=== PATIENT | female | born 1935 | race Caucasian/White ===

== ENCOUNTER → 2016-11-17 05:28 | Emergency (ER) | payer MEDICARE ==
[~2016-11-17 05:28] MED LIST: Aspirin Low Dose CHEW TAB* 81 MG PO ONE; Ketorolac INJ* 30 MG/ML 1 ML VIAL IV PUSH ONE
[2016-11-17 06:13] LABS: Hematocrit 34 % (35-47); Mean Corpuscular HGB Conc 32 g/dl (31-36); Mean Corpuscular Hemoglobin 30 pg (27-31); Mean Corpuscular Volume 95 fL (80-97); Mean Platelet Volume 9 um3 (7.4-10.4); Red Blood Count 3.64 10^6/ul (4.0-5.4); Red Cell Distribution Width 15 % (10.5-15); White Blood Count 5.1 10^3/ul (3.5-10.8)
[2016-11-17 06:26] LABS: Troponin I 0.02 ng/mL (<0.04)
--- NOTE | 2016-11-17 06:36 | ED ---
I, Henrry,Lcuia, scribed for Russ Rivero MD on 11/17/16 at 0619 . HPI Chest Pain - HPI Summary HPI Summary: This 81 y/o female presents to ED for left anterior CP since 0100 AM this morning. CP is described as sharp. Pt states that this episode of chest pain was different from CP last year. Deep breath makes the pain worse. Positive dyspnea. PMHx includes COPD, CHF, afib s/p pacer placement, HTN, and HLD. Primary care involves Dr. Benson. - History of Current Complaint Chief Complaint: EDChestPainROMI Time Seen by Provider: 11/17/16 05:54 Hx Obtained From: Patient, Medical Records Onset/Duration: Atraumatic Timing: Constant Pain Intensity: 5 Pain Scale Used: 0-10 Numeric Chest Pain Location: Diffuse Chest Pain Radiates: No Character: Sharp/Stabbing Aggravating Factor(s): Deep Breaths Alleviating Factor(s): Nothing Associated Signs and Symptoms: Positive: Chest Pain, Shortness of Breath. Negative: Fever - Additional Pertinent History Primary Care Physician: STEPHEN - Allergy/Home Medications Allergies/Adverse Reactions: Allergies Allergy/AdvReac Type Severity Reaction Status Date / Time Latex Allergy Severe Hives Verified 11/17/16 06:14 Penicillins [PCN] Allergy Intermediate Hives Verified 11/17/16 06:14 Prochlorperazine Allergy Intermediate Hives Verified 11/17/16 06:14 [From Compazine] Sulfa Antibiotics Allergy Intermediate Hives Verified 11/17/16 06:14 Aspirin Allergy Mild Hives Verified 11/17/16 06:14 Risperidone [From Risperdal] Allergy Unknown Unknown Verified 11/17/16 06:14 Reaction Details Oxycodone Allergy Hives Verified 11/17/16 06:14 Atorvastatin [From Lipitor] AdvReac Intermediate Muscle Ache Verified 11/17/16 06:14 JOSE Inhibitors AdvReac Mild Coughing Verified 11/17/16 06:14 Bupropion [From Wellbutrin] AdvReac Mild Dizziness Verified 11/17/16 06:14 Iodinated Contrast Media AdvReac Vomiting Verified 11/17/16 06:14 [CONTRAST DYE] BEE STINGS Allergy Severe Hives/Diff. Uncoded 11/17/16 06:14 Breathing/I tching PMH/Surg Hx/FS Hx/Imm Hx Endocrine/Hematology History: Reports: Hx Anticoagulant Therapy, Hx Blood Transfusions, Hx Anemia, Hx Unexplained Bleeding Denies: Hx Diabetes Cardiovascular History: Reports: Hx Angina, Hx 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 chest wall, Hx Hypercholesterolemia, Hx Hypertension, Hx Pacemaker/ICD - 2006, Hx Syncope, Hx Valvular Heart Disease, Other Cardiovascular Problems/Disorders - CAD, VALVULAR HEART DISEASE Denies: Hx Aneurysm, Hx Myocardial Infarction, Hx Rheumatic Fever Comment Only: Hx Coronary Artery Disease - pt states has blockage Respiratory History: Reports: Hx Asthma, Hx Chronic Bronchitis, Hx Chronic Obstructive Pulmonary Disease (COPD), Hx Pneumonia, Hx Pulmonary Embolism - 2002 , Hx Seasonal Allergies, Hx Sleep Apnea GI History: Reports: Hx Diverticulosis, Hx Gastroesophageal Reflux Disease, Hx Ulcer Comment Only: Other GI Disorders - DYSPHAGIA History: Reports: Hx Kidney Infection, Other Problems/Disorders - " bladder disease" Musculoskeletal History: Reports: Hx Arthritis, Hx Back Problems, Hx Bursitis, Hx Gout - great toe on right foot, Hx Osteoporosis Denies: Hx Scoliosis, Hx Tendonitis Sensory History: Reports: Hx Cataracts, Hx Contacts or Glasses - surgery in both eyes Denies: Hx Hearing Aid, Hx Hearing Problem Opthamlomology History: Reports: Hx Cataracts, Hx Contacts or Glasses - surgery in both eyes Neurological History: Reports: Hx Headaches, Hx Transient Ischemic Attacks (TIA ) - x2, Other Neuro Impairments/Disorders - CVA x 4 Psychiatric History: Reports: Hx Anxiety, Hx Eating Disorder, Hx Depression, Hx Community Mental Health Tx - since 1986, Hx Bipolar Disorder - Surgical History Surgery Procedure, Year, and Place: tonsilectomy, tubaligation 1971, cataract surgery Lt 2007, cataract surgery Rt 2008, hysterectomy 1982, pacer 2005, pacer #2 2012, skin graft for villagomez on buttocks Hx Anesthesia Reactions: No Infectious Disease History: No Infectious Disease History: Denies: Traveled Outside the [place] in Last 30 Days - Family History Known Family History: Positive: Cardiac Disease - Social History Alcohol Use: Occasionally Hx Substance Use: No Substance Use Type: Reports: None Hx Tobacco Use: No Smoking Status (MU): Never Smoked Tobacco Review of Systems Negative: Fever Positive: Chest Pain Positive: Shortness Of Breath All Other Systems Reviewed And Are Negative: Yes Physical Exam Triage Information Reviewed: Yes Vital Signs On Initial Exam: Initial Vitals Temp Pulse Resp BP Pulse Ox 97.5 F 85 20 140/96 93 11/17/16 05:29 11/17/16 05:29 11/17/16 05:29 11/17/16 05:29 11/17/16 05:29 Vital Signs Reviewed: Yes Appearance: Positive: Well-Appearing, No Pain Distress Skin: Positive: Warm Eyes: Positive: JENNI ENT: Positive: Hearing grossly normal Neck: Positive: Supple Cardiovascular: Positive: RRR Abdomen Description: Positive: Nontender, Soft Bowel Sounds: Positive: Present Musculoskeletal: Positive: Strength/ROM Intact Neurological: Positive: Alert, Oriented to Person Place, Time Psychiatric: Positive: Affect/Mood Appropriate - [place] Coma Scale Coma Scale Total: 15 Diagnostics - Vital Signs Vital Signs Temp Pulse Resp BP Pulse Ox 11/17/16 05:29 97.5 F 85 20 140/96 93 - Laboratory Result Diagrams: 11/17/16 05:40 11/17/16 05:40 Lab Statement: Any lab studies that have been ordered have been reviewed, and results considered in the medical decision making process. - Radiology CXR Xray Interpretation: Positive (See Comments) - Cardiomegaly otherwise normal Radiology Interpretation Completed By: ED Physician - EKG 0540 EKG Rhythm: Atrial Fibrillation EKG Interpretation: Paced rhythm with intermittent ventricular rhythem EKG Comparison: No Significant Change - 02/25/2016. Chest Pain Course/Dx - Diagnoses Provider Diagnoses: Chest pain Discharge - Discharge Plan Condition: Stable Disposition: OTHER Discharge Disposition Comment: Signed out at shift change. Pending repeat trop and eval Patient Education Materials: Chest Pain (ED) Referrals: Opal Benson MD [Primary Care Provider] - 3 Days The documentation as recorded by the Henrry sotelo Soohyun accurately reflects the service I personally performed and the decisions made by me, Russ Rivero MD.
[2016-11-17 06:40] LABS: Albumin 3.8 g/dL (3.2-5.2); Calcium 8.9 mg/dL (8.6-10.3); EGFR African American 64.7 (>60); EGFR Non-African American 50.3 (>60); Globulin 3.2 g/dL (2-4); Total Bilirubin 0.4 mg/dL (0.2-1.0)
[2016-11-17 06:58] LABS: Urine Bacteria Absent (Absent); Urine Bilirubin Negative (Negative); Urine Glucose Negative (Negative); Urine Nitrite Negative (Negative)
[2016-11-17 09:12] LABS: Magnesium 1.9 mg/dL (1.9-2.7)
[2016-11-17 10:46] VITALS: BP 146/66
--- NOTE | 2016-11-17 10:55 | RAD ---
Indication: Chest pain. 2 views of the chest including dual energy PA views demonstrates cardiomegaly. Pacemaker leads are in place. Hyperinflated lung weinberg are noted. No pleural fluid or pneumonia is identified. IMPRESSION: Cardiomegaly. Hyperinflated lung weinberg are noted.
--- NOTE | 2016-11-17 18:40 | ED ---
Phani Dyer Thomas, scribed for Kirk Holland MD on 11/17/16 at 1025 . Progress - Progress Note Progress Note: The patient is an 81 y/o F who is complaining of chest pain. She is a sign out from Dr. Rivero at 07:00. HE requested to follow up the second troponin and discharge home if the Troponin is negative. The patient is diagnosed with chest pain and is discharged home with follow up from her PCP. I discussed all the findings and test results with the patient. Patient was instructed to return to the emergency room immediately if any of the symptoms return or worsens. Plan of care was discussed with the patient and understands and agrees. All questions were answered at patient satisfaction. There were no further complaints or concerns. Lung exam before discharge: CTA B/L. Good air exchange. No wheezing or crackles heard. CVS: S1 and S2 present. No murmurs appreciated. Patient is alert and oriented x 3. Patient is hemodynamically stable. Patient will be discharged home with follow up PCP in the next 2-3 days Course/Dx - Diagnoses Provider Diagnoses: Chest pain The documentation as recorded by the Phani sotelo Thomas accurately reflects the service I personally performed and the decisions made by me, Kirk Holland MD.
== END ==
LOC: ED 05:28
DX: R07.9 Chest pain, unspecified (principal)
CPT/HCPCS: 36415; 71020; 80053; 81003; 81015; 82550; 83605; 83735; 84484; 85025; 85610; 93005; 99284; J1885

== ENCOUNTER 2017-03-13 11:07 | Emergency (ER) | payer MEDICARE ==
[2017-03-13] MEDS ORDERED: NS 0.9% 1000 ML* 1,000 ML IV ONE (11:22)
[2017-03-13 11:55] LABS: Hematocrit 32 % (35-47); Hemoglobin 10.4 g/dl (12.0-16.0); Mean Corpuscular HGB Conc 33 g/dl (31-36); Mean Corpuscular Hemoglobin 31 pg (27-31); Mean Corpuscular Volume 94 fL (80-97); Mean Platelet Volume 8 um3 (7.4-10.4); Red Cell Distribution Width 14 % (10.5-15)
[2017-03-13 11:59] LABS: Add Diff/Slide Review? Slide Review Added; Comments Flag Yes
[2017-03-13 12:11] LABS: Albumin 3.4 g/dL (3.2-5.2); BUN/Creatinine Ratio 12.7 (8-20); Calcium 8.8 mg/dL (8.6-10.3); EGFR African American 42.9 (>60); EGFR Non-African American 33.3 (>60); Magnesium 1.9 mg/dL (1.9-2.7); Total Bilirubin 0.5 mg/dL (0.2-1.0); Total Protein 6.4 g/dL (6.4-8.9)
[2017-03-13 12:13] LABS: Troponin I 0.01 ng/mL (<0.04)
[2017-03-13 12:55] LABS: TSH (Thyroid Stimulating Horm) 2.05 mcIU/mL (0.34-5.60)
--- NOTE | 2017-03-13 12:58 | RAD ---
INDICATION: Syncope COMPARISON: CT brain April 22, 2014 TECHNIQUE: Noncontrast axial source images were acquired from the skull base to the vertex. FINDINGS: Ventricles/sulci: The ventricles and cisterns are normal in size and configuration for age. Brain parenchyma: There is no focal parenchymal finding, evidence of intracranial mass, or intracranial mass effect. Intracranial hemorrhage:None. Extra-axial spaces: There are no abnormal extra axial fluid collections or evidence of extra-axial mass. Calvarium: There is no calvarial fracture or other calvarial abnormality. Scalp: There is no evidence of scalp or extracalvarial soft tissue abnormality. Paranasal sinuses/mastoid: The paranasal sinuses and mastoid air cells are clear. Other: None. IMPRESSION: NEGATIVE EXAMINATION
[2017-03-13 13:28] LABS: Potassium 4.8 mmol/L (3.5-5.0)
[2017-03-13 13:46] LABS: Benzodiazepine Urine Screen None Detected (None Detect)
[2017-03-13 13:54] LABS: Urine Bacteria Absent (Absent); Urine Bilirubin Negative (Negative); Urine Glucose Negative (Negative); Urine Nitrite Negative (Negative)
[2017-03-13] MEDS ORDERED: Nitrofurantoin Macrocrystals* 100 MG CAP PO ONE (13:58)
[2017-03-13 14:26] VITALS: BP 139/67
--- NOTE | 2017-03-15 09:31 | PN ---
Progress Note - Progress Note Date of Service: 03/13/17 Note: patient diagnosed and treated for UTI. Placed on Macrobid. Preliminary results grew e.coli 50-75,000. will wait for final culture results however should have appropriate coverage. no further changes required at this time.
--- NOTE | 2017-03-15 18:32 | ED ---
Justen Dyer Angela, scribed for Kirk Holland MD on 03/13/17 at 1121 . Syncope/Near Syncope - HPI Summary HPI Summary: This pt is a 81 y/o female presenting to [facility] from [facility] after a syncopal episode during an outpatient CT. Pt reports she was getting a CT and as she sat up to get off the table, pt had a syncopal episode. Pt had LOC for approximately 30 seconds. There was no head strike or trauma. She states Dr. Ramos ordered a CT to locate a clot that was seen in a prior chest XR today. Pt notes feeling better currently. She denies SOB, chest pain, nausea, vomiting , diarrhea, constipation. Pt additionally c/o chronic urinary incontinence and wearing a diaper since 2013. - History Of Current Complaint Chief Complaint: EDSyncope Time Seen by Provider: 03/13/17 11:13 Hx Obtained From: Patient Onset/Duration: Sudden Onset, Resolved Timing: Minutes Context: Witnessed Associated Head Trauma: No Associated Signs And Symptoms: Other - NEG: SOB, chest pain, nausea, vomiting, diarrhea, constipation. POS: chronic urinary incontinence. - Allergies/Home Medications Allergies/Adverse Reactions: Allergies Allergy/AdvReac Type Severity Reaction Status Date / Time Latex Allergy Severe Hives Verified 03/13/17 11:13 Penicillins [PCN] Allergy Intermediate Hives Verified 03/13/17 11:13 Prochlorperazine Allergy Intermediate Hives Verified 03/13/17 11:13 [From Compazine] Sulfa Antibiotics Allergy Intermediate Hives Verified 03/13/17 11:13 Aspirin Allergy Mild Hives Verified 03/13/17 11:13 Risperidone [From Risperdal] Allergy Unknown Unknown Verified 03/13/17 11:13 Reaction Details Oxycodone Allergy Hives Verified 03/13/17 11:13 Procaine [From Novocain] Allergy Dizziness Verified 03/13/17 11:13 Atorvastatin [From Lipitor] AdvReac Intermediate Muscle Ache Verified 03/13/17 11:13 JOSE Inhibitors AdvReac Mild Coughing Verified 03/13/17 11:13 Bupropion [From Wellbutrin] AdvReac Mild Dizziness Verified 03/13/17 11:13 Iodinated Contrast Media AdvReac Vomiting Verified 03/13/17 11:13 [CONTRAST DYE] BEE STINGS Allergy Severe Hives/Diff. Uncoded 03/13/17 11:13 Breathing/I tching Home Medications: Home Medications Warfarin TAB(*) [Coumadin TAB(*)] 2.5 mg PO .Friday03/13/17 [History Confirmed 03/13/17] PMH/Surg Hx/FS Hx/Imm Hx Endocrine/Hematology History: Reports: Hx Anticoagulant Therapy, Hx Blood Transfusions, Hx Anemia, Hx Unexplained Bleeding Denies: Hx Diabetes Cardiovascular History: Reports: Hx Angina, Hx 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 chest wall, Hx Hypercholesterolemia, Hx Hypertension, Hx Pacemaker/ICD, Hx Syncope, Hx Valvular Heart Disease, Other Cardiovascular Problems/Disorders - CAD, VALVULAR HEART DISEASE Denies: Hx Aneurysm, Hx Myocardial Infarction, Hx Rheumatic Fever Comment Only: Hx Coronary Artery Disease - pt states has blockage Respiratory History: Reports: Hx Asthma, Hx Chronic Bronchitis, Hx Chronic Obstructive Pulmonary Disease (COPD), Hx Pneumonia, Hx Pulmonary Embolism - 2002 , Hx Seasonal Allergies, Hx Sleep Apnea GI History: Reports: Hx Diverticulosis, Hx Gastroesophageal Reflux Disease, Hx Ulcer Comment Only: Other GI Disorders - DYSPHAGIA History: Reports: Hx Kidney Infection, Other Problems/Disorders - " bladder disease" Musculoskeletal History: Reports: Hx Arthritis, Hx Back Problems, Hx Bursitis, Hx Gout - great toe on right foot, Hx Osteoporosis Denies: Hx Scoliosis, Hx Tendonitis Sensory History: Reports: Hx Cataracts, Hx Contacts or Glasses - surgery in both eyes Denies: Hx Hearing Aid, Hx Hearing Problem Opthamlomology History: Reports: Hx Cataracts, Hx Contacts or Glasses - surgery in both eyes Neurological History: Reports: Hx Headaches, Hx Transient Ischemic Attacks (TIA ) - x2, Other Neuro Impairments/Disorders - CVA x 4 Psychiatric History: Reports: Hx Anxiety, Hx Eating Disorder, Hx Depression, Hx Community Mental Health Tx - since 1986, Hx Bipolar Disorder - Surgical History Surgery Procedure, Year, and Place: tonsilectomy, tubal igation 1971, cataract surgery Lt 2007, cataract surgery Rt 2008, hysterectomy 1981, pacer 2005, pacer #2 2012, skin graft for villagomez on buttocks Hx Anesthesia Reactions: No Infectious Disease History: No Infectious Disease History: Denies: Traveled Outside the [place] in Last 30 Days - Family History Known Family History: Positive: Cardiac Disease - Social History Alcohol Use: Occasionally Hx Substance Use: No Substance Use Type: Reports: None Hx Tobacco Use: No Smoking Status (MU): Never Smoked Tobacco Review of Systems Negative: Fever, Chills Negative: Chest Pain Negative: Shortness Of Breath Negative: Vomiting, Diarrhea, Nausea, Other - constipation Positive: incontinence - chronic urinary incontinence Musculoskeletal: Negative Skin: Negative Positive: Syncope - and LOC All Other Systems Reviewed And Are Negative: Yes Physical Exam - Summary Physical Exam Summary: VITAL SIGNS: Reviewed. GENERAL: Patient is an elderly female who is lying comfortable in the stretcher. Patient is not in any acute respiratory distress. HEAD AND FACE: No signs of trauma. No ecchymosis, hematomas or skull depressions. No sinus tenderness. EYES: PERRLA, EOMI x 2, No injected conjunctiva, no nystagmus. EARS: Hearing grossly intact. Ear canals and tympanic membranes are within normal limits. MOUTH: Oropharynx within normal limits. Pt has dry nasal and oral mucosa. NECK: Supple, trachea is midline, no adenopathy, no JVD, no carotid bruit, no c- spine tenderness, neck with full ROM. CHEST: Symmetric, no tenderness at palpation LUNGS: Clear to auscultation bilaterally. No wheezing or crackles. CVS: Regular rate and rhythm, S1 and S2 present, no murmurs or gallops appreciated. ABDOMEN: Soft, non-tender. No signs of distention. No rebound no guarding, and no masses palpated. Bowel sounds are normal. EXTREMITIES: FROM in all major joints, no edema, no cyanosis or clubbing. NEURO: Alert and oriented x 3. No acute neurological deficits. Speech is normal and follows commands. SKIN: Dry and warm GCS: 15 Triage Information Reviewed: Yes Vital Signs On Initial Exam: Initial Vitals Temp Pulse Resp BP Pulse Ox 98.5 F 61 17 131/55 100 03/13/17 11:11 03/13/17 11:11 03/13/17 11:11 03/13/17 11:11 03/13/17 11:11 Vital Signs Reviewed: Yes - Jeri Coma Scale Coma Scale Total: 15 Diagnostics - Vital Signs Vital Signs Temp Pulse Resp BP Pulse Ox 03/13/17 11:11 98.5 F 61 22 131/55 100 - Laboratory Result Diagrams: 03/13/17 11:43 03/13/17 11:43 Lab Statement: Any lab studies that have been ordered have been reviewed, and results considered in the medical decision making process. - CT Brain CT CT Interpretation: No Acute Changes - IMPRESSION: Negative examination. ED physician has reviewed this radiology report and agrees. CT Interpretation Completed By: Radiologist - EKG 11:55 Cardiac Rate: NL EKG Rhythm: Atrial Fibrillation - at 60 bpm EKG Interpretation: with alternating paced beats Course/Dx Assessment/Plan: This pt is a 81 y/o female presenting to [facility] from [facility] after a syncopal episode during an outpatient CT. Pt reports she was getting a CT and as she sat up to get off the table, pt had a syncopal episode. Pt had LOC for approximately 30 seconds. There was no head strike or trauma. She states Dr. Ramos ordered a CT to locate a clot that was seen in a prior chest XR today. Pt notes feeling better currently. She denies SOB, chest pain, nausea, vomiting, diarrhea, constipation. Pt additionally c/o chronic urinary incontinence and wearing a diaper since 2013. Test results without any significant abnormalities except for slight anemia and creatinine of 1.50. Urinalysis is positive for a UTI. Therefore, the pt was given IV fluids and Nitrofurantoin for UTI. Brain CT shows a negative examination. Therefore, since the pt is feeling better, the pt will be discharged home with follow up from her PCP. Pt is hemodynamically stable, alert and oriented x3. - Diagnoses Provider Diagnoses: UTI (urinary tract infection), Vasovagal syncope Discharge - Discharge Plan Condition: Stable Disposition: HOME Prescriptions: Nitrofurantoin Macrocrystals* [Macrodantin*] 100 mg PO BID #20 cap Patient Education Materials: Urinary Tract Infection in Women (ED), Syncope (ED ) Referrals: Opal Benson MD [Primary Care Provider] - Additional Instructions: Please follow up with your primary care provider. RETURN TO THE ED FOR ANY WORSENING SYMPTOMS. The documentation as recorded by the Justen sotelo Angela accurately reflects the service I personally performed and the decisions made by , Kirk Holland MD.
--- NOTE | 2017-03-16 15:13 | ED ---
Progress - Progress Note Progress Note: Pt's final sens indicates nitrofurantoin is effective. No change at this time. Course/Dx - Diagnoses Provider Diagnoses: UTI (urinary tract infection), Vasovagal syncope
== END 2017-03-13 14:25 | disposition home or self-care (01) ==
LOC: ED 11:07
DX: N39.0 Urinary tract infection, site not specified (principal); R55 Syncope and collapse; Z88.0 Allergy status to penicillin; Z79.01 Long term (current) use of anticoagulants; B96.20 Unspecified Escherichia coli [E. coli] as the cause of diseases classified elsewhere
CPT/HCPCS: 36415; 70450; 80053; 80307; 81003; 81015; 82550; 83605; 83735; 83880; 84443; 84484; 85025; 85060; 85730; 87077; 87086; 87186; 93005; 96360; 99283; A9270-GY

== ENCOUNTER 2018-01-10 15:33 | Emergency (ER) | payer MEDICARE ==
[2018-01-10] MEDS ORDERED: Acetaminophen TAB* 325 MG PO ONE (16:46)
--- NOTE | 2018-01-10 17:31 | RAD ---
Indication: LEFT forehead hematoma post fall. Anticoagulated. Comparison: March 13, 2017 Technique: Noncontrast CT vertex of skull through foramen magnum. Report: Mild prominence of the cerebral sulci and cerebellar fissures reflecting atrophy. Negative for strauss matter white matter obscuration, intra or extra-axial hemorrhage, or mass effect. Soft tissue swelling superficial to the LEFT eye and extending over the forehead. Negative for post septal LEFT orbital hematoma. The LEFT optic globe is symmetric with the RIGHT. Negative for calvarial or skull base fracture. Clear visualized paranasal sinuses and mastoid air spaces. Large volume of cerumen noted in the external auditory canals. IMPRESSION: #. Soft tissue swelling superficial to the LEFT eye and extending over the forehead. Negative for post septal LEFT orbital hematoma. #. Negative for fracture. #. No CT evidence for traumatic brain injury.
--- NOTE | 2018-01-10 17:33 | ED ---
Head Injury - HPI Summary HPI Summary: Patient is an 82-year-old female presenting from home after mechanical fall, "I tripped over my patient leg" and hitting her head and left side. She denies any pain to the left hip, leg, chest. She endorses pain just superior to the left eye with a large cephalohematoma, bruising and swelling. She denies any LOC. Denies any headache, confusion, memory loss, visual changes. She is also endorsing mild tenderness to the lower quadrant of the abdomen, but states this is very mild and would like Tylenol for this. She has not taken any medication [employer]. Patient endorses blood thinners. She is incontinent at baseline and has a home health aide who was at her side within the fall occurred. She states she 's been feeling otherwise well. - History Of Current Complaint Chief Complaint: EDHeadInjury Stated Complaint: FALL Time Seen by Provider: 01/10/18 15:34 Hx Obtained From: Patient Mechanism Of Injury: Blunt Trauma Onset/Duration: Started Hours Ago Onset of Pain: Hours Severity Currently: Moderate Severity Initially: Mild Pain Intensity: 4 Pain Scale Used: 0-10 Numeric Location of Head Injury: Frontal Character: Dull Alleviating Factor(s): Ice Associated Signs And Symptoms: Negative Anticoagulant Therapy: Blood Thinners - Risk Factors SDH Risk Factor: Elderly - Allergies/Home Medications Allergies/Adverse Reactions: Allergies Allergy/AdvReac Type Severity Reaction Status Date / Time JOSE Inhibitors Allergy Coughing Verified 01/10/18 15:50 aspirin Allergy Hives Verified 01/10/18 15:50 atorvastatin Allergy Muscle Ache Verified 01/10/18 15:50 bee venom protein (honey bee) Allergy Hives/Diff. Verified 01/10/18 15:50 Breathing/I tching bupropion Allergy Dizziness Verified 01/10/18 15:50 Iodinated Contrast- Oral and Allergy Vomiting Verified 01/10/18 15:50 IV Dye latex Allergy Hives Verified 01/10/18 15:50 oxycodone Allergy Hives Verified 01/10/18 15:50 Penicillins Allergy Hives Verified 01/10/18 15:50 procaine Allergy Dizziness Verified 01/10/18 15:50 prochlorperazine Allergy Hives Verified 01/10/18 15:50 risperidone Allergy Unknown Verified 01/10/18 15:50 Reaction Details Sulfa (Sulfonamide Allergy Hives Verified 01/10/18 15:50 Antibiotics) PMH/Surg Hx/FS Hx/Imm Hx Previously Healthy: Yes Endocrine/Hematology History: Reports: Hx Anticoagulant Therapy, Hx Blood Transfusions, Hx Anemia, Hx Unexplained Bleeding Denies: Hx Diabetes Cardiovascular History: Reports: Hx Angina, Hx 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 chest wall, Hx Hypercholesterolemia, Hx Hypertension, Hx Pacemaker/ICD, Hx Syncope, Hx Valvular Heart Disease, Other Cardiovascular Problems/Disorders - CAD, VALVULAR HEART DISEASE Denies: Hx Aneurysm, Hx Myocardial Infarction, Hx Rheumatic Fever Comment Only: Hx Coronary Artery Disease - pt states has blockage Respiratory History: Reports: Hx Asthma, Hx Chronic Bronchitis, Hx Chronic Obstructive Pulmonary Disease (COPD), Hx Pneumonia, Hx Pulmonary Embolism - 2002 , Hx Seasonal Allergies, Hx Sleep Apnea GI History: Reports: Hx Diverticulosis, Hx Gastroesophageal Reflux Disease, Hx Ulcer Comment Only: Other GI Disorders - DYSPHAGIA History: Reports: Hx Kidney Infection, Other Problems/Disorders - " bladder disease" Musculoskeletal History: Reports: Hx Arthritis, Hx Back Problems, Hx Bursitis, Hx Gout - great toe on right foot, Hx Osteoporosis Denies: Hx Scoliosis, Hx Tendonitis Sensory History: Reports: Hx Cataracts, Hx Contacts or Glasses - surgery in both eyes Denies: Hx Hearing Aid, Hx Hearing Problem Opthamlomology History: Reports: Hx Cataracts, Hx Contacts or Glasses - surgery in both eyes Neurological History: Reports: Hx Headaches, Hx Transient Ischemic Attacks (TIA ) - x2, Other Neuro Impairments/Disorders - CVA x 4 Psychiatric History: Reports: Hx Anxiety, Hx Eating Disorder, Hx Depression, Hx Community Mental Health Tx - since 1986, Hx Bipolar Disorder - Surgical History Surgery Procedure, Year, and Place: tonsilectomy, tubal igation 1971, cataract surgery Lt 2007, cataract surgery Rt 2008, hysterectomy 1981, pacer 2005, pacer #2 2012, skin graft for villagomez on buttocks Hx Anesthesia Reactions: No - Immunization History Hx Pertussis Vaccination: No Immunizations Up to Date: Yes Infectious Disease History: No Infectious Disease History: Denies: Traveled Outside the [place] in Last 30 Days - Family History Known Family History: Positive: Cardiac Disease - Social History Occupation: Unemployed, Retired Lives: Alone - with home health aid Alcohol Use: None Hx Substance Use: No Substance Use Type: Reports: None Hx Tobacco Use: No Smoking Status (MU): Never Smoked Tobacco Review of Systems Negative: Fever, Chills, Fatigue, Skin Diaphoresis Negative: Epistaxis, Dental Pain Negative: Palpitations, Chest Pain Genitourinary: Negative Positive: no symptoms reported, see HPI Negative: Arthralgia, Myalgia Positive: Other - cephalohematoma - Left eye Neurological: Negative All Other Systems Reviewed And Are Negative: Yes Physical Exam Triage Information Reviewed: Yes Vital Signs On Initial Exam: Initial Vitals Temp Pulse Resp BP Pulse Ox 97.7 F 72 25 156/67 96 01/10/18 15:34 01/10/18 15:34 01/10/18 15:34 01/10/18 15:34 01/10/18 15:34 Vital Signs Reviewed: Yes Appearance: Positive: Well-Appearing, Well-Nourished Skin: Positive: Skin Color Reflects Adequate Perfusion, Other - cephalohematoma Head/Face: Positive: Cephalohematoma - left eye Neck: Positive: Supple, No Lymphadenopathy Respiratory/Lung Sounds: Positive: Clear to Auscultation, Breath Sounds Present Cardiovascular: Positive: RRR, Pulses are Symmetrical in both Upper and Lower Extremities Musculoskeletal: Positive: Strength/ROM Intact - log rolled patient without pain Neurological: Positive: Speech Normal Psychiatric: Positive: Normal, Affect/Mood Appropriate Diagnostics - Vital Signs Vital Signs Temp Pulse Resp BP Pulse Ox 01/10/18 15:34 97.7 F 72 25 156/67 96 - Laboratory Result Diagrams: 01/10/18 17:58 01/10/18 17:58 Lab Statement: Any lab studies that have been ordered have been reviewed, and results considered in the medical decision making process. Head Injury Course/Dx Course Of Treatment: During the course of treatment, patient is given a Tylenol with good relief. Cephalohematoma noted just superior to the left eye. CT brain obtained which shows no intracranial pathologies, however notes to the cephalohematoma. CT cervical spine obtained which shows no pathologies. There is no ecchymosis or erythema to the abdomen. No other signs of trauma. Log rolled patient with no hip pain. She is signed out to Lai Baker PA-C pending results of CT abd/pelvis and UA. - Diagnoses Differential Diagnosis/HQI/PQRI: Contusion Provider Diagnoses: Traumatic cephalohematoma, Fall Discharge - Sign-Out/Discharge Documenting (check all that apply): Sign-Out Patient Signing out patient TO: Lai Baker - Discharge Plan Condition: Good Disposition: HOME Prescriptions: Cephalexin CAP* [Keflex CAP*] 500 mg PO BID #20 cap Patient Education Materials: Urinary Tract Infection in Women (ED), Fall Prevention for Older Adults (ED), Scalp Contusion in Adults (ED) Referrals: Opal Benson MD [Primary Care Provider] - Additional Instructions: Call your PCP office on Friday for an appointment Take antibiotic as directed Ice face intermittently Can take tylenol for pain as directed Return to ER if symptoms change or worsen - Billing Disposition and Condition Condition: GOOD Disposition: Home
--- NOTE | 2018-01-10 17:38 | RAD ---
INDICATION: Fall with LEFT side forehead hematoma. Anticoagulated. COMPARISON: No relevant prior exams available on the [facility] PACS for comparison. TECHNIQUE: Multidetector CT images foramen magnum to lung apices without contrast. Multiplanar reformation. REPORT: Normal vertebral alignment accounting for exam positioning without spondylolisthesis or subluxation at any level. Negative for cervical vertebral body or posterior element fracture. Negative for paravertebral hematoma. Multilevel degenerative spondylosis and facet joint osteoarthritis. At C4-C5 there is moderately severe disc space narrowing. Mild dorsal disc osteophyte complex results in minimal impression on the anterior margin of the thecal sac. Uncinate process spurring results in moderate LEFT foraminal stenosis. At C5-C6 there is moderate disc space narrowing. Dorsal disc osteophyte complex results in minimal impression on the ventral margin of the thecal sac. Uncinate process spurring and facet joint osteoarthritis results in mild bilateral foraminal stenosis. At C6-C7 there is severe disc space narrowing. Moderate dorsal disc osteophyte complex eccentric to the LEFT results in mild impression on the thecal sac. Uncinate process spurring and facet joint osteoarthritis results in severe LEFT foraminal stenosis. IMPRESSION: #. No CT evidence for traumatic cervical spine injury. #. 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
[2018-01-10 18:10] LABS: ABS Basophils 0 10^3/ul (0-0.2); ABS Eosinophils 0 10^3/ul (0-0.6); ABS Monocytes 0.5 10^3/ul (0-0.8); ABS Neutrophils 3.6 10^3/ul (1.5-7.7); ABS Nucleated RBC 0 10^3/ul; Eosinophil % 0.9 % (0-6); Hematocrit 37 % (35-47); Hemoglobin 12.1 g/dl (12.0-16.0); Lymphocyte % 19.7 % (25-47); Mean Corpuscular HGB Conc 33 g/dl (31-36); Mean Corpuscular Hemoglobin 31 pg (27-31); Mean Corpuscular Volume 95 fL (80-97); Mean Platelet Volume 7.7 um3 (7.4-10.4); Nucleated Red Blood Cells % 0.1; Platelet Count 101 10^3/ul (150-450); Red Blood Count 3.89 10^6/ul (4.00-5.40); Red Cell Distribution Width 14 % (10.5-15); White Blood Count 5.1 10^3/ul (3.5-10.8)
[2018-01-10 18:36] LABS: EGFR Non-African American 46.6 (>60)
--- NOTE | 2018-01-10 19:55 | RAD ---
EXAM: CT Abdomen and Pelvis Without Intravenous Contrast CLINICAL HISTORY: 82 years old, female; Pain and injury or trauma; Fall; Initial encounter; Abrasion; Abdominal pain; Additional info: Fall, pain TECHNIQUE: Axial computed tomography images of the abdomen and pelvis without intravenous contrast. All CT scans at this facility use at least one of these dose optimization techniques: automated exposure control; mA and/or kV adjustment per patient size (includes targeted exams where dose is matched to clinical indication); or iterative reconstruction. Coronal and sagittal reformatted images were created and reviewed. COMPARISON: ABD WO CT ABDOMEN W/O 03/15/2014 3:57 PM FINDINGS: Limitations: Evaluation of parenchymal organs is limited by lack of intravenous contrast. No gross laceration or suspicious mass. Lung bases: See below. ABDOMEN: Liver: Unremarkable. Gallbladder and bile ducts: Unremarkable. No calcified stones. No ductal dilation. Pancreas: Unremarkable. No ductal dilation. Spleen: Mildly enlarged spleen. Unchanged pleural millimeters splenic cyst. Adrenals: Unremarkable. No mass. Kidneys and ureters: Unremarkable. No obstructing stones. No hydronephrosis. Stomach and bowel: Extensive diverticulosis without diverticulitis. No obstruction. PELVIS: Appendix: No findings to suggest acute appendicitis. Bladder: Incomplete distension versus underlying inflammation, or other infiltrative pathology, with possible wall thickening of the urinary bladder. No stones. Reproductive: Unremarkable as visualized. ABDOMEN and PELVIS: Intraperitoneal space: Unremarkable. No free air. No significant fluid collection. Bones/joints: Old left rib fractures. Moderate skeletal degenerative change. No dislocation. Soft tissues: Unremarkable. Vasculature: Moderate atherosclerosis. Lymph nodes: Unremarkable. No enlarged lymph nodes. Other findings: . IMPRESSION: 1. Evaluation of parenchymal organs is limited by lack of intravenous contrast. No gross laceration or suspicious mass. 2. Mildly enlarged spleen. Unchanged pleural 12 mm splenic cyst. 3. Incomplete distension versus underlying inflammation, or other infiltrative pathology, with possible wall thickening of the urinary bladder. To contact [facility] with a general question: [facility] - [phone] For direct physician to physician contact: Physician Hotline - [phone] [facility] ([facility] Facility ID #[id number])
[2018-01-10 20:43] LABS: Urine Appearance Clear; Urine Blood Negative (Negative); Urine Color Straw; Urine Ketones Negative (Negative); Urine Protein Negative (Negative); Urine Red Blood Cell 1+(3-5/hpf) (Absent); Urine Specific Gravity 1.009 (1.010-1.030); Urine Urobilinogen Negative (Negative); Urine White Blood Cell 3+(>20/hpf) (Absent)
[2018-01-10] MEDS ORDERED: Cephalexin SUSP* 250 MG/5 ML ORAL.SUSP 100 ML BTL PO ONE (21:15)
[2018-01-10 22:14] VITALS: BP 183/65
--- NOTE | 2018-01-10 23:29 | PN ---
Progress Note - Progress Note Date of Service: 01/10/18 Note: Pt. received in sign out from LOVE Britton for abd.pelvis ct results. Abd/pelvic CT per virtual radiology: IMPRESSION: 1. Evaluation of parenchymal organs is limited by lack of intravenous contrast. No gross laceration or suspicious mass. 2. Mildly enlarged spleen. Unchanged pleural 12 mm splenic cyst. 3. Incomplete distension versus underlying inflammation, or other infiltrative pathology, with possible wall thickening of the urinary bladder. Pt. was re-examined. She is resting comfortably on bed. CT results were discussed with Dr. Randall. On exam pt. states pain is mostly to her LLQ. She does have some mild LUQ pain but abd. is soft without guarding or rigidity. U/A is contaminated but does show large amount of WBCs and RBCs, will treat for suspected UTI. Will start on keflex based on previous urine cultures. Pt. to call PCP on Friday for close f.u apt. To return to ER if sxs change or worsen. Pt. understands and agrees with plan. Disposition: home Condition: Good Dx: 1. Fall 2. Facial contusion 3. UTI
== END 2018-01-10 21:25 | disposition home or self-care (01) ==
LOC: ED 15:33
DX: S00.83XA Contusion of other part of head, initial encounter (principal); N39.0 Urinary tract infection, site not specified; W18.09XA Striking against other object with subsequent fall, initial encounter; Y92.009 Unspecified place in unspecified non-institutional (private) residence as the place of occurrence of the external cause; R32 Unspecified urinary incontinence; Z86.73 Personal history of transient ischemic attack (TIA), and cerebral infarction without residual deficits
CPT/HCPCS: 36415; 70450; 72125; 74176; 80053; 81003; 81015; 85025; 87086; 99284; A9270-GY

== ENCOUNTER 2018-02-03 11:48 | Inpatient (IN) | payer MEDICARE ==
[2018-02-03] MEDS ORDERED: NS 0.9% 1000 ML* 1,000 ML IV ONE (11:56)
[2018-02-03] MEDS ORDERED: Levofloxacin 750 MG IVPREMIX(* 750 MG/150 ML BAG IVPB ONE (12:10)
--- NOTE | 2018-02-03 12:10 | ED ---
Neurological HPI - HPI Summary HPI Summary: Pt is an 82 y/o female brought in by EMS who presents to the ED c/o neurological deficit. She began to have slurred speech and left-sided weakness at 10:16 today, witnessed by her home nurse. EMS was not called until 11:09. She also c/o fever and dysuria. Pt is on Coumadin and is allergic to contrast. 1 week ago a large chunk of ceiling fell directly on her from a height of 18 feet. Anh Rob called at 11:27, ETA 20 minutes. - History of Current Complaint Stated Complaint: ANH SUBRAMANIAN Hx Obtained From: EMS Onset/Duration: Gradual Onset, Still Present Timing: Constant Neurological Deficit Location: Generalized Character: Weak, Impaired Speech Aggravating: Nothing Alleviating: Nothing TPA Considered: No - on Coumadin - Additional Pertinent History Primary Care Physician: STEPHEN - Allergy/Home Medications Allergies/Adverse Reactions: Allergies Allergy/AdvReac Type Severity Reaction Status Date / Time JOSE Inhibitors Allergy Coughing Verified 01/10/18 15:50 aspirin Allergy Hives Verified 01/10/18 15:50 atorvastatin Allergy Muscle Ache Verified 01/10/18 15:50 bee venom protein (honey bee) Allergy Hives/Diff. Verified 01/10/18 15:50 Breathing/I tching bupropion Allergy Dizziness Verified 01/10/18 15:50 Iodinated Contrast- Oral and Allergy Vomiting Verified 01/10/18 15:50 IV Dye latex Allergy Hives Verified 01/10/18 15:50 oxycodone Allergy Hives Verified 01/10/18 15:50 Penicillins Allergy Hives Verified 01/10/18 15:50 procaine Allergy Dizziness Verified 01/10/18 15:50 prochlorperazine Allergy Hives Verified 01/10/18 15:50 risperidone Allergy Unknown Verified 01/10/18 15:50 Reaction Details Sulfa (Sulfonamide Allergy Hives Verified 01/10/18 15:50 Antibiotics) Home Medications: Home Medications Acetaminophen [Acetaminophen Extra Strength] 1,000 mg PO BEDTIME PRN 02/03/18 [ History Confirmed 02/03/18] Albuterol HFA INHALER* [Ventolin HFA Inhaler*] 2 puff INH Q4H PRN 02/03/18 [ History Confirmed 02/03/18] Digoxin TAB* [Lanoxin TAB*] 0.125 mg PO DAILY 02/03/18 [History Confirmed ] Divalproex ER TAB(*) [Depakote ER TAB(*)] 500 mg PO BID 02/03/18 [History Confirmed 02/03/18] Fluticasone HFA 220 mcg(NF) [Flovent HFA 220 Mcg(NF)] 2 puff INH BID 02/03/18 [ History Confirmed 02/03/18] Meclizine TAB* [Antivert 12.5 TAB*] 12.5 mg PO TID PRN 02/03/18 [History Confirmed 02/03/18] Metoprolol Tartrate TAB* [Lopressor TAB*] 50 mg PO BID 02/03/18 [History Confirmed 02/03/18] Pravastatin (NF) [Pravachol (NF)] 80 mg PO DAILY 02/03/18 [History Confirmed ] Warfarin TAB(*) [Coumadin TAB(*)] 5 mg PO SUMOTUWEFRSA 02/03/18 [History Confirmed 02/03/18] Warfarin TAB(*) [Coumadin TAB(*)] 7.5 mg PO TH 02/03/18 [History Confirmed 02/03] PMH/Surg Hx/FS Hx/Imm Hx Endocrine/Hematology History: Reports: Hx Anticoagulant Therapy, Hx Blood Transfusions, Hx Anemia, Hx Unexplained Bleeding Denies: Hx Diabetes Cardiovascular History: Reports: Hx Angina, Hx 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 chest wall, Hx Hypercholesterolemia, Hx Hypertension, Hx Pacemaker/ICD, Hx Syncope, Hx Valvular Heart Disease, Other Cardiovascular Problems/Disorders - CAD, VALVULAR HEART DISEASE Denies: Hx Aneurysm, Hx Myocardial Infarction, Hx Rheumatic Fever Comment Only: Hx Coronary Artery Disease - pt states has blockage Respiratory History: Reports: Hx Asthma, Hx Chronic Bronchitis, Hx Chronic Obstructive Pulmonary Disease (COPD), Hx Pneumonia, Hx Pulmonary Embolism - 2002 , Hx Seasonal Allergies, Hx Sleep Apnea GI History: Reports: Hx Diverticulosis, Hx Gastroesophageal Reflux Disease, Hx Ulcer Comment Only: Other GI Disorders - DYSPHAGIA History: Reports: Hx Kidney Infection, Other Problems/Disorders - " bladder disease" Musculoskeletal History: Reports: Hx Arthritis, Hx Back Problems, Hx Bursitis, Hx Gout - great toe on right foot, Hx Osteoporosis Denies: Hx Scoliosis, Hx Tendonitis Sensory History: Reports: Hx Cataracts, Hx Contacts or Glasses - surgery in both eyes Denies: Hx Hearing Aid, Hx Hearing Problem Opthamlomology History: Reports: Hx Cataracts, Hx Contacts or Glasses - surgery in both eyes Neurological History: Reports: Hx Headaches, Hx Transient Ischemic Attacks (TIA ) - x2, Other Neuro Impairments/Disorders - CVA x 4 Psychiatric History: Reports: Hx Anxiety, Hx Eating Disorder, Hx Depression, Hx Community Mental [facility] Tx - since 1986, Hx Bipolar Disorder - Surgical History Surgery Procedure, Year, and Place: tonsilectomy, tubal igation 1971, cataract surgery Lt 2007, cataract surgery Rt 2008, hysterectomy 1981, pacer 2005, pacer #2 2012, skin graft for villagomez on buttocks Hx Anesthesia Reactions: No Infectious Disease History: Denies: Traveled Outside the [place] in Last 30 Days - Family History Known Family History: Positive: Cardiac Disease - Social History Alcohol Use: None Hx Substance Use: No Substance Use Type: Reports: None Hx Tobacco Use: No Smoking Status (MU): Never Smoked Tobacco Review of Systems Positive: dysuria Positive: Weakness - Left-sided, Slurred Speech All Other Systems Reviewed And Are Negative: Yes Physical Exam - Summary Physical Exam Summary: Appearance: Well appearing, no pain distress Skin: warm, dry, reflects adequate perfusion, bruise on L maxilla Head/face: normal Eyes: EOMI, JENNI ENT: mucous membranes moist Neck: supple, non-tender Respiratory: CTA, breath sounds present Cardiovascular: heart irregular, pulses symmetrical Abdomen: non-tender, soft Bowel Sounds: present Musculoskeletal: normal, strength/ROM intact Neuro: confusion, symmetric LE weakness, mildly slurred speech, mild aphasia without any definite lateralizing signs GCS: 14 Triage Information Reviewed: Yes Vital Signs Reviewed: Yes Diagnostics - Laboratory Result Diagrams: 02/03/18 12:14 02/03/18 12:14 Lab Statement: Any lab studies that have been ordered have been reviewed, and results considered in the medical decision making process. - Radiology CXR Radiology Interpretation Completed By: Radiologist - Stigmata of obstructive lung disease. Cardiomegaly. No acute cardiopulmonary process evident. ED physician reviewed radiology report. - CT Brain CT CT Interpretation Completed By: Radiologist - No intracranial mass or hemorrhage is noted. Dr. Carney was notified of the results at 12:21 PM. ED physician reviewed radiology report. - EKG 12:12 Cardiac Rate: Other Rate - Rapid AFib 104 bpm EKG Rhythm: Atrial Fibrillation Ectopy: PVCs Summary of EKG Findings: Nl axis, T-wave inversion inferiolaterally NIH Scale - NIH Scale Level of Consciousness: Alert/Keenly Responsive Ask Patient the Month and His/Her Age: [age] Correct/Not Aphasic Ask Pt to Open/Close Eyes and Hot Repairman/Release Non-Paretic Hand: Both Correctly Best Gaze (Only Horizontal Eye Movement): Partial Gaze Palsy Visual Field Testing: No Visual Loss Facial Paresis-Pt to Smile & Close Eyes or Grimace Symmetry: Normal/Symmetrical Motor Function - Right Arm: No Drift-Holds 10 Seconds Motor Function - Left Arm: Drifts LT 10 seconds Motor Function - Right Leg: Drifts LT 10 seconds Motor Function - Left Leg: Drifts LT 10 seconds Limb Ataxia-Must be out of Proportion to Weakness Present: Present in One Limb Sensory (Use Pinprick to Test Arms/Legs/Trunk/Face): Normal Best Language (Describe Picture, Name Items): Some Loss Dysarthria (Read Several Words): Slurs Some Words Extinction and Inattention: No Abnormality Total Score: 8 Course/Dx - Course Course Of Treatment: Patient presented with concern for stroke syndrome however despite an elevated NIH stroke score the patient had nothing focal or lateralizing on exam. The stroke neurologist agreed that the patient was not a candidate for TPA and she proved to not be a candidate for further imaging given that she is allergic to contrast dye and has a pacemaker preventing MRI. She found to have a fever and sepsis syndrome likely as a result of a urinary tract infection. She was hydrated here with improvement. IV Levaquin was started and she was admitted to the hospitalist service. Delirium improved and her speech was clearing throughout her stay. - Differential Dx Differential Diagnoses Neuro: Positive: Other - Stroke syndrome, sepsis, pneumonia, UTI, intracranial hemorrhage related to Coumadin - Diagnoses Provider Diagnoses: UTI (urinary tract infection), Dysarthria, Delirium During the Visit The Following Alert/Code Occurred: Code Rivas - Called at 11:27 - Physician Notifications Discussed Care Of Patient With: Simeon Carney Time Discussed With Above Provider: 12:00 Instructed by Provider To: Other - Pt's symptoms do not represent stroke syndrome. At 13:41, Dr. Adames accepts pt for admission. Discharge - Sign-Out/Discharge Documenting (check all that apply): Patient Departure - Admit - Discharge Plan Condition: Fair Disposition: ADMITTED TO [facility] - Billing Disposition and Condition Condition: FAIR Disposition: Admitted to [facility] - Attestation Statements Document Initiated by Yandy: Yes Documenting Scribe: Lucy Duarte Provider For Whom Yandy is Documenting (Include Credential): Darren Lomeli MD Scribe Attestation: Lucy Dyer, scribed for Darren Lomeli MD on 02/03/18 at 1743. Scribe Documentation Reviewed: Yes Provider Attestation: The documentation as recorded by the Lucy sotelo accurately reflects the service I personally performed and the decisions made by , Darren Lomeli MD
--- NOTE | 2018-02-03 12:27 | RAD ---
Indication: Neurologic changes, coronal strauss. CT of the brain performed without IV contrast. Ventricular structures are midline. No midline shift is noted. The extra-axial spaces are unremarkable. There is no evidence of intracranial mass or hemorrhage. No other high or low density lesions are identified. Mastoid air cells and paranasal sinuses are unremarkable. When compared to previous exam of January 10, 2018 no significant change is noted. IMPRESSION: No intracranial mass or hemorrhage is noted. Dr. Carney was notified of the results at 12:21 PM.
[2018-02-03 12:36] LABS: ABS Basophils 0 10^3/ul (0-0.2); ABS Eosinophils 0 10^3/ul (0-0.6); ABS Lymphocytes 0.7 10^3/ul (1.0-4.8); ABS Neutrophils 4.6 10^3/ul (1.5-7.7); ABS Nucleated RBC 0 10^3/ul; Eosinophil % 0.1 % (0-6); Hematocrit 38 % (35-47); Hemoglobin 12.6 g/dl (12.0-16.0); Lymphocyte % 11.6 % (25-47); Mean Corpuscular HGB Conc 33 g/dl (31-36); Mean Corpuscular Hemoglobin 31 pg (27-31); Mean Corpuscular Volume 95 fL (80-97); Mean Platelet Volume 8.6 um3 (7.4-10.4); Nucleated Red Blood Cells % 0; Platelet Count 103 10^3/ul (150-450); Red Blood Count 4.02 10^6/ul (4.00-5.40); Red Cell Distribution Width 14 % (10.5-15); White Blood Count 6.3 10^3/ul (3.5-10.8)
[2018-02-03 12:51] LABS: INR 3.15 (0.77-1.02)
[2018-02-03 12:56] LABS: EGFR Non-African American 36.6 (>60)
[2018-02-03 13:01] LABS: Urine Appearance Turbid; Urine Blood 2+ (Negative); Urine Color Amber; Urine Ketones Negative (Negative); Urine Protein 2+(100 mg/dL) (Negative); Urine Red Blood Cell 3+(>10/hpf) (Absent); Urine Specific Gravity 1.013 (1.010-1.030); Urine Urobilinogen Negative (Negative); Urine White Blood Cell 3+(>20/hpf) (Absent)
--- NOTE | 2018-02-03 13:34 | RAD ---
Indication: Code strauss. Coronary artery disease. Chronic obstructive pulmonary disease. Comparison: January 10, 2018 CT abdomen. Technique: Upright AP 1305 hours Report: Elevated lung volumes and both diffuse mild prominence of the interstitial markings and patchy rarefaction of the mid to upper lung zone interstitial markings. No focal pulmonary lesion, compelling alveolar consolidation, pleural effusion, pneumothorax. Cardiomegaly. RIGHT atrial and RIGHT ventricular level pacemaker leads. Unremarkable central pulmonary vasculature and mediastinal contours. IMPRESSION: #. Stigmata of obstructive lung disease. #. Cardiomegaly. #. No acute cardiopulmonary process evident.
[2018-02-03] MEDS ORDERED: Ondansetron INJ* 2 MG/ML VIAL IV PRN (14:57)
[2018-02-03] MEDS ORDERED: NS 0.9% 1000 ML* 1,000 ML IV SCH ×2 (15:00→15:54)
[2018-02-03] MEDS ORDERED: Albuterol HFA INHALER* 8 gm MDI INH PRN (15:01)
--- NOTE | 2018-02-03 15:16 | PN ---
Hospitalist Progress Note Date of Service: 02/03/18 HOSPITALIST ADDENDUM Case reviewed and d/w Rose Sanz CERTIFIED MEDICAL CODING SPECIALIST. Mrs Alcala is an 82yo F with PMH of multiple CVAs, Afib, HTN, HLD, COPD, TIN, bipolar disorder who presented to ED with slurred speech and left sided weakness as per neighbor. Her only complaint is dysuria. Labs and CT reviewed. No focal neuro deficits on examination. UA compatible with UTI. Agree with current management.
[2018-02-03] MEDS: cefTRIAXone(*) 1 GM in NS 0.9% 50 ML* 50 ML IVPB SCH (16:56)
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
--- NOTE | 2018-02-03 20:09 | RAD ---
EXAM: US Retroperitoneal Complete. EXAM DATE/TIME: 02/03/2018 7:30 PM CLINICAL HISTORY: 82 years old, female; Signs and symptoms; Other: R/O hydronephrosis TECHNIQUE: Real-time ultrasound of the retroperitoneum with image documentation. Complete exam. COMPARISON: GB US GALL BLADDER 02/25/2016 9:26 AM FINDINGS: Right kidney: The right kidney measures 10.6 x 4.1 x 4.5 cm. No stones, masses or hydronephrosis. Left kidney: The left kidney measures 10.9 x 4.4 a 4.1 cm with a small cyst in the upper pole measuring 1.6 cm. No stones or hydronephrosis. Aorta: Normal. No aneurysm. Common iliac arteries: Normal. Inferior vena cava: Normal. Bladder: The filled bladder has a volume of 60 cc. There is a Estevez catheter in place. IMPRESSION: No hydronephrosis on either side. No stones. Estevez catheter in place. To contact [facility] with a general question: [facility] - [phone] For direct physician to physician contact: Physician Hotline - [phone] [facility] ([facility] Facility ID #[id number])
[2018-02-03] MEDS: Metoprolol Tartrate TAB* 50 mg PO SCH (20:19)
[2018-02-03] MEDS: Divalproex ER TAB(*) 500 MG PO SCH (20:21)
[2018-02-04 06:14] LABS: ABS Basophils 0 10^3/ul (0-0.2); ABS Eosinophils 0 10^3/ul (0-0.6); ABS Lymphocytes 0.6 10^3/ul (1.0-4.8); ABS Monocytes 0.7 10^3/ul (0-0.8); ABS Nucleated RBC 0 10^3/ul; Eosinophil % 0.1 % (0-6); Hematocrit 33 % (35-47); Hemoglobin 10.7 g/dl (12.0-16.0); Mean Corpuscular HGB Conc 33 g/dl (31-36); Mean Corpuscular Hemoglobin 31 pg (27-31); Mean Corpuscular Volume 95 fL (80-97); Mean Platelet Volume 7.4 um3 (7.4-10.4); Nucleated Red Blood Cells % 0.1; Platelet Count 80 10^3/ul (150-450); Red Blood Count 3.45 10^6/ul (4.00-5.40); Red Cell Distribution Width 14 % (10.5-15); White Blood Count 5.3 10^3/ul (3.5-10.8)
[2018-02-04 06:55] LABS: EGFR Non-African American 44.3 (>60)
[2018-02-04] MEDS: CMCS Pravastatin (NF) 20 MG TAB PO SCH (07:42)
[2018-02-04] MEDS: Divalproex ER TAB(*) 500 MG PO SCH ×2 (07:43→21:11)
[2018-02-04] MEDS: Metoprolol Tartrate TAB* 50 mg PO SCH ×2 (07:43→21:11)
[2018-02-04] MEDS: Digoxin TAB* 0.125 MG PO SCH (07:44)
[2018-02-04 09:01] LABS: INR 3.01 (0.77-1.02)
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
--- NOTE | 2018-02-04 12:49 | PN ---
Subjective Date of Service: 02/04/18 Interval History: Pt lethargic in chair. Denies chest pain, shortness of breath, palpitations, dizziness, headache, N/V, abdominal pain, numbness or tingling in lower extremities, focal weakness. Objective Active Medications: Acetaminophen (Tylenol Tab*) 650 mg PO Q4H PRN PRN Reason: FEVER/PAIN Albuterol (Ventolin Hfa Inhaler*) 2 puff INH Q4H PRN PRN Reason: SHORTNESS OF BREATH Digoxin (Lanoxin Tab*) 0.125 mg PO DAILY [facility] Last Admin: 02/04/18 07:44 Dose: 0.125 mg Divalproex Sodium (Depakote Er Tab(*)) 500 mg PO BID [facility] Last Admin: 02/04/18 07:43 Dose: 500 mg Ceftriaxone Sodium 1 gm/ (Sodium Chloride) 50 mls @ 200 mls/hr IVPB Q24H [facility] Last Admin: 02/03/18 16:56 Dose: 200 mls/hr Metoprolol Tartrate (Lopressor Tab*) 50 mg PO BID [facility] Last Admin: 02/04/18 07:43 Dose: 50 mg Ondansetron HCl (Zofran Inj*) 4 mg IV Q4H PRN PRN Reason: NAUSEA/VOMITING Pravastatin Sodium (Pravachol (Nf)) 80 mg PO DAILY [facility]; Protocol Last Admin: 02/04/18 07:42 Dose: 80 mg Warfarin Sodium (Coumadin Tab(*)) 5 mg PO DAILY@1700 [facility]; Protocol Vital Signs - 8 hr 02/04/18 02/04/18 02/04/18 05:01 07:44 07:48 Temperature 99.8 F Pulse Rate 97 78 109 Respiratory 24 22 Rate Blood Pressure 143/89 (mmHg) O2 Sat by Pulse 100 Oximetry 02/04/18 10:57 Temperature 99.3 F Pulse Rate 106 Respiratory 24 Rate Blood Pressure 108/45 (mmHg) O2 Sat by Pulse 97 Oximetry Oxygen Devices in Use Now: Nasal Cannula - on 3L NC Eyes: No Scleral Icterus, PERRLA Ears/Nose/Mouth/Throat: NL Teeth, Lips, Gums, Mucous Membranes Moist Neck: NL Appearance and Movements; NL JVP Respiratory: Symmetrical Chest Expansion and Respiratory Effort - Diminshed breath sounds bilaterally Cardiovascular: NL Sounds; No Murmurs; No JVD, No Edema, - - Irregular rate/ rhythm Abdominal: NL Sounds; No Tenderness; No Distention Extremities: No Edema, No Clubbing, Cyanosis Skin: No Rash or Ulcers, No Nodules or Sclerosis Neurological: NL Muscle Strength and Tone, - - Alert and oriented, however quite lethargic. Able to follow commands. No facial droop or focal motor deficits noted. 5/5 strength demonstrated in all 4 extremeties. No pronator drift. Pt does have resting tremor. Result Diagrams: 02/04/18 05:58 02/04/18 05:58 Microbiology and Other Data: Microbiology 02/03/18 12:14 Aerobic Blood Culture - Preliminary Blood Venous Escherichia Coli Anaerobic Blood Culture - Preliminary No Growth Day 1 02/03/18 12:30 Urine Culture - Preliminary Urine Escherichia Coli 02/03/18 12:21 Aerobic Blood Culture - Preliminary Blood Venous Escherichia Coli Anaerobic Blood Culture - Preliminary Escherichia Coli Assess/Plan/Problems-Billing Assessment: - Patient Problems (1) Encephalopathy Current Visit: Yes Status: Acute Code(s): G93.40 - ENCEPHALOPATHY, UNSPECIFIED SNOMED Code(s): 92035360 Comment: - Pt initially evaluated by neurology as code lantigua, however it is felt that her symptoms likely due to recrudecense of her previous CVA deficits in the setting of infection - Pt lethargic on exam today but without focal findings - Received 1L NS bolus in ED followed by 100mL/hr. - Pt lethargic on exam today, so ammonia, lactic acid and BMP ordered (2) Pyelonephritis due to Escherichia coli Current Visit: Yes Status: Acute Code(s): N12 - TUBULO-INTERSTITIAL NEPHRITIS, NOT SPCF ACUTE OR CHRONIC; B96.20 - UNSP ESCHERICHIA COLI THE CAUSE OF DISEASES CLASSD [facility] SNOMED Code(s): 40422611 Comment: - Presented with dysuria. UA positive for nitrates, WBC, leuk esterase. Urine culture positive for E. coli. Sentitivites pending. Afebrile without leukocytosis. - Ultrasound of bladder without stones or hydronephrosis - Continue ceftriaxone - ID following. Appreciate reqs. (3) Bacteremia due to Escherichia coli Current Visit: Yes Status: Acute Code(s): R78.81 - BACTEREMIA SNOMED Code( s): 882650900245 Comment: - Secondary to E.coli pyelonephritis. Afebrile today without leukocytosis. - Blood cultures from 02/03 positive for E.coli. Repeat cultures sent today. - Continue ceftriaxone - Echo pending. Per ID, if blood cultures clear, unlikely to need WILTON. (4) HLD (hyperlipidemia) Current Visit: No Status: Chronic Priority: Low Code(s): E78.5 - HYPERLIPIDEMIA, UNSPECIFIED SNOMED Code(s): 04712376 Comment: - Continue pravastatin (5) Atrial fibrillation Current Visit: No Status: Chronic Priority: Medium Code(s): I48.91 - UNSPECIFIED ATRIAL FIBRILLATION SNOMED Code(s): 66541468 Comment: - Irregular rate with pacemaker - Anticoagulation: Coumadin held yesterday in the setting of INR 3.01 yesterday. Will restart at 5mg daily today. INR today 3.01 - Rate controlled with metoprolol 50mg BID and digoxin 0.125mg daily (6) Bipolar depression Current Visit: No Status: Chronic Priority: Medium Code(s): F31.30 - BIPOLAR DISORD, CRNT EPSD DEPRESS, MILD OR MOD SEVERT, UNSP SNOMED Code(s): 27747958 Comment: - Continue depakote (7) History of CVA (cerebrovascular accident) Current Visit: No Status: Chronic Priority: Medium Code(s): Z86.73 - PRSNL HX OF TIA (TIA), AND CEREB INFRC W/O RESID DEFICITS SNOMED Code(s): 827714158 Comment: - Evaluated by neurology and felt symptoms unlikely to be stroke. Not tpa candidate due to low NIH and anticoagulation. - Head CT yesterday with no evidence of acute intracranial abnormality. Pt's pacemaker is incompatable with MRI. Echo pending. - Continue anticoagulation and statin (8) Thrombocytopenia Current Visit: Yes Status: Acute Code(s): D69.6 - THROMBOCYTOPENIA, UNSPECIFIED SNOMED Code(s): 588067467 Comment: - Plt 80 today from 103 yesterday. Dilutional in the setting of fluid administration. Could also be secondary to sepsis (9) COPD (chronic obstructive pulmonary disease) Current Visit: No Status: Chronic Priority: Medium Code(s): J44.9 - CHRONIC OBSTRUCTIVE PULMONARY DISEASE, UNSPECIFIED SNOMED Code(s): 67872693 Comment: - No wheezing or evidence of acute exacerbation. Continue supplimental O2 as needed as well as PRN albuterol (10) DVT prophylaxis Current Visit: No Status: Acute Code(s): LDF4257 - SNOMED Code(s): 587196319 Comment: - Warfarin, INR 3.01 Status and Disposition: Inpatient. Per PT, pt will likely need additional services upon discharge
[2018-02-04] MEDS ORDERED: NS 0.9% 1000 ML* 1,000 ML IV ONE (12:52)
--- NOTE | 2018-02-04 13:34 | PN ---
Hospitalist Progress Note Date of Service: 02/04/18 HOSPITALIST ADDENDUM Called by TRAINING CONSULTANT because patient appeared to be more lethargic. Seen and evaluated at bedside. She's now AAOx3, with non focal deficits. I talked to her RN at bedside and the impression is patient was very tired earlier due to multiple tests, PT/OT and now feels better after taking a nap. Will continue to monitor.
[2018-02-04 15:20] LABS: EGFR Non-African American 40.7 (>60)
[2018-02-04] MEDS: cefTRIAXone(*) 1 GM in NS 0.9% 50 ML* 50 ML IVPB SCH (15:47)
[2018-02-04] MEDS: Warfarin TAB(*) 5 MG PO SCH (17:01)
[2018-02-04] MEDS: Acetaminophen TAB* 325 MG PO PRN (17:02)
--- NOTE | 2018-02-04 17:42 | ECHO ---
Patient: JOVANY STONE [facility] Rec#: [id number] : 1935 Date: 02/04/2018 Age: 82y Weight: kg / NaN lbs Sex: F Room#: 404 Admit Date#: 02/03/2018 Type: Inpatient Referring: RICKI DANIELS Reading: Erich Olmos MD Maintenance Of Way Supervisor: Brittney Calvin RN RDCS CC: Opal Benson MD Transthoracic Echocardiogram Indication: Bacteremia BP: 143/89 HR: 65 Rhythm: A-Fib Findings History: A. fib, pacemaker, HTN, HLD, CVAs, COPD. Technical Comments: The study is technically limited due to patient body habitus. The study is technically limited due to the patient's history of COPD. Left Ventricle: The left ventricular chamber size is normal. Mild concentric left ventricular hypertrophy is observed. Global left ventricular wall motion and contractility are within normal limits. There is normal left ventricular systolic function. The estimated ejection fraction is 55-60%. The assessment of diastolic function is non-diagnostic. Left Atrium: The left atrium is moderate to severely dilated. Right Ventricle: The right ventricular cavity size is normal. The right ventricular global systolic function is normal. A pacemaker wire is visualized in the right ventricle. Right Atrium: The right atrium is mildly dilated. A pacemaker wire is visualized in the right atrium. Aortic Valve: The aortic valve is trileaflet. The aortic valve leaflets are mildly thickened. There is aortic annular calcification. There is no evidence of aortic regurgitation. There is mild to moderate aortic stenosis. The mean gradient of the aortic valve is 6 mmHg. The peak instantaneous gradient of the aortic valve is 12 mmHg. The aortic valve area, by peak velocities, is calculated at 1.5 cm2. The aortic valve area, by VTI's, is calculated at 1.5 cm2. There is no aortic vegetation present. Mitral Valve: There is mitral annular calcification. The mitral valve leaflets are mildly thickened. There is mild to moderate mitral regurgitation. There is no evidence of mitral stenosis. No vegetation is observed on the mitral valve. Tricuspid Valve: The tricuspid valve leaflets are normal. There is mild tricuspid regurgitation. There is evidence of mild pulmonary hypertension. There is no tricuspid stenosis. No vegetation is observed on the tricuspid valve. Pulmonic Valve: The pulmonic valve structure is not well visualized. There is a trace pulmonic regurgitation. There is no pulmonic stenosis. Pericardium: There is no significant pericardial effusion. A pericardial fat pad is visualized. Aorta: The ascending aorta is not well visualized. There is no dilatation of the aortic arch. There is no dilation of the aortic root. Pulmonary Artery: The main pulmonary artery is not well visualized. Venous: The inferior vena cava appears normal in size. There is a greater than 50% respiratory change in the inferior vena cava dimension. Summary: There are changes noted when compared to the previous study done on WILTON done 01/03/2017, ASD is not seen now. PHTN is mild instead of severe then. No comment on then. Conclusions The study is technically limited due to patient body habitus. The study is technically limited due to the patient's history of COPD. The left ventricular chamber size is normal. Mild concentric left ventricular hypertrophy is observed. There is normal left ventricular systolic function. The estimated ejection fraction is 55-60%. The assessment of diastolic function is non-diagnostic. The left atrium is moderate to severely dilated. The right atrium is mildly dilated. There is mild to moderate aortic stenosis. The aortic valve area, by peak velocities, is calculated at 1.5 cm2. There is mild to moderate mitral regurgitation. There is mild tricuspid regurgitation. There is a trace pulmonic regurgitation. Measurements Name Value Normal Range RVIDd (AP) 2D 2.7 cm (0.9 - 2.6) RVDdMajor (2D) 3.7 cm (2.2 - 4.4) RAd ISD 4CH 5.4 cm (3.4 - 4.9) RA (A4C)W 4.1 cm (2.9 - 4.6) IVSd (2D) 1.1 cm (0.6 - 1) LVPWd (2D) 1.1 cm (0.6 - 1) LVIDd (2D) 4.9 cm (3.6 - 5.4) LVIDs (2D) 3.3 cm - LV FS (2D) 33 % (25 - 45) Aortic Annulus 2 cm (1.4 - 2.6) Ao root diameter (2D) 2.8 cm (2.1 - 3.5) Aortic arch 2.3 cm (1.8 - 3.4) LA dimension (AP) 2D 3.9 cm (2.3 - 3.8) LAd ISD 4CH 6.2 cm (2.9 - 5.3) LA ISD 4CH W 4.6 cm (2.5 - 4.5) Name Value Normal Range MV E-wave Vmax 1 m/sec - MV deceleration time 214 msec - LV septal e' Vmax 0.13 m/sec - LV lateral e' Vmax 0.11 m/sec - LV E:e' septal ratio 7.7 ratio - LV E:e' lateral ratio 9.1 ratio - Name Value Normal Range AV Vmax 1.8 m/sec - AV VTI 30.3 cm - AV peak gradient 12 mmHg - AV mean gradient 6 mmHg - LVOT diameter 2 cm - LVOT Vmax 0.87 m/sec - LVOT VTI 14.5 cm - LVOT peak gradient 3 mmHg - LVOT mean gradient 2 mmHg - DOI (VTI) 0.48 ratio - DOI (Vmax) 0.48 ratio - IVETH (continuity Vmax) 1.5 cm2 - IVETH (continuity VTI) 1.5 cm2 - DARRICK Vmax 0.67 m/sec - Name Value Normal Range TR Vmax 2.9 m/sec - TR peak gradient 34 mmHg - RAP 3 mmHg - RVSP 37 mmHg - IVC diameter 2 cm - Name Value Normal Range PV Vmax 1.1 m/sec -
--- NOTE | 2018-02-05 06:12 | PN ---
NEUROLOGY PROGRESS NOTE: DATE OF SERVICE: 02/04/18 Neurology is following for the evaluation of slurred speech. CHIEF COMPLAINT: "My speech is much better." SUBJECTIVE: The patient is resting comfortably, in no acute distress. She stated that her speech was better last night. She denied any focal weakness or paresthesias. She denied any headache or visual disturbance. She was evaluated by Dr. Shields. MEDICATIONS: 1. Acetaminophen 650 mg p.o. every 4 hours. 2. Albuterol 2 puffs inhaled every 4 hours as needed. 3. Rocephin 50 mL every 24 hours. 4. Digoxin 0.125 mg p.o. daily. 5. Depakote 500 mg p.o. b.i.d. 6. Metoprolol 50 mg p.o. b.i.d. 7. Zofran 4 mg IV every 4 hours. 8. Pravachol 80 mg p.o. daily. 9. Warfarin 5 mg p.o. daily. REVIEW OF SYSTEMS: The patient complains of a tremor in the right upper extremity that is chronic. She has chronic left hemiparesis. PHYSICAL EXAMINATION: Vitals: Temperature 99.3, heart rate of 61, respiratory rate of 21, oxygen saturation 95 on 2 L, blood pressure of 126/34. General: Ill- appearing, obese female, in no acute distress. Head is atraumatic, normocephalic. Corneas/conjunctivae are clear. Neck is supple and symmetrical, no carotid bruits. Cardiovascular: Irregular rhythm with normal rate. Extremities: Normal range of motion with no cyanosis. Psych: Affect is broad and normal mood. Neurological Examination: She is awake, alert, and oriented to person, place, time, and general circumstance. Speech and language appears normal with no evidence of asphasia or dysarthria. Cranial Nerves: Normal confrontation is seen bilaterally. Pupils are midrange and reactive. Sensation is intact in forehead, cheeks, and jaw region bilaterally. There is no facial asymmetry. Tongue is symmetrical and midline. Motor Examination: Increasing resting tremors in the right upper extremity. She has no weakness on the right upper or lower extremity with a long-tract pyramidal weakness on the left upper and lower extremities with increasing spasticity. Reflex is 1+ throughout with trace at the patella and ankles bilaterally. Sensation is intact to light touch throughout. Gait was not assessed. LABORATORY/IMAGING/OTHER DIAGNOSTIC TESTING: WBC 5.3, hemoglobin 10.7, hematocrit of 33, platelet count of 80. INR is 3.01. Sodium 139, chloride of 108, carbon dioxide of 26, creatinine is 1.17, glucose 106, calcium 7.6. Urine culture is positive for E. coli. ASSESSMENT AND RECOMMENDATION: Mrs. Elysia Gonzalez is an 82-year-old female who presented with worsening dysarthria and left hemiparesis. This seems to have resolved now. It was found that she presented with sepsis with a urinary tract infection. Urine cultures are positive for Escherichia coli. She has been treated with Rocephin. I suspect the patient has had recrudescence of her previous focal neurological deficits in the setting of an infection. She does not have a new stroke. I will defer further management to the primary team. The patient also told me today that she has a diagnosis of Parkinson's disease that is treated conservatively without any dopaminergic medications. I encouraged her to follow up. I will have her follow up with us as an outpatient. Currently, the tremors are stable and she is functional without any disabling symptoms other than the left hemiparesis from her previous lacunar infarction. 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 I encouraged PT/OT evaluation and treatment. She will likely require a short- term rehabilitation. I will sign off, but I am available for any questions or concerns. [id number]/[facility] #: [id number] TINA
[2018-02-05 07:50] LABS: ABS Basophils 0 10^3/ul (0-0.2); ABS Eosinophils 0 10^3/ul (0-0.6); ABS Lymphocytes 0.8 10^3/ul (1.0-4.8); ABS Monocytes 0.6 10^3/ul (0-0.8); ABS Nucleated RBC 0 10^3/ul; Eosinophil % 0.7 % (0-6); Hematocrit 31 % (35-47); Hemoglobin 10.3 g/dl (12.0-16.0); Lymphocyte % 23.4 % (25-47); Mean Corpuscular HGB Conc 33 g/dl (31-36); Mean Corpuscular Hemoglobin 31 pg (27-31); Mean Corpuscular Volume 94 fL (80-97); Mean Platelet Volume 8.1 um3 (7.4-10.4); Nucleated Red Blood Cells % 0.1; Platelet Count 78 10^3/ul (150-450); Red Blood Count 3.27 10^6/ul (4.00-5.40); Red Cell Distribution Width 14 % (10.5-15); White Blood Count 3.4 10^3/ul (3.5-10.8)
[2018-02-05] MEDS: Divalproex ER TAB(*) 500 MG PO SCH ×2 (07:58→20:13)
[2018-02-05] MEDS: Metoprolol Tartrate TAB* 50 mg PO SCH ×2 (07:59→20:14)
[2018-02-05] MEDS: Digoxin TAB* 0.125 MG PO SCH (07:59)
[2018-02-05 08:00] LABS: INR 2.34 (0.77-1.02)
[2018-02-05] MEDS: CMCS Pravastatin (NF) 20 MG TAB PO SCH (08:02)
[2018-02-05 08:06] LABS: EGFR Non-African American 40.7 (>60)
[2018-02-05] MEDS ORDERED: NS 0.9% 1000 ML* 1,000 ML IV SCH (08:45)
--- NOTE | 2018-02-05 08:46 | PN ---
Progress Note - Progress Note Date of Service: 02/05/18 SOAP: Subjective: CC: bacteremia HPI: 82 year old woman admitted with sepsis and encephalopathy. Much improved. Eating breakfast, no pain. No fever, rash, or diarrhea. Objective: Vital Signs Temp 36.8 C 02/05/18 07:27 Pulse 69 02/05/18 07:59 Resp 17 02/05/18 07:27 BP 141/44 02/05/18 07:27 Pulse Ox 93 02/05/18 07:27 Intake & Output 02/04/18 02/05/18 02/05/18 18:59 06:59 18:59 Intake Total 1070 20 Output Total 425 Balance 645 20 Intake: Oral 1070 20 Output: Estevez 425 Other: Estimated Void Large # Bowel Movements 0 # Voids 1 Gen:awake, no distress HEENT: no thrush Heart:RRR , 2/6 systolic murmur, left chest pacer site no erythema Lungs:CTA BL Abd:+BS NTND soft Skin: no rash Laboratory Results - last 24 hr 02/04/18 02/04/18 02/04/18 08:39 14:44 14:48 WBC RBC Hgb Hct MCV MCH MCHC RDW Plt Count MPV Neut % (Auto) Lymph % (Auto) Appling % (Auto) Eos % (Auto) Baso % (Auto) Absolute Neuts (auto) Absolute Lymphs (auto) Absolute Monos (auto) Absolute Eos (auto) Absolute Basos (auto) Absolute Nucleated RBC Nucleated RBC % INR (Anticoag Therapy) 3.01 H Sodium 136 Potassium 4.5 Chloride 106 Carbon Dioxide 25 Anion Gap 5 BUN 24 Creatinine 1.26 H Est GFR ( Amer) 49.2 Est GFR (Non-Af Amer) 40.7 BUN/Creatinine Ratio 19.0 Glucose 99 Lactic Acid 0.6 Calcium 7.6 L Total Bilirubin AST ALT Alkaline Phosphatase Ammonia Total Protein Albumin Globulin Albumin/Globulin Ratio 02/04/18 02/05/18 02/05/18 14:48 07:23 07:23 WBC 3.4 L RBC 3.27 L Hgb 10.3 L Hct 31 L MCV 94 MCH 31 MCHC 33 RDW 14 Plt Count 78 L MPV 8.1 Neut % (Auto) 58.3 Lymph % (Auto) 23.4 L Appling % (Auto) 17.1 H Eos % (Auto) 0.7 Baso % (Auto) 0.5 Absolute Neuts (auto) 2.0 Absolute Lymphs (auto) 0.8 L Absolute Monos (auto) 0.6 Absolute Eos (auto) 0 Absolute Basos (auto) 0 Absolute Nucleated RBC 0 Nucleated RBC % 0.1 INR (Anticoag Therapy) Sodium 136 Potassium 4.8 Chloride 105 Carbon Dioxide 26 Anion Gap 5 BUN 24 Creatinine 1.26 H Est GFR ( Amer) 49.2 Est GFR (Non-Af Amer) 40.7 BUN/Creatinine Ratio 19.0 Glucose 98 Lactic Acid Calcium 7.9 L Total Bilirubin 0.30 AST 12 L ALT 7 Alkaline Phosphatase 28 L Ammonia 63 H Total Protein 6.2 L Albumin 3.0 L Globulin 3.2 Albumin/Globulin Ratio 0.9 L 02/05/18 07:23 WBC RBC Hgb Hct MCV MCH MCHC RDW Plt Count MPV Neut % (Auto) Lymph % (Auto) Appling % (Auto) Eos % (Auto) Baso % (Auto) Absolute Neuts (auto) Absolute Lymphs (auto) Absolute Monos (auto) Absolute Eos (auto) Absolute Basos (auto) Absolute Nucleated RBC Nucleated RBC % INR (Anticoag Therapy) 2.34 H Sodium Potassium Chloride Carbon Dioxide Anion Gap BUN Creatinine Est GFR ( Amer) Est GFR (Non-Af Amer) BUN/Creatinine Ratio Glucose Lactic Acid Calcium Total Bilirubin AST ALT Alkaline Phosphatase Ammonia Total Protein Albumin Globulin Albumin/Globulin Ratio Microbiology 02/03/18 12:14 Aerobic Blood Culture - Final Blood Venous Escherichia Coli Anaerobic Blood Culture - Final Escherichia Coli 02/03/18 12:21 Aerobic Blood Culture - Final Blood Venous Escherichia Coli Anaerobic Blood Culture - Final Escherichia Coli 02/03/18 12:30 Urine Culture - Preliminary Urine Escherichia Coli Assessment: 1. sepsis and encephalopathy, present on admission, resolved 2. E.coli bacteremia due to E.coli pylenophritis 3. Obesity 4. presence of pacemaker Plan: 1. will change ceftriaxone to amoxicillin 500 mg po tid if fu BC are negative to complete 10 days total of antibiotics. Check PVR. 25 minutes floor time >50% face to face discussing prognosis and coordinating care with RN
--- NOTE | 2018-02-05 09:47 | PN ---
Subjective Date of Service: 02/05/18 Interval History: Pt resting comfortably in bed. Lethargic, as reports she has not been sleeping well. Denies dizziness, headache, chest pain, shortness of breath, abdominal pain, N/V, dysuria. Objective Active Medications: Acetaminophen (Tylenol Tab*) 650 mg PO Q4H PRN PRN Reason: FEVER/PAIN Last Admin: 02/04/18 17:02 Dose: 650 mg Albuterol (Ventolin Hfa Inhaler*) 2 puff INH Q4H PRN PRN Reason: SHORTNESS OF BREATH Digoxin (Lanoxin Tab*) 0.125 mg PO DAILY [facility] Last Admin: 02/05/18 07:59 Dose: 0.125 mg Divalproex Sodium (Depakote Er Tab(*)) 500 mg PO BID [facility] Last Admin: 02/05/18 07:58 Dose: 500 mg Ceftriaxone Sodium 1 gm/ (Sodium Chloride) 50 mls @ 200 mls/hr IVPB Q24H [facility] Last Admin: 02/04/18 15:47 Dose: 200 mls/hr Sodium Chloride (Ns 0.9% 1000 Ml*) 1,000 mls @ 75 mls/hr IV PER RATE [facility] Metoprolol Tartrate (Lopressor Tab*) 50 mg PO BID [facility] Last Admin: 02/05/18 07:59 Dose: 50 mg Ondansetron HCl (Zofran Inj*) 4 mg IV Q4H PRN PRN Reason: NAUSEA/VOMITING Pravastatin Sodium (Pravachol (Nf)) 80 mg PO DAILY [facility]; Protocol Last Admin: 02/05/18 08:02 Dose: 80 mg Warfarin Sodium (Coumadin Tab(*)) 5 mg PO DAILY@1700 [facility]; Protocol Last Admin: 02/04/18 17:01 Dose: 5 mg Vital Signs - 8 hr 02/05/18 02/05/18 02/05/18 03:06 07:27 07:57 Temperature 100.0 F 98.3 F Pulse Rate 95 111 69 Respiratory 22 17 Rate Blood Pressure 112/41 141/44 (mmHg) O2 Sat by Pulse 99 93 Oximetry 02/05/18 07:59 Temperature Pulse Rate 69 Respiratory Rate Blood Pressure (mmHg) O2 Sat by Pulse Oximetry Oxygen Devices in Use Now: Nasal Cannula Eyes: No Scleral Icterus, PERRLA Ears/Nose/Mouth/Throat: NL Teeth, Lips, Gums, Mucous Membranes Moist Neck: NL Appearance and Movements; NL JVP Respiratory: Symmetrical Chest Expansion and Respiratory Effort, Clear to Auscultation - Lung sounds diminished Cardiovascular: - - Irregular HR. S1 S2 No murmurs appreciated. No edema Abdominal: NL Sounds; No Tenderness; No Distention Extremities: No Edema, No Clubbing, Cyanosis Skin: No Rash or Ulcers, No Nodules or Sclerosis Neurological: - - 4/5 strength bilaterally. Lethargic, but answers questions approptiately. No facial droop. No focal deficits appreciated. Does have resting tremor Nutrition: Taking PO's Result Diagrams: 02/06/18 04:45 02/06/18 04:45 Microbiology and Other Data: Microbiology 02/03/18 12:14 Aerobic Blood Culture - Preliminary Blood Venous Escherichia Coli Anaerobic Blood Culture - Preliminary No Growth Day 1 02/03/18 12:30 Urine Culture - Preliminary Urine Escherichia Coli 02/03/18 12:21 Aerobic Blood Culture - Preliminary Blood Venous Escherichia Coli Anaerobic Blood Culture - Preliminary Escherichia Coli Assess/Plan/Problems-Billing Assessment: 82 year old female with PMH afib, CVA x4, HTN, HLD, COPD presented to ED with AMS and dysuria. Found to have ecoli uti + bacteremia. Started on ceftriaxone. - Patient Problems (1) Encephalopathy Current Visit: Yes Status: Acute Code(s): G93.40 - ENCEPHALOPATHY, UNSPECIFIED SNOMED Code(s): 66224667 Comment: - Secondary to infection. Improved. - Pt lethargic on exam today but without focal findings. Able to answer questions appropriately. (2) Pyelonephritis due to Escherichia coli Current Visit: Yes Status: Acute Code(s): N12 - TUBULO-INTERSTITIAL NEPHRITIS, NOT SPCF ACUTE OR CHRONIC; B96.20 - UNSP ESCHERICHIA COLI THE CAUSE OF DISEASES CLASSD [facility] SNOMED Code(s): 01609463 Comment: - Septic on admission with fever, tachypnea, UTI, but sepsis has resolved. Afebrile without leukocytosis. - Ultrasound of bladder without stones or hydronephrosis - Pansensitive E. coli on culture - ID following. Appreciate reqs: Continue ceftriaxone for now and if BC clear can start amoxicillin 500mg PO TID - Post void residual today 480mL. Straight cathed. Will recheck tomorrow and consider urology consult if still elevated. (3) Bacteremia due to Escherichia coli Current Visit: Yes Status: Acute Code(s): R78.81 - BACTEREMIA SNOMED Code( s): 738692691505 Comment: - Secondary to E.coli pyelonephritis. Afebrile today without leukocytosis. - Blood cultures from 02/03 positive for E.coli. Repeat cultures pending - TTE with no vegetation visualized - Per ID, if blood cultures clear, unlikely to need WILTON. Abx plan as above (4) HLD (hyperlipidemia) Current Visit: No Status: Chronic Priority: Low Code(s): E78.5 - HYPERLIPIDEMIA, UNSPECIFIED SNOMED Code(s): 15444201 Comment: - Continue pravastatin (5) Atrial fibrillation Current Visit: No Status: Chronic Priority: Medium Code(s): I48.91 - UNSPECIFIED ATRIAL FIBRILLATION SNOMED Code(s): 43552112 Comment: - Irregular rate with pacemaker - Anticoagulation: On coumadin - Rate controlled with metoprolol 50mg BID and digoxin 0.125mg daily (6) Urinary retention with incomplete bladder emptying Current Visit: Yes Status: Acute Code(s): R33.9 - RETENTION OF URINE, UNSPECIFIED SNOMED Code(s): 659109028 Comment: - With associated overflow incontinence - Post void residual 480mL. Have placed watkins, which has drained 500mL+ so far. Will leave in place and attempt voiding trial in 72 hrs (7) Bipolar depression Current Visit: No Status: Chronic Priority: Medium Code(s): F31.30 - BIPOLAR DISORD, CRNT EPSD DEPRESS, MILD OR MOD SEVERT, UNSP SNOMED Code(s): 67918414 Comment: - Continue depakote (8) History of CVA (cerebrovascular accident) Current Visit: No Status: Chronic Priority: Medium Code(s): Z86.73 - PRSNL HX OF TIA (TIA), AND CEREB INFRC W/O RESID DEFICITS SNOMED Code(s): 443108753 Comment: - Evaluated by neurology and felt encephalopathy unlikely to be stroke. Head CT yesterday with no evidence of acute intracranial abnormality. Pt's pacemaker is incompatable with MRI. - Continue anticoagulation and statin (9) Thrombocytopenia Current Visit: Yes Status: Acute Code(s): D69.6 - THROMBOCYTOPENIA, UNSPECIFIED SNOMED Code(s): 202854411 Comment: - 103--> 80-->78 Plt. In the setting of sepsis (10) COPD (chronic obstructive pulmonary disease) Current Visit: No Status: Chronic Priority: Medium Code(s): J44.9 - CHRONIC OBSTRUCTIVE PULMONARY DISEASE, UNSPECIFIED SNOMED Code(s): 75653343 Comment: - No wheezing or evidence of acute exacerbation. Continue supplimental O2 as needed as well as PRN albuterol (11) Parkinson disease Current Visit: Yes Status: Acute Code(s): G20 - PARKINSON'S DISEASE SNOMED Code(s): 80304027 Comment: - Pt does report hx parkinson's disease, however not on any medications - Dr. Carney feels likely vascular in origin and recommends outpatient follow up (12) DVT prophylaxis Current Visit: No Status: Acute Code(s): MTD1758 - SNOMED Code(s): 931821134 Comment: - Warfarin. Therapeutic INR (13) DNR (do not resuscitate) Current Visit: Yes Status: Acute Status and Disposition: Inpatient. Per PT, will likely need SCOTT upon discharge
[2018-02-05] MEDS: Warfarin TAB(*) 5 MG PO SCH (18:23)
[2018-02-05] MEDS: cefTRIAXone(*) 1 GM in NS 0.9% 50 ML* 50 ML IVPB SCH (18:23)
[2018-02-05] MEDS: Acetaminophen TAB* 325 MG PO PRN (20:13)
[2018-02-06 05:04] LABS: ABS Basophils 0 10^3/ul (0-0.2); ABS Eosinophils 0.1 10^3/ul (0-0.6); ABS Lymphocytes 0.8 10^3/ul (1.0-4.8); ABS Monocytes 0.7 10^3/ul (0-0.8); ABS Neutrophils 2.3 10^3/ul (1.5-7.7); ABS Nucleated RBC 0 10^3/ul; Eosinophil % 1.6 % (0-6); Hematocrit 30 % (35-47); Lymphocyte % 20.2 % (25-47); Mean Corpuscular HGB Conc 33 g/dl (31-36); Mean Corpuscular Hemoglobin 31 pg (27-31); Mean Corpuscular Volume 94 fL (80-97); Mean Platelet Volume 7.6 um3 (7.4-10.4); Nucleated Red Blood Cells % 0.1; Platelet Count 83 10^3/ul (150-450); Red Blood Count 3.21 10^6/ul (4.00-5.40); Red Cell Distribution Width 14 % (10.5-15); White Blood Count 3.8 10^3/ul (3.5-10.8)
[2018-02-06] MEDS: CMCS Pravastatin (NF) 20 MG TAB PO SCH (09:09)
[2018-02-06] MEDS: Digoxin TAB* 0.125 MG PO SCH (09:09)
[2018-02-06] MEDS: Metoprolol Tartrate TAB* 50 mg PO SCH ×2 (09:11→21:39)
[2018-02-06] MEDS: Divalproex ER TAB(*) 500 MG PO SCH ×2 (09:11→21:39)
[2018-02-06] MEDS: Acetaminophen TAB* 325 MG PO PRN ×2 (09:19→16:38)
--- NOTE | 2018-02-06 09:42 | PN ---
Subjective Date of Service: 02/06/18 Interval History: Pt resting comfortably in bed. Endorses sharp left lower extremity pain from just above ankle to foot. Denies numbness or tingling in lower extremities. No calf pain. No erythema or edema noted. Given tylenol. Denies shortness of breath , chest pain, dizziness or headache, N/V/ abdominal pain Objective Active Medications: Acetaminophen (Tylenol Tab*) 650 mg PO Q4H PRN PRN Reason: FEVER/PAIN Last Admin: 02/06/18 09:19 Dose: 650 mg Albuterol (Ventolin Hfa Inhaler*) 2 puff INH Q4H PRN PRN Reason: SHORTNESS OF BREATH Digoxin (Lanoxin Tab*) 0.125 mg PO DAILY [facility] Last Admin: 02/06/18 09:09 Dose: 0.125 mg Divalproex Sodium (Depakote Er Tab(*)) 500 mg PO BID [facility] Last Admin: 02/06/18 09:11 Dose: 500 mg Ceftriaxone Sodium 1 gm/ (Sodium Chloride) 50 mls @ 200 mls/hr IVPB Q24H [facility] Last Admin: 02/05/18 18:23 Dose: 200 mls/hr Metoprolol Tartrate (Lopressor Tab*) 50 mg PO BID [facility] Last Admin: 02/06/18 09:11 Dose: 50 mg Ondansetron HCl (Zofran Inj*) 4 mg IV Q4H PRN PRN Reason: NAUSEA/VOMITING Pravastatin Sodium (Pravachol (Nf)) 80 mg PO DAILY [facility]; Protocol Last Admin: 02/06/18 09:09 Dose: 80 mg Warfarin Sodium (Coumadin Tab(*)) 5 mg PO DAILY@1700 [facility]; Protocol Last Admin: 02/05/18 18:23 Dose: 5 mg Vital Signs - 8 hr 02/06/18 02/06/18 02/06/18 03:06 07:15 07:16 Temperature 97.7 F Pulse Rate 60 Respiratory 17 20 Rate Blood Pressure 122/55 (mmHg) O2 Sat by Pulse 100 95 Oximetry 02/06/18 02/06/18 07:46 09:09 Temperature 98.5 F Pulse Rate 88 88 Respiratory 16 Rate Blood Pressure 128/91 (mmHg) O2 Sat by Pulse 98 Oximetry Oxygen Devices in Use Now: Nasal Cannula Eyes: No Scleral Icterus, PERRLA Ears/Nose/Mouth/Throat: NL Teeth, Lips, Gums, Mucous Membranes Moist Neck: NL Appearance and Movements; NL JVP Respiratory: Symmetrical Chest Expansion and Respiratory Effort, Clear to Auscultation - Diminished Cardiovascular: NL Sounds; No Murmurs; No JVD, No Edema, - - Irregular rate and rhythm Abdominal: NL Sounds; No Tenderness; No Distention Extremities: No Edema, No Clubbing, Cyanosis, - - No erythema or edema on LLE Skin: No Rash or Ulcers, No Nodules or Sclerosis Neurological: Alert and Oriented x 3, NL Sensation, NL Muscle Strength and Tone , - - Pt has resting tremor Lines/Tubes/Other Access: Clean, Dry and Intact Peripheral IV Nutrition: Taking PO's Result Diagrams: 02/06/18 04:45 02/06/18 04:45 Microbiology and Other Data: Microbiology 02/03/18 12:14 Aerobic Blood Culture - Preliminary Blood Venous Escherichia Coli Anaerobic Blood Culture - Preliminary No Growth Day 1 02/03/18 12:30 Urine Culture - Preliminary Urine Escherichia Coli 02/03/18 12:21 Aerobic Blood Culture - Preliminary Blood Venous Escherichia Coli Anaerobic Blood Culture - Preliminary Escherichia Coli Assess/Plan/Problems-Billing Assessment: 82 year old female with PMH afib, CVA x4, HTN, HLD, COPD presented to ED with AMS and dysuria. Found to have ecoli uti + bacteremia. Started on ceftriaxone. - Patient Problems (1) Septic encephalopathy Current Visit: Yes Status: Acute Code(s): G93.41 - METABOLIC ENCEPHALOPATHY SNOMED Code(s): 257080686 Comment: - Secondary to E. coli UTI and bacteremia as below. Resolved with IVF and antibiotics. (2) Pyelonephritis due to Escherichia coli Current Visit: Yes Status: Acute Code(s): N12 - TUBULO-INTERSTITIAL NEPHRITIS, NOT SPCF ACUTE OR CHRONIC; B96.20 - UNSP ESCHERICHIA COLI THE CAUSE OF DISEASES CLASSD [facility] SNOMED Code(s): 30422734 Comment: - Septic on admission with fever, tachypnea, UTI, but sepsis has resolved. Afebrile without leukocytosis. - Ultrasound of bladder without stones or hydronephrosis - Pansensitive E. coli on culture - ID following. Appreciate reqs: Continue ceftriaxone for now and if BC clear can start amoxicillin 500mg PO TID (3) Bacteremia due to Escherichia coli Current Visit: Yes Status: Acute Code(s): R78.81 - BACTEREMIA SNOMED Code( s): 533851708288 Comment: - Secondary to E.coli pyelonephritis. Afebrile today without leukocytosis. - Blood cultures from 02/03 positive for E.coli. Repeat cultures pending, negative to date - TTE with no vegetation visualized - Per ID, if blood cultures clear, unlikely to need WILTON. Abx plan as above (4) HLD (hyperlipidemia) Current Visit: No Status: Chronic Priority: Low Code(s): E78.5 - HYPERLIPIDEMIA, UNSPECIFIED SNOMED Code(s): 06472188 Comment: - Continue pravastatin (5) Atrial fibrillation Current Visit: No Status: Chronic Priority: Medium Code(s): I48.91 - UNSPECIFIED ATRIAL FIBRILLATION SNOMED Code(s): 61442273 Comment: - Irregular rate with pacemaker - Anticoagulation: On coumadin 5mg daily. Dose held on day of admission due to supratherapeutic INR. At home takes 7.5mg on , but 5mg the rest of the days of the week - Rate controlled with metoprolol 50mg BID and digoxin 0.125mg daily (6) Urinary retention with incomplete bladder emptying Current Visit: Yes Status: Acute Code(s): R33.9 - RETENTION OF URINE, UNSPECIFIED SNOMED Code(s): 942019821 Comment: - With associated overflow incontinence - Post void residual 480mL. Have placed watkins, which has drained 500mL+ so far. Will leave in place and attempt voiding trial in 72 hrs (7) Bipolar depression Current Visit: No Status: Chronic Priority: Medium Code(s): F31.30 - BIPOLAR DISORD, CRNT EPSD DEPRESS, MILD OR MOD SEVERT, UNSP SNOMED Code(s): 61382071 Comment: - Continue depakote (8) History of CVA (cerebrovascular accident) Current Visit: No Status: Chronic Priority: Medium Code(s): Z86.73 - PRSNL HX OF TIA (TIA), AND CEREB INFRC W/O RESID DEFICITS SNOMED Code(s): 330475815 Comment: - Evaluated by neurology and felt encephalopathy unlikely to be stroke. - Head CT with no evidence of acute intracranial abnormality - Continue anticoagulation and statin (9) Thrombocytopenia Current Visit: Yes Status: Acute Code(s): D69.6 - THROMBOCYTOPENIA, UNSPECIFIED SNOMED Code(s): 475210687 Comment: - Trending back up today. In the setting of sepsis/ volume administration (10) COPD (chronic obstructive pulmonary disease) Current Visit: No Status: Chronic Priority: Medium Code(s): J44.9 - CHRONIC OBSTRUCTIVE PULMONARY DISEASE, UNSPECIFIED SNOMED Code(s): 08567100 Comment: - No wheezing or evidence of acute exacerbation. Continue supplimental O2 as needed as well as PRN albuterol. Pt does normally sleep with 3L supplimental O2 at night. Can titrate off during the day. (11) Parkinson disease Current Visit: Yes Status: Acute Code(s): G20 - PARKINSON'S DISEASE SNOMED Code(s): 98699559 Comment: - Pt does report hx parkinson's disease, however not on any medications - Dr. Carney feels likely vascular in origin and recommends outpatient follow up (12) DVT prophylaxis Current Visit: No Status: Acute Code(s): HBT2579 - SNOMED Code(s): 835789543 Comment: - Warfarin. Therapeutic INR (13) DNR (do not resuscitate) Current Visit: Yes Status: Acute Status and Disposition: Inpatient. Per PT, will likely need SCOTT upon discharge
[2018-02-06 10:59] LABS: INR 1.67 (0.77-1.02)
[2018-02-06] MEDS: Amoxicillin PO (*) 500 MG CAP PO SCH ×2 (15:25→21:39)
[2018-02-06] MEDS: Warfarin TAB(*) 5 MG PO SCH (17:42)
[2018-02-06] MEDS ORDERED: Senna TAB PO PRN (23:55)
[2018-02-07] MEDS: Docusate CAP* 100 MG PO SCH ×3 (00:29→20:10)
--- NOTE | 2018-02-07 08:51 | PN ---
Subjective Date of Service: 02/07/18 Interval History: Ms. Alcala feels well this morning. Her only complaint is that her buttocks is sore from laying in bed, though this is better when she is sitting and not laying down. She was incontinent of stool this morning in bed. She does feel weaker than normal and believes that SCOTT would be a good option for her. She would ideally like to go to [facility] as she lives quite close to there. She denies CP, SOB, N/V/D, dizziness. Family History: Unchanged from Admission Social History: Unchanged from Admission Past Medical History: Unchanged from Admission Objective Active Medications: Acetaminophen (Tylenol Tab*) 650 mg PO Q4H PRN Albuterol (Ventolin Hfa Inhaler*) 2 puff INH Q4H PRN Amoxicillin (Amoxicillin Po (*)) 500 mg PO TID [facility] Digoxin (Lanoxin Tab*) 0.125 mg PO DAILY [facility] Divalproex Sodium (Depakote Er Tab(*)) 500 mg PO BID [facility] Docusate Sodium (Colace Cap*) 100 mg PO BID [facility] Heparin Sodium (Porcine) (Heparin Flush Picc/Ml/Cvc(*)) 1 ml FLUSH 0600,1800 [facility]; Protocol Metoprolol Tartrate (Lopressor Tab*) 50 mg PO BID [facility] Ondansetron HCl (Zofran Inj*) 4 mg IV Q4H PRN Pravastatin Sodium (Pravachol (Nf)) 80 mg PO DAILY [facility]; Protocol Senna (Senokot Tab*) 2 tab PO BEDTIME PRN Warfarin Sodium (Coumadin Tab(*)) 5 mg PO DAILY@1700 [facility]; Protocol Vital Signs - 8 hr 02/07/18 02/07/18 03:16 03:28 Temperature 98.4 F Pulse Rate 42 78 Respiratory 17 Rate Blood Pressure 125/47 (mmHg) O2 Sat by Pulse 100 Oximetry Oxygen Devices in Use Now: Nasal Cannula Appearance: Pleasant elderly woman laying in bed in NAD Eyes: No Scleral Icterus Ears/Nose/Mouth/Throat: Mucous Membranes Moist Neck: NL Appearance and Movements; NL JVP Respiratory: Symmetrical Chest Expansion and Respiratory Effort, Clear to Auscultation Cardiovascular: NL Sounds; No Murmurs; No JVD, - - Irregular rhythm Abdominal: NL Sounds; No Tenderness; No Distention Extremities: No Edema, No Clubbing, Cyanosis Skin: No Rash or Ulcers Neurological: Alert and Oriented x 3 Lines/Tubes/Other Access: Clean, Dry and Intact Estevez, Clean, Dry and Intact Peripheral IV Nutrition: Taking PO's Result Diagrams: 02/07/18 08:54 02/07/18 08:54 Assess/Plan/Problems-Billing Assessment: Ms. Alcala is an 82 year old female with PMH of afib, CVA x4, HTN, HLD, COPD presented to ED with AMS and dysuria. Found to have ecoli uti + bacteremia. Started on ceftriaxone. - Patient Problems (1) Pyelonephritis due to Escherichia coli Current Visit: Yes Status: Acute Priority: High Code(s): N12 - TUBULO- INTERSTITIAL NEPHRITIS, NOT SPCF ACUTE OR CHRONIC; B96.20 - UNSP ESCHERICHIA COLI THE CAUSE OF DISEASES CLASSD [facility] SNOMED Code(s): 48309857 Comment: - Septic on admission with fever, tachypnea, UTI, but sepsis has resolved - Ultrasound of bladder without stones or hydronephrosis - Pansensitive E. coli on culture - ID following; per recs, continue amoxicillin 500mg PO TID as repeat BC are negative (2) Septic encephalopathy Current Visit: Yes Status: Acute Priority: High Code(s): G93.41 - METABOLIC ENCEPHALOPATHY SNOMED Code(s): 331321428 Comment: - Secondary to E. coli UTI and bacteremia as below - Resolved with IVF and antibiotics (3) Bacteremia due to Escherichia coli Current Visit: Yes Status: Acute Priority: High Code(s): R78.81 - BACTEREMIA SNOMED Code(s): 282920714717 Comment: - Secondary to E.coli pyelonephritis - Blood cultures from 02/03 positive for E.coli; repeat cultures negative to date - TTE with no vegetation visualized - Per ID, if blood cultures clear, unlikely to need WILTON; abx plan as above (4) Urinary retention with incomplete bladder emptying Current Visit: Yes Status: Acute Priority: High Code(s): R33.9 - RETENTION OF URINE, UNSPECIFIED SNOMED Code(s): 121418272 Comment: - With associated overflow incontinence - Post void residual 480mL - Estevez in place; attempt voiding trial in 48 hrs (5) Thrombocytopenia Current Visit: Yes Status: Acute Code(s): D69.6 - THROMBOCYTOPENIA, UNSPECIFIED SNOMED Code(s): 381313478 Comment: - In the setting of sepsis/volume administration - Stable, continue to trend (6) Atrial fibrillation Current Visit: Yes Status: Chronic Priority: Medium Code(s): I48.91 - UNSPECIFIED ATRIAL FIBRILLATION SNOMED Code(s): 56784083 Comment: - Irregular rate with pacemaker - Anticoagulation at home takes 7.5mg on , 5mg the rest of the days of the week - Rate controlled with metoprolol 50mg BID and digoxin 0.125mg daily (7) History of CVA (cerebrovascular accident) Current Visit: Yes Status: Chronic Priority: Medium Code(s): Z86.73 - PRSNL HX OF TIA (TIA), AND CEREB INFRC W/O RESID DEFICITS SNOMED Code(s): 443456092 Comment: - Evaluated by neurology and felt encephalopathy unlikely to be stroke - Head CT with no evidence of acute intracranial abnormality - Continue anticoagulation and statin (8) Bipolar depression Current Visit: Yes Status: Chronic Priority: Medium Code(s): F31.30 - BIPOLAR DISORD, CRNT EPSD DEPRESS, MILD OR MOD SEVERT, UNSP SNOMED Code(s): 88440163 Comment: - Continue depakote (9) COPD (chronic obstructive pulmonary disease) Current Visit: Yes Status: Chronic Priority: Medium Code(s): J44.9 - CHRONIC OBSTRUCTIVE PULMONARY DISEASE, UNSPECIFIED SNOMED Code(s): 69711308 Comment: - No wheezing or evidence of acute exacerbation - Continue supplimental O2 as needed as well as PRN albuterol - Pt does normally sleep with 3L supplimental O2 at night; titrate off during the day (10) Parkinson disease Current Visit: Yes Status: Chronic Priority: Low Code(s): G20 - PARKINSON' S DISEASE SNOMED Code(s): 43237045 Comment: - Pt does report hx parkinson's disease, however not on any medications - Dr. Carney feels likely vascular in origin and recommends outpatient follow up (11) HLD (hyperlipidemia) Current Visit: Yes Status: Chronic Priority: Low Code(s): E78.5 - HYPERLIPIDEMIA, UNSPECIFIED SNOMED Code(s): 73790232 Comment: - Continue pravastatin (12) DNR (do not resuscitate) Current Visit: Yes Status: Acute Priority: High (13) DVT prophylaxis Current Visit: Yes Status: Acute Priority: High Code(s): XHO6218 - SNOMED Code(s): 334864602 Comment: - Warfarin; subtherapeutic today, will give 7.5mg today as she missed her usual dose Status and Disposition: Inpatient. Per PT, will likely need SCOTT upon discharge and patient is agreeable to this.
[2018-02-07 09:28] LABS: EGFR Non-African American 60.7 (>60)
[2018-02-07] MEDS: Divalproex ER TAB(*) 500 MG PO SCH ×2 (09:29→20:10)
[2018-02-07] MEDS: Amoxicillin PO (*) 500 MG CAP PO SCH ×3 (09:29→20:10)
[2018-02-07] MEDS: Metoprolol Tartrate TAB* 50 mg PO SCH ×2 (09:29→20:09)
[2018-02-07] MEDS: CMCS Pravastatin (NF) 20 MG TAB PO SCH (09:29)
[2018-02-07] MEDS: Digoxin TAB* 0.125 MG PO SCH (09:30)
[2018-02-07 09:40] LABS: Hematocrit 32 % (35-47); Hemoglobin 10.6 g/dl (12.0-16.0); Mean Corpuscular HGB Conc 33 g/dl (31-36); Mean Corpuscular Hemoglobin 31 pg (27-31); Mean Corpuscular Volume 93 fL (80-97); Platelet Count 99 10^3/ul (150-450); Red Blood Count 3.45 10^6/ul (4.00-5.40); Red Cell Distribution Width 14 % (10.5-15); White Blood Count 4.3 10^3/ul (3.5-10.8)
[2018-02-07 09:44] LABS: INR 2.04 (0.77-1.02)
[2018-02-07] MEDS ORDERED: Magnesium Hydroxide LIQ* 30 ML UDC PO PRN (11:58)
[2018-02-07] MEDS ORDERED: Warfarin TAB(*) 7.5 MG PO ONE (17:00)
[2018-02-07] MEDS: Senna TAB PO SCH (20:10)
[2018-02-08] MEDS: Acetaminophen TAB* 325 MG PO PRN ×2 (00:29→19:54)
[2018-02-08 07:44] LABS: ABS Basophils 0 10^3/ul (0-0.2); ABS Eosinophils 0.1 10^3/ul (0-0.6); ABS Lymphocytes 0.9 10^3/ul (1.0-4.8); ABS Monocytes 0.6 10^3/ul (0-0.8); ABS Neutrophils 3.3 10^3/ul (1.5-7.7); ABS Nucleated RBC 0 10^3/ul; Eosinophil % 1.7 % (0-6); Hematocrit 31 % (35-47); Hemoglobin 10.3 g/dl (12.0-16.0); Lymphocyte % 17.9 % (25-47); Mean Corpuscular HGB Conc 34 g/dl (31-36); Mean Corpuscular Hemoglobin 31 pg (27-31); Mean Corpuscular Volume 93 fL (80-97); Mean Platelet Volume 8.1 fL (7.4-10.4); Nucleated Red Blood Cells % 0; Platelet Count 95 10^3/ul (150-450); Red Blood Count 3.29 10^6/ul (4.00-5.40); Red Cell Distribution Width 14 % (10.5-15); White Blood Count 4.9 10^3/ul (3.5-10.8)
[2018-02-08 07:50] LABS: INR 2.01 (0.77-1.02)
--- NOTE | 2018-02-08 08:42 | PN ---
Subjective Date of Service: 02/08/18 Interval History: Ms. Alcala feels well this morning. Her only complaint is that she is having recurring headaches since the incident at her apartment when a piece of the ceiling fell on her head. She has been taking tylenol with little effect. She otherwise feels well and is in good spirits. She did have a BM overnight. She is still looking forward to going to rehab. She denied CP, SOB, N/V/D, dizziness. Family History: Unchanged from Admission Social History: Unchanged from Admission Past Medical History: Unchanged from Admission Objective Active Medications: Acetaminophen (Tylenol Tab*) 650 mg PO Q4H PRN Albuterol (Ventolin Hfa Inhaler*) 2 puff INH Q4H PRN Amoxicillin (Amoxicillin Po (*)) 500 mg PO TID SHAHRZAD Digoxin (Lanoxin Tab*) 0.125 mg PO DAILY [facility] Divalproex Sodium (Depakote Er Tab(*)) 500 mg PO BID [facility] Docusate Sodium (Colace Cap*) 100 mg PO BID [facility] Heparin Sodium (Porcine) (Heparin Flush Picc/Ml/Cvc(*)) 1 ml FLUSH 0600,1800 [facility]; Protocol Magnesium Hydroxide (Milk Of Magnesia Liq*) 30 ml PO Q6H PRN Metoprolol Tartrate (Lopressor Tab*) 50 mg PO BID [facility] Ondansetron HCl (Zofran Inj*) 4 mg IV Q4H PRN Pravastatin Sodium (Pravachol (Nf)) 80 mg PO DAILY [facility]; Protocol Senna (Senokot Tab*) 2 tab PO BEDTIME [facility] Warfarin Sodium (Coumadin Tab(*)) 5 mg PO DAILY@1700 [facility]; Protocol Vital Signs - 8 hr 02/08/18 02/08/18 02/08/18 03:11 03:27 07:21 Temperature 97.6 F 97.2 F Pulse Rate 37 65 Respiratory 18 20 Rate Blood Pressure 108/68 95/38 119/51 (mmHg) O2 Sat by Pulse 99 100 Oximetry Oxygen Devices in Use Now: Nasal Cannula - 3L Appearance: Elderly woman laying in bed in NAD Eyes: No Scleral Icterus Ears/Nose/Mouth/Throat: Mucous Membranes Moist Neck: NL Appearance and Movements; NL JVP Respiratory: Symmetrical Chest Expansion and Respiratory Effort, Clear to Auscultation Cardiovascular: NL Sounds; No Murmurs; No JVD, - - Irregular rhythm Abdominal: NL Sounds; No Tenderness; No Distention Extremities: No Edema, No Clubbing, Cyanosis Skin: No Rash or Ulcers Neurological: Alert and Oriented x 3 Lines/Tubes/Other Access: Clean, Dry and Intact Peripheral IV Nutrition: Taking PO's Result Diagrams: 02/08/18 07:04 02/07/18 08:54 Assess/Plan/Problems-Billing Assessment: Ms. Alcala is an 82 year old female with PMH of afib, CVA x4, HTN, HLD, COPD presented to ED with AMS and dysuria. Found to have ecoli uti + bacteremia. - Patient Problems (1) Pyelonephritis due to Escherichia coli Current Visit: Yes Status: Acute Priority: High Code(s): N12 - TUBULO- INTERSTITIAL NEPHRITIS, NOT SPCF ACUTE OR CHRONIC; B96.20 - UNSP ESCHERICHIA COLI THE CAUSE OF DISEASES CLASSD [facility] SNOMED Code(s): 25581512 Comment: - Septic on admission with fever, tachypnea, UTI; sepsis has resolved - Ultrasound of bladder without stones or hydronephrosis - Pansensitive E. coli on culture - ID following; per recs, continue amoxicillin 500mg PO TID as repeat BC are negative; day 09/14 abx therapy (2) Bacteremia due to Escherichia coli Current Visit: Yes Status: Acute Priority: High Code(s): R78.81 - BACTEREMIA SNOMED Code(s): 971158429149 Comment: - Secondary to E.coli pyelonephritis - Blood cultures from 02/03 positive for E.coli; repeat cultures negative to date - TTE with no vegetation visualized - Per ID, if blood cultures clear, unlikely to need WILTON; abx plan as above (3) Septic encephalopathy Current Visit: Yes Status: Acute Priority: High Code(s): G93.41 - METABOLIC ENCEPHALOPATHY SNOMED Code(s): 845176433 Comment: - Secondary to E. coli UTI and bacteremia as below - Resolved with IVF and antibiotics (4) Urinary retention with incomplete bladder emptying Current Visit: Yes Status: Acute Priority: High Code(s): R33.9 - RETENTION OF URINE, UNSPECIFIED SNOMED Code(s): 112704072 Comment: - With associated overflow incontinence - Post void residual 480mL - Estevez in place; attempt voiding trial tomorrow (5) Thrombocytopenia Current Visit: Yes Status: Acute Code(s): D69.6 - THROMBOCYTOPENIA, UNSPECIFIED SNOMED Code(s): 515859022 Comment: - In the setting of sepsis/volume administration - Stable, continue to trend (6) Atrial fibrillation Current Visit: Yes Status: Chronic Priority: Medium Code(s): I48.91 - UNSPECIFIED ATRIAL FIBRILLATION SNOMED Code(s): 93582163 Comment: - Irregular rate with pacemaker - Coumadin at home: 7.5mg on , 5mg the rest of the week - Rate controlled with metoprolol 50mg BID and digoxin 0.125mg daily (7) History of CVA (cerebrovascular accident) Current Visit: Yes Status: Chronic Priority: Medium Code(s): Z86.73 - PRSNL HX OF TIA (TIA), AND CEREB INFRC W/O RESID DEFICITS SNOMED Code(s): 161200080 Comment: - Evaluated by neurology and felt encephalopathy unlikely to be stroke - Head CT with no evidence of acute intracranial abnormality - Continue anticoagulation and statin (8) Bipolar depression Current Visit: Yes Status: Chronic Priority: Medium Code(s): F31.30 - BIPOLAR DISORD, CRNT EPSD DEPRESS, MILD OR MOD SEVERT, UNSP SNOMED Code(s): 86631947 Comment: - Continue depakote (9) COPD (chronic obstructive pulmonary disease) Current Visit: Yes Status: Chronic Priority: Medium Code(s): J44.9 - CHRONIC OBSTRUCTIVE PULMONARY DISEASE, UNSPECIFIED SNOMED Code(s): 01427979 Comment: - No wheezing or evidence of acute exacerbation - Continue supplimental O2 as needed as well as PRN albuterol - Pt does normally sleep with 3L supplimental O2 at night; titrate off during the day (10) Parkinson disease Current Visit: Yes Status: Chronic Priority: Low Code(s): G20 - PARKINSON' S DISEASE SNOMED Code(s): 08031100 Comment: - Pt does report hx Parkinson's disease, however not on any medications - Dr. Carney feels likely vascular in origin and recommends outpatient follow up (11) HLD (hyperlipidemia) Current Visit: Yes Status: Chronic Priority: Low Code(s): E78.5 - HYPERLIPIDEMIA, UNSPECIFIED SNOMED Code(s): 20569877 Comment: - Continue pravastatin (12) DNR (do not resuscitate) Current Visit: Yes Status: Acute Priority: High (13) DVT prophylaxis Current Visit: Yes Status: Acute Priority: High Code(s): YNV3499 - SNOMED Code(s): 323225253 Comment: - Warfarin per home dosing schedule Status and Disposition: Inpatient. Per PT, will likely need SCOTT upon discharge and patient is agreeable to this.
[2018-02-08] MEDS: Docusate CAP* 100 MG PO SCH ×2 (09:40→19:54)
[2018-02-08] MEDS: Amoxicillin PO (*) 500 MG CAP PO SCH ×3 (09:40→19:53)
[2018-02-08] MEDS: Digoxin TAB* 0.125 MG PO SCH (09:40)
[2018-02-08] MEDS: Divalproex ER TAB(*) 500 MG PO SCH ×2 (09:41→19:53)
[2018-02-08] MEDS: Metoprolol Tartrate TAB* 50 mg PO SCH ×2 (09:41→19:55)
[2018-02-08] MEDS: CMCS Pravastatin (NF) 20 MG TAB PO SCH (09:41)
[2018-02-08] MEDS ORDERED: Warfarin TAB(*) 5 MG PO SCH (17:00)
[2018-02-08] MEDS: Senna TAB PO SCH (19:53)
[2018-02-08] MEDS ORDERED: Melatonin 3 MG TAB PO PRN (23:30)
[2018-02-09] MEDS ORDERED: Melatonin 3 MG TAB PO ONE (00:10)
[2018-02-09] MEDS: Acetaminophen TAB* 325 MG PO PRN (00:29)
[2018-02-09 06:32] LABS: INR 2.37 (0.77-1.02)
[2018-02-09 06:34] LABS: Hematocrit 27 % (35-47); Hemoglobin 9.1 g/dl (12.0-16.0); Mean Corpuscular HGB Conc 34 g/dl (31-36); Mean Corpuscular Hemoglobin 31 pg (27-31); Mean Corpuscular Volume 92 fL (80-97); Red Blood Count 2.91 10^6/ul (4.00-5.40); Red Cell Distribution Width 14 % (10.5-15); White Blood Count 5.3 10^3/ul (3.5-10.8)
[2018-02-09 06:42] LABS: EGFR Non-African American 64.9 (>60)
[2018-02-09 06:53] LABS: ABS Basophils 0 10^3/ul (0-0.2); ABS Eosinophils 0.1 10^3/ul (0-0.6); ABS Lymphocytes 1.2 10^3/ul (1.0-4.8); ABS Monocytes 0.6 10^3/ul (0-0.8); ABS Neutrophils 3.3 10^3/ul (1.5-7.7); ABS Nucleated RBC 0 10^3/ul; Eosinophil % 2.6 % (0-6); Lymphocyte % 22.4 % (25-47); Mean Platelet Volume 8.5 fL (7.4-10.4); Nucleated Red Blood Cells % 0.1; Platelet Count 96 10^3/ul (150-450)
[2018-02-09] MEDS: Amoxicillin PO (*) 500 MG CAP PO SCH (09:23)
[2018-02-09] MEDS: Metoprolol Tartrate TAB* 50 mg PO SCH (09:24)
[2018-02-09] MEDS: Docusate CAP* 100 MG PO SCH (09:24)
[2018-02-09] MEDS: Divalproex ER TAB(*) 500 MG PO SCH (09:24)
[2018-02-09] MEDS: Digoxin TAB* 0.125 MG PO SCH (09:24)
[2018-02-09] MEDS: CMCS Pravastatin (NF) 20 MG TAB PO SCH (09:24)
[2018-02-09 10:32] VITALS: BP 116/58
--- NOTE | 2018-02-09 11:53 | DS ---
CC: Dr. Benson; Dr. Garrett Shields * DATE OF ADMISSION: 02/03/2018. DATE OF DISCHARGE: 02/09/2018. PRIMARY CARE PHYSICIAN: Dr. Benson. ATTENDING PHYSICIAN: Dr. Maxx Willams * (dictated by Rose Sanz NP). PRIMARY DIAGNOSES: 1. Pyelonephritis due to E. coli. 2. Bacteremia due to E. coli. 3. Septic encephalopathy. 4. Acute urinary retention. 5. Thrombocytopenia. SECONDARY DIAGNOSES: 1. Atrial fibrillation. 2. History of CVA. 3. Bipolar depression. 4. Chronic obstructive pulmonary disease. 5. Parkinson's disease. 6. Hyperlipidemia. STUDIES WHILE IN THE HOSPITAL: 1. Brain CT on 02/03/2018, reads as no intracranial mass or hemorrhage. 2. Chest x-ray on 02/03/2018, reads as stigmata of obstructive lung disease, cardiomegaly, no acute cardiopulmonary process. 3. Abdomen/bladder ultrasound on 02/03/2018, reads as no hydronephrosis on either side, no stones, Estevez catheter in place. 4. Transthoracic echocardiogram on 02/04/2018, reads as the study is technically limited due to patient body habitus and history of COPD; left ventricular chamber size is normal; mild concentric left ventricular hypertrophy ; normal left ventricular systolic function; estimated ejection fraction is 55 to 60 percent; assessment of diastolic function is non-diagnostic; left atrium is moderate to severely dilated; right atrium is mildly dilated; mild to moderate aortic stenosis; mild to moderate mitral regurgitation; mild tricuspid regurgitation; trace pulmonic regurgitation. There are changes noted when compared to the previous study done on 01/03/2017. ASD is not seen now; pulmonary hypertension is mild instead of severe; no comment on aortic stenosis on previous study. CONSULTATIONS WHILE IN THE HOSPITAL: 1. Dr. Carney from Neurology saw the patient on 02/03/2018 because of concern of stroke-like symptoms. He had low concern for CVA or TIA at that time and suspected recrudescence of previous focal neurological deficits in the setting of an infection. 2. Dr. Shields from Infectious Disease saw the patient on 02/04/2018 for bacteremia. He recommended continuing current antibiotics at that point, obtaining a transthoracic echocardiogram to rule out endocarditis, and follow- up blood cultures. He saw the patient again on 02/05/2018 at which time he recommended switching to Amoxicillin p.o. if blood cultures are negative to complete a ten day course of antibiotics. HISTORY OF PRESENT ILLNESS AND HOSPITAL COURSE: Ms. Gonzalez is an 82-year-old female with a past medical history of A-fib, CVA times four, hypertension, hyperlipidemia, COPD, and bipolar depression who presented to the emergency room on 02/03/2018 after EMS was called by her neighbor. Please see my history and physical for a complete summary of the events leading up to this hospitalization. In short, her neighbor felt as though she had slurred speech and left-sided weakness. The patient denied these symptoms. Once arriving in the emergency room, there was concern for a CVA due to her reported symptoms, though that was ruled out. The patient did note recent dysuria and did have a urinalysis indicative of a urinary tract infection. She was admitted by the Hospitalist Service. As noted above, there was no note of hydronephrosis. She did have a Estevez catheter placed in the emergency room. She additionally had an acute kidney injury with a creatinine of 1.38 on admission. She was rehydrated with IV fluids. As of the day of discharge, her creatinine is down to 0.84. She had no focal neural deficits and was kept on her usual medications for her atrial fibrillation, including Coumadin. She has had a therapeutic INR for most of this hospitalization, once mildly subtherapeutic and on admission mildly supratherapeutic. It was determined that the slurred speech and weakness witnessed by her neighbor was likely recrudescence of her previous CVA deficits and no other further work-up was done as the patient is appropriately anticoagulated. She was ultimately diagnosed with pyelonephritis and had a urine culture which grew pansensitive E. coli. She additionally was noted to have E. coli in four out of four blood culture bottles which was also pansensitive. She was on Ceftriaxone for three days at which point she had repeat blood cultures which were negative and she was transitioned over to Amoxicillin per Infectious Disease recommendation. Her Estevez was removed early in her admission, though needed to be replaced due to acute urinary retention. Her Estevez was removed the morning of discharge and she had urinated since that time without evidence for further retention. Her septic encephalopathy has resolved and she appears to be at her baseline mentation. She was noted to have thrombocytopenia throughout her stay with a platelet count as low as 78. This was determined to be present in the setting of sepsis and fluid volume administration. As of the day of discharge, her platelet count is up to 96 and she has no signs of bleeding. She has remained in chronic A-fib throughout this hospitalization. She is noted to be paced on EKG. We have kept her on her usual medications and as of the day of discharge, her INR is 2.37. Her other chronic medical problems have been stable. On the morning of 02/08/2018, the patient had an approximately five minute period of chest pain at rest. At that point, she had an EKG which showed no ischemic changes and a troponin of 0.01. Additionally, the pain was reproducible on exam and no further work-up was required. Ms. Gonzalez is stable for discharge today. Vital signs are as follows: Temperature 98.0, heart rate 70, respiratory rate 18, oxygen saturation 99 percent on one liter nasal cannula, blood pressure 137/41. DISCHARGE MEDICATIONS: New home medications: 1. Amoxicillin 500 mg p.o. t.i.d. times 4 days. 2. Docusate 100 mg p.o. b.i.d. 3. Milk of Magnesia 30 ml p.o. q.6 hours prn constipation. Continued home medications: 1. Albuterol MDI two puffs q.4 hours prn shortness of breath. 2. Digoxin 0.125 mg p.o. daily. 3. Depakote 500 mg p.o. b.i.d. 4. Metoprolol Tartrate 50 mg p.o. b.i.d. 5. Pravastatin 80 mg p.o. daily. 6. Acetaminophen 1,000 mg p.o. at bedtime prn pain. 7. Flovent MDI two puffs b.i.d. 8. Meclizine 12.5 mg p.o. t.i.d. prn dizziness. There are no changed home medications or discontinued home medications. DISCHARGE PLAN: Ms. Gonzalez will be discharged to [facility] for subacute rehab. Medications are noted above. The patient has been prescribed a four day course of Amoxicillin to complete a total course of ten days of antibiotic therapy. ACTIVITY: Will be as tolerated. DIET: Heart healthy. FOLLOW-UP: She should follow-up with a provider at [facility] and may follow-up with Dr. Benson, her PCP, after discharge from rehab. The patient should return to the emergency room or nearest hospital for any worsening of symptoms, shortness of breath, lightheadedness, dizziness, chest discomfort, high fevers, chills, night sweats, loss of consciousness, or any other worsening signs or symptoms. This is a summarized report of a complex medical history and hospital stay. For further details, please see the entire medical record. TIME SPENT: Approximately 45 minutes were spent on this discharge, greater than half of that time was spent [id number] with the patient discussing discharge plans and instructions. ROSE SANZ NP [id number]/[facility] #: [id number] TINA
[2018-02-09] MEDS ORDERED: Sodium Polystyrene ORAL.SOL* 15 GM/60 ML BTL PO ONE (13:00)
== END 2018-02-09 13:10 | DRG 871 ==
LOC: ED 11:48 → MED 14:04 → OBSVTOIN 14:04 → INTOOBSV 14:04 → OBSVTOIN 02-04 11:06
PROVIDERS: ADMIT Internal Medicine; ATTEND Student in an Organized Health Care Education/Training Program
DX: A41.51 Sepsis due to Escherichia coli [E. coli] (principal); G93.41 Metabolic encephalopathy; N17.9 Acute kidney failure, unspecified; I69.354 Hemiplegia and hemiparesis following cerebral infarction affecting left non-dominant side; N12 Tubulo-interstitial nephritis, not specified as acute or chronic; D69.6 Thrombocytopenia, unspecified; J44.9 Chronic obstructive pulmonary disease, unspecified; G20 Parkinson's disease; I48.2 Chronic atrial fibrillation; F31.9 Bipolar disorder, unspecified; Z66 Do not resuscitate; G47.33 Obstructive sleep apnea (adult) (pediatric); B96.20 Unspecified Escherichia coli [E. coli] as the cause of diseases classified elsewhere; R33.9 Retention of urine, unspecified; E78.5 Hyperlipidemia, unspecified; R32 Unspecified urinary incontinence; E66.3 Overweight; Z68.29 Body mass index [BMI] 29.0-29.9, adult; Z95.0 Presence of cardiac pacemaker; Z79.01 Long term (current) use of anticoagulants; Z79.1 Long term (current) use of non-steroidal anti-inflammatories (NSAID); Z79.899 Other long term (current) drug therapy; Z88.5 Allergy status to narcotic agent; Z88.0 Allergy status to penicillin; Z88.2 Allergy status to sulfonamides; Z88.8 Allergy status to other drugs, medicaments and biological substances; Z88.6 Allergy status to analgesic agent; Z91.041 Radiographic dye allergy status; Z91.040 Latex allergy status; Z83.3 Family history of diabetes mellitus; Z84.1 Family history of disorders of kidney and ureter; Z80.6 Family history of leukemia
CPT/HCPCS: 36415; 70450; 71045; 76770; 80048; 80053; 80061; 81003; 81015; 82140; 83605; 84484; 85025; 85027; 85610; 85730; 86850; 86900; 86901; 87040; 87077; 87086; 87186; 87205; 93005; 93306; 94660; 99285; A9270-GY; G0378; G8978-GP-CM; G8979-GP-CK; G8987-GO-CL; G8988-GO-CJ; J0696

== ENCOUNTER 2018-07-22 16:32 | Emergency (ER) | payer MEDICARE ==
--- OUTSIDE RECORDS SUMMARY | 2018-07-22 17:06 | XMS REPORT | Continuity of Care Document ---
:1935 External Reference #:[id number] Author Name Marielena Dalton Care Team Providers Name Role Phone Keo Benson MD Primary Care Physician Unavailable Payers Date Identification Numbers Payment Provider Subscriber Effective: 2012 Policy Number: [id number] Medicare Blue Ppo Elysia Alcala Group Number: [id number] [address] PayID: [id number] [place] [address] Expires: 2012 Policy Number: [id number] Medicare Blue Ppo Elysia Alcala PayID: [id number] [address] [place] [address] Advance Directives Description No Information Available Problems Date Description Provider Status Onset: 03/20/2011 Atrial fibrillation Hemant Ramos M.D. Active Onset: 01/20/2012 Mitral valve disorder Hemant Ramos M.D. Active Onset: 01/20/2012 Sinus node dysfunction Hemant Ramos M.D. Active Onset: 01/20/2012 Cardiac pacemaker in situ Hemant Ramos M.D. Active Onset: 08/13/2012 Benign essential hypertension Hemant Ramos M.D. Active Onset: 08/13/2012 Chest pain Hemant Ramos M.D. Active Onset: 03/15/2015 Chronic atrial fibrillation Hemant Ramos M.D. Active Onset: 01/03/2016 Disturbance in sleep behavior Lisa Mejia MD Active Onset: 01/03/2016 Hypoxemia Lisa Mejia MD Active Onset: 01/03/2016 Obesity Lisa Mejia MD Active Onset: 02/01/2016 Obstructive sleep apnea syndrome Lisa Mejia MD Active Family History Date Family Member(s) Observation Comments General non contributory Father Leukemia at age 92 Mother Kidney issues at age 83 Siblings 5 Brother w/heart attack Sister thyroid issues Sister ?anemia Sister emphysema/COPD Sister cancer,cervical Social History Type Date Description Comments Sex Unknown Marital Status Lives With Alone Occupation Retired Tobacco Use Start: Unknown Never Smoked Cigarettes Smoking Status Reviewed: 07/08/18 Never Smoked Cigarettes ETOH Use Denies alcohol use Tobacco Use Start: Unknown Patient has never smoked Recreational Drug Use Denies Drug Use Exercise Type/Frequency Exercises rarely Allergies, Adverse Reactions, Alerts Date Description Reaction Status Severity Comments 05/15/2004 Bee Stings Active 05/15/2004 Aspirin Active 05/15/2004 Armond Inhibitor Active 05/15/2004 PCN Active 05/15/2004 Sulfa Active 05/15/2004 IVP Contrast Active 05/15/2004 risperdal Active 01/06/2007 Lipitor Active myalgias. 08/13/2012 Pravachol leg cramps. Active 11/27/2016 Novocaine Active 07/08/2018 Wellbutrin Active hives Medications Medication Date Status Form Strength Qnty SIG Indications Ordering Provider Tylenol 8 11/27/ Active Tablets ER 650mg one every Svetlana S. Hour 2017 6 hours as Foster, Arthritis needed for N.P. Pain pains Oxygen 12/02/ Active Misc 1units 2 l nc prn Hemant 2015 and at F. bedtime [facility] Ramos Digoxin 03/22/ Active Tablets 125mcg 90tabs 1 by mouth Hemant 2013 every day Georgette Ramos M.D. Metoprolol 09/14/ Active Tablets 50mg 180tab 1 tab by I10 Hemant Tartrate 2013 s mouth F. twice a laurie Ramos M.D. Coumadin 05/15/ Active Tablets 5mg 120tab one tab Hemant 2004 s daily and F. as escobar Ramos M.D. Depakote / Active Tablets DR 500mg 1 po bid Unknown 0000 Ventolin HFA / Active Aerosol 108(90Base 2 puffs by Unknown 0000 ) mcg/Act mouth four times a day as needed Prednisone 12/04/ Hx Tablets 50mg 3tabs 1 by mouth Ramesh Seals 2017 - 13 hours Davis, 07/27/ prior to DO FAC 2018 procedure/ 1 by mouth 7 hours prior to procedure/ 1 by mouth 1 hour prior to procedure Benadryl 12/04/ Hx Capsules 25mg 2caps 2 caps 1 Ramesh Seals Allergy 2017 - hour prior Davis, 01/08/ to DO [facility] 2017 procedure Lasix 11/27/ Hx Tablets 20mg 30tabs 1/2 by Hemant 2017 - mouth F. 07/27/ every even Rachel, 2017 day M.D. Lasix 01/01/ Hx Tablets 20mg 1/2 tablet Unknown 2015 - by mouth 11/27/ every day 2017 Oxygen 11/30/ Hx Misc 1units please use Hemant 2015 - o2 at F. 11/26/ 2l/min Rachel 2016 (hs) M.D. Magnesium 07/25/ Hx Tablets 250mg 100tab 1 by mouth Zoilamilton Hu 2015 - s every day Rishi 09/30/ M.D. 2017 Lasix 06/13/ Hx Tablets 20mg 90tabs 1 po qod Hemant 2015 - (does not . 01/01/ take) Rachel 2015 M.D. Protonix 06/13/ Hx Tablets DR 40mg 30tabs 1 by mouth R07.89 Hemant 2015 - every day F. 12/11/ Rachel 2015 M.D. Carafate 06/07/ Hx Suspension 1GM/10ML Take 10 ML Praksah 2016 - by mouth Navjot 01/01/ every 6 2016 hours Pravastatin 10/31/ Hx Tablets 10mg 90tabs Alternate Hemant Sodium 2014 - 1 tab and F. 01/01/ 2 tablets Rachel 2015 every M.D. other day at bedtime Metoprolol 06/14/ Hx Tablets 25mg 120tab 2 po bid Hemant Tartrate 2013 - s F. 09/14/ Rachel 2013 M.D. Metoprolol 02/17/ Hx Tablets 25mg 360tab 3 tablets Hemant Tartrate 2012 - s po every F. 06/14/ morning, 2 Rachel 2013 tablets po M.D. every evening Tramadol HCL 09/22/ Hx Tablets 50mg 100tab qid prn Other 2012 - s Ordering 01/01/ Provider 2016 Pravastatin 06/17/ Hx Tablets 40mg 90tabs 1 tablet Other Sodium 2013 - daily at Ordering 06/17/ bedtime Provider 2013 Pravastatin 06/17/ Hx Tablets 40mg 1 po qd Hemant Sodium 2013 - hold as of F. .13.13 Rachel, 2012 M.D. Depakote 11/29/ Hx Tablets DR 500mg 2 po q Am Hemant 2009 - and 2 po q F. 06/06/ PM Rachel, 2010 M.D. Digoxin 10/24/ Hx Tablets 0.125mg 90tabs 1 po qd Hemant 2009 - F. 03/22/ Rachel, 2013 M.D. Metoprolol 10/17/ Hx Tablets 25mg 1 po bid Hemant Tartrate 2009 - . Rachle, 2009 M.D. Digoxin 01/19/ Hx Tablets 0.125mg 30tabs 1 po qd Hemant 2008 - F. Rachel, 2009 M.D. Digoxin 11/11/ Hx Tablets 0.125mg 90tabs 1 po qd Hemant 2008 - F. 01/19/ Rachel, 2008 M.D. please deliver to pt Digoxin 09/15/ Hx Tablets 0.125mg 180tab 2 po qd Hemant 2008 - s . 10/03/ Rachel, 2008 M.D. Metoprolol 09/15/ Hx Tablets 25mgM 360tab 2 po qam Hemant Tartrate 2008 - s and 2 qpm F. 02/17/ Rachel, 2012 M.D. Digoxin 07/19/ Hx Tablets 0.125mg 90tabs 1 po qd Hemant 2008 - F. Rachel, 2008 M.D. Potassium 02/11/ Hx Tablets ER 20Meq 1 PO qd Hemant Chloride CR 2006 - F. 03/11/ aRchel, 2006 M.D. Flovent 02/11/ Hx Aerosol 110mcg/Act 1units 2 PO puff Hemant 2006 - bid F. 11/26/ Rachel, 2017 M.D. Robitussin 02/11/ Hx Capsules 2 tsp prn Hemant 2006 - F. 09/09/ Rachel, 2007 M.D. Lopressor 02/11/ Hx Tablets 25mgM 180tab 1 po bid Hemant 2006 - s . 09/15/ Cydneyuser, 2008 M.D. Digitek 01/06/ Hx Tablets 0.125mg 180tab 1 po qd Hemant 2006 - s . 07/19/ Rachel, 2008 M.D. Zetia 01/06/ Hx Tablets 10mg 30tabs 1 PO QHS Hemant 2006 - . 09/09/ usearjun, 2007 M.D. Potassium 01/06/ Hx Tablets PT Unsure qd- Hemant 2006 - . 02/11/ óscar, 2006 M.D. Vitamin B12 01/06/ Hx Capsules qd Hemant 2006 - 09/09/ Rachel, 2007 M.Aan. Depakote ER 02/13/ Hx Tablets 500mg 1 tablet Hemant 2005 - in am and F. in pm Rachel, 2009 M.D. Furosemide 02/13/ Hx Tablets 20mg 30tabs 1 PO qd Hemant 2005 - . Rachel, 2006 M.Tamir Arthritis 02/13/ Hx pt will Hemant Pill 2005 - call with F. name Rachel, 2006 M.D. Lipitor 02/13/ Hx Tablets 10mg 30tabs 1 po qd Hemant 2005 - Rachel, 2006 Bud.Ana. Depakote 12/11/ Hx Tablets 250mg 2 po qd Hemant 2005 - . Mausearjun, 2005 M.D. Betapace 05/15/ Hx Tablets 80mg 1 po bid Hemant 2005 - . 05/15/ Rachel, 2005 M.D. Tylenol 05/15/ Hx Tablets 500mg 2 PO prn Hemant 2005 - Rachel, 2017 M.D. Betapace AF 05/15/ Hx Tablets 80mg 200tab 1 po bid Hemant 2005 - s . Rachel, 2007 M.D. Betapace 04/16/ Hx Tablets 80mg 60tabs 1/2 po bid Hemant 2005 - . 05/15/ Mauser, 2005 [place] Lipitor 04/04/ Hx Tablets 10mg 30tabs 1 po qd Qutaybeh 2004 - . 12/11/ Magjigneshydah 2005 , [facility] Nexium 04/04/ Hx Capsules 30caps 1 po qd Qutaybeh 2004 - . 12/11/ Maghaydah 2005 , [facility] KCL 04/02/ Hx Tablets 10Meq 30tabs 1 po qd Hemant 2004 - . user, 2005 [place] Betapace 02/20/ Hx Tablets 80mg 60tabs 1/2 po qd Hemant 2004 - . user, 2005 [place] Betapace 10/22/ Hx Tablets 20mg 60tabs 1 po bid Hemant 2004 - . user, 2004 [place] Betapace 08/15/ Hx Tablets 40mg 1 po bid Hemant 2004 - . user, 2004 [place] Depakote 06/13/ Hx Tablets 500mg 2 po bid Hemant 2004 - . user, 2004 [place] Depakote 06/13/ Hx Tablets 500mg 1 po bid Hemant 2004 - . user, 2005 [place] KCL 06/13/ Hx Capsules one qd Hemant 2004 - user, 2004 [facility] KCL 06/13/ Hx Tablets dose 1 po qd Hemant 2004 - unknown user, 2004 [place] Betapace 06/08/ Hx Tablets 80mg 60tabs 1 po bid Hemant 2004 - . user, 2004 [place] Cozaar 05/15/ Hx Tablets 50mg 30tabs 1 po qd Hemant 2004 - . user, 2004 [place] Propranolol 05/15/ Hx Tablets 20mg 100tab 1 po qid Hemant 2004 - s . user, 2004 [place] Calcium 05/15/ Hx Tablets 600mg 1 po qd Hemant 2004 - F. user, 2016 [facility] Vitamins 02/08/ Hx Caplets 30caps 1 po qd Hemant Multiple 2004 - F. 02/20/ Mauser, 2004 [place] Zyprexa 05/15/ Hx Tablets 5mg 2 po qhs Hemant 2004 - F. 05/15/ Mauser, 2004 [place] Depakote ER 05/15/ Hx Tablets 500mg qd Hemant 2004 - F. 06/14/ Mauser, 2004 [place] Plavix 05/15/ Hx Tablets 75mg 30tabs 1 po qd Hemant 2004 - . 05/15/ Mauser, 2004 Bud.Tamir Coumadin 05/15/ Hx Tablets 2mg 100tab use as Hemant 2004 - s directed . user, 2004 [place] Prevacid 05/15/ Hx Capsules 30mg 60caps one qd-bid Hemant 2004 - prn F. 08/15/ ulcer/GERD Mauser, 2004 [place] Excedrin 05/15/ Hx 500/65 1 qd prn Hemant Tension H/A 2004 - Caffeine F. 06/14/ Mauser, 2004 M.D. Trazodone 05/15/ Hx Tablets 50mg 1 po qhs Hemant 2004 - prn F. 06/08/ Mauser, 2004 M.Ana. Oxycodone 05/15/ Hx Capsules 5mg 45caps one every Hemant 2004 - 8hrs prn F. 05/15/ Mauser, 2005 M.D. Tramadol 05/15/ Hx Tablets 50mg 120tab q 6 hrs Hemant 2004 - s prn pain F. 06/14/ Mauser, 2004 M.D. Lopressor 05/15/ Hx Tablets 25mg 60tabs 1/2 po bid Hemant 2004 - . 05/15/ Mauser, 2004 Bud.Ana. Lopressor 08/ Hx Tablets 25mg 60tabs 1 po bid Hemant 2004 - . 06/14/ Mauser, 2004 M.D. Fish Oil / Hx Capsules 500mg 2 capsules Unknown Concentrate 0000 - q d 2015 Pravastatin / Hx Tablets 40mg 90tabs 1 tablet Hemant Sodium 0000 - daily at F. 10/31/ bedtime Rachel 2014 hold as of [facility] 7.8.15 Omeprazole / Hx Capsules DR 20mg 1 po qd Unknown 0000 - 2015 Lasix / Hx Tablets 20mg 1 by mouth Unknown 0000 - every day 2015 Klor-Con M10 / Hx Tablets ER 10Meq 30tabs 1 by mouth Hemant 0000 - every day F. 11/26/ Rachel 2016 [facility] Latuda / Hx Tablets 40mg 1 by mouth Unknown 0000 - every day 2016 Influenza,Uns / Active Injection Unknown pecified 0000 Immunizations Description No Information Available Vital Signs Date Vital Result Comment 07/08/2018 11:08am Height 64 inches 5'4" Weight 181.12 lb with shoes Heart Rate 76 /min BP Systolic Sitting 132 mmHg left arm BP Diastolic Sitting 80 mmHg left arm BP Systolic Standing 118 mmHg left arm BP Diastolic Standing 80 mmHg left arm BMI (Body Mass Index) 31.1 kg/m2 Ejection Fraction 55-60% 02/04/2018 Echocardiogram 03/26/2018 2:55pm Height 64 inches 5'4" Weight 184.00 lb with shoes Heart Rate 74 /min BP Systolic Sitting 118 mmHg lue large cuff BP Diastolic Sitting 70 mmHg lue large cuff BMI (Body Mass Index) 31.6 kg/m2 Ejection Fraction 55-60% echo. 02/04/18 11/27/2017 10:51am Height 64 inches 5'4" Weight 128.00 lb Heart Rate 78 /min BP Systolic Sitting 148 mmHg BP Diastolic Sitting 88 mmHg Respiratory Rate 20 /min BMI (Body Mass Index) 22.0 kg/m2 Ejection Fraction 60-65% 11/06/2017 echo 07/28/2017 11:16am Height 64 inches 5'4" Weight 176.00 lb with shoes Heart Rate 74 /min BP Systolic Sitting 100 mmHg Rue lg cuff BP Diastolic Sitting 80 mmHg Rue lg cuff BP Systolic Standing 110 mmHg Rue lg cuff BP Diastolic Standing 70 mmHg Rue lg cuff Respiratory Rate 16 /min BMI (Body Mass Index) 30.2 kg/m2 Ejection Fraction 55-60% date 12/13/16 ECHO 01/16/2017 10:29am Height 64 inches 5'4" Weight 192.75 lb with shoes Heart Rate 78 /min BP Systolic Sitting 140 mmHg Ra lrg cuff BP Diastolic Sitting 72 mmHg Ra lrg cuff BP Systolic Standing 128 mmHg la repeat large cuff. BP Diastolic Standing 61 mmHg la repeat large cuff. BMI (Body Mass Index) 33.1 kg/m2 Ejection Fraction 60%-65% Iftikhar 01/03/17 01/09/2017 10:56am Weight 198.00 lb Respiratory Rate 14 /min 11/27/2016 10:00am Height 64 inches 5'4" Weight 189.75 lb with shoes Heart Rate 84 /min BP Systolic Sitting 102 mmHg right lower arm, regular cuff BP Diastolic Sitting 60 mmHg right lower arm, regular cuff BMI (Body Mass Index) 32.6 kg/m2 Ejection Fraction 50% - 55% echo 02/25/16 10/01/2016 9:23am Height 64 inches 5'4" Weight 198.50 lb Heart Rate 78 /min BP Systolic Sitting 132 mmHg Left lower arm reg cuff BP Diastolic Sitting 78 mmHg Left lower arm reg cuff BMI (Body Mass Index) 34.1 kg/m2 Ejection Fraction 50% - 55% echo 02/25/16 02/01/2016 11:33am Height 64 inches 5'4" Weight 199.00 lb Heart Rate 91 /min BP Systolic Sitting 134 mmHg BP Diastolic Sitting 76 mmHg Respiratory Rate 20 /min O2 % BldC Oximetry 97 % BMI (Body Mass Index) 34.2 kg/m2 01/03/2016 10:56am Height 64 inches 5'4" Weight 199.00 lb Heart Rate 85 /min BP Systolic Sitting 120 mmHg BP Diastolic Sitting 62 mmHg Respiratory Rate 20 /min O2 % BldC Oximetry 97 % BMI (Body Mass Index) 34.2 kg/m2 Neck Circumference in inches 14 12/13/2015 10:50am Height 64 inches 5'4" Weight 199.00 lb w/shoes Heart Rate 74 /min BP Systolic Sitting 142 mmHg LA thigh cuff BP Diastolic Sitting 82 mmHg LA thigh cuff BMI (Body Mass Index) 34.2 kg/m2 Ejection Fraction 60-65% Echo 03/28/15 09/21/2015 1:53pm Height 64 inches 5'4" Weight 196.75 lb with shoes Heart Rate 83 /min BP Systolic 122 mmHg LA lrg cuff BP Diastolic 76 mmHg LA lrg cuff BMI (Body Mass Index) 33.8 kg/m2 Ejection Fraction 71% NLM 71% 07/26/2015 11:22am Height 64 inches 5'4" Weight 196.75 lb with shoes Heart Rate 76 /min BP Systolic 136 mmHg LA thigh cuff BP Diastolic 78 mmHg LA thigh cuff BMI (Body Mass Index) 33.8 kg/m2 Ejection Fraction 60%-65% 03/28/15 echo 06/14/2015 12:39pm Height 64 inches 5'4" Weight 197.75 lb with shoes Heart Rate 80 /min BP Systolic Sitting 100 mmHg LA lg cuff BP Diastolic Sitting 80 mmHg LA lg cuff Respiratory Rate 17 /min O2 % BldC Oximetry 96 % at room air BMI (Body Mass Index) 33.9 kg/m2 Ejection Fraction 60-65% date 60-65% 04/18/2015 10:18am Height 64 inches 5'4" Weight 198.00 lb w/ shoes Heart Rate 70 /min rereg BP Systolic Sitting 112 mmHg Lue, lg cuff BP Diastolic Sitting 70 mmHg Lue, lg cuff BP Systolic Standing 114 mmHg Lue BP Diastolic Standing 70 mmHg Lue Respiratory Rate 18 /min O2 % BldC Oximetry 95 % on Ra BMI (Body Mass Index) 34.0 kg/m2 Ejection Fraction 60-65% as of 03/28/15 03/15/2015 12:14pm Height 64 inches 5'4" Weight 198.50 lb w/shoes Heart Rate 64 /min BP Systolic Sitting 144 mmHg LA reg cuff ulnar BP Diastolic Sitting 70 mmHg LA reg cuff ulnar BMI (Body Mass Index) 34.1 kg/m2 Ejection Fraction 60-65 echo 09/16/14 01/03/2015 10:00am Height 64 inches 5'4" Weight 194.00 lb w/ shoes Heart Rate 70 /min BP Systolic Sitting 156 mmHg LA, lg cuff BP Diastolic Sitting 88 mmHg LA, lg cuff BMI (Body Mass Index) 33.3 kg/m2 Ejection Fraction 60-65% 09/16/14 ECHO 10/12/2014 1:47pm Height 64 inches 5'4" Weight 197.00 lb Heart Rate 76 /min BP Systolic Sitting 108 mmHg Ra large cuff BP Diastolic Sitting 72 mmHg Ra large cuff Respiratory Rate 18 /min BMI (Body Mass Index) 33.8 kg/m2 Ejection Fraction 60-65% 09/16/14 08/30/2014 2:02pm Height 64 inches 5'4" Weight 199.00 lb Heart Rate 70 /min BP Systolic 128 mmHg BP Diastolic 80 mmHg O2 % BldC Oximetry 95 % BMI (Body Mass Index) 34.2 kg/m2 Ejection Fraction 55-60% 06/30/13 ECHO 09/14/2013 1:20pm Height 64 inches 5'4" Weight 191.25 lb Heart Rate 76 /min BP Systolic Sitting 138 mmHg left, large BP Diastolic Sitting 86 mmHg left, large BMI (Body Mass Index) 32.8 kg/m2 06/14/2013 2:02pm Height 64 inches 5'4" Weight 188.00 lb Heart Rate 76 /min BP Systolic Sitting 128 mmHg BP Diastolic Sitting 80 mmHg BMI (Body Mass Index) 32.3 kg/m2 08/13/2012 3:23pm Height 64 inches 5'4" Weight 186.00 lb Heart Rate 76 /min BP Systolic 126 mmHg BP Diastolic 70 mmHg BMI (Body Mass Index) 31.9 kg/m2 06/17/2012 8:43am Height 64 inches 5'4" Weight 189.00 lb Heart Rate 66 /min BP Systolic 130 mmHg BP Diastolic 70 mmHg Respiratory Rate 20 /min O2 % BldC Oximetry 94 % BMI (Body Mass Index) 32.4 kg/m2 01/20/2012 3:39pm Height 64 inches 5'4" Weight 195.00 lb BP Systolic 122 mmHg BP Diastolic 82 mmHg Respiratory Rate 16 /min BMI (Body Mass Index) 33.5 kg/m2 01/31/2011 11:12am Height 64 inches 5'4" Weight 194.00 lb Heart Rate 81 /min BP Systolic 130 mmHg BP Diastolic 70 mmHg Respiratory Rate 16 /min BMI (Body Mass Index) 33.3 kg/m2 06/06/2010 10:47am Height 64 inches 5'4" Weight 202.00 lb Heart Rate 70 /min BP Systolic Sitting 136 mmHg BP Diastolic Sitting 90 mmHg BMI (Body Mass Index) 34.7 kg/m2 11/29/2009 9:51am Height 64 inches 5'4" Weight 202.00 lb Heart Rate 67 /min BP Systolic Sitting 150 mmHg L BP Diastolic Sitting 88 mmHg L BMI (Body Mass Index) 34.7 kg/m2 06/01/2009 10:32am Height 64 inches 5'4" Weight 198.00 lb Heart Rate 68 /min BP Systolic Sitting 110 mmHg L BP Diastolic Sitting 70 mmHg L BMI (Body Mass Index) 34.0 kg/m2 01/19/2009 10:35am Height 64 inches 5'4" Weight 199.00 lb Heart Rate 63 /min BP Systolic Sitting 130 mmHg L BP Diastolic Sitting 84 mmHg L BMI (Body Mass Index) 34.2 kg/m2 10/14/2008 10:26am Height 64 inches 5'4" Weight 198.00 lb Heart Rate 74 /min BP Systolic Sitting 126 mmHg BP Diastolic Sitting 86 mmHg BMI (Body Mass Index) 34.0 kg/m2 09/15/2008 1:12pm Height 64 inches 5'4" Weight 201.00 lb Heart Rate 75 /min BP Systolic Sitting 140 mmHg BP Diastolic Sitting 84 mmHg BMI (Body Mass Index) 34.5 kg/m2 09/10/2007 1:39pm Height 64 inches 5'4" Weight 201.00 lb Heart Rate 76 /min BP Systolic Sitting 110 mmHg BP Diastolic Sitting 80 mmHg Respiratory Rate 16 /min BMI (Body Mass Index) 34.5 kg/m2 03/11/2007 10:19am Height 64 inches 5'4" Weight 211.00 lb Heart Rate 76 /min BP Systolic Sitting 124 mmHg BP Diastolic Sitting 80 mmHg BMI (Body Mass Index) 36.2 kg/m2 02/11/2007 11:20am Height 64 inches 5'4" Weight 209.00 lb Heart Rate 69 /min BP Systolic Sitting 122 mmHg BP Diastolic Sitting 86 mmHg BP Systolic Standing 110 mmHg BP Diastolic Standing 90 mmHg BMI (Body Mass Index) 35.9 kg/m2 01/06/2007 9:50am Height 64 inches 5'4" Weight 212.50 lb Heart Rate 82 /min BP Systolic Sitting 124 mmHg BP Diastolic Sitting 90 mmHg BMI (Body Mass Index) 36.5 kg/m2 04/17/2006 9:49am Height 64 inches 5'4" Weight 218.00 lb Heart Rate 64 /min regular BP Systolic Sitting 148 mmHg R BP Diastolic Sitting 90 mmHg R BMI (Body Mass Index) 37.4 kg/m2 02/13/2006 1:47pm Height 64 inches 5'4" Weight 216.00 lb Heart Rate 76 /min BP Systolic Sitting 132 mmHg BP Diastolic Sitting 86 mmHg BMI (Body Mass Index) 37.1 kg/m2 12/11/2005 3:27pm Height 64 inches 5'4" Weight 213.00 lb Heart Rate 70 /min BP Systolic Sitting 140 mmHg BP Diastolic Sitting 80 mmHg BP Systolic Standing 134 mmHg BP Diastolic Standing 84 mmHg BMI (Body Mass Index) 36.6 kg/m2 05/15/2005 10:54am Height 64 inches 5'4" Weight 202.00 lb Heart Rate 74 /min BP Systolic Sitting 118 mmHg BP Diastolic Sitting 84 mmHg BMI (Body Mass Index) 34.7 kg/m2 04/04/2005 1:17pm Height 64 inches 5'4" Weight 201.00 lb Heart Rate 74 /min regular BP Systolic Sitting 120 mmHg BP Diastolic Sitting 88 mmHg BMI (Body Mass Index) 34.5 kg/m2 02/20/2005 9:07am Height 64 inches 5'4" Weight 200.00 lb Heart Rate 55 /min BP Systolic Sitting 112 mmHg R BP Diastolic Sitting 70 mmHg R BP Systolic Standing 120 mmHg L BP Diastolic Standing 80 mmHg L O2 % BldC Oximetry 94 % BMI (Body Mass Index) 34.3 kg/m2 08/15/2004 10:15am Height 64 inches 5'4" Weight 203.00 lb Heart Rate 63 /min BP Systolic Sitting 110 mmHg BP Diastolic Sitting 70 mmHg BP Systolic Standing 98 mmHg BP Diastolic Standing 68 mmHg BMI (Body Mass Index) 34.8 kg/m2 06/14/2004 10:33am Height 64 inches 5'4" Weight 197.00 lb Heart Rate 57 /min BP Systolic Sitting 110 mmHg R BP Diastolic Sitting 70 mmHg R BP Systolic Standing 120 mmHg R BP Diastolic Standing 68 mmHg R O2 % BldC Oximetry 94 % BMI (Body Mass Index) 33.8 kg/m2 Results Test Date Facility Test Result H/L Range Note CBC Auto Diff 11/06/2017 [facility] White Blood 4.8 10^3/uL N 3.5-10.[address] [place] [address] [phone] Red Blood Count 3.76 10^6/uL Low 4.00-5.40 Hemoglobin 11.7 g/dL Low 12.0-16.0 Hematocrit 35 % N 35-47 Mean Corpuscular Volume 93 fL N 80-97 Mean Corpuscular Hemoglobin 31 pg N 27-31 Mean Corpuscular HGB Conc 34 g/dL N 31-36 Red Cell Distribution Width 15 % N 10.5-15 Platelet Count 106 10^3/uL Low 150-450 Mean Platelet Volume 8.4 um3 N 7.4-10.4 Abs Neutrophils 2.9 10^3/uL N 1.5-7.7 Abs Lymphocytes 1.4 10^3/uL N 1.0-4.8 Abs Monocytes 0.5 10^3/uL N 0-0.8 Abs Eosinophils 0.1 10^3/uL N 0-0.6 Abs Basophils 0 10^3/uL N 0-0.2 Abs Nucleated RBC 0 10^3/uL Granulocyte % 59.8 % N 38-83 Lymphocyte % 28.3 % N 25-47 Monocyte % 9.8 % High 0-7 Eosinophil % 1.3 % N 0-6 Basophil % 0.8 % N 0-2 Nucleated Red Blood Cells % 0.2 Comp Metabolic Panel 11/06/2017 [facility] Sodium 138 mmol/L N 135-[address] [place] [address] [phone] Chloride 105 mmol/L N 101-111 Co2 Carbon Dioxide 25 mmol/L N 22-32 Glucose 97 mg/dL N 70-100 Blood Urea Nitrogen 23 mg/dL N 6-24 Creatinine 1.19 mg/dL High 0.51-0.95 BUN/Creatinine Ratio 19.3 N 8-20 Calcium 8.8 mg/dL N 8.6-10.3 Total Protein 6.6 g/dL N 6.4-8.9 Albumin 3.9 g/dL N 3.2-5.2 Globulin 2.7 g/dL N 2-4 Albumin/Globulin Ratio 1.4 N 1-3 Total Bilirubin 0.40 mg/dL N 0.2-1.0 Alkaline Phosphatase 35 U/L N 34-104 Alt 5 U/L Low 7-52 Ast 11 U/L Low 13-39 Egfr Non- 43.4 >60 Egfr 52.5 >60 1 Potassium 5.5 mmol/L High 3.5-5.0 Anion Gap 8 mmol/L N 2-11 Laboratory test 11/06/2017 [facility] Digoxin 1.4 ng/ml N 0.8- 2.0 [address] [place] [address] [phone] Laboratory test 03/13/2017 [facility] Point of Care 98 mg/dL N 70-100 [address] [place] [address] [phone] Laboratory test 01/03/2017 [facility] Point of Care 93 mg/dL N 70-[address] [place] [address] [phone] Inr/Protime 12/06/2016 [facility] Inr 1.15 High 0.89-1.[address] [place] [address] [phone] Laboratory test 12/06/2016 [facility] B-Type 126 pg/mL High [address] [place] [address] Peptide BNP [phone] C Reactive Protein < 1.00 mg/L N < 5.00 6 Erythrocyte Sed Rate 21 mm/Hr N 0-40 Digoxin 1.7 ng/ml N 0.8-2.0 Magnesium 2.0 mg/dL N 1.9-2.7 Comp Metabolic Panel 12/06/2016 [facility] Sodium 140 mmol/L N 133-[address] [place] [address] [phone] Potassium 5.4 mmol/L High 3.5-5.0 Chloride 109 mmol/L N 101-111 Co2 Carbon Dioxide 28 mmol/L N 22-32 Anion Gap 3 mmol/L N 2-11 Glucose 95 mg/dL N 70-100 Blood Urea Nitrogen 16 mg/dL N 6-24 Creatinine 1.05 mg/dL High 0.51-0.95 BUN/Creatinine Ratio 15.2 N 8-20 Calcium 8.8 mg/dL N 8.6-10.3 Total Protein 6.8 g/dL N 6.4-8.9 Albumin 3.8 g/dL N 3.2-5.2 Globulin 3.0 g/dL N 2-4 Albumin/Globulin Ratio 1.3 N 1-3 Total Bilirubin 0.40 mg/dL N 0.2-1.0 Alkaline Phosphatase 35 U/L N 34-104 Alt 5 U/L Low 7-52 Ast 10 U/L Low 13-39 Egfr Non- 50.3 N >60 Egfr 64.7 N >60 7 CBC Auto Diff 12/06/2016 [facility] White Blood 3.5 10^3/uL N 3.5-10.[address] [place] [address] [phone] Red Blood Count 3.66 10^6/uL Low 4.0-5.4 Hemoglobin 11.4 g/dL Low 12.0-16.0 Hematocrit 35 % N 35-47 Mean Corpuscular Volume 95 fL N 80-97 Mean Corpuscular Hemoglobin 31 pg N 27-31 Mean Corpuscular HGB Conc 33 g/dL N 31-36 Red Cell Distribution Width 15 % N 10.5-15 Platelet Count 95 10^3/uL Low 150-450 8 Mean Platelet Volume 9 um3 N 7.4-10.4 Abs Neutrophils 2.0 10^3/uL N 1.5-7.7 Abs Lymphocytes 1.0 10^3/uL N 1.0-4.8 Abs Monocytes 0.4 10^3/uL N 0-0.8 Abs Eosinophils 0.1 10^3/uL N 0-0.6 Abs Basophils 0 10^3/uL N 0-0.2 Abs Nucleated RBC 0 10^3/uL N Granulocyte % 58.0 % N 38-83 Lymphocyte % 28.7 % N 25-47 Monocyte % 10.4 % High 1-9 Eosinophil % 2.4 % N 0-6 Basophil % 0.5 % N 0-2 Nucleated Red Blood Cells % 0.1 N Urinalysis Profile 11/17/2016 [facility] Urine Color Yellow [address] [place] [address] [phone] Urine Appearance Clear N Urine Specific [place] 1.011 N 1.010-1.030 Urine pH 7.0 N 5-9 Urine Urobilinogen Negative N Negative Urine Ketones Negative N Negative Urine Protein 1+(30 mg/dL) Abnormal Negative Urine Leukocytes Negative N Negative Urine Blood Negative N Negative Urine Nitrite Negative N Negative Urine Bilirubin Negative N Negative Urine Glucose Negative N Negative Urine White Blood Cell Trace(0-5/hpf) N Absent Urine Red Blood Cell Trace(0-2/hpf) N Absent Urine Bacteria Absent N Absent Urine Squamous Epithelial Cell Present Abnormal Absent Laboratory test 11/17/2016 [facility] Troponin-I (TnI) 0.01 ng/ mL N <0.04 finding [address] [place] [address] [phone] Laboratory test 07/26/2015 [facility] B-Type 65 pg/mL N [address] [place] [address] Peptide BNP [phone] Basic Metabolic 07/26/2015 [facility] Sodium 137 mmol/L N 133- 145 Panel [address] [place] [address] [phone] Potassium 4.5 mmol/L N 3.5-5.0 Chloride 102 mmol/L N 101-111 Co2 Carbon Dioxide 26 mmol/L N 22-32 Anion Gap 9 mmol/L N 2-11 Glucose 96 mg/dL N 70-100 Blood Urea Nitrogen 26 mg/dL High 6-24 Creatinine 1.24 mg/dL High 0.51-0.95 BUN/Creatinine Ratio 21.0 High 8-20 Calcium 8.9 mg/dL N 8.6-10.3 Egfr Non- 41.6 N >60 Egfr 53.5 N >60 10 Laboratory test 07/26/2015 [facility] Magnesium 1.8 mg/dL Low 1.9-2.7 finding [address] [place] [address] [phone] Digoxin 1.6 ng/ml N 0.8-2.0 Lipid Panel - [facility] 04/06/2014 Creatine Kinase 62 U/L N 10-223 Laboratory test finding 04/06/2014 Digoxin 0.8 ng/ml N 0.8-2.0 CBC Auto Diff 04/06/2014 White Blood Count 4.1 10^3/uL Low 4.8-10.8 Red Blood Count 3.94 10^6/uL Low 4.0-5.4 Hemoglobin 12.5 g/dL N 12.0-16.0 Hematocrit 38 % N 35-47 Mean Corpuscular Volume 96 fL N 80-97 Mean Corpuscular Hemoglobin 32 pg High 27-31 Mean Corpuscular HGB Conc 33 g/dL N 31-36 Red Cell Distribution Width 14 % N 10.5-15 Platelet Count 109 10^3/uL Low 150-450 Mean Platelet Volume 9 um3 N 7.4-10.4 Abs Neutrophils 2.3 10^3/uL N 1.5-7.7 Abs Lymphocytes 1.0 10^3/uL N 1.0-4.8 Abs Monocytes 0.6 10^3/uL N 0-0.8 Abs Eosinophils 0.1 10^3/uL N 0-0.6 Abs Basophils 0 10^3/uL N 0-0.2 Abs Nucleated RBC 0 10^3/uL N Granulocyte % 57.3 % N 38-83 Lymphocyte % 24.8 % Low 25-47 Monocyte % 15.1 % High 1-9 Eosinophil % 2.2 % N 0-6 Basophil % 0.6 % N 0-2 Nucleated Red Blood Cells % 0 N Lipid Profile (Trig/Chol/HDL) 04/06/2014 Triglycerides 172 mg/dL N 11 Cholesterol 155 mg/dL N 12 HDL Cholesterol 40.7 mg/dL N 13 LDL Cholesterol 80 mg/dL N 14 Comp Metabolic Panel 04/06/2014 Sodium 135 mmol/L N 133-145 Potassium 4.8 mmol/L N 3.5-5.0 Chloride 102 mmol/L N 101-111 Co2 Carbon Dioxide 27 mmol/L N 22-32 Anion Gap 6 mmol/L N 2-11 Glucose 95 mg/dL N 70-100 Blood Urea Nitrogen 21 mg/dL N 6-24 Creatinine 1.11 mg/dL High 0.51-0.95 BUN/Creatinine Ratio 18.9 N 8-20 Calcium 9.2 mg/dL N 8.6-10.3 Total Protein 6.9 g/dL N 6.4-8.9 Albumin 3.9 g/dL N 3.2-5.2 Globulin 3.0 g/dL N 2-4 Albumin/Globulin Ratio 1.3 N 1-3 Total Bilirubin 0.50 mg/dL N 0.2-1.0 Alkaline Phosphatase 35 U/L N 34-104 Alt 9 U/L N 7-52 Ast 13 U/L N 13-39 Egfr Non- 47.5 N >60 Egfr 61.1 N >60 15 Laboratory test 05/24/2013 [facility] B-Type <pending> finding [address] [place] [address] Peptide BNP [phone] Laboratory test 05/24/2013 [facility] Digoxin <pending> finding [address] [place] [address] [phone] Laboratory test 06/26/2012 [facility] B Type 88.0 pg/mL 0- [address] [place] [address] Peptide [phone] Basic Metabolic 06/26/2012 [facility] Sodium 141 mmol/L 133- [address] [place] [address] [phone] Potassium 4.8 mmol/L 3.5-5.0 Chloride 104 mmol/L 101-111 Co2 Carbon Dioxide 30.0 mmol/L 22-32 Anion Gap 7.0 mmol/L 2-11 Glucose 88 mg/dL 70-100 Blood Urea Nitrogen 11 mg/dL 6-24 Creatinine 0.80 mg/dL 0.50-1.40 BUN/Creatinine Ratio 13.8 8-20 Calcium 9.3 mg/dL 8.1-9.9 Egfr Non- 69.7 >60 Egfr 89.7 >60 16 Laboratory test 06/18/2012 [facility] Erythrocyte Sed 13 mm/Hr 0-40 [address] [place] [address] [phone] Laboratory test 06/18/2012 [facility] B Type 78.0 pg/mL 0- 100 [address] [place] [address] Peptide [phone] Laboratory test 06/18/2012 [facility] Erythrocyte Sed 13 mm/Hr 0-40 [address] [place] [address] [phone] Basic Metabolic 11/13/2009 [facility] Sodium 138 mmol/L 135- [address] [place] [address] [phone] Potassium 4.9 mmol/L 3.5-5.0 Chloride 103 mmol/L 101-111 Co2 (Carbon Dioxide) 29.0 mmol/L 22-32 Anion Gap 6.0 mmol/L 2-11 20 Glucose 104 mg/dL High 70-100 21 BUN 13 mg/dL 6-24 Creatinine 0.90 mg/dL 0.50-1.40 One Over Creatinine 1.10 BUN/Creatinine Ratio 14.4 8-20 Calcium 9.2 mg/dL 8.1-9.9 22 eGFR Non- 65.1 > 60 eGFR 78.7 > 60 23 Laboratory 11/13/2009 [facility] Digoxin 1.9 NG/ML High 0.5- 1.5 24 test finding [address] [place] [address] [phone] Laboratory 08/24/2008 [facility] Throat NF 25, test finding [address] Culture 26 [place] [address] Full [phone] Rapid Strep A 08/24/2008 [facility] Rapid The [address] [place] [address] <SEE NOTE> [phone] Laboratory 07/05/2008 [facility] Troponin-I 0.04 NG/ML 0- 0.06 28 test finding [address] (TnI) [place], [place] [id number] [phone] Protime 07/04/2008 [facility] Protime 24.9 High 10.9-13.3 29, [address] [place] [address] [phone] Inr 4.27 31 Laboratory test 07/04/2008 [facility] PTT (Aptt) 37.6 High 20.1-28.2 [address] [place] [address] [phone] P33S 07/04/2008 [facility] Sodium 139 135-[address] mmol/[place] [address] [phone] Potassium 3.9 mmol/L 3.5-5.0 Chloride 102 mmol/L 101-111 Co2 (Carbon Dioxide) 23.0 mmol/L 22-32 Anion Gap 14.0 mmol/L High 2-11 33 Glucose 84 mg/dL 70-100 34 BUN 26 mg/dL High 6-24 Creatinine 1.10 mg/dL 0.50-1.40 One Over Creatinine 0.90 BUN/Creatinine Ratio 23.6 High 8-20 Calcium 8.2 mg/dL 8.1-9.9 35 Total Protein 7.1 GM/DL 6.2-8.1 Albumin 3.7 GM/DL 3.2-5.2 Globulin 3.4 GM/DL 2-4 Albumin/Globulin Ratio 1.1 1-3 Bilirubin Total 0.5 mg/dL 0.4-1.5 Alkaline Phosphatase 40 U/L 30-110 Alt (SGPT) 17 U/L 14-54 Ast (Sgot) 24 U/L 12-42 Laboratory test 07/04/2008 [facility] Troponin-I 0.03 NG/ML 0 -0.06 [address] (TnI) [place] [address] [phone] Laboratory test 07/04/2008 [facility] Digoxin 0.5 NG/ML 0.5- 1.5 [address] [place] [address] [phone] Valproic Acid (Depakene) 71.9 g/mL 50-100 38 CBC With 07/04/2008 [facility] White Blood 6.2 CUMM 4.8-10.8 Electronic Diff [address] [place] [address] [phone] Red Cell Count 4.69 CUMM 4.2-5.4 Hemoglobin 14.5 g/dL 12.0-16.0 Hematocrit 42 % 35-47 Mean Corpuscular Volume 89 um3 79-97 Mean Corpuscular Hemoglob 31 pg 27-31 Mean Corpuscular HGB Cone 35 g/dL 32-36 Redcell Distribution WDTH 14 % 10.5-15 Platelet Count 132 CUMM Low 150-450 Mean Platelet Volume 7.8 um3 7.4-10.4 Gran % 72.3 % 38-83 Lymph % 15.5 % Low 25-47 Mononuclear % 11.9 % High 1-9 Eosinophil % 0.2 % 0-6 Basophil % 0.1 % 0-2 Abs Lymphs 1.0 1.0-4.8 Abs Mononuclear 0.7 0-0.8 Absolute Neutrophil Count 4.5 1.5-7.7 Abs Eosinophils 0 0-0.6 Abs Basophils 0 0-0.2 39 1 Because ethnic data is not always readily available, this report includes an eGFR for both -Americans and non- Americans. The National Kidney Disease Education Program (NKDEP) does not endorse the use of the MDRD equation for patients that are not between the ages of 18 and 70, are , have extremes of body size, muscle mass, or nutritional status, or are non- or non-. According to the National Kidney Foundation, irrespective of diagnosis, the stage of the disease is based on the level of kidney function: Stage Description GFR(mL/min/1.73 m(2)) 1 Kidney damage with normal or decreased GFR 90 2 Kidney damage with mild decrease in GFR 60-89 3 Moderate decrease in GFR 30-59 4 Severe decrease in GFR 15-29 5 Kidney failure <15 (or dialysis) 2 with next labs within 3 m Copy Result to: KEO BENSON ([id number]) 3 Electrolytic Etcher: [id number] 4 Electrolytic Etcher: [id number] 5 >100 to <200 pg/mL: likely compensated congestive heart failure (CHF) 200 to 400 pg/mL: likely moderate CHF >400 pg/mL: likely moderate to severe CHF 6 Acute inflammation: >10.00 7 Because ethnic data is not always readily available, this report includes an eGFR for both -Americans and non- Americans. The National Kidney Disease Education Program (NKDEP) does not endorse the use of the MDRD equation for patients that are not between the ages of 18 and 70, are , have extremes of body size, muscle mass, or nutritional status, or are non- or non-. According to the National Kidney Foundation, irrespective of diagnosis, the stage of the disease is based on the level of kidney function: Stage Description GFR(mL/min/1.73 m(2)) 1 Kidney damage with normal or decreased GFR 90 2 Kidney damage with mild decrease in GFR 60-89 3 Moderate decrease in GFR 30-59 4 Severe decrease in GFR 15-29 5 Kidney failure <15 (or dialysis) 8 Consistent with previous results on 11/17/16. 9 >100 to <200 pg/mL: likely compensated congestive heart failure (CHF) 200 to 400 pg/mL: likely moderate CHF >400 pg/mL: likely moderate to severe CHF 10 Because ethnic data is not always readily available, this report includes an eGFR for both -Americans and non- Americans. The National Kidney Disease Education Program (NKDEP) does not endorse the use of the MDRD equation for patients that are not between the ages of 18 and 70, are , have extremes of body size, muscle mass, or nutritional status, or are non- or non-. According to the National Kidney Foundation, irrespective of diagnosis, the stage of the disease is based on the level of kidney function: Stage Description GFR(mL/min/1.73 m(2)) 1 Kidney damage with normal or decreased GFR 90 2 Kidney damage with mild decrease in GFR 60-89 3 Moderate decrease in GFR 30-59 4 Severe decrease in GFR 15-29 5 Kidney failure <15 (or dialysis) 11 Desirable <150 Borderline high 150-199 High 200-499 Very High >500 12 Desirable <200 Borderline high 200-239 High >239 13 Low <40 Desirable: 40-60 High: >60 14 Desirable <100 Near Optimal 100-129 Borderline high 130-159 High 160-189 Very High >189 15 Because ethnic data is not always readily available, this report includes an eGFR for both -Americans and non- Americans. The National Kidney Disease Education Program (NKDEP) does not endorse the use of the MDRD equation for patients that are not between the ages of 18 and 70, are , have extremes of body size, muscle mass, or nutritional status, or are non- or non-. According to the National Kidney Foundation, irrespective of diagnosis, the stage of the disease is based on the level of kidney function: Stage Description GFR(mL/min/1.73 m(2)) 1 Kidney damage with normal or decreased GFR 90 2 Kidney damage with mild decrease in GFR 60-89 3 Moderate decrease in GFR 30-59 4 Severe decrease in GFR 15-29 5 Kidney failure <15 (or dialysis) 16 Because ethnic data is not always readily available, this report includes an eGFR for both -Americans and non- Americans. The National Kidney Disease Education Program (NKDEP) does not endorse the use of the MDRD equation for patients that are not between the ages of 18 and 70, are , have extremes of body size, muscle mass, or nutritional status, or are non- or non-. According to the National Kidney Foundation, irrespective of diagnosis, the stage of the disease is based on the level of kidney function: Stage Description GFR(mL/min/1.73 m(2)) 1 Kidney damage with normal or decreased GFR 90 2 Kidney damage with mild decrease in GFR 60-89 3 Moderate decrease in GFR 30-59 4 Severe decrease in GFR 15-29 5 Kidney failure <15 (or dialysis) 17 CC: Dr. Benson 18 CC: Dr. Benson 19 CC: Dr. Benson 20 Anion gap measurement may be of limited value in the presence of any alkalosis, especially in a combined acid base disorder. . 21 Note change in reference range as of 11/26/07. The change was based on recommendations from the [place] [employer]. 22 Please note change in reference range effective 07 . 23 Because ethnic data is not always readily available, this report includes an eGFR for both -Americans and non- Americans. The National Kidney Disease Education Program (NKDEP) does not endorse the use of the MDRD equation for patients that are not between the ages of 18 and 70, are , have extremes of body size, muscle mass, or nutritional status, or are non- or non-. According to the National Kidney Foundation, irrespective of diagnosis, the stage of the disease is based on the level of kidney function: Stage Description GFR(mL/min/1.73 m(2)) 1 Kidney damage with normal or decreased GFR 90 2 Kidney damage with mild decrease in GFR 60-89 3 Moderate decrease in GFR 30-59 4 Severe decrease in GFR 15-29 5 Kidney failure <15 (or dialysis) 24 *LEVELS AT THE LOWER END OF THE RANGE MAY BE NEEDED FOR SYMPTOMATIC HEART FAILURE AND LEVELS AT THE HIGHER END OF THE RANGE FOR RATE CONTROL.* 25 VERBAL TO [facility] BY LRU at 1321 on 08/24/08. Results read back accurately. 26 NORMAL THROAT ANIVAL 27 The case investigator and regulatory agencies both recommend that a throat culture for beta strep be performed if a Rapid Group A Strep assay yields a negative result. Therefore a culture will be automatically performed on all negative samples. N^NEGATIVE FOR GROUP A STREP BY ENZYME IMMUNOASSAY^STREPA 28 New Reference Range and Interpretation effective 01/08/02 TnI (ng/ml) INTERPRETATION <0.06 ng/ml NOT SUPPORTIVE OF DIAGNOSIS OF [place] 0.06 - 0.50 ng/ml INDETERMINATE: SUGGEST SERIAL STUDIES IF CLINICALLY INDICATED. > 0.5 ng/ml CONSISTENT WITH DIAGNOSIS OF [place] . 29 INTERPRET WITH CAUTION. SPECIMEN IS HEMOLYZED WHICH MAY AFFECT ACCURACY OF TEST RESULTS BY FALSELY DECREASING CLOTTING TIMES. 30 INTERPRET WITH CAUTION. SPECIMEN IS HEMOLYZED WHICH MAY AFFECT ACCURACY OF TEST RESULTS BY FALSELY DECREASING CLOTTING TIMES. 31 YANI VALUE=2.01 ( OF 03/13/07 Recommended INR for Patients on Oral Anticoagulants Prophylaxis 2.0 - 3.0 Treatment of thrombosis 2.0 - 3.0 Prevention of embolism 2.0 - 3.0 Prevention of embolism from prosthetic heart valves 2.5 - 3.5 32 INTERPRET WITH CAUTION. SPECIMEN IS HEMOLYZED WHICH MAY AFFECT ACCURACY OF TEST RESULTS BY FALSELY DECREASING CLOTTING TIMES. PLEASE NOTE NEW REFERENCE RANGE EFFECTIVE 07. 33 Anion gap measurement may be of limited value in the presence of any alkalosis, especially in a combined acid base disorder. . 34 Note change in reference range as of 11/26/07. The change was based on recommendations from the [place] [employer]. 35 Please note change in reference range effective 07 . 36 New Reference Range and Interpretation effective 01/08/02 TnI (ng/ml) INTERPRETATION <0.06 ng/ml NOT SUPPORTIVE OF DIAGNOSIS OF [place] 0.06 - 0.50 ng/ml INDETERMINATE: SUGGEST SERIAL STUDIES IF CLINICALLY INDICATED. > 0.5 ng/ml CONSISTENT WITH DIAGNOSIS OF [place] . 37 *LEVELS AT THE LOWER END OF THE RANGE MAY BE NEEDED FOR SYMPTOMATIC HEART FAILURE AND LEVELS AT THE HIGHER END OF THE RANGE FOR RATE CONTROL.* 38 The detection limit for VALPROIC ACID is 10.0 mcg/ml . Values less than 10.0 mcg/ml cannot be accurately measured. . 39 Lymphopenia % Procedures Date Code Description Status 07/08/2018 70789 EKG Tracing & Interpretation Completed 05/21/2018 87017 Pace Maker Eval W/Iterative Adjustment Single Lead Completed 05/21/2018 57408 Pace Maker Eval W/Iterative Adjustment Single Lead Completed 03/26/2018 24605 EKG Tracing & Interpretation Completed 02/08/2018 57068 EKG, Interpretation Only Completed 02/04/2018 20739 ECHO Transthorasic Realtime 2D W Doppler & Color Flow Hosp Completed 11/06/2017 34519 ECHO Transthoracic, Real-Time 2D With Doppler And Color Completed Flow 11/06/2017 43588 ECHO Transthoracic, Real-Time 2D With Doppler And Color Completed Flow 11/03/2017 80584 Pace Maker Eval W/Iterative Adjustment Single Lead Completed 11/03/2017 58097 Pace Maker Eval W/Iterative Adjustment Single Lead Completed 07/28/2017 35706 EKG Tracing & Interpretation Completed 04/23/2017 81671 Pace Maker Eval W/Iterative Adjustment Single Lead Completed 04/23/2017 88836 Pace Maker Eval W/Iterative Adjustment Single Lead Completed 01/16/2017 56118 EKG Tracing & Interpretation Completed 01/03/2017 02715 Moderate Sedation Services; Same Phys Intl 15 Mins; PT >=5 Completed Years 01/03/2017 79305 Color Flow Doppler/Interp & Reprt Completed 01/03/2017 69072 Pulse Wave/Continuous-Interp.RPT Completed 01/03/2017 51401 Echocardiography, Transesophageal, Real Time W/Image 2D Completed W/W/O M-M 12/18/2016 26978 Echocardiography, Transesophageal, Real Time W/Image 2D Completed W/W/O M-M 12/13/2016 86615 ECHO Transthoracic, Real-Time 2D With Doppler And Color Completed Flow 11/27/2016 91454 EKG Tracing & Interpretation Completed 10/01/2016 31313 EKG Tracing & Interpretation Completed 09/23/2016 08624 Pace Maker Eval W/Iterative Adjustment Single Lead Completed 03/26/2016 54195 Pace Maker Eval W/Iterative Adjustment Single Lead Completed 02/25/2016 81327 ECHO Transthorasic Realtime 2D W Doppler & Color Flow Hosp Completed 02/25/2016 97900 EKG, Interpretation Only Completed 01/17/2016 53383 Polysomnography Sleep Staging 4+ Parameters Completed 09/21/2015 59275 EKG Tracing & Interpretation Completed 09/19/2015 24501 Pace Maker Eval W/Iterative Adjustment Single Lead Completed 08/11/2015 19708 Treadmill Interp/Report Only Completed 08/11/2015 64065 Stress Test Supervsn W/Out I/R Completed 06/14/2015 39058 EKG Tracing & Interpretation Completed 04/18/2015 63815 EKG Tracing & Interpretation Completed 03/28/2015 99316 ECHO Transthoracic, Real-Time 2D With Doppler And Color Completed Flow 03/27/2015 64935 Interrogation Device Eval In Person W/DR Completed Analysis,Single,Dual,Mul 03/15/2015 31398 EKG Tracing & Interpretation Completed 10/12/2014 60376 EKG Tracing & Interpretation Completed 09/28/2014 61200 Interrogation Device Eval In Person W/DR Completed Analysis,Single,Dual,Mul 09/16/2014 57072 ECHO Transthoracic, Real-Time 2D With Doppler And Color Completed Flow 09/02/2014 27359 Treadmill Interp/Report Only Completed 09/02/2014 10240 Stress Test Supervsn W/Out I/R Completed 08/30/2014 79009 EKG Tracing & Interpretation Completed 03/14/2014 41508 Interrogation Device Eval In Person W/DR Completed Analysis,Single,Dual,Mul 09/17/2013 31007 Interrogation Device Eval In Person W/DR Completed Analysis,Single,Dual,Mul 07/02/2013 37701 ECHO Transthoracic, Real-Time 2D With Doppler And Color Completed Flow 06/30/2013 35656 ECHO Transthoracic, Real-Time 2D With Doppler And Color Completed Flow 06/24/2013 98068 Interrogation Device Eval In Person W/DR Completed Analysis,Single,Dual,Mul 06/14/2013 71839 EKG Tracing & Interpretation Completed 03/24/2013 59758 Interrogation Device Eval In Person W/DR Completed Analysis,Single,Dual,Mul 12/24/2012 18766 Icd Eval With Inerative Adjustmt Dual Lead System Completed 09/22/2012 42535 Interrogation Device Eval In Person W/DR Completed Analysis,Single,Dual,Mul 08/13/2012 47891 EKG Tracing & Interpretation Completed 07/18/2012 88320 Treadmill Interp/Report Only Completed 07/18/2012 51374 Stress Test Supervsn W/Out I/R Completed 07/18/2012 23051 EKG, Interpretation Only Completed 06/22/2012 72108 Interrogation Device Eval In Person W/DR Completed Analysis,Single,Dual,Mul 06/18/2012 63228 ECHO Transthorasic Realtime 2D W Doppler & Color Flow Hosp Completed 06/18/2012 05475 Pulse Wave/Continuous-Interp.RPT Completed 06/18/2012 48702 Color Flow Doppler/Interp & Reprt Completed 06/17/2012 73540 EKG Tracing & Interpretation Completed 05/25/2012 10108 Removal Pacemaker W/Replacement Of Pacemaker Pulse Completed Generator 05/25/2012 92712 Repair Pacemaker,Electrodes Only Completed 05/08/2012 21571 EKG Tracing & Interpretation Completed 04/27/2012 21876 Interrogation Device Eval In Person W/DR Completed Analysis,Single,Dual,Mul 04/27/2012 06243 Interrogation Device Eval In Person W/DR Completed Analysis,Single,Dual,Mul 02/18/2012 91705 Stress Test Supervsn W/Out I/R Completed 02/18/2012 30357 Treadmill Interp/Report Only Completed 02/18/2012 68873 Stress ECHO Interpretation/Report Hospital Completed 02/14/2012 95530 Interrogation Device Eval In Person W/DR Completed Analysis,Single,Dual,Mul 02/14/2012 21203 Interrogation Device Eval In Person W/DR Completed Analysis,Single,Dual,Mul 01/31/2012 89615 ECHO Transthoracic, Real-Time 2D With Doppler And Color Completed Flow 01/23/2012 63352 Interrogation Device Eval In Person W/DR Completed Analysis,Single,Dual,Mul 01/20/2012 23813 EKG Tracing & Interpretation Completed 11/21/2011 26395 Interrogation Device Eval In Person W/DR Completed Analysis,Single,Dual,Mul 09/19/2011 87871 Interrogation Device Eval In Person W/DR Completed Analysis,Single,Dual,Mul 08/22/2011 33619 Interrogation Device Eval In Person W/DR Completed Analysis,Single,Dual,Mul 06/20/2011 14664 Interrogation Device Eval In Person W/DR Completed Analysis,Single,Dual,Mul 04/25/2011 35517 Interrogation Device Eval In Person W/DR Completed Analysis,Single,Dual,Mul 02/15/2011 51425 Interrogation Device Eval In Person W/DR Completed Analysis,Single,Dual,Mul 01/31/2011 89154 EKG Tracing & Interpretation Completed 07/25/2010 75519 Interrogation Device Eval In Person W/DR Completed Analysis,Single,Dual,Mul 06/06/2010 58735 EKG Tracing & Interpretation Completed 01/25/2010 27757 Interrogation Device Eval In Person W/DR Completed Analysis,Single,Dual,Mul 11/30/2009 21880 Stress Test Supervsn W/Out I/R Completed 11/30/2009 59837 Treadmill Interp/Report Only Completed 11/29/2009 11974 EKG Tracing & Interpretation Completed 10/17/2009 01686 Interrogation Device Eval In Person W/DR Completed Analysis,Single,Dual,Mul 10/17/2009 11395 EKG Tracing & Interpretation Completed 10/17/2009 74291 EKG Tracing & Interpretation Completed 06/01/2009 06453 EKG Tracing & Interpretation Completed 04/27/2009 23053 Interrogation Device Eval In Person W/DR Completed Analysis,Single,Dual,Mul 03/16/2009 14870 Interrogation Device Eval In Person W/DR Completed Analysis,Single,Dual,Mul 01/19/2009 48664 Pace Maker Eval W/Iterative Adjment Dual Lead Completed 01/19/2009 73323 EKG Tracing & Interpretation Completed 10/20/2008 85857 Interrogation Device Eval In Person W/DR Completed Analysis,Single,Dual,Mul 09/15/2008 90585 EKG Tracing & Interpretation Completed 08/26/2008 02646 Holter Monitor Interpretation Completed 08/24/2008 40337 ECHO Transthorasic Realtime 2D W Doppler & Color Flow Hosp Completed 06/23/2008 66765 Pace Maker Eval W/Iterative Adjment Dual Lead Completed 11/26/2007 79831 Analysis Aicd DC W/Out Reprogramg Completed 11/26/2007 07203 Analysis Aicd DC W/Out Reprogramg Completed 09/10/2007 22409 EKG Tracing & Interpretation Completed 09/10/2007 53136 EKG Tracing & Interpretation Completed 05/28/2007 65408 Pacemaker Check/Dual [place]/Office Completed 05/28/2007 92800 Pacemaker Check/Dual [place]/Office Completed 05/28/2007 68474 Pacemaker Check/Dual [place]/Office Completed 03/11/2007 35049 EKG Tracing & Interpretation Completed 02/11/2007 88152 EKG Tracing & Interpretation Completed 01/06/2007 10857 EKG Tracing & Interpretation Completed 11/27/2006 05388 Reprogram Pacemaker (Dual) Completed 11/27/2006 50148 Reprogram Pacemaker (Dual) Completed 09/15/2006 45288 EKG, Interpretation Only Completed 09/14/2006 03384 Echocardiogram Completed 09/14/2006 86941 Pulse Wave/Continuous-Interp.RPT Completed 09/14/2006 67938 Pulse Wave/Continuous-Interp.RPT Completed 09/14/2006 80639 Color Flow Doppler/Interp & Reprt Completed 09/12/2006 82572 Color Flow Doppler/Interp & Reprt Completed 09/12/2006 80574 Pulse Wave/Continuous-Interp.RPT Completed 09/12/2006 20593 Pulse Wave/Continuous-Interp.RPT Completed 09/12/2006 42568 Echocardiogram Completed 08/21/2006 30958 Pacemaker Check/Dual [place]/Office Completed 08/21/2006 13527 Pacemaker Check/Dual [place]/Office Completed 04/23/2006 33127 Holter Monitor Completed 04/17/2006 99104 EKG Tracing & Interpretation Completed 04/17/2006 04014 EKG Tracing & Interpretation Completed 02/13/2006 87794 EKG Tracing & Interpretation Completed 12/11/2005 91362 EKG Tracing & Interpretation Completed 05/15/2005 14553 EKG Tracing & Interpretation Completed 03/29/2005 27559 EKG, Interpretation Only Completed 03/29/2005 10095 Left Heart Catheterization Completed 03/29/2005 96862 Inj Proc LFT Vent/LFT Atrl Angio Completed 03/29/2005 27555 Coronary Angiography Completed 03/29/2005 22146 S/I/R Inj Proc Vent &/Or Atrial Completed 03/29/2005 68855 Selective Coronary Angiography Completed 03/19/2005 58930 Treadmill Interp/Report Only Completed 03/19/2005 56242 Stress Test Supervsn W/Out I/R Completed 02/27/2005 84875 Color Doppler Completed 02/27/2005 45584 Pulse Doppler & Continuous Wave Completed 02/27/2005 55203 Echocardiogram Completed 02/20/2005 68047 EKG Tracing & Interpretation Completed 08/15/2004 37156 EKG Tracing & Interpretation Completed 07/03/2004 55744 Holter Monitor Completed 06/14/2004 13949 EKG Tracing & Interpretation Completed 06/06/2004 53421 Color Doppler Completed 06/06/2004 91271 Pulse Doppler & Continuous Wave Completed 06/06/2004 91700 Echocardiogram Completed 06/06/2004 78790 Holter Monitor Completed 05/22/2004 62097 ECHO/Stress Completed 05/22/2004 08597 Treadmill Interp/Report Only Completed 05/22/2004 05763 Stress Test Supervsn W/Out I/R Completed 05/15/2004 59663 EKG Tracing & Interpretation Completed Encounters Type Date Location Provider Dx Diagnosis Office Visit 03/26/2018 [facility] Lacy Crenshaw, D69.6 Thrombocytopenia, 3:00p Of [employer] ENDOSCOPY TECHNICIAN unspecified I48.91 Unspecified atrial fibrillation I27.20 Pulmonary hypertension, unspecified I34.0 Nonrheumatic mitral (valve) insufficiency Office Visit 02/09/2018 8:43a [facility] U[facility], N10 Acute pyelonephritis Assoc,pc ENDOSCOPY TECHNICIAN Hospitalists B96.20 Unsp Escherichia coli as the cause of diseases classd elsr R78.81 Bacteremia G93.41 Metabolic encephalopathy R33.8 Other retention of urine D69.6 Thrombocytopenia, unspecified Office Visit 02/08/2018 [facility] N12 Tubulo-interstitial 8:43a Assoc,pc [place], ENDOSCOPY TECHNICIAN nephritis, not spcf as Hospitalists acute or chronic R78.81 Bacteremia G93.41 Metabolic encephalopathy R33.9 Retention of urine, unspecified D69.6 Thrombocytopenia, unspecified I48.91 Unspecified atrial fibrillation Z86.73 Prsnl hx of TIA (TIA), and cereb infrc w/o resid deficits F31.30 Bipolar disord, crnt epsd depress, mild or mod severt, unsp J44.9 Chronic obstructive pulmonary disease, unspecified Office Visit 02/07/2018 [facility] N12 Tubulo-interstitial 8:43a Assoc,pc [place], ENDOSCOPY TECHNICIAN nephritis, not spcf as Hospitalists acute or chronic G93.41 Metabolic encephalopathy R78.81 Bacteremia R33.9 Retention of urine, unspecified D69.6 Thrombocytopenia, unspecified I48.91 Unspecified atrial fibrillation Z86.73 Prsnl hx of TIA (TIA), and cereb infrc w/o resid deficits F31.9 Bipolar disorder, unspecified Office Visit 02/06/2018 [facility] Akila G93.41 Metabolic 2:42p Assoc,pc Regan, ENDOSCOPY TECHNICIAN encephalopathy Hospitalists N12 Tubulo-interstitial nephritis, 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 nephritis, not spcf as Diseases acute or chronic R78.81 Bacteremia B96.20 Unsp Escherichia coli as the cause of diseases classd elswhr Office Visit 02/05/2018 [place] [id number] Encephalopathy, 8:42a Assoc,alan Spears, ENDOSCOPY TECHNICIAN unspecified Hospitalists N12 Tubulo-interstitial nephritis, not spcf as acute or chronic R78.81 Bacteremia E78.5 Hyperlipidemia, unspecified I48.91 Unspecified atrial fibrillation R33.9 Retention of urine, unspecified F31.30 Bipolar disord, crnt epsd depress, mild or mod severt, unsp Z86.73 Prsnl hx of TIA (TIA), and cereb infrc w/o resid deficits D69.6 Thrombocytopenia, unspecified Office Visit 02/04/2018 [facility] Simeon Carney, I69.322 Dysarthria 7:00a 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81 Bacteremia E78.5 Hyperlipidemia, unspecified I48.91 Unspecified atrial fibrillation F31.30 Bipolar disord, crnt epsd depress, mild or mod severt, unsp Z86.73 Prsnl hx of TIA (TIA), and cereb infrc w/o resid deficits D69.6 Thrombocytopenia, unspecified J44.9 Chronic obstructive pulmonary disease, unspecified Office Visit 02/03/2018 [facility] Simeon Carney, I69.322 Dysarthria 7:00a 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 I10 Essential (primary) hypertension N39.0 Urinary tract infection, site not specified I48.91 Unspecified atrial fibrillation Z79.01 terminal clerk (current) use of anticoagulants Office Visit 02/03/2018 8:41a [facility] Rose [place], N39.0 Urinary tract Assoc,pc ENDOSCOPY TECHNICIAN infection, site Hospitalists not specified N17.9 Acute kidney failure, unspecified Z86.73 Prsnl hx of TIA (TIA), and cereb infrc w/o resid deficits I10 Essential (primary) hypertension E78.5 Hyperlipidemia, unspecified J44.9 Chronic obstructive pulmonary disease, unspecified G47.33 Obstructive sleep apnea (adult) (pediatric) F31.9 Bipolar disorder, unspecified Office 11/27/2017 [facility] Svetlana Seals E78.00 Pure Visit 11:00a [facility] Of [facility] [place] hypercholesterolemia, [employer] Operator unspecified I42.9 Cardiomyopathy, unspecified 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 syndrome I48.2 Chronic atrial fibrillation I27.29 Other secondary pulmonary hypertension Q21.1 Atrial septal defect Office Visit 01/16/2017 11:00a [facility] Hemant Palomino R06.02 Tariqness of Sheridan Ramos breath I27.29 Other secondary pulmonary hypertension G47.33 Obstructive sleep apnea (adult) (pediatric) E66.09 Other obesity due to excess calories I48.2 Chronic atrial fibrillation Q21.1 Atrial septal defect Office Visit 01/09/2017 10:15a Pulmonology And Lisa R06.02 Shortness of Sleep Services Of MD Roberto breath [employer] Operator I27.29 Other secondary pulmonary hypertension G47.33 Obstructive sleep apnea (adult) (pediatric) E66.09 Other obesity due to excess calories Office Visit 11/27/2016 10:00a [facility] Hemant Palomino I48.2 Chronic atrial Sheridan Ramos fibrillation I10 Essential (primary) hypertension E78.00 Pure hypercholesterolemia, unspecified I42.9 Cardiomyopathy, unspecified Z95.0 Presence of cardiac pacemaker R07.9 Chest pain, unspecified Office Visit 10/01/2016 9:40a [facility] Hemant Palomino I48.2 Chronic atrial Sheridan Ramos fibrillation I10 Essential (primary) hypertension E78.00 Pure hypercholesterolemia, unspecified I42.9 Cardiomyopathy, unspecified Office Visit 02/25/2016 [facility] Victorino Mayo R07.2 Precordial pain 11:04a alan García II, M.D. Hospitalists I48.2 Chronic atrial fibrillation I10 Essential (primary) hypertension E78.00 Pure hypercholesterolemia, unspecified Office Visit 02/25/2016 12:42p [facility] Qumary carmen Seals R07.9 Chest pain, Cardiology Sheridan Olmos unspecified I48.2 Chronic atrial fibrillation I10 Essential (primary) hypertension Office Visit 02/01/2016 11:45a [facility] And Lisa G47.33 Obstructive sleep Sleep Services Of MD Roberto apnea (adult) [employer] Operator (pediatric) E66.09 Other obesity due to excess calories Office Visit 01/03/2016 11:00a Pulmon[facility] And Lisa G47.9 Sleep disorder, Sleep Services Of MD Roberto unspecified M[employer] Operator R09.02 Hypoxemia E66.09 Other obesity due to excess calories Office Visit 12/13/2015 11:00a [facility] Sonia Lockett I48.2 Chronic atrial PA fibrillation I10 Essential (primary) hypertension R09.02 Hypoxemia Z95.0 Presence of cardiac pacemaker Office Visit 09/21/2015 2:00p [facility] Hemant Palomino I48.2 Chronic atrial Sheridan Ramos fibrillation I10 Essential (primary) hypertension I34.0 Nonrheumatic mitral (valve) insufficiency R53.83 Other fatigue G47.9 Sleep disorder, unspecified Office Visit 07/26/2015 10:30a [facility] Sonia Lockett I10 Essential (primary) PA hypertension I48.2 Chronic atrial fibrillation I34.0 Nonrheumatic mitral (valve) insufficiency R60.9 Edema, unspecified M79.605 Pain in left leg R06.02 Shortness of breath I50.21 Acute systolic (congestive) heart failure Office Visit 06/14/2015 1:20p [facility] Hemant Palomino I10 Essential (primary) Sheridan Ramos hypertension I48.2 Chronic atrial fibrillation R07.89 Other chest pain I34.0 Nonrheumatic mitral (valve) insufficiency Office Visit 04/18/2015 11:00a [facility] Sonia Lockett, I10 Essential (primary) Of [facility] [place] hypertension Z95.0 Presence of cardiac pacemaker I48.2 Chronic atrial fibrillation R07.89 Other chest pain I50.21 Acute systolic (congestive) heart failure Office Visit 01/03/2015 10:30a [facility] Sonia Lockett, I48.0 Paroxysmal atrial PA fibrillation Z95.0 Presence of cardiac pacemaker I10 Essential (primary) hypertension E78.5 Hyperlipidemia, unspecified Office Visit 10/12/2014 2:00p [facility] Hemant Palomino 786.59 Pain Chest Of Garry Ramos M.D. Other 440.21 Atherosclerosis Arteries Extrem W/ Interm Claudication 786.05 Shortness Of Breath 427.81 Sinoatrial Node Dysfunction 427.31 Atrial Fibrillation Office Visit 09/02/2014 12:40p [facility] Hemant Palomino 786.59 Pain Chest Sheridan Ramos Other 786.09 Dyspnea & Respiratory Abnormalities Other 427.31 Atrial Fibrillation 401.9 Hypertension Unspec 786.50 Pain Chest Unspec 789.06 Pain Abdominal Epigastric Office Visit 09/02/2014 10:29a [facility] Marco Lora 786.50 Pain Chest Assoc,alan Swartz Unspec Hospitalists 427.31 Atrial Fibrillation 401.9 Hypertension Unspec 272.4 Hyperlipidemia Other Unspec Office Visit 09/01/2014 10:28a [facility] Victorino Mayo 786.50 Pain Chest Assoc,alan GUERRERO, MLeonardo Unspec Hospitalists 401.9 Hypertension Unspec 272.4 Hyperlipidemia Other Unspec 427.31 Atrial Fibrillation Office Visit 08/30/2014 2:00p [facility] Sonia Lockett, 427.31 Atrial PA Fibrillation 427.81 Sinoatrial Node Dysfunction V45.01 Cardiac Pacemaker In Situ Postsurgical 424.0 Mitral Valve Disorder 786.50 Pain Chest Unspec 786.05 Shortness Of Breath Office Visit 09/14/2013 1:30p [facility] Sonia Lockett, 427.31 Atrial PA Fibrillation 424.0 Mitral Valve Disorder V45.01 Cardiac Pacemaker In Situ Postsurgical 401.1 Hypertension Benign Office Visit 06/14/2013 2:00p [facility] Hemant Palomino 427.31 Atrial Cardiology Sheridan Ramos Fibrillation V45.01 Cardiac Pacemaker In Situ Postsurgical 401.1 Hypertension Benign 786.50 Pain Chest Unspec Office Visit 08/13/2012 3:40p [facility] Hemant Palomino 401.1 Hypertension Sheridan Ramos Benign 786.50 Pain Chest Unspec 427.81 Sinoatrial Node Dysfunction 427.31 Atrial Fibrillation Office Visit 07/18/2012 2:15p [facility] Tamiko Tong 786.51 Pain Precordial Assoc,pc N.PRita Hospitalists 427.81 Sinoatrial Node Dysfunction V45.01 Cardiac Pacemaker In Situ Postsurgical Office Visit 07/18/2012 9:29a [facility] Hemant Palomino 786.50 Pain Chest Sheridan Ramos Unspec 401.1 Hypertension Benign 427.31 Atrial Fibrillation Office Visit 2012 [facility] [place] 786.51 Pain Precordial 2:14p Assoc,pc Sheridan Coy Hospitalists 427.81 Sinoatrial Node Dysfunction V45.01 Cardiac Pacemaker In Situ Postsurgical Office Visit 06/17/2012 8:40a [facility] [place] 427.31 Atrial Cardiology Sheridan Ramos Fibrillation 424.0 Mitral Valve Disorder 786.51 Pain Precordial 786.09 Dyspnea & Respiratory Abnormalities Other Office Visit 05/08/2012 2:45p John Garnett 427.Fred Atrial Cardiology Fortino Dawkins M.D. Fibrillation Moto Mix Operator Office Visit 02/07/2012 10:30a Hang Palomino 424.0 Mitral Valve Cardiology Sheridan Ramos Disorder 427.31 Atrial Fibrillation 786.51 Pain Precordial Office Visit 01/20/2012 3:40p Hang Palomino 427.Fred Atrial Cardiology Sheridan Ramos Fibrillation 424.0 Mitral Valve Disorder 427.81 Sinoatrial Node Dysfunction V45.01 Cardiac Pacemaker In Situ Postsurgical Office Visit 01/31/2011 11:20a Hang [place].Fred Atrial Cardiology Sheridan Ramos Fibrillation V45.01 Cardiac Pacemaker In Situ Postsurgical 424.0 Mitral Valve Disorder Office Visit 06/06/2010 10:40a Hang [place].Fred Atrial Cardiology Sheridan Ramos Fibrillation 278.00 Obesity Unspec 424.0 Mitral Valve Disorder Office Visit 11/29/2009 10:00a Hang Palomino V45.01 Cardiac Pacemaker Cardiology Sheridan Ramos In Situ Postsurgical 427.31 Atrial Fibrillation 424.0 Mitral Valve Disorder 401.1 Hypertension Benign Office Visit 06/01/2009 10:20a Hang Palomino V45.01 Cardiac Pacemaker Cardiology Sheridan Ramos In Situ Postsurgical 427.31 Atrial Fibrillation 424.0 Mitral Valve Disorder Office Visit 01/19/2009 10:40a Hang Palomino 427.Fred Atrial Cardiology Sheridan Ramos Fibrillation V45.01 Cardiac Pacemaker In Situ Postsurgical 401.1 Hypertension Benign 424.0 Mitral Valve Disorder Office Visit 10/14/2008 11:00a Hang Palomino 427.31 Atrial Cardiology Sheridan Ramos Fibrillation 401.1 Hypertension Benign Office Visit 09/15/2008 1:20p Hang Palomino 427.31 Atrial Cardiology Sheridan Ramos Fibrillation 424.0 Mitral Valve Disorder V45.01 Cardiac Pacemaker In Situ Postsurgical 401.1 Hypertension Benign Office Visit 09/10/2007 1:40p Hang Palomino 427.Fred Atrial Cardiology Sheridan Ramos Fibrillation 401.1 Hypertension Benign 424.0 Mitral Valve Disorder Office Visit 03/11/2007 10:20a Hang Palomino 427.Fred Atrial Cardiology Sheridan Ramos Fibrillation 401.1 Hypertension Benign 424.0 Mitral Valve Disorder Office Visit 02/11/2007 11:20a Hang Palomino 427.Fred Atrial Cardiology Sheridan Ramos Fibrillation 401.1 Hypertension Benign 424.0 Mitral Valve Disorder Office Visit 01/06/2007 10:00a [facility] Hemant Palomino [id number] Sinoatrial Node Sheridan Ramos Dysfunction 427.31 Atrial Fibrillation 401.1 Hypertension Benign 435.8 Ischemia Cerebral Transient Other Spec Office Visit 04/17/2006 10:20a Hang Palomino 427.31 Atrial Cardiology Sheridan Ramos Fibrillation Office Visit 02/13/2006 2:20p Hang Palomino 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 427.31 Atrial Fibrillation 424.0 Mitral Valve Disorder 782.3 Edema Office Visit 12/11/2005 3:20p Hang Palomino 427.31 Atrial Cardiology Sheridan Ramos Fibrillation Office Visit 05/15/2005 11:00a Hang Palomino 427.81 Sinoatrial Node Cardiology Sheridan Ramos Dysfunction 272.0 Hypercholesterolemia Pure Office Visit 04/04/2005 Hang Seals 414.01 Coronary 1:40p Cardiology Sheridan Olmos Atherosclerosis [place] Office Visit 03/19/2005 Hang Palomino 786.50 Pain Chest Unspec 10:00a Cardiology Sheridan Ramos 427.31 Atrial Fibrillation 427.81 Sinoatrial Node Dysfunction 401.1 Hypertension Benign Office Visit 02/20/2005 Hang Palomino 794.31 Electrocardiogram 9:20a Kaci Ramos M.D. (ECG) (EKG) Abnormal 427.31 Atrial Fibrillation 427.32 Atrial Flutter 786.09 Dyspnea & Respiratory Abnormalities Other Office Visit 08/15/2004 10:20a Hang Palomino 427.31 Atrial Cardiology Sheridan Ramos Fibrillation 424.0 Mitral Valve Disorder Office Visit 06/14/2004 10:20a Hang Palomino 427.31 Atrial Cardiology Sheridan Ramos Fibrillation 424.0 Mitral Valve Disorder Office Visit 05/15/2004 2:00p Hang Palomino 427.31 Atrial Cardiology Sheridan Ramos Fibrillation 401.1 Hypertension Benign Plan of Treatment No Information Available
[2018-07-22 17:21] LABS: ABS Basophils 0 10^3/ul (0-0.2); ABS Eosinophils 0.1 10^3/ul (0-0.6); ABS Lymphocytes 1.2 10^3/ul (1.0-4.8); ABS Monocytes 0.5 10^3/ul (0-0.8); ABS Neutrophils 3.4 10^3/ul (1.5-7.7); ABS Nucleated RBC 0 10^3/ul; Hematocrit 35 % (33-41); Hemoglobin 11.4 g/dL (12.0-16.0); Lymphocyte % 22.5 %; Mean Corpuscular HGB Conc 32 g/dL (31-36); Mean Corpuscular Hemoglobin 30 pg (27-31); Mean Corpuscular Volume 92 fL (80-97); Mean Platelet Volume 8.2 fL (7.4-10.4); Nucleated Red Blood Cells % 0.1; Platelet Count 104 10^3/uL (150-450); Red Blood Count 3.81 10^6 /uL (3.70-4.87); Red Cell Distribution Width 15 % (10.5-15); White Blood Count 5.2 10^3/uL (3.5-10.8)
[2018-07-22 17:41] LABS: Albumin 3.5 g/dL (3.2-5.2); Albumin/Globulin Ratio 1.1 (1-3); BUN/Creatinine Ratio 16.7 (8-20); Calcium 8.7 mg/dL (8.6-10.3); EGFR African American 49.1 (>60); EGFR Non-African American 40.6 (>60); Globulin 3.2 g/dL (2-4); Potassium 4.5 mmol/L (3.5-5.0); Total Bilirubin 0.5 mg/dL (0.2-1.0); Total Protein 6.7 g/dL (6.4-8.9)
[2018-07-22 17:42] LABS: Troponin I 0.01 ng/mL (<0.04)
[2018-07-22] MEDS ORDERED: NS 0.9% 1000 ML** 1,000 ML IV ONE (17:58)
--- NOTE | 2018-07-22 18:15 | ED ---
Abdominal Pain/Female - HPI Summary HPI Summary: Patient is an 83-year-old female who presents emergency department for lower abdominal pain 4 days. Patient describes pain as a cramping sensation to her lower abdomen that is worse he lies down. Patient also notes mild dysuria and right flank pain. She denies fever, chills, nausea, vomiting, diarrhea, constipation, chest pain or shortness of breath. Patient lives at home in an apartment by herself. Patient states she's been under a lot of stress recently as she needs to clean up her apartment for an upcoming inspection. Patient's notes she has a "stress headache." Symptoms are moderate in severity. No current modifying factors. - History of Current Complaint Chief Complaint: EDAbdPain Stated Complaint: ABD PAIN PER EMS Time Seen by Provider: 07/22/18 16:59 Hx Obtained From: Patient Pain Intensity: 9 Allergies/Adverse Reactions: Allergies Allergy/AdvReac Type Severity Reaction Status Date / Time JOSE Inhibitors Allergy Coughing Verified 01/10/18 15:50 aspirin Allergy Hives Verified 01/10/18 15:50 atorvastatin Allergy Muscle Ache Verified 01/10/18 15:50 bee venom protein (honey bee) Allergy Hives/Diff. Verified 01/10/18 15:50 Breathing/I tching bupropion Allergy Dizziness Verified 01/10/18 15:50 Iodinated Contrast- Oral and Allergy Vomiting Verified 01/10/18 15:50 IV Dye latex Allergy Hives Verified 01/10/18 15:50 oxycodone Allergy Hives Verified 01/10/18 15:50 Penicillins Allergy Hives Verified 01/10/18 15:50 procaine Allergy Dizziness Verified 01/10/18 15:50 prochlorperazine Allergy Hives Verified 01/10/18 15:50 risperidone Allergy Unknown Verified 01/10/18 15:50 Reaction Details Sulfa (Sulfonamide Allergy Hives Verified 01/10/18 15:50 Antibiotics) PMH/Surg Hx/FS Hx/Imm Hx Previously Healthy: Yes Endocrine/Hematology History: Reports: Hx Anticoagulant Therapy, Hx Blood Transfusions, Hx Anemia, Hx Unexplained Bleeding Denies: Hx Diabetes Cardiovascular History: Reports: Hx Angina, Hx 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 chest wall, Hx Hypercholesterolemia, Hx Hypertension, Hx Pacemaker/ICD, Hx Syncope, Hx Valvular Heart Disease, Other Cardiovascular Problems/Disorders - CAD, VALVULAR HEART DISEASE Denies: Hx Aneurysm, Hx Myocardial Infarction, Hx Rheumatic Fever Comment Only: Hx Coronary Artery Disease - pt states has blockage Respiratory History: Reports: Hx Asthma, Hx Chronic Bronchitis, Hx Chronic Obstructive Pulmonary Disease (COPD), Hx Pneumonia, Hx Pulmonary Embolism - 2002 , Hx Seasonal Allergies, Hx Sleep Apnea GI History: Reports: Hx Diverticulosis, Hx Gastroesophageal Reflux Disease, Hx Ulcer Comment Only: Other GI Disorders - DYSPHAGIA History: Reports: Hx Kidney Infection, Other Problems/Disorders - " bladder disease" Musculoskeletal History: Reports: Hx Arthritis, Hx Back Problems, Hx Bursitis, Hx Gout - great toe on right foot, Hx Osteoporosis Denies: Hx Scoliosis, Hx Tendonitis Sensory History: Reports: Hx Cataracts, Hx Contacts or Glasses - surgery in both eyes Denies: Hx Hearing Aid, Hx Hearing Problem Opthamlomology History: Reports: Hx Cataracts, Hx Contacts or Glasses - surgery in both eyes Neurological History: Reports: Hx Headaches, Hx Transient Ischemic Attacks (TIA ) - x2, Other Neuro Impairments/Disorders - CVA x 4 Psychiatric History: Reports: Hx Anxiety, Hx Eating Disorder, Hx Depression, Hx Community Mental Health Tx - since 1986, Hx Bipolar Disorder - Surgical History Surgery Procedure, Year, and Place: tonsilectomy, tubal igation 1971, cataract surgery Lt 2007, cataract surgery Rt 2008, hysterectomy 1982, pacer 2006, pacer #2 2012, skin graft for villagomez on buttocks Hx Anesthesia Reactions: No Infectious Disease History: No Infectious Disease History: Denies: Traveled Outside the [place] in Last 30 Days - Family History Known Family History: Positive: Cardiac Disease - Social History Occupation: Retired Lives: Alone Alcohol Use: None Hx Substance Use: No Substance Use Type: Reports: None Hx Tobacco Use: No Smoking Status (MU): Never Smoked Tobacco Review of Systems Constitutional: Negative Negative: Fever, Chills Cardiovascular: Negative Negative: Chest Pain Respiratory: Negative Negative: Shortness Of Breath Positive: Abdominal Pain. Negative: Vomiting, Diarrhea, Nausea Positive: dysuria, flank pain Musculoskeletal: Negative Skin: Negative Positive: Headache All Other Systems Reviewed And Are Negative: Yes Physical Exam Triage Information Reviewed: Yes Vital Signs On Initial Exam: Initial Vitals Temp Pulse Resp BP Pulse Ox 97.9 F 83 16 158/66 94 07/22/18 16:34 07/22/18 16:34 07/22/18 16:34 07/22/18 16:34 07/22/18 16:34 Vital Signs Reviewed: Yes Appearance: Positive: Well-Appearing - Pt. sitting up in bed in NAD. Pleasant and answers questions appropriately. Skin: Positive: Warm, Dry Head/Face: Positive: Normal Head/Face Inspection Eyes: Positive: Normal, EOMI, JENNI Neck: Positive: Supple Respiratory/Lung Sounds: Positive: Clear to Auscultation, Breath Sounds Present Cardiovascular: Positive: Normal, RRR Abdomen Description: Positive: Other: - Abd. is soft with diffuse tenderness on palpation with mild guarding. No rigidity. Mild right CVA tenderness. Musculoskeletal: Positive: Normal, Strength/ROM Intact Neurological: Positive: Normal, Alert, Oriented to Person Place, Time, CN Intact II-III Psychiatric: Positive: Affect/Mood Appropriate Diagnostics - Vital Signs Vital Signs Temp Pulse Resp BP Pulse Ox 07/22/18 16:34 97.9 F 83 16 158/66 94 - Laboratory Lab Results: Lab Results 07/22/18 07/22/18 Range/Units 17:13 17:13 WBC 5.2 (3.5-10.8) 10^3/uL RBC 3.81 (3.70-4.87) 10^6 /uL Hgb 11.4 L (12.0-16.0) g/dL Hct 35 (33-41) % MCV 92 (80-97) fL MCH 30 (27-31) pg MCHC 32 (31-36) g/dL RDW 15 (10.5-15) % Plt Count 104 L (150-450) 10^3/uL MPV 8.2 (7.4-10.4) fL Neut % (Auto) 65.8 % Lymph % (Auto) 22.5 % [place] % (Auto) 9.8 % Eos % (Auto) 1.0 % Baso % (Auto) 0.9 % Absolute Neuts (auto) 3.4 (1.5-7.7) 10^3/ul Absolute Lymphs (auto) 1.2 (1.0-4.8) 10^3/ul Absolute Monos (auto) 0.5 (0-0.8) 10^3/ul Absolute Eos (auto) 0.1 (0-0.6) 10^3/ul Absolute Basos (auto) 0 (0-0.2) 10^3/ul Absolute Nucleated RBC 0 10^3/ul Nucleated RBC % 0.1 Sodium 140 (135-145) mmol/L Potassium 4.5 (3.5-5.0) mmol/L Chloride 105 (101-111) mmol/L Carbon Dioxide 29 (22-32) mmol/L Anion Gap 6 (2-11) mmol/L BUN 21 (6-24) mg/dL Creatinine 1.26 H (0.51-0.95) mg/dL Est GFR ( Amer) 49.1 (>60) Est GFR (Non-Af Amer) 40.6 (>60) BUN/Creatinine Ratio 16.7 (8-20) Glucose 116 H (70-100) mg/dL Calcium 8.7 (8.6-10.3) mg/dL Magnesium 2.0 (1.9-2.7) mg/dL Total Bilirubin 0.50 (0.2-1.0) mg/dL AST 8 L (13-39) U/L ALT 5 L (7-52) U/L Alkaline Phosphatase 33 L (34-104) U/L Total Creatine Kinase 19 (10-223) U/L Troponin I 0.01 (<0.04) ng/mL Total Protein 6.7 (6.4-8.9) g/dL Albumin 3.5 (3.2-5.2) g/dL Globulin 3.2 (2-4) g/dL Albumin/Globulin Ratio 1.1 (1-3) Result Diagrams: 07/22/18 17:13 07/22/18 17:13 Lab Statement: Any lab studies that have been ordered have been reviewed, and results considered in the medical decision making process. Abdominal Pain Fem Course/Dx - Course Course Of Treatment: Pt. presenting for lower abd. pain and dyuria. She has mild left flank. Afebrile and well appearing. On exam she has diffuse tenderness. Labs are at baseline. Given pain on exam CT ordered for further eval. Dye allergy so will scan without. Labs unremarkable. UA shows small WBC. CT per radiology: IMPRESSION: Focal diverticulitis involving proximal descending colon. No perforation or. abscess. Results discussed with pt. Will start on cipro and flagyl (PNC allergy.) Advised clear liquid diet x 3 days. Close f.u with PCP. Will need coumadin levels monitored. To return to ER for increased pain, fever, vomiting, or if concerned. Pt. understands and agrees with plan. - Diagnoses Differential Diagnosis: Positive: Bowel Obstruction, Constipation, Renal Colic, Urinary Tract Infection Provider Diagnoses: Diverticulitis Discharge - Sign-Out/Discharge Documenting (check all that apply): Patient Departure Patient Received Moderate/Deep Sedation with Procedure: No - Discharge Plan Condition: Good Disposition: HOME Prescriptions: Ciprofloxacin TAB* [Cipro 500 MG TAB*] 500 mg PO BID #20 tab metroNIDAZOLE [Flagyl 500 MG TAB] 500 mg PO TID 10 Days #30 tab Patient Education Materials: Diverticulitis (ED) Referrals: Opal Benson MD [Primary Care Provider] - Additional Instructions: Call your PCP tomorrow for a close follow up appointment Will need coumadin levels monitored closely due to antibiotics Clear liquid diet x 3 days Increase fluids Return to ER for increased pain, fever, vomiting or if concerned - Billing Disposition and Condition Condition: GOOD Disposition: Home - Attestation Statements Provider Attestation: I was available for consult. This patient was seen by the NATALIA. The patient was not presented to, seen by, or examined by me. -[place]
[2018-07-22 19:01] LABS: Urine Appearance Cloudy; Urine Bacteria Absent (Absent); Urine Bilirubin Negative (Negative); Urine Blood Negative (Negative); Urine Color Yellow; Urine Glucose Negative (Negative); Urine Ketones Negative (Negative); Urine Nitrite Negative (Negative); Urine Protein Negative (Negative); Urine Red Blood Cell Trace(0-2/hpf) (Absent); Urine Specific Gravity 1.013 (1.010-1.030); Urine Squamous Epithelial Cell Present (Absent); Urine Urobilinogen Negative (Negative); Urine White Blood Cell 3+(>20/hpf) (Absent)
[2018-07-22] MEDS ORDERED: Ciprofloxacin TAB* 500 MG PO ONE (19:29)
[2018-07-22] MEDS ORDERED: metroNIDAZOLE TAB* 250 MG PO ONE (19:29)
[2018-07-22 20:04] VITALS: BP 146/75
== END 2018-07-22 20:09 | disposition home or self-care (01) ==
LOC: ED 16:32
DX: K57.92 Diverticulitis of intestine, part unspecified, without perforation or abscess without bleeding (principal); I10 Essential (primary) hypertension; I25.10 Atherosclerotic heart disease of native coronary artery without angina pectoris; E78.00 Pure hypercholesterolemia, unspecified; J44.9 Chronic obstructive pulmonary disease, unspecified; M10.9 Gout, unspecified; M81.0 Age-related osteoporosis without current pathological fracture; F41.9 Anxiety disorder, unspecified; F31.9 Bipolar disorder, unspecified; Z88.6 Allergy status to analgesic agent; Z88.8 Allergy status to other drugs, medicaments and biological substances; Z88.0 Allergy status to penicillin; Z88.4 Allergy status to anesthetic agent; Z91.041 Radiographic dye allergy status; Z91.040 Latex allergy status; Z88.2 Allergy status to sulfonamides; Z79.01 Long term (current) use of anticoagulants; Z95.810 Presence of automatic (implantable) cardiac defibrillator; Z86.73 Personal history of transient ischemic attack (TIA), and cerebral infarction without residual deficits
CPT/HCPCS: 36415; 74176; 80053; 81003; 81015; 82550; 83735; 84484; 85025; 87086; 96360; 96361; 99283; A9270-GY

== ENCOUNTER 2019-06-30 12:15 | Emergency (ER) | payer MEDICARE ==
[2019-06-30] MEDS ORDERED: Acetaminophen TAB* 325 MG PO ONE (13:22)
[2019-06-30 13:25] LABS: Hematocrit 36 % (35-47); Mean Corpuscular HGB Conc 33 g/dL (31-36); Mean Corpuscular Hemoglobin 31 pg (27-31); Mean Corpuscular Volume 94 fL (80-97); Red Blood Count 3.84 10^6 /uL (3.70-4.87); Red Cell Distribution Width 14 % (10-15); White Blood Count 5.2 10^3/uL (3.5-10.8)
[2019-06-30 13:44] LABS: ABS Monocytes 0.6 10^3/ul (0-0.8); ABS Neutrophils 3.6 10^3/ul (1.5-7.7); Eosinophil % 0.5 %; Mean Platelet Volume 8.5 fL (7.4-10.4); Platelet Count 84 10^3/uL (150-450)
[2019-06-30 13:48] LABS: Albumin 3.4 g/dL (3.2-5.2); Albumin/Globulin Ratio 1.2 (1-3); BUN/Creatinine Ratio 21.1 (8-20); Calcium 8.3 mg/dL (8.6-10.3); EGFR African American 55.1 (>60); EGFR Non-African American 45.5 (>60); Globulin 2.8 g/dL (2-4); Potassium 4.3 mmol/L (3.5-5.0); Total Bilirubin 0.3 mg/dL (0.2-1.0); Total Protein 6.2 g/dL (6.4-8.9)
--- NOTE | 2019-06-30 14:26 | ED ---
Back Pain - HPI Summary HPI Summary: Patient is a 83-year-old female presenting to the ED after a fall which occurred last evening. Patient states she was getting into her bed around 9 PM when her legs gave out from under her. She states for the past 12 hours she has laid half on top of the bed and half on the floor and was unable to get herself up. She tends to ambulate with a walker and a cane. She did not use her walker last evening right before she came to bed, sit did not have the walker nearby when she fell. She is only endorsing pain to the neck into the lower back, without pain to the mid back. Denies any pain to the hips, upper or lower extremities. Denies hitting her head. No confusion, memory loss, neuro symptoms, visual changes. Denies any recent illness, cough or congestion. Patient has no other complaints. No evidence of trauma. - History of Current Complaint Chief Complaint: EDFall Stated Complaint: FALLS Time Seen by Provider: 06/30/19 12:20 Hx Obtained From: Patient Onset/Duration: Sudden Onset Onset/Duration: Started Hours Ago Timing: Constant Back Pain Location: Is Discrete @ - mid back Severity Initially: Moderate Severity Currently: Moderate Pain Intensity: 8 Pain Scale Used: 0-10 Numeric Character: Aching Alleviating Symptom(s): Rest Associated Signs And Symptoms: Negative: Swelling, Redness, Weakness, Abdominal Pain, Flank Pain, Bowel Incontinence - Risk Factors AAA Risk Factors: Negative TAD Risk Factors: Negative Cauda Equina Risk Factors: Negative Epidural Abscess Risk Factors: Negative - Allergies/Home Medications Allergies/Adverse Reactions: Allergies Allergy/AdvReac Type Severity Reaction Status Date / Time JOSE Inhibitors Allergy Coughing Verified 01/10/18 15:50 aspirin Allergy Hives Verified 01/10/18 15:50 atorvastatin Allergy Muscle Ache Verified 01/10/18 15:50 bee venom protein (honey bee) Allergy Hives/Diff. Verified 01/10/18 15:50 Breathing/I tching bupropion Allergy Dizziness Verified 01/10/18 15:50 Iodinated Contrast Media Allergy Vomiting Verified 01/10/18 15:50 [Iodinated Contrast- Oral and IV Dye] latex Allergy Hives Verified 01/10/18 15:50 oxycodone Allergy Hives Verified 01/10/18 15:50 Penicillins Allergy Hives Verified 01/10/18 15:50 procaine Allergy Dizziness Verified 01/10/18 15:50 prochlorperazine Allergy Hives Verified 01/10/18 15:50 risperidone Allergy Unknown Verified 01/10/18 15:50 Reaction Details Sulfa (Sulfonamide Allergy Hives Verified 01/10/18 15:50 Antibiotics) Home Medications: Home Medications Acetaminophen [Acetaminophen Extra Strength] 1,000 mg PO BEDTIME PRN 02/03/18 [ History Confirmed 06/30/19] Albuterol HFA INHALER* [Ventolin HFA Inhaler*] 2 puff INH Q4H PRN 02/03/18 [ History Confirmed 06/30/19] Digoxin TAB* [Lanoxin TAB*] 0.125 mg PO DAILY 02/03/18 [History Confirmed ] Divalproex ER TAB(*) [Depakote ER TAB(*)] 500 mg PO BID 02/03/18 [History Confirmed 06/30/19] Fluticasone HFA 220 mcg(NF) [Flovent Hfa 220 Mcg(NF)] 2 puff INH BID 02/03/18 [ History Confirmed 06/30/19] Meclizine TAB* [Antivert 12.5 TAB*] 12.5 mg PO TID PRN 02/03/18 [History Confirmed 06/30/19] Metoprolol Tartrate TAB* [Lopressor TAB*] 50 mg PO BID 02/03/18 [History Confirmed 06/30/19] Warfarin TAB(*) [Coumadin TAB(*)] 5 mg PO DAILY 02/03/18 [History Confirmed ] Gabapentin CAP(*) [Neurontin 100 mg CAP(*)] 200 mg PO BEDTIME 06/30/19 [History Confirmed 06/30/19] LoraTADine TAB(NF) [Claritin 10 MG TAB(NF)] 10 mg PO DAILY 06/30/19 [History Confirmed 06/30/19] Pramoxine HCl [Vagisil] 1 each TOPICAL . 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, Hx Hypercholesterolemia, Hx Hypertension, Hx Pacemaker/ICD, Hx Syncope, Hx Valvular Heart Disease, Other Cardiovascular Problems/Disorders - CAD, VALVULAR HEART DISEASE Denies: Hx Aneurysm, Hx Myocardial Infarction, Hx Rheumatic Fever Comment Only: Hx Coronary Artery Disease - pt states has blockage Respiratory History: Reports: Hx Asthma, Hx Chronic Bronchitis, Hx Chronic Obstructive Pulmonary Disease (COPD), Hx Pneumonia, Hx Pulmonary Embolism - 2002 , Hx Seasonal Allergies, Hx Sleep Apnea GI History: Reports: Hx Diverticulosis, Hx Gastroesophageal Reflux Disease, Hx Ulcer Comment Only: Other GI Disorders - DYSPHAGIA History: Reports: Hx Kidney Infection, Other Problems/Disorders - " bladder disease" Musculoskeletal History: Reports: Hx Arthritis, Hx Back Problems, Hx Bursitis, Hx Gout - great toe on right foot, Hx Osteoporosis Denies: Hx Scoliosis, Hx Tendonitis Sensory History: Reports: Hx Cataracts, Hx Contacts or Glasses - surgery in both eyes Denies: Hx Hearing Aid, Hx Hearing Problem Opthamlomology History: Reports: Hx Cataracts, Hx Contacts or Glasses - surgery in both eyes Neurological History: Reports: Hx Headaches, Hx Transient Ischemic Attacks (TIA ) - x2, Other Neuro Impairments/Disorders - CVA x 4 Psychiatric History: Reports: Hx Anxiety, Hx Eating Disorder, Hx Depression, Hx Community Mental Health Tx - since 1986, Hx Bipolar Disorder - Surgical History Surgery Procedure, Year, and Place: tonsilectomy, tubal igation 1971, cataract surgery Lt 2007, cataract surgery Rt 2008, hysterectomy 1981, pacer 2005, pacer #2 2012, skin graft for villagomez on buttocks Hx Anesthesia Reactions: No - Immunization History Hx Pertussis Vaccination: No Immunizations Up to Date: Yes Infectious Disease History: No Infectious Disease History: Denies: Traveled Outside the [place] in Last 30 Days - Family History Known Family History: Positive: Cardiac Disease - Social History Occupation: Unemployed Lives: Alone Alcohol Use: None Hx Substance Use: No Substance Use Type: Reports: None Hx Tobacco Use: No Smoking Status (MU): Never Smoked Tobacco Review of Systems Negative: Fever, Chills, Fatigue, Skin Diaphoresis Negative: Palpitations, Chest Pain Negative: Shortness Of Breath, Cough Genitourinary: Negative Positive: no symptoms reported, see HPI Positive: Arthralgia - mid back pain. Negative: Myalgia Negative: Rash, Bruising Neurological/Mental Status: Negative All Other Systems Reviewed And Are Negative: Yes Physical Exam Triage Information Reviewed: Yes Vital Signs On Initial Exam: Initial Vitals Temp Pulse Resp BP Pulse Ox 98.0 F 68 24 121/71 100 06/30/19 12:18 06/30/19 12:18 06/30/19 12:18 06/30/19 12:18 06/30/19 12:18 Vital Signs Reviewed: Yes Appearance: Positive: Well-Appearing, No Pain Distress, Well-Nourished Skin: Positive: Warm, Skin Color Reflects Adequate Perfusion Head/Face: Positive: Normal Head/Face Inspection Eyes: Positive: EOMI, JENNI, Conjunctiva Clear Neck: Positive: Supple, No Lymphadenopathy Respiratory/Lung Sounds: Positive: Clear to Auscultation, Breath Sounds Present Cardiovascular: Positive: RRR, Pulses are Symmetrical in both Upper and Lower Extremities Musculoskeletal: Positive: Normal, Strength/ROM Intact - no pain on palpation throughout the spine Neurological: Positive: Speech Normal Psychiatric: Positive: Normal AVPU Assessment: Alert Procedures - Sedation Patient Received Moderate/Deep Sedation with Procedure: No Diagnostics - Vital Signs Vital Signs Temp Pulse Resp BP Pulse Ox 06/30/19 14:00 66 98 06/30/19 13:00 66 98 06/30/19 12:33 65 95 06/30/19 12:18 98.0 F 68 24 121/71 100 - Laboratory Lab Results: Lab Results 06/30/19 06/30/19 Range/Units 12:57 12:57 WBC 5.2 (3.5-10.8) 10^3/uL RBC 3.84 (3.70-4.87) 10^6 /uL Hgb 12.0 (12.0-16.0) g/dL Hct 36 (35-47) % MCV 94 (80-97) fL MCH 31 (27-31) pg MCHC 33 (31-36) g/dL RDW 14 (10-15) % Plt Count 84 L (150-450) 10^3/uL MPV 8.5 (7.4-10.4) fL Neut % (Auto) 68.6 % Lymph % (Auto) 19.0 % [place] % (Auto) 11.7 % Eos % (Auto) 0.5 % Baso % (Auto) 0.2 % Absolute Neuts (auto) 3.6 (1.5-7.7) 10^3/ul Absolute Lymphs (auto) 1.0 (1.0-4.8) 10^3/ul Absolute Monos (auto) 0.6 (0-0.8) 10^3/ul Absolute Eos (auto) 0.0 (0-0.6) 10^3/ul Absolute Basos (auto) 0.0 (0-0.2) 10^3/ul Absolute Nucleated RBC 0.0 10^3/ul Nucleated RBC % 0.0 Sodium 139 (135-145) mmol/L Potassium 4.3 (3.5-5.0) mmol/L Chloride 108 (101-111) mmol/L Carbon Dioxide 25 (22-32) mmol/L Anion Gap 6 (2-11) mmol/L BUN 24 (6-24) mg/dL Creatinine 1.14 H (0.51-0.95) mg/dL Est GFR ( Amer) 55.1 (>60) Est GFR (Non-Af Amer) 45.5 (>60) BUN/Creatinine Ratio 21.1 H (8-20) Glucose 92 (70-100) mg/dL Calcium 8.3 L (8.6-10.3) mg/dL Total Bilirubin 0.30 (0.2-1.0) mg/dL AST 9 L (13-39) U/L ALT 5 L (7-52) U/L Alkaline Phosphatase 31 L (34-104) U/L Total Creatine Kinase 28 (10-223) U/L Total Protein 6.2 L (6.4-8.9) g/dL Albumin 3.4 (3.2-5.2) g/dL Globulin 2.8 (2-4) g/dL Albumin/Globulin Ratio 1.2 (1-3) Result Diagrams: 06/30/19 12:57 06/30/19 12:57 Lab Statement: Any lab studies that have been ordered have been reviewed, and results considered in the medical decision making process. Back Pain Course/Dx - Course Course Of Treatment: During this was treatment, the patient's evaluated for fall with injuries to the neck into the low back. She denies hitting her head. She states she did not lose consciousness, denies any neuro symptoms including feeling loss, confusion, visual changes. Patient is alert and oriented 3. No pain on palpation to the chest or abdomen. No pain on palpation to the upper or lower extremities. No signs of trauma throughout. No cephalohematoma. Patient arrives in a c-collar. No tenderness throughout the back on palpation. No step-off noted. No signs of ecchymosis. CT brain, cervical, thoracic and lumbar spine obtained. Mild compression deformity of the T2 vertebral body without osseous retropulsion. Discussed this with Dr. Kmep. He states this may be able to heal spontaneously. I have encouraged patient to follow up with her PCP or return to the ED if she develops worsening symptoms. She is given tramadol here in the ED without reaction. She is given a prescription for tramadol 50 mg up to 3 times daily 4 days. - Diagnoses Differential Diagnosis/HQI/PQRI: Positive: Strain, Sprain Provider Diagnoses: Compression fracture of body of thoracic vertebra Discharge ED - Sign-Out/Discharge Documenting (check all that apply): Patient Departure - Discharge Plan Condition: Stable Disposition: HOME Prescriptions: traMADol TAB* [Ultram*] 50 mg PO Q8H PRN #12 tab MDD 3 PRN Reason: Pain Patient Education Materials: Vertebral Compression Fracture (ED) Referrals: Opal Benson MD [Primary Care Provider] - Additional Instructions: Tramadol as needed for pain - for pain not well controlled with tylenol Tylenol four times daily as needed for pain - Billing Disposition and Condition Condition: STABLE Disposition: Home
[2019-06-30] MEDS ORDERED: traMADol TAB* 50 MG PO ONE (14:41)
[2019-06-30 15:07] VITALS: BP 120/61
== END 2019-06-30 15:06 | disposition home or self-care (01) ==
LOC: ED 12:15
DX: S22.029A Unspecified fracture of second thoracic vertebra, initial encounter for closed fracture (principal); W19.XXXA Unspecified fall, initial encounter; Y92.9 Unspecified place or not applicable; E78.00 Pure hypercholesterolemia, unspecified; R55 Syncope and collapse; M54.9 Dorsalgia, unspecified; F31.9 Bipolar disorder, unspecified; Z79.899 Other long term (current) drug therapy; Z79.01 Long term (current) use of anticoagulants; Z88.0 Allergy status to penicillin; Z88.2 Allergy status to sulfonamides; Z88.6 Allergy status to analgesic agent; Z95.810 Presence of automatic (implantable) cardiac defibrillator; Z86.73 Personal history of transient ischemic attack (TIA), and cerebral infarction without residual deficits
CPT/HCPCS: 36415; 70450; 72125; 72128; 72131; 80053; 82550; 85025; 99283; A9270-GY

== ENCOUNTER 2019-07-08 16:18 | Inpatient (IN) | payer MEDICARE, OTHER ==
[2019-07-08 17:19] LABS: Hematocrit 32 % (35-47); Hemoglobin 10.9 g/dL (12.0-16.0); Mean Corpuscular HGB Conc 35 g/dL (31-36); Mean Corpuscular Hemoglobin 32 pg (27-31); Mean Corpuscular Volume 93 fL (80-97); Mean Platelet Volume 8.7 fL (7.4-10.4); Platelet Count 109 10^3/uL (150-450); Red Cell Distribution Width 14 % (10-15); White Blood Count 3.5 10^3/uL (3.5-10.8)
[2019-07-08 17:39] LABS: Activated Partial Thrombo Time 94.8 seconds (26.0-38.0)
[2019-07-08 17:40] LABS: ALT 6 U/L (7-52); Albumin 3.2 g/dL (3.2-5.2); Alkaline Phosphatase 26 U/L (34-104); BUN/Creatinine Ratio 18.8 (8-20); Blood Urea Nitrogen 29 mg/dL (6-24); CO2 Carbon Dioxide 28 mmol/L (22-32); Calcium 8.1 mg/dL (8.6-10.3); Chloride 103 mmol/L (101-111); EGFR African American 38.9 (>60); EGFR Non-African American 32.2 (>60); Globulin 3.3 g/dL (2-4); Glucose 94 mg/dL (70-100); Sodium 136 mmol/L (135-145); Total Protein 6.5 g/dL (6.4-8.9)
[2019-07-08 17:42] LABS: Troponin I 0.01 ng/mL (<0.03)
[2019-07-08 17:57] LABS: INR >10.00 (0.82-1.09)
[2019-07-08 18:19] LABS: Anion Gap 5 mmol/L (2-11)
[2019-07-08] MEDS ORDERED: Phytonadione Oral Solution* 5 MG/25 ML UDC PO ONE (18:40)
[2019-07-08] MEDS ORDERED: NS 0.9% 500 ML* 500 ML IV ONE (18:40)
--- NOTE | 2019-07-08 18:41 | ED ---
Complex/Multi-Sys Presentation - HPI Summary HPI Summary: Patient is an 83 y/o F presenting to [facility] for evaluation of INR >10. It is reported that the patient has been experiencing bloody stools, dizziness, weakness and fatigue for the past week. She was evaluated by her PCP, bloodwork was done and elevated INR was noted. Patient subsequently sent to ED for evaluation. Patient claims that she has been experiencing fevers but has not been able to measure her temperature due to lack of home thermometer. The patient had also stated to the nurse that she had been experiencing SOB and cough. Chest pain is denied. Patient does not report any chills, erythema of eyes, sore throat, abdominal pain, nausea/vomiting, dysuria, hematuria, myalgia , edema, rash. On vinyl flooring installer, nothing is noted to aggravate/alleviate Sx. Home medications and allergies are reviewed. - History Of Current Complaint Chief Complaint: EDGeneral Time Seen by Provider: 07/08/19 16:32 Hx Obtained From: Patient Onset/Duration: Lasting Weeks Timing: Weeks Aggravating Factor(s): nothing Alleviating Factor(s): nothing Associated Signs And Symptoms: Positive: Dizziness, Weakness - fatigue, SOB, Cough, Melena, Fever - reported, Other - does not report any chills, erythema of eyes, sore throat, abdominal pain, nausea/vomiting, dysuria, hematuria, myalgia, edema, rash. Negative: Chest Pain, Edema, Nausea, Vomiting, Abdominal Pain, Dysuria - Allergies/Home Medications Allergies/Adverse Reactions: Allergies Allergy/AdvReac Type Severity Reaction Status Date / Time JOSE Inhibitors Allergy Coughing Verified 07/08/19 16:40 aspirin Allergy Hives Verified 07/08/19 16:40 atorvastatin Allergy Muscle Ache Verified 07/08/19 16:40 bee venom protein (honey bee) Allergy Hives/Diff. Verified 07/08/19 16:40 Breathing/I tching bupropion Allergy Dizziness Verified 07/08/19 16:40 Iodinated Contrast Media Allergy Vomiting Verified 07/08/19 16:40 [Iodinated Contrast- Oral and IV Dye] latex Allergy Hives Verified 07/08/19 16:40 oxycodone Allergy Hives Verified 07/08/19 16:40 Penicillins Allergy Hives Verified 07/08/19 16:40 procaine Allergy Dizziness Verified 07/08/19 16:40 prochlorperazine Allergy Hives Verified 07/08/19 16:40 risperidone Allergy Unknown Verified 07/08/19 16:40 Reaction Details Sulfa (Sulfonamide Allergy Hives Verified 07/08/19 16:40 Antibiotics) Home Medications: Home Medications Acetaminophen [Acetaminophen Extra Strength] 1,000 mg PO BEDTIME PRN 02/03/18 [ History Confirmed 07/08/19] Albuterol HFA INHALER* [Ventolin HFA Inhaler*] 2 puff INH Q4H PRN 02/03/18 [ History Confirmed 07/08/19] Digoxin TAB* [Lanoxin TAB*] 0.125 mg PO DAILY 02/03/18 [History Confirmed ] Divalproex ER TAB(*) [Depakote ER TAB(*)] 500 mg PO BID 02/03/18 [History Confirmed 07/08/19] Fluticasone HFA 220 mcg(NF) [Flovent Hfa 220 Mcg(NF)] 2 puff INH BID 02/03/18 [ History Confirmed 07/08/19] Meclizine TAB* [Antivert 12.5 TAB*] 12.5 mg PO TID PRN 02/03/18 [History Confirmed 07/08/19] Metoprolol Tartrate TAB* [Lopressor TAB*] 50 mg PO BID 02/03/18 [History Confirmed 07/08/19] Gabapentin CAP(*) [Neurontin 100 mg CAP(*)] 200 mg PO BEDTIME 06/30/19 [History Confirmed 07/08/19] LoraTADine TAB(NF) [Claritin 10 MG TAB(NF)] 10 mg PO DAILY 06/30/19 [History Confirmed 07/08/19] Pramoxine HCl [Vagisil] 1 each TOPICAL . 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, Hx Hypercholesterolemia, Hx Hypertension, Hx Pacemaker/ICD, Hx Syncope, Hx Valvular Heart Disease, Other Cardiovascular Problems/Disorders - CAD, VALVULAR HEART DISEASE Denies: Hx Aneurysm, Hx Myocardial Infarction, Hx Rheumatic Fever Comment Only: Hx Coronary Artery Disease - pt states has blockage Respiratory History: Reports: Hx Asthma, Hx Chronic Bronchitis, Hx Chronic Obstructive Pulmonary Disease (COPD), Hx Pneumonia, Hx Pulmonary Embolism - 2002 , Hx Seasonal Allergies, Hx Sleep Apnea GI History: Reports: Hx Diverticulosis, Hx Gastroesophageal Reflux Disease, Hx Ulcer Comment Only: Other GI Disorders - DYSPHAGIA History: Reports: Hx Kidney Infection, Other Problems/Disorders - " bladder disease" Musculoskeletal History: Reports: Hx Arthritis, Hx Back Problems, Hx Bursitis, Hx Gout - great toe on right foot, Hx Osteoporosis Denies: Hx Scoliosis, Hx Tendonitis Sensory History: Reports: Hx Cataracts, Hx Contacts or Glasses - surgery in both eyes Denies: Hx Hearing Aid, Hx Hearing Problem Opthamlomology History: Reports: Hx Cataracts, Hx Contacts or Glasses - surgery in both eyes Neurological History: Reports: Hx Headaches, Hx Transient Ischemic Attacks (TIA ) - x2, Other Neuro Impairments/Disorders - CVA x 4 Psychiatric History: Reports: Hx Anxiety, Hx Eating Disorder, Hx Depression, Hx Community Mental Health Tx - since 1986, Hx Bipolar Disorder - Surgical History Surgery Procedure, Year, and Place: tonsilectomy, tubal igation 1971, cataract surgery Lt 2007, cataract surgery Rt 2008, hysterectomy 1982, pacer 2005, pacer #2 2012, skin graft for villagomez on buttocks Hx Anesthesia Reactions: No Infectious Disease History: No Infectious Disease History: Denies: Traveled Outside the [place] in Last 30 Days - Family History Known Family History: Positive: Cardiac Disease - Social History Alcohol Use: None Hx Substance Use: No Substance Use Type: Reports: None Hx Tobacco Use: No Smoking Status (MU): Never Smoked Tobacco Review of Systems Positive: Fever - reported , Fatigue - weakness . Negative: Chills Negative: Erythema Negative: Sore Throat Negative: Chest Pain Positive: Shortness Of Breath, Cough Positive: Other - Bloody Stools . Negative: Abdominal Pain, Vomiting, Nausea Negative: dysuria, hematuria Negative: Myalgia, Edema Negative: Rash Neurological/Mental Status: Other - positive - dizziness All Other Systems Reviewed And Are Negative: Yes Physical Exam - Summary Physical Exam Summary: Constitutional: Well-developed, Well-nourished, Alert. (-) Distressed Skin: Warm, Dry, Pallor HENT: Normocephalic; Atraumatic Eyes: Conjunctiva normal Neck: Musculoskeletal ROM normal neck. (-) JVD, (-) Stridor, (-) Tracheal deviation Cardio: Rhythm regular, rate normal, Heart sounds normal; Intact distal pulses; The pedal pulses are 2+ and symmetric. Radial pulses are 2+ and symmetric. (-) Murmur Pulmonary/Chest wall: Effort normal. (-) Respiratory distress, (-) Wheezes, (-) Rales Abd: Soft, (-) tenderness, (-) Distension, (-) Guarding, (-) Rebound Musculoskeletal: (-) Edema Lymph: (-) Cervical adenopathy Neuro: Alert, Oriented x3 Psych: Mood and affect Normal Triage Information Reviewed: Yes Vital Signs On Initial Exam: Initial Vitals Pulse Resp Pulse Ox 72 24 94 07/08/19 16:36 07/08/19 16:36 07/08/19 16:36 Vital Signs Reviewed: Yes Procedures - Sedation Patient Received Moderate/Deep Sedation with Procedure: No Diagnostics - Vital Signs Vital Signs Temp Pulse Resp BP Pulse Ox 07/08/19 17:00 21 07/08/19 16:37 97.5 F 68 18 121/57 94 07/08/19 16:36 72 24 94 - Laboratory Lab Results: Lab Results 07/08/19 07/08/19 07/08/19 Range/Units 17:00 17:00 17:00 WBC 3.5 (3.5-10.8) 10^3/uL RBC 3.40 L (3.70-4.87) 10^6 /uL Hgb 10.9 L (12.0-16.0) g/dL Hct 32 L (35-47) % MCV 93 (80-97) fL MCH 32 H (27-31) pg MCHC 35 (31-36) g/dL RDW 14 (10-15) % Plt Count 109 L (150-450) 10^3/uL MPV 8.7 (7.4-10.4) fL INR (Anticoag Therapy) >10.00 H* (0.82-1.09) APTT 94.8 H (26.0-38.0) seconds Sodium 136 (135-145) mmol/L Potassium TNP Chloride 103 (101-111) mmol/L Carbon Dioxide 28 (22-32) mmol/L Anion Gap 5 (2-11) mmol/L BUN 29 H (6-24) mg/dL Creatinine 1.54 H (0.51-0.95) mg/dL Est GFR ( Amer) 38.9 (>60) Est GFR (Non-Af Amer) 32.2 (>60) BUN/Creatinine Ratio 18.8 (8-20) Glucose 94 (70-100) mg/dL Calcium 8.1 L (8.6-10.3) mg/dL Total Bilirubin 0.40 (0.2-1.0) mg/dL AST TNP ALT 6 L (7-52) U/L Alkaline Phosphatase 26 L (34-104) U/L Troponin I 0.01 (<0.03) ng/mL Total Protein 6.5 (6.4-8.9) g/dL Albumin 3.2 (3.2-5.2) g/dL Globulin 3.3 (2-4) g/dL Albumin/Globulin Ratio 1.0 (1-3) Blood Type Antibody Screen 07/08/19 Range/Units 17:00 WBC (3.5-10.8) 10^3/uL RBC (3.70-4.87) 10^6 /uL Hgb (12.0-16.0) g/dL Hct (35-47) % MCV (80-97) fL MCH (27-31) pg MCHC (31-36) g/dL RDW (10-15) % Plt Count (150-450) 10^3/uL MPV (7.4-10.4) fL INR (Anticoag Therapy) (0.82-1.09) APTT (26.0-38.0) seconds Sodium (135-145) mmol/L Potassium Chloride (101-111) mmol/L Carbon Dioxide (22-32) mmol/L Anion Gap (2-11) mmol/L BUN (6-24) mg/dL Creatinine (0.51-0.95) mg/dL Est GFR ( Amer) (>60) Est GFR (Non-Af Amer) (>60) BUN/Creatinine Ratio (8-20) Glucose (70-100) mg/dL Calcium (8.6-10.3) mg/dL Total Bilirubin (0.2-1.0) mg/dL AST ALT (7-52) U/L Alkaline Phosphatase (34-104) U/L Troponin I (<0.03) ng/mL Total Protein (6.4-8.9) g/dL Albumin (3.2-5.2) g/dL Globulin (2-4) g/dL Albumin/Globulin Ratio (1-3) Blood Type O Positive Antibody Screen Negative Result Diagrams: 07/08/19 17:00 07/08/19 17:00 Lab Statement: Any lab studies that have been ordered have been reviewed, and results considered in the medical decision making process. - Radiology CXR Radiology Interpretation Completed By: ED Physician Summary of Radiographic Findings: Blunting of the left costophrenic angle, cannot rule out LLL PNA. Pending official report. Complex Multi-Symp Course/Dx Course Of Treatment: Patient is an 83 y/o F presenting to [facility] for evaluation of INR >10. It is reported that the patient has been experiencing bloody stools , dizziness, weakness and fatigue for the past week. She was evaluated by her PCP, bloodwork was done and elevated INR was noted. Patient subsequently sent to ED for evaluation. Patient claims that she has been experiencing fevers but has not been able to measure her temperature due to lack of home thermometer. The patient had also stated to the nurse that she had been experiencing SOB and cough. Chest pain is denied. Pallor of skin is noted on physical exam. CXR showed blunting of the left costophrenic angle, cannot rule out LLL PNA. Bloodwork was obtained. INR was >10. Other abnormal values include RBC 3.4, Hgb 10.9, Hct 32, MCH 32, plt count 109, APTT 94.8, BUN 29, creatinine 1.54, calcium 8.1, ALT 6, Alk Phos 26. During ED course, patient received fluids. Digital rectal exam is contra-indicated due to elevated INR, will collect stool sample when patient has spontaneous bowel movement. Patient does not have hemodynamic compromise. Hemoglobin has dropped 1 point since last bloodwork. Oral vitamin K to be administered. Coumadin will be withheld. Patient's case was discussed with Dr. Lloyd, Dr. Lloyd accepts for admission. - Diagnoses Provider Diagnoses: Melena, Supratherapeutic international normalized ratio (INR), Suspected COVID- 19 virus infection, Renal insufficiency - Physician Notifications Discussed Care Of Patient With: Taya Lloyd Time Discussed With Above Provider: 18:43 Instructed by Provider To: Other - Patient's case was discussed with Dr. Lloyd, Dr. Lloyd accepts for admission. - Critical Care Time Critical Care Time: 30-74 min - 45 minutes CCT Discharge ED - Sign-Out/Discharge Documenting (check all that apply): Patient Departure - admit - Discharge Plan Condition: Fair Disposition: ADMITTED TO [facility] Referrals: Opal Benson MD [Primary Care Provider] - - Attestation Statements Document Initiated by Scribe: Yes Documenting Scribe: DARON COOPER Provider For Whom Shashiibe is Documenting (Include Credential): PATRICIA LEWIS MD Scribe Attestation: IDARON, scribed for PATRICIA LEWIS MD on 07/08/19 at 1850. Status of Scribe Document: Ready
[2019-07-08] MEDS ORDERED: cefTRIAXone(*) 1 GM in NS 0.9% 50 ML* 50 ML IVPB ONE (18:47)
[2019-07-08] MEDS ORDERED: Phytonadione IV (Adult)* 10 MG/ML 1 ML AMP IV ONE ×2 (18:56→19:05)
[2019-07-08] MEDS ORDERED: Al Hydrox/Mg Hydrox/Simet LIQ* 30 ML UDC PO PRN (19:28)
[2019-07-08] MEDS ORDERED: Senna TAB 8.6 mg* TAB PO PRN (19:28)
[2019-07-08] MEDS ORDERED: Albuterol HFA INHALER* 8 gm MDI INH PRN (19:32)
[2019-07-08] MEDS ORDERED: Meclizine TAB* 12.5 MG PO PRN (19:32)
[2019-07-08] MEDS ORDERED: Polyethylene Glycol 3350* 17 GM PACKET PO ONE (19:33)
[2019-07-08] MEDS ORDERED: Phytonadione 10 mg in 50 mL NS over 30 min IV ONE (20:00)
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
[2019-07-08] MEDS: Divalproex ER TAB(*) 500 MG PO SCH (23:08)
[2019-07-08] MEDS: Acetaminophen TAB* 325 MG PO PRN (23:09)
[2019-07-08] MEDS: Tobramycin 0.3% OPHTH.SOL* 5 ML BOT (regular eye drops) RIGHT EYE SCH (23:09)
[2019-07-08] MEDS: Gabapentin CAP(*) 100 MG PO SCH (23:09)
[2019-07-08] MEDS: Metoprolol Tartrate TAB* 50 mg PO SCH (23:10)
[2019-07-08] MEDS: Mometasone 220 MCG MDI INH SCH (23:37)
[2019-07-09] MEDS: NS 0.9% 1000 ML** 1,000 ML IV SCH ×3 (00:05→19:28)
[2019-07-09 01:11] LABS: Hematocrit 32 % (35-47); Hemoglobin 10.8 g/dL (12.0-16.0)
[2019-07-09 01:16] LABS: INR 2.4 (0.82-1.09)
[2019-07-09 01:27] LABS: Potassium Redraw 4.4 mmol/L (3.5-5.0)
[2019-07-09 07:15] LABS: ABS Lymphocytes 0.8 10^3/ul (1.0-4.8); ABS Monocytes 0.5 10^3/ul (0-0.8); ABS Neutrophils 1.6 10^3/ul (1.5-7.7); Eosinophil % 1.6 %; Hematocrit 32 % (35-47); Hemoglobin 10.6 g/dL (12.0-16.0); Mean Corpuscular HGB Conc 33 g/dL (31-36); Mean Corpuscular Hemoglobin 31 pg (27-31); Mean Corpuscular Volume 93 fL (80-97); Mean Platelet Volume 7.6 fL (7.4-10.4); Nucleated Red Blood Cells % 0.1; Platelet Count 95 10^3/uL (150-450); Red Blood Count 3.42 10^6 /uL (3.70-4.87); Red Cell Distribution Width 14 % (10-15)
[2019-07-09 07:24] LABS: BUN/Creatinine Ratio 19.4 (8-20); Calcium 7.8 mg/dL (8.6-10.3); EGFR African American 45.7 (>60); EGFR Non-African American 37.8 (>60); Potassium 4.2 mmol/L (3.5-5.0)
[2019-07-09 07:29] LABS: INR 1.55 (0.82-1.09)
[2019-07-09] MEDS: Divalproex ER TAB(*) 500 MG PO SCH ×2 (08:23→22:03)
[2019-07-09] MEDS: Metoprolol Tartrate TAB* 50 mg PO SCH ×2 (08:24→22:04)
[2019-07-09] MEDS: Digoxin TAB* 0.125 MG PO SCH (08:24)
[2019-07-09] MEDS: Cetirizine* 10 MG TAB PO SCH (08:25)
[2019-07-09] MEDS: Tobramycin 0.3% OPHTH.SOL* 5 ML BOT (regular eye drops) RIGHT EYE SCH ×3 (08:30→22:07)
[2019-07-09] MEDS: Mometasone 220 MCG MDI INH SCH ×2 (11:45→21:07)
[2019-07-09 11:48] LABS: Folate 7.43 ng/mL (>3.99)
[2019-07-09] MEDS: Acetaminophen TAB* 325 MG PO PRN ×2 (12:33→17:57)
[2019-07-09] MEDS: traMADol TAB* 50 MG PO PRN (12:33)
[2019-07-09] MEDS: Apixaban* 5 MG TAB PO SCH (22:03)
[2019-07-09] MEDS: Gabapentin CAP(*) 100 MG PO SCH (22:03)
[2019-07-10] MEDS: traMADol TAB* 50 MG PO PRN (00:37)
[2019-07-10] MEDS: Acetaminophen TAB* 325 MG PO PRN (01:39)
[2019-07-10] MEDS: NS 0.9% 1000 ML** 1,000 ML IV SCH (06:03)
[2019-07-10 06:21] LABS: BUN/Creatinine Ratio 20.7 (8-20); Calcium 7.8 mg/dL (8.6-10.3); EGFR African American 51.4 (>60); EGFR Non-African American 42.5 (>60)
[2019-07-10 06:22] LABS: Potassium 5.4 mmol/L (3.5-5.0)
[2019-07-10] MEDS: Metoprolol Tartrate TAB* 50 mg PO SCH ×2 (08:32→21:17)
[2019-07-10] MEDS: Cetirizine* 10 MG TAB PO SCH (08:33)
[2019-07-10] MEDS: Digoxin TAB* 0.125 MG PO SCH (08:33)
[2019-07-10] MEDS: Apixaban* 5 MG TAB PO SCH ×2 (08:34→21:17)
[2019-07-10] MEDS: Divalproex ER TAB(*) 500 MG PO SCH (08:35)
[2019-07-10] MEDS: Mometasone 220 MCG MDI INH SCH ×2 (08:35→20:51)
[2019-07-10] MEDS: Tobramycin 0.3% OPHTH.SOL* 5 ML BOT (regular eye drops) RIGHT EYE SCH ×3 (08:36→21:17)
[2019-07-10] MEDS ORDERED: Sodium Polystyrene ORAL.SUSP* 15 GM/60 ML BTL PO ONE (09:02)
[2019-07-10 13:19] LABS: ABS Lymphocytes 1.1 10^3/ul (1.0-4.8); ABS Monocytes 0.8 10^3/ul (0-0.8); ABS Neutrophils 2.8 10^3/ul (1.5-7.7); Eosinophil % 0.7 %; Hematocrit 37 % (35-47); Hemoglobin 11.4 g/dL (12.0-16.0); Lymphocyte % 22.2 %; Mean Corpuscular HGB Conc 31 g/dL (31-36); Mean Corpuscular Hemoglobin 31 pg (27-31); Mean Corpuscular Volume 101 fL (80-97); Mean Platelet Volume 7.9 fL (7.4-10.4); Nucleated Red Blood Cells % 0.2; Platelet Count 89 10^3/uL (150-450); Red Blood Count 3.65 10^6 /uL (3.70-4.87); Red Cell Distribution Width 15 % (10-15); White Blood Count 4.8 10^3/uL (3.5-10.8)
[2019-07-10] MEDS ORDERED: LEVOCARNITINE IV ONE (16:30)
[2019-07-10] MEDS ORDERED: NS 0.9% IV ONE (16:30)
[2019-07-10] MEDS ORDERED: levOCARNitine* 6 GM in NS 0.9% 1000 ML** 1,000 ML IV ONE (17:07)
--- NOTE | 2019-07-10 18:18 | PN ---
Subjective Date of Service: 07/09/19 Interval History: Patient stated that she was feeling well, looking forwards to going home. Reports no bleeding in her urine, gum, stool. Discussed isolating herself at home as COVID results are still pending. She stated she has her medications and food delivered to her, so quarantining would not be difficult. Denied dizziness , lightheadedness, chest pain, palpitations, abdominal pain, nausea, vomiting, issues moving bowel or bladder. Family History: Unchanged from Admission Social History: Unchanged from Admission Past Medical History: Unchanged from Admission Objective Active Medications: Acetaminophen (Tylenol Tab*) 650 mg PO Q4H PRN PRN Reason: MILD PAIN or TEMP > 100.4 Last Admin: 07/10/19 01:39 Dose: 650 mg Al Hydrox/Mg Hydrox/Simethicone (Maalox Plus*) 30 ml PO Q6H PRN PRN Reason: INDIGESTION Albuterol (Ventolin Hfa Inhaler*) 2 puff INH Q4H PRN PRN Reason: WHEEZING Apixaban (Eliquis*) 5 mg PO BID [facility] Last Admin: 07/10/19 08:34 Dose: 5 mg Cetirizine HCl (Zyrtec*) 10 mg PO DAILY [facility] Last Admin: 07/10/19 08:33 Dose: 10 mg Digoxin (Lanoxin Tab*) 0.125 mg PO DAILY [facility] Last Admin: 07/10/19 08:33 Dose: 0.125 mg Gabapentin (Neurontin Cap(*)) 200 mg PO BEDTIME [facility] Last Admin: 07/09/19 22:03 Dose: 200 mg Levocarnitine 1 gm/ Sodium (Chloride) 505 mls @ 1,000 mls/hr IV Q4H [facility] Stop: 07/11/19 21:29 Lactulose (Lactulose*) 30 ml PO TID [facility] Meclizine HCl (Antivert Tab*) 12.5 mg PO TID PRN PRN Reason: DIZZINESS Metoprolol Tartrate (Lopressor Tab*) 50 mg PO BID [facility] Last Admin: 07/10/19 08:32 Dose: 50 mg Mometasone Furoate (Asmanex 220 Mcg Mdi *) 2 puff INH BID [facility] Last Admin: 07/10/19 08:35 Dose: 220 mcg Senna (Senokot 8.6 Mg Tab*) 1 tab PO BID PRN PRN Reason: CONSTIPATION Tobramycin Sulfate (Tobramycin 0.3% Ophth.Juana*) 2 drop RIGHT EYE TID [facility] Last Admin: 07/10/19 12:29 Dose: 2 drop Tramadol HCl (Ultram*) 50 mg PO Q8H PRN PRN Reason: PAIN - MODERATE Last Admin: 07/10/19 00:37 Dose: 50 mg Vital Signs - 8 hr 07/10/19 07/10/19 11:15 16:03 Temperature 98.4 F 97 F Pulse Rate 66 71 Respiratory 16 20 Rate Blood Pressure 131/56 138/61 (mmHg) O2 Sat by Pulse 97 99 Oximetry Oxygen Devices in Use Now: Nasal Cannula Appearance: This is a well developed older woman seen resting in bed, no acute distress. Eyes: No Scleral Icterus, PERRLA Ears/Nose/Mouth/Throat: NL Teeth, Lips, Gums, Clear Oropharnyx, Mucous Membranes Moist Neck: NL Appearance and Movements; NL JVP, Trachea Midline Respiratory: Symmetrical Chest Expansion and Respiratory Effort, Clear to Auscultation Cardiovascular: NL Sounds; No Murmurs; No JVD, No Edema, - - Heart rate irregular. Abdominal: NL Sounds; No Tenderness; No Distention Lymphatic: No Cervical Adenopathy Extremities: No Edema, No Clubbing, Cyanosis Skin: No Rash or Ulcers, No Nodules or Sclerosis Neurological: Alert and Oriented x 3 Lines/Tubes/Other Access: Clean, Dry and Intact Peripheral IV Result Diagrams: 07/10/19 13:03 07/10/19 05:53 Additional Lab and Data: Lab Results 07/08/19 07/08/19 07/08/19 Range/Units 17:00 17:00 17:00 WBC 3.5 (3.5-10.8) 10^3/uL RBC 3.40 L (3.70-4.87) 10^6 /uL Hgb 10.9 L (12.0-16.0) g/dL Hct 32 L (35-47) % MCV 93 (80-97) fL MCH 32 H (27-31) pg MCHC 35 (31-36) g/dL RDW 14 (10-15) % Plt Count 109 L (150-450) 10^3/uL MPV 8.7 (7.4-10.4) fL INR (Anticoag Therapy) >10.00 H* (0.82-1.09) APTT 94.8 H (26.0-38.0) seconds Sodium 136 (135-145) mmol/L Potassium TNP Chloride 103 (101-111) mmol/L Carbon Dioxide 28 (22-32) mmol/L Anion Gap 5 (2-11) mmol/L BUN 29 H (6-24) mg/dL Creatinine 1.54 H (0.51-0.95) mg/dL Est GFR ( Amer) 38.9 (>60) Est GFR (Non-Af Amer) 32.2 (>60) BUN/Creatinine Ratio 18.8 (8-20) Glucose 94 (70-100) mg/dL Calcium 8.1 L (8.6-10.3) mg/dL Total Bilirubin 0.40 (0.2-1.0) mg/dL AST TNP ALT 6 L (7-52) U/L Alkaline Phosphatase 26 L (34-104) U/L Troponin I 0.01 (<0.03) ng/mL Total Protein 6.5 (6.4-8.9) g/dL Albumin 3.2 (3.2-5.2) g/dL Globulin 3.3 (2-4) g/dL Albumin/Globulin Ratio 1.0 (1-3) Blood Type Antibody Screen 07/08/19 Range/Units 17:00 WBC (3.5-10.8) 10^3/uL RBC (3.70-4.87) 10^6 /uL Hgb (12.0-16.0) g/dL Hct (35-47) % MCV (80-97) fL MCH (27-31) pg MCHC (31-36) g/dL RDW (10-15) % Plt Count (150-450) 10^3/uL MPV (7.4-10.4) fL INR (Anticoag Therapy) (0.82-1.09) APTT (26.0-38.0) seconds Sodium (135-145) mmol/L Potassium Chloride (101-111) mmol/L Carbon Dioxide (22-32) mmol/L Anion Gap (2-11) mmol/L BUN (6-24) mg/dL Creatinine (0.51-0.95) mg/dL Est GFR ( Amer) (>60) Est GFR (Non-Af Amer) (>60) BUN/Creatinine Ratio (8-20) Glucose (70-100) mg/dL Calcium (8.6-10.3) mg/dL Total Bilirubin (0.2-1.0) mg/dL AST ALT (7-52) U/L Alkaline Phosphatase (34-104) U/L Troponin I (<0.03) ng/mL Total Protein (6.4-8.9) g/dL Albumin (3.2-5.2) g/dL Globulin (2-4) g/dL Albumin/Globulin Ratio (1-3) Blood Type O Positive Antibody Screen Negative Assess/Plan/Problems-Billing Assessment: This is an 83 year old female with a past medical history of afib, cvax4 and htn who was admitted on 07/08/19 for supratherapeutic INR and BRBPR. - Patient Problems (1) Suspected COVID-19 virus infection Current Visit: Yes Status: Acute Code(s): R68.89 - OTHER GENERAL SYMPTOMS AND SIGNS SNOMED Code(s): 932258787 Comment: - Came to the ED with SOB, could be attributed to COPD, however has been tested, awaiting results. (2) PETRA (acute kidney injury) Current Visit: Yes Status: Acute Code(s): N17.9 - ACUTE KIDNEY FAILURE, UNSPECIFIED SNOMED Code(s): 78926175 Comment: - Likely prerenal, secondary to GI bleed. Improved with IV fluids. (3) Pancytopenia Current Visit: Yes Status: Acute Code(s): D61.818 - OTHER PANCYTOPENIA SNOMED Code(s): 827633729 Comment: - Appears to be more chronic in nature, though could be exacerbated by PETRA. Recommend that she follow up with hematology/oncology as an outpatient. (4) Bipolar 1 disorder Current Visit: Yes Status: Acute Code(s): F31.9 - BIPOLAR DISORDER, UNSPECIFIED SNOMED Code(s): 742994548 Comment: - Continue depakote. (5) TIN (obstructive sleep apnea) Current Visit: Yes Status: Acute Code(s): G47.33 - OBSTRUCTIVE SLEEP APNEA ( ADULT) (PEDIATRIC) SNOMED Code(s): 91342709 Comment: - Is to wear CPAP with 3L oxygen via nasal cannula, though is non- compliant, stating that the mask causes facial pain. (6) Supratherapeutic INR Current Visit: Yes Status: Acute Code(s): R79.1 - ABNORMAL COAGULATION PROFILE SNOMED Code(s): 076342666 Comment: - Initially, INR was over 10 without a clear cause. There was a concern that perhaps patient had accidentally taken too much coumadin. Was initially reversed with vitamin K. - INR has now dropped below 2, patient agreed to start on apixaban as it will likely be safer for her. (7) COPD (chronic obstructive pulmonary disease) Current Visit: No Status: Chronic Priority: Medium Code(s): J44.9 - CHRONIC OBSTRUCTIVE PULMONARY DISEASE, UNSPECIFIED SNOMED Code(s): 80353880 Comment: - Wears 3L oxygen as needed at home, has been continuous since admission. (8) HLD (hyperlipidemia) Current Visit: No Status: Chronic Priority: Low Code(s): E78.5 - HYPERLIPIDEMIA, UNSPECIFIED SNOMED Code(s): 38612699 Comment: - Not currently being treated. (9) HTN (hypertension) Current Visit: No Status: Chronic Priority: Medium Code(s): I10 - ESSENTIAL (PRIMARY) HYPERTENSION SNOMED Code(s): 60967639 Comment: - BP typically in the 130's. Continue metoprolol. (10) History of CVA (cerebrovascular accident) Current Visit: No Status: Chronic Priority: Medium Code(s): Z86.73 - PRSNL HX OF TIA (TIA), AND CEREB INFRC W/O RESID DEFICITS SNOMED Code(s): 999788572 Comment: - Does not appear to be on plavix, statin or ASA at home. Is on apixaban typically, though is on hold. (11) DVT prophylaxis Current Visit: No Status: Acute Priority: High Code(s): EVS8829 - SNOMED Code(s): 481598939 Comment: -Continue apixaban. (12) Full code status Current Visit: No Status: Acute Code(s): Z78.9 - OTHER SPECIFIED HEALTH STATUS SNOMED Code(s): 692282090
--- NOTE | 2019-07-10 18:37 | PN ---
Subjective Date of Service: 07/10/19 Interval History: Patient had a decreased level of consciousness, is more confused today. Understands who she is, but to where or why she is here. Easily arousable to touch though quickly falls back asleep. Family History: Unchanged from Admission Social History: Unchanged from Admission Past Medical History: Unchanged from Admission Objective Active Medications: Acetaminophen (Tylenol Tab*) 650 mg PO Q4H PRN PRN Reason: MILD PAIN or TEMP > 100.4 Last Admin: 07/10/19 01:39 Dose: 650 mg Al Hydrox/Mg Hydrox/Simethicone (Maalox Plus*) 30 ml PO Q6H PRN PRN Reason: INDIGESTION Albuterol (Ventolin Hfa Inhaler*) 2 puff INH Q4H PRN PRN Reason: WHEEZING Apixaban (Eliquis*) 5 mg PO BID [facility] Last Admin: 07/10/19 08:34 Dose: 5 mg Cetirizine HCl (Zyrtec*) 10 mg PO DAILY [facility] Last Admin: 07/10/19 08:33 Dose: 10 mg Digoxin (Lanoxin Tab*) 0.125 mg PO DAILY [facility] Last Admin: 07/10/19 08:33 Dose: 0.125 mg Gabapentin (Neurontin Cap(*)) 200 mg PO BEDTIME [facility] Last Admin: 07/09/19 22:03 Dose: 200 mg Levocarnitine 1 gm/ Sodium (Chloride) 505 mls @ 1,000 mls/hr IV Q4H [facility] Stop: 07/11/19 21:29 Lactulose (Lactulose*) 30 ml PO TID [facility] Meclizine HCl (Antivert Tab*) 12.5 mg PO TID PRN PRN Reason: DIZZINESS Metoprolol Tartrate (Lopressor Tab*) 50 mg PO BID [facility] Last Admin: 07/10/19 08:32 Dose: 50 mg Mometasone Furoate (Asmanex 220 Mcg Mdi *) 2 puff INH BID [facility] Last Admin: 07/10/19 08:35 Dose: 220 mcg Senna (Senokot 8.6 Mg Tab*) 1 tab PO BID PRN PRN Reason: CONSTIPATION Tobramycin Sulfate (Tobramycin 0.3% Ophth.Juana*) 2 drop RIGHT EYE TID [facility] Last Admin: 04/04/20 12:29 Dose: 2 drop Tramadol HCl (Ultram*) 50 mg PO Q8H PRN PRN Reason: PAIN - MODERATE Last Admin: 07/10/19 00:37 Dose: 50 mg Vital Signs - 8 hr 07/10/19 07/10/19 11:15 16:03 Temperature 98.4 F 97 F Pulse Rate 66 71 Respiratory 16 20 Rate Blood Pressure 131/56 138/61 (mmHg) O2 Sat by Pulse 97 99 Oximetry Oxygen Devices in Use Now: Nasal Cannula Appearance: This is a well developed older woman who appears lethargic, though easily arousable to voice. Eyes: No Scleral Icterus, PERRLA Ears/Nose/Mouth/Throat: NL Teeth, Lips, Gums, Clear Oropharnyx, Mucous Membranes Moist Neck: NL Appearance and Movements; NL JVP, Trachea Midline Respiratory: Symmetrical Chest Expansion and Respiratory Effort, Clear to Auscultation, - - Diminished throughout Cardiovascular: NL Sounds; No Murmurs; No JVD, No Edema, - - Heart rate irregular. Abdominal: NL Sounds; No Tenderness; No Distention Lymphatic: No Cervical Adenopathy Extremities: No Edema, No Clubbing, Cyanosis Skin: No Rash or Ulcers, No Nodules or Sclerosis Neurological: - - Delirious, alert and oriented to self. Lines/Tubes/Other Access: Clean, Dry and Intact Peripheral IV Result Diagrams: 07/10/19 13:03 07/10/19 05:53 Additional Lab and Data: Lab Results 07/08/19 07/08/19 07/08/19 Range/Units 17:00 17:00 17:00 WBC 3.5 (3.5-10.8) 10^3/uL RBC 3.40 L (3.70-4.87) 10^6 /uL Hgb 10.9 L (12.0-16.0) g/dL Hct 32 L (35-47) % MCV 93 (80-97) fL MCH 32 H (27-31) pg MCHC 35 (31-36) g/dL RDW 14 (10-15) % Plt Count 109 L (150-450) 10^3/uL MPV 8.7 (7.4-10.4) fL INR (Anticoag Therapy) >10.00 H* (0.82-1.09) APTT 94.8 H (26.0-38.0) seconds Sodium 136 (135-145) mmol/L Potassium TNP Chloride 103 (101-111) mmol/L Carbon Dioxide 28 (22-32) mmol/L Anion Gap 5 (2-11) mmol/L BUN 29 H (6-24) mg/dL Creatinine 1.54 H (0.51-0.95) mg/dL Est GFR ( Amer) 38.9 (>60) Est GFR (Non-Af Amer) 32.2 (>60) BUN/Creatinine Ratio 18.8 (8-20) Glucose 94 (70-100) mg/dL Calcium 8.1 L (8.6-10.3) mg/dL Total Bilirubin 0.40 (0.2-1.0) mg/dL AST TNP ALT 6 L (7-52) U/L Alkaline Phosphatase 26 L (34-104) U/L Troponin I 0.01 (<0.03) ng/mL Total Protein 6.5 (6.4-8.9) g/dL Albumin 3.2 (3.2-5.2) g/dL Globulin 3.3 (2-4) g/dL Albumin/Globulin Ratio 1.0 (1-3) Blood Type Antibody Screen 07/08/19 Range/Units 17:00 WBC (3.5-10.8) 10^3/uL RBC (3.70-4.87) 10^6 /uL Hgb (12.0-16.0) g/dL Hct (35-47) % MCV (80-97) fL MCH (27-31) pg MCHC (31-36) g/dL RDW (10-15) % Plt Count (150-450) 10^3/uL MPV (7.4-10.4) fL INR (Anticoag Therapy) (0.82-1.09) APTT (26.0-38.0) seconds Sodium (135-145) mmol/L Potassium Chloride (101-111) mmol/L Carbon Dioxide (22-32) mmol/L Anion Gap (2-11) mmol/L BUN (6-24) mg/dL Creatinine (0.51-0.95) mg/dL Est GFR ( Amer) (>60) Est GFR (Non-Af Amer) (>60) BUN/Creatinine Ratio (8-20) Glucose (70-100) mg/dL Calcium (8.6-10.3) mg/dL Total Bilirubin (0.2-1.0) mg/dL AST ALT (7-52) U/L Alkaline Phosphatase (34-104) U/L Troponin I (<0.03) ng/mL Total Protein (6.4-8.9) g/dL Albumin (3.2-5.2) g/dL Globulin (2-4) g/dL Albumin/Globulin Ratio (1-3) Blood Type O Positive Antibody Screen Negative Assess/Plan/Problems-Billing Assessment: This is an 83 year old female with a past medical history of afib, cvax4 and htn who was admitted on 07/08/19 for supratherapeutic INR and BRBPR. - Patient Problems (1) Hyperkalemia Current Visit: Yes Status: Acute Code(s): E87.5 - HYPERKALEMIA SNOMED Code (s): 29983230 Comment: - Given one dose of kayexalate. Digoxin level was checked, is normal. Unsure of cause as patient has not had any GI losses or likely cell lysis. (2) Hyperammonemia Current Visit: Yes Status: Acute Code(s): E72.20 - DISORDER OF UREA CYCLE METABOLISM, UNSPECIFIED SNOMED Code(s): 1837066 Comment: - Ammonia level 107, symptomatic. Likely due to depakote. D/Lopez per suggestion of Dr. Sabillon. Initiated lactulose TID and carnitine IV infusion x 24 hours. Will recheck ammonia level in AM. (3) Suspected COVID-19 virus infection Current Visit: Yes Status: Acute Code(s): R68.89 - OTHER GENERAL SYMPTOMS AND SIGNS SNOMED Code(s): 643607787 Comment: - Came to the ED with SOB, could be attributed to COPD, however has been tested, awaiting results. (4) PETRA (acute kidney injury) Current Visit: Yes Status: Acute Code(s): N17.9 - ACUTE KIDNEY FAILURE, UNSPECIFIED SNOMED Code(s): 60552978 Comment: - Resolved, is at baseline. (5) Pancytopenia Current Visit: Yes Status: Acute Code(s): D61.818 - OTHER PANCYTOPENIA SNOMED Code(s): 833567763 Comment: - Appears to be more chronic in nature, though could be exacerbated by PETRA. Recommend that she follow up with hematology/oncology as an outpatient. (6) Bipolar 1 disorder Current Visit: Yes Status: Acute Code(s): F31.9 - BIPOLAR DISORDER, UNSPECIFIED SNOMED Code(s): 281749807 Comment: - D/Lopez due to hyperammonemia after speaking with Dr. Sabillon. (7) TIN (obstructive sleep apnea) Current Visit: Yes Status: Acute Code(s): G47.33 - OBSTRUCTIVE SLEEP APNEA ( ADULT) (PEDIATRIC) SNOMED Code(s): 78792440 Comment: - Is to wear CPAP with 3L oxygen via nasal cannula, though is non- compliant, stating that the mask causes facial pain. (8) Supratherapeutic INR Current Visit: Yes Status: Acute Code(s): R79.1 - ABNORMAL COAGULATION PROFILE SNOMED Code(s): 366034147 Comment: - Initially, INR was over 10 without a clear cause. There was a concern that perhaps patient had accidentally taken too much coumadin. Was initially reversed with vitamin K. - INR has now dropped below 2, patient agreed to start on apixaban as it will likely be safer for her. (9) COPD (chronic obstructive pulmonary disease) Current Visit: No Status: Chronic Priority: Medium Code(s): J44.9 - CHRONIC OBSTRUCTIVE PULMONARY DISEASE, UNSPECIFIED SNOMED Code(s): 35634439 Comment: - Wears 3L oxygen as needed at home, has been continuous since admission. (10) HLD (hyperlipidemia) Current Visit: No Status: Chronic Priority: Low Code(s): E78.5 - HYPERLIPIDEMIA, UNSPECIFIED SNOMED Code(s): 12742230 Comment: - Not currently being treated. (11) HTN (hypertension) Current Visit: No Status: Chronic Priority: Medium Code(s): I10 - ESSENTIAL (PRIMARY) HYPERTENSION SNOMED Code(s): 52131927 Comment: - BP typically in the 130's. Continue metoprolol. (12) History of CVA (cerebrovascular accident) Current Visit: No Status: Chronic Priority: Medium Code(s): Z86.73 - PRSNL HX OF TIA (TIA), AND CEREB INFRC W/O RESID DEFICITS SNOMED Code(s): 713071613 Comment: - Does not appear to be on plavix, statin or ASA at home. Is on apixaban typically, though is on hold. (13) DVT prophylaxis Current Visit: No Status: Acute Priority: High Code(s): QGA0556 - SNOMED Code(s): 639190244 Comment: -Continue apixaban. (14) Full code status Current Visit: No Status: Acute Code(s): Z78.9 - OTHER SPECIFIED HEALTH STATUS SNOMED Code(s): 445794839 Status and Disposition: Disposition: Admit inpatient to [facility] Condition: Guarded. Attending: Taya Lloyd
[2019-07-10] MEDS: Gabapentin CAP(*) 100 MG PO SCH (21:18)
[2019-07-10] MEDS: LEVOCARNITINE IV SCH (21:30)
[2019-07-10] MEDS: NS 0.9% IV SCH (21:30)
[2019-07-11] MEDS: LEVOCARNITINE IV SCH ×5 (01:40→18:06)
[2019-07-11] MEDS: NS 0.9% IV SCH ×5 (01:40→18:06)
[2019-07-11 07:22] LABS: Calcium 7.6 mg/dL (8.6-10.3); Potassium 4.2 mmol/L (3.5-5.0)
[2019-07-11 07:28] LABS: BUN/Creatinine Ratio 17.7 (8-20); EGFR African American 67.2 (>60); EGFR Non-African American 55.5 (>60)
[2019-07-11] MEDS: Digoxin TAB* 0.125 MG PO SCH (08:51)
[2019-07-11] MEDS: Apixaban* 5 MG TAB PO SCH (08:51)
[2019-07-11] MEDS: Metoprolol Tartrate TAB* 50 mg PO SCH ×2 (08:51→21:10)
[2019-07-11] MEDS: Cetirizine* 10 MG TAB PO SCH (08:51)
[2019-07-11] MEDS: Mometasone 220 MCG MDI INH SCH (08:53)
[2019-07-11] MEDS: Tobramycin 0.3% OPHTH.SOL* 5 ML BOT (regular eye drops) RIGHT EYE SCH ×3 (08:54→21:17)
--- NOTE | 2019-07-11 19:56 | PN ---
Subjective Date of Service: 07/11/19 Interval History: Patient was still somewhat lethargic, though much improved from yesterday. Incontinent of loose stools. Spoke with patient about concerns for deconditioning, was agreeable to [facility]. She feels mildly SOB, denies lightheadedness, dizziness, chest pain, palpitations, abdominal pain, nausea. Family History: Unchanged from Admission Social History: Unchanged from Admission Past Medical History: Unchanged from Admission Objective Active Medications: Acetaminophen (Tylenol Tab*) 650 mg PO Q4H PRN PRN Reason: MILD PAIN or TEMP > 100.4 Last Admin: 07/10/19 01:39 Dose: 650 mg Al Hydrox/Mg Hydrox/Simethicone (Maalox Plus*) 30 ml PO Q6H PRN PRN Reason: INDIGESTION Albuterol (Ventolin Hfa Inhaler*) 2 puff INH Q4H PRN PRN Reason: WHEEZING Apixaban (Eliquis*) 5 mg PO BID [facility] Last Admin: 07/11/19 08:51 Dose: 5 mg Cetirizine HCl (Zyrtec*) 10 mg PO DAILY [facility] Last Admin: 07/11/19 08:51 Dose: 10 mg Digoxin (Lanoxin Tab*) 0.125 mg PO DAILY [facility] Last Admin: 07/11/19 08:51 Dose: 0.125 mg Gabapentin (Neurontin Cap(*)) 200 mg PO BEDTIME [facility] Last Admin: 07/10/19 21:18 Dose: Not Given Levocarnitine 1 gm/ Sodium (Chloride) 505 mls @ 1,000 mls/hr IV Q4H [facility] Stop: 07/11/19 21:29 Last Admin: 07/11/19 18:06 Dose: 1,000 mls/hr Lactulose (Lactulose*) 30 ml PO TID [facility] Last Admin: 07/11/19 12:51 Dose: 30 ml Meclizine HCl (Antivert Tab*) 12.5 mg PO TID PRN PRN Reason: DIZZINESS Metoprolol Tartrate (Lopressor Tab*) 50 mg PO BID [facility] Last Admin: 07/11/19 08:51 Dose: 50 mg Mometasone Furoate (Asmanex 220 Mcg Mdi *) 2 puff INH BID [facility] Last Admin: 07/11/19 08:53 Dose: 220 mcg Senna (Senokot 8.6 Mg Tab*) 1 tab PO BID PRN PRN Reason: CONSTIPATION Tobramycin Sulfate (Tobramycin 0.3% Ophth.Juana*) 2 drop RIGHT EYE TID SHAHRZAD Last Admin: 07/11/19 12:49 Dose: 2 drop Tramadol HCl (Ultram*) 50 mg PO Q8H PRN PRN Reason: PAIN - MODERATE Last Admin: 07/10/19 00:37 Dose: 50 mg Vital Signs - 8 hr 07/11/19 15:32 Temperature 98.0 F Pulse Rate 75 Respiratory 18 Rate Blood Pressure 114/55 (mmHg) O2 Sat by Pulse 99 Oximetry Oxygen Devices in Use Now: Nasal Cannula Appearance: Pale, well developed, drowsy, obese older woman seen resting in bed , no acute distress. Eyes: No Scleral Icterus, PERRLA Ears/Nose/Mouth/Throat: NL Teeth, Lips, Gums, Mucous Membranes Moist Neck: NL Appearance and Movements; NL JVP, Trachea Midline Respiratory: Symmetrical Chest Expansion and Respiratory Effort, Clear to Auscultation Cardiovascular: NL Sounds; No Murmurs; No JVD, RRR, No Edema Abdominal: NL Sounds; No Tenderness; No Distention Lymphatic: No Cervical Adenopathy Extremities: No Edema, No Clubbing, Cyanosis Skin: No Rash or Ulcers, No Nodules or Sclerosis Neurological: Alert and Oriented x 3 Lines/Tubes/Other Access: Clean, Dry and Intact Peripheral IV Result Diagrams: 07/10/19 13:03 07/11/19 06:55 Additional Lab and Data: Lab Results 07/08/19 07/08/19 07/08/19 Range/Units 17:00 17:00 17:00 WBC 3.5 (3.5-10.8) 10^3/uL RBC 3.40 L (3.70-4.87) 10^6 /uL Hgb 10.9 L (12.0-16.0) g/dL Hct 32 L (35-47) % MCV 93 (80-97) fL MCH 32 H (27-31) pg MCHC 35 (31-36) g/dL RDW 14 (10-15) % Plt Count 109 L (150-450) 10^3/uL MPV 8.7 (7.4-10.4) fL INR (Anticoag Therapy) >10.00 H* (0.82-1.09) APTT 94.8 H (26.0-38.0) seconds Sodium 136 (135-145) mmol/L Potassium TNP Chloride 103 (101-111) mmol/L Carbon Dioxide 28 (22-32) mmol/L Anion Gap 5 (2-11) mmol/L BUN 29 H (6-24) mg/dL Creatinine 1.54 H (0.51-0.95) mg/dL Est GFR ( Amer) 38.9 (>60) Est GFR (Non-Af Amer) 32.2 (>60) BUN/Creatinine Ratio 18.8 (8-20) Glucose 94 (70-100) mg/dL Calcium 8.1 L (8.6-10.3) mg/dL Total Bilirubin 0.40 (0.2-1.0) mg/dL AST TNP ALT 6 L (7-52) U/L Alkaline Phosphatase 26 L (34-104) U/L Troponin I 0.01 (<0.03) ng/mL Total Protein 6.5 (6.4-8.9) g/dL Albumin 3.2 (3.2-5.2) g/dL Globulin 3.3 (2-4) g/dL Albumin/Globulin Ratio 1.0 (1-3) Blood Type Antibody Screen 07/08/19 Range/Units 17:00 WBC (3.5-10.8) 10^3/uL RBC (3.70-4.87) 10^6 /uL Hgb (12.0-16.0) g/dL Hct (35-47) % MCV (80-97) fL MCH (27-31) pg MCHC (31-36) g/dL RDW (10-15) % Plt Count (150-450) 10^3/uL MPV (7.4-10.4) fL INR (Anticoag Therapy) (0.82-1.09) APTT (26.0-38.0) seconds Sodium (135-145) mmol/L Potassium Chloride (101-111) mmol/L Carbon Dioxide (22-32) mmol/L Anion Gap (2-11) mmol/L BUN (6-24) mg/dL Creatinine (0.51-0.95) mg/dL Est GFR ( Amer) (>60) Est GFR (Non-Af Amer) (>60) BUN/Creatinine Ratio (8-20) Glucose (70-100) mg/dL Calcium (8.6-10.3) mg/dL Total Bilirubin (0.2-1.0) mg/dL AST ALT (7-52) U/L Alkaline Phosphatase (34-104) U/L Troponin I (<0.03) ng/mL Total Protein (6.4-8.9) g/dL Albumin (3.2-5.2) g/dL Globulin (2-4) g/dL Albumin/Globulin Ratio (1-3) Blood Type O Positive Antibody Screen Negative Assess/Plan/Problems-Billing Assessment: This is an 83 year old female with a past medical history of afib, cvax4 and htn who was admitted on 07/08/19 for supratherapeutic INR and BRBPR. - Patient Problems (1) Thrombocytopenia Current Visit: No Status: Acute Code(s): D69.6 - THROMBOCYTOPENIA, UNSPECIFIED SNOMED Code(s): 856619423 Comment: - Platelets are trending down, apixaban placed on hold, scd's ordered. Could possibilty related to undiagnosed liver failure/process as patient is also pancytopenic and was admitted with a supratherapeutic INR. - Will check LDH, haptoglobin and retic count in AM. May need GI consult. (2) Hyperkalemia Current Visit: Yes Status: Acute Code(s): E87.5 - HYPERKALEMIA SNOMED Code (s): 75768004 Comment: - Resolved. (3) Hyperammonemia Current Visit: Yes Status: Acute Code(s): E72.20 - DISORDER OF UREA CYCLE METABOLISM, UNSPECIFIED SNOMED Code(s): 4515788 Comment: - Ammonia level 81, improved from yesterday though she still feels as though her thinking is clouded and is drowsy. Likely due to depakote. D/Lopez per suggestion of Dr. Sabillon. - Continue lactulose TID. Recheck ammonia in am. (4) Suspected COVID-19 virus infection Current Visit: Yes Status: Acute Code(s): R68.89 - OTHER GENERAL SYMPTOMS AND SIGNS SNOMED Code(s): 026276255 Comment: - Results are negative. (5) PETRA (acute kidney injury) Current Visit: Yes Status: Acute Code(s): N17.9 - ACUTE KIDNEY FAILURE, UNSPECIFIED SNOMED Code(s): 30750647 Comment: - Resolved, is at baseline. (6) Pancytopenia Current Visit: Yes Status: Acute Code(s): D61.818 - OTHER PANCYTOPENIA SNOMED Code(s): 878120987 Comment: - Appears to be more chronic in nature, though could be exacerbated by PETRA. Recommend that she follow up with hematology/oncology as an outpatient. - Apixaban on hold due to thrombocytopenia. - Will send Hep panel in AM. (7) Bipolar 1 disorder Current Visit: Yes Status: Acute Code(s): F31.9 - BIPOLAR DISORDER, UNSPECIFIED SNOMED Code(s): 838691809 Comment: - D/Lopez due to hyperammonemia after speaking with Dr. Sabillon. (8) TIN (obstructive sleep apnea) Current Visit: Yes Status: Acute Code(s): G47.33 - OBSTRUCTIVE SLEEP APNEA ( ADULT) (PEDIATRIC) SNOMED Code(s): 93974139 Comment: - Is to wear CPAP with 3L oxygen via nasal cannula, though is non- compliant, stating that the mask causes facial pain. (9) Supratherapeutic INR Current Visit: Yes Status: Acute Code(s): R79.1 - ABNORMAL COAGULATION PROFILE SNOMED Code(s): 683743251 Comment: - Initially, INR was over 10 without a clear cause. There was a concern that perhaps patient had accidentally taken too much coumadin. Could also be related to an undiagnosed liver process/failure. Was initially reversed with vitamin K. - Continue apixaban. (10) COPD (chronic obstructive pulmonary disease) Current Visit: No Status: Chronic Priority: Medium Code(s): J44.9 - CHRONIC OBSTRUCTIVE PULMONARY DISEASE, UNSPECIFIED SNOMED Code(s): 18544104 Comment: - Wears 3L oxygen as needed at home, has been continuous since admission. (11) HLD (hyperlipidemia) Current Visit: No Status: Chronic Priority: Low Code(s): E78.5 - HYPERLIPIDEMIA, UNSPECIFIED SNOMED Code(s): 12008855 Comment: - Not currently being treated. (12) HTN (hypertension) Current Visit: No Status: Chronic Priority: Medium Code(s): I10 - ESSENTIAL (PRIMARY) HYPERTENSION SNOMED Code(s): 28962088 Comment: - BP typically in the 130's. Continue metoprolol. (13) History of CVA (cerebrovascular accident) Current Visit: No Status: Chronic Priority: Medium Code(s): Z86.73 - PRSNL HX OF TIA (TIA), AND CEREB INFRC W/O RESID DEFICITS SNOMED Code(s): 937021721 Comment: - Does not appear to be on plavix, statin or ASA at home. Is on apixaban typically, though is on hold. (14) DVT prophylaxis Current Visit: No Status: Acute Priority: High Code(s): FRR5805 - SNOMED Code(s): 663666672 Comment: - Apixaban on hold due to worsening thrombocytopenia. SCD's ordered. (15) Full code status Current Visit: No Status: Acute Code(s): Z78.9 - OTHER SPECIFIED HEALTH STATUS SNOMED Code(s): 307289959 Status and Disposition: Disposition: Admit inpatient to 4N Condition: Guarded. Attending: Taya Lloyd
[2019-07-11] MEDS: Gabapentin CAP(*) 100 MG PO SCH (21:09)
[2019-07-11] MEDS: traMADol TAB* 50 MG PO PRN (21:15)
[2019-07-12] MEDS: Mometasone 220 MCG MDI INH SCH ×3 (00:17→19:38)
[2019-07-12] MEDS: Acetaminophen TAB* 325 MG PO PRN (00:24)
[2019-07-12 06:01] LABS: Hematocrit for Retic CNT 31 % (35-47); RBC Retic Count 3.28 10^6/uL (3.70-4.87)
[2019-07-12 06:05] LABS: Immature Retic Fraction 0.51
[2019-07-12 06:14] LABS: Anion Gap 4 mmol/L (2-11); BUN/Creatinine Ratio 17.3 (8-20); Blood Urea Nitrogen 17 mg/dL (6-24); CO2 Carbon Dioxide 26 mmol/L (22-32); Chloride 109 mmol/L (101-111); EGFR African American 65.6 (>60); EGFR Non-African American 54.2 (>60); Glucose 108 mg/dL (70-100); Sodium 139 mmol/L (135-145)
[2019-07-12 06:29] LABS: LDH 152 U/L (140-271)
[2019-07-12] MEDS: Digoxin TAB* 0.125 MG PO SCH (09:25)
[2019-07-12] MEDS: Cetirizine* 10 MG TAB PO SCH (09:25)
[2019-07-12] MEDS: Metoprolol Tartrate TAB* 50 mg PO SCH ×2 (09:26→20:37)
[2019-07-12] MEDS: Cyanocobalamin TAB* 500 MCG PO SCH (09:26)
[2019-07-12 09:32] LABS: ABS Lymphocytes 0.8 10^3/ul (1.0-4.8); ABS Monocytes 0.8 10^3/ul (0-0.8); ABS Neutrophils 5.8 10^3/ul (1.5-7.7); Eosinophil % 0.4 %; Hematocrit 31 % (35-47); Hemoglobin 10.2 g/dL (12.0-16.0); Lymphocyte % 11.1 %; Mean Corpuscular HGB Conc 33 g/dL (31-36); Mean Corpuscular Hemoglobin 31 pg (27-31); Mean Corpuscular Volume 94 fL (80-97); Mean Platelet Volume 8.4 fL (7.4-10.4); Platelet Count 77 10^3/uL (150-450); Red Blood Count 3.28 10^6 /uL (3.70-4.87); Red Cell Distribution Width 14 % (10-15); White Blood Count 7.5 10^3/uL (3.5-10.8)
[2019-07-12] MEDS: Tobramycin 0.3% OPHTH.SOL* 5 ML BOT (regular eye drops) RIGHT EYE SCH (09:34)
[2019-07-12 09:35] LABS: ALT 4 U/L (7-52); AST 8 U/L (13-39); Albumin 2.7 g/dL (3.2-5.2); Albumin/Globulin Ratio 0.9 (1-3); Alkaline Phosphatase 29 U/L (34-104); Globulin 2.9 g/dL (2-4); Magnesium 1.5 mg/dL (1.9-2.7); Total Protein 5.6 g/dL (6.4-8.9)
[2019-07-12] MEDS ORDERED: Magnesium Sulfate IV* 3 GM in NS 0.9% 100 ML* 100 ML IVPB ONE (09:41)
[2019-07-12 09:43] LABS: % Iron Saturation 23 % (15-55); Iron 47 ug/dL (50-212); Total Iron Binding Capacity 202 mcg/dL (250-450); Transferrin 144 mg/dL (203-362)
[2019-07-12 10:03] LABS: Ferritin 258.3 ng/mL (11-307)
--- NOTE | 2019-07-12 11:24 | PN ---
Subjective Date of Service: 07/12/19 Interval History: Patient is feeling OK today. Patient denies any increased SOB. Patient denies F/ C, N/V, abdominal pain, diarrhea, CP, or other pain. Patient is frustrated by the number of blood draws she is going through. Family History: Unchanged from Admission Social History: Unchanged from Admission Past Medical History: Unchanged from Admission Objective Active Medications: Acetaminophen (Tylenol Tab*) 650 mg PO Q4H PRN PRN Reason: MILD PAIN or TEMP > 100.4 Last Admin: 07/12/19 00:24 Dose: 650 mg Al Hydrox/Mg Hydrox/Simethicone (Maalox Plus*) 30 ml PO Q6H PRN PRN Reason: INDIGESTION Albuterol (Ventolin Hfa Inhaler*) 2 puff INH Q4H PRN PRN Reason: WHEEZING Cetirizine HCl (Zyrtec*) 10 mg PO DAILY [facility] Last Admin: 07/12/19 09:25 Dose: 10 mg Cyanocobalamin (Vitamin B12 Tab*) 1,000 mcg PO DAILY [facility] Last Admin: 07/12/19 09:26 Dose: 1,000 mcg Digoxin (Lanoxin Tab*) 0.125 mg PO DAILY [facility] Last Admin: 07/12/19 09:25 Dose: 0.125 mg Gabapentin (Neurontin Cap(*)) 200 mg PO BEDTIME [facility] Last Admin: 07/11/19 21:09 Dose: 200 mg Magnesium Sulfate 3 gm/ Sodium (Chloride) 106 mls @ 53 mls/hr IVPB ONCE ONE Stop: 07/12/19 11:40 Lactulose (Lactulose*) 30 ml PO TID [facility] Last Admin: 07/12/19 09:26 Dose: 30 ml Meclizine HCl (Antivert Tab*) 12.5 mg PO TID PRN PRN Reason: DIZZINESS Metoprolol Tartrate (Lopressor Tab*) 50 mg PO BID [facility] Last Admin: 07/12/19 09:26 Dose: 50 mg Mometasone Furoate (Asmanex 220 Mcg Mdi *) 2 puff INH BID [facility] Last Admin: 07/12/19 07:41 Dose: 2 mcg Senna (Senokot 8.6 Mg Tab*) 1 tab PO BID PRN PRN Reason: CONSTIPATION Tobramycin Sulfate (Tobramycin 0.3% Ophth.Juana*) 2 drop BOTH EYES TID SHAHRZAD Vital Signs - 8 hr 07/12/19 07/12/19 07/12/19 03:15 07:27 09:25 Temperature 97.6 F 97.5 F Pulse Rate 61 62 77 Respiratory 17 16 Rate Blood Pressure 113/53 142/78 (mmHg) O2 Sat by Pulse 98 98 Oximetry Oxygen Devices in Use Now: Nasal Cannula Appearance: Patient is an 83yo female who appears stated age and is sitting in the bed in [facility]. Eyes: No Scleral Icterus, PERRLA Ears/Nose/Mouth/Throat: NL Teeth, Lips, Gums, Clear Oropharnyx, Mucous Membranes Moist Neck: NL Appearance and Movements; NL JVP, Trachea Midline Respiratory: Symmetrical Chest Expansion and Respiratory Effort, Clear to Auscultation Cardiovascular: NL Sounds; No Murmurs; No JVD, RRR, - - 1+ Edema in B/L Lower extremities. 2+ In LUE. Varicose veins Abdominal: NL Sounds; No Tenderness; No Distention, No Hepatosplenomegaly Lymphatic: No Cervical Adenopathy Extremities: No Clubbing, Cyanosis Skin: No Rash or Ulcers, No Nodules or Sclerosis Neurological: Alert and Oriented x 3, NL Sensation, NL Muscle Strength and Tone , - - CN II-XII Result Diagrams: 07/12/19 05:50 07/12/19 05:50 Additional Lab and Data: Lab Results 07/08/19 07/08/19 07/08/19 Range/Units 17:00 17:00 17:00 WBC 3.5 (3.5-10.8) 10^3/uL RBC 3.40 L (3.70-4.87) 10^6 /uL Hgb 10.9 L (12.0-16.0) g/dL Hct 32 L (35-47) % MCV 93 (80-97) fL MCH 32 H (27-31) pg MCHC 35 (31-36) g/dL RDW 14 (10-15) % Plt Count 109 L (150-450) 10^3/uL MPV 8.7 (7.4-10.4) fL INR (Anticoag Therapy) >10.00 H* (0.82-1.09) APTT 94.8 H (26.0-38.0) seconds Sodium 136 (135-145) mmol/L Potassium TNP Chloride 103 (101-111) mmol/L Carbon Dioxide 28 (22-32) mmol/L Anion Gap 5 (2-11) mmol/L BUN 29 H (6-24) mg/dL Creatinine 1.54 H (0.51-0.95) mg/dL Est GFR ( Amer) 38.9 (>60) Est GFR (Non-Af Amer) 32.2 (>60) BUN/Creatinine Ratio 18.8 (8-20) Glucose 94 (70-100) mg/dL Calcium 8.1 L (8.6-10.3) mg/dL Total Bilirubin 0.40 (0.2-1.0) mg/dL AST TNP ALT 6 L (7-52) U/L Alkaline Phosphatase 26 L (34-104) U/L Troponin I 0.01 (<0.03) ng/mL Total Protein 6.5 (6.4-8.9) g/dL Albumin 3.2 (3.2-5.2) g/dL Globulin 3.3 (2-4) g/dL Albumin/Globulin Ratio 1.0 (1-3) Blood Type Antibody Screen 07/08/19 Range/Units 17:00 WBC (3.5-10.8) 10^3/uL RBC (3.70-4.87) 10^6 /uL Hgb (12.0-16.0) g/dL Hct (35-47) % MCV (80-97) fL MCH (27-31) pg MCHC (31-36) g/dL RDW (10-15) % Plt Count (150-450) 10^3/uL MPV (7.4-10.4) fL INR (Anticoag Therapy) (0.82-1.09) APTT (26.0-38.0) seconds Sodium (135-145) mmol/L Potassium Chloride (101-111) mmol/L Carbon Dioxide (22-32) mmol/L Anion Gap (2-11) mmol/L BUN (6-24) mg/dL Creatinine (0.51-0.95) mg/dL Est GFR ( Amer) (>60) Est GFR (Non-Af Amer) (>60) BUN/Creatinine Ratio (8-20) Glucose (70-100) mg/dL Calcium (8.6-10.3) mg/dL Total Bilirubin (0.2-1.0) mg/dL AST ALT (7-52) U/L Alkaline Phosphatase (34-104) U/L Troponin I (<0.03) ng/mL Total Protein (6.4-8.9) g/dL Albumin (3.2-5.2) g/dL Globulin (2-4) g/dL Albumin/Globulin Ratio (1-3) Blood Type O Positive Antibody Screen Negative Assess/Plan/Problems-Billing Assessment: This is an 83 year old female with a past medical history of afib, cvax4 and htn who was admitted on 07/08/19 for supratherapeutic INR and BRBPR. - Patient Problems (1) Hyperammonemia Current Visit: Yes Status: Acute Code(s): E72.20 - DISORDER OF UREA CYCLE METABOLISM, UNSPECIFIED SNOMED Code(s): 9861376 Comment: - Hyperammonemia likely due to Depakote without other sign of liver disease - Continue lactulose TID. Monitor Mental status - S/P Carnitine infusion - Possibly provoked from digested blood in GI tract from supratherapeutic INR. - Also had new prescription for tramadol that may be contributing to AMS prior to admission. (2) Hyperkalemia Current Visit: Yes Status: Acute Code(s): E87.5 - HYPERKALEMIA SNOMED Code (s): 46680156 Comment: - Resolved. (3) TIN (obstructive sleep apnea) Current Visit: Yes Status: Acute Code(s): G47.33 - OBSTRUCTIVE SLEEP APNEA ( ADULT) (PEDIATRIC) SNOMED Code(s): 28599326 Comment: - Is to wear CPAP with 3L oxygen via nasal cannula, though is non- compliant, stating that the mask causes facial pain. (4) Pancytopenia Current Visit: Yes Status: Acute Code(s): D61.818 - OTHER PANCYTOPENIA SNOMED Code(s): 238461572 Comment: - Appears to be more chronic in nature - Recommend that she follow up with hematology/oncology as an outpatient. - Apixaban on hold due to thrombocytopenia. - Hepatitis Panel pending, no cirrhotic architecture on US or CT. (5) Supratherapeutic INR Current Visit: Yes Status: Acute Code(s): R79.1 - ABNORMAL COAGULATION PROFILE SNOMED Code(s): 807129794 Comment: - Initially, INR was over 10 without a clear cause. There was a concern that perhaps patient had accidentally taken too much coumadin. - Hold apixaban due to thrombocytopenia. - No other signs of liver failure (6) Anemia Current Visit: Yes Status: Acute Code(s): D64.9 - ANEMIA, UNSPECIFIED SNOMED Code(s): 275444340 Comment: - Iron profile shows combo of MARCO A and AOCD - Start oral iron supplementation. (7) Bipolar 1 disorder Current Visit: Yes Status: Acute Code(s): F31.9 - BIPOLAR DISORDER, UNSPECIFIED SNOMED Code(s): 581803252 Comment: - D/Cd Depakote due to hyperammonemia after speaking with Dr. Sabillon. - Euthymic at this time, will need alternate agent. (8) PETRA (acute kidney injury) Current Visit: Yes Status: Acute Code(s): N17.9 - ACUTE KIDNEY FAILURE, UNSPECIFIED SNOMED Code(s): 43551265 Comment: - Resolved, is at baseline. (9) DVT prophylaxis Current Visit: No Status: Acute Priority: High Code(s): INS3688 - SNOMED Code(s): 416832606 Comment: - Apixaban on hold due to worsening thrombocytopenia. SCD's ordered. (10) Full code status Current Visit: No Status: Acute Code(s): Z78.9 - OTHER SPECIFIED HEALTH STATUS SNOMED Code(s): 907128651 Status and Disposition: Disposition: Admit inpatient to Condition: Stable
[2019-07-12 11:33] LABS: Hepatitis B Surface Antigen Nonreactive (Nonreactive)
[2019-07-12 11:50] LABS: Hepatitis C Antibody Negative (Negative)
[2019-07-12] MEDS: Tobramycin 0.3% OPHTH.SOL* 5 ML BOT (regular eye drops) BOTH EYES SCH ×2 (15:01→20:37)
[2019-07-12] MEDS: Gabapentin CAP(*) 100 MG PO SCH (20:36)
[2019-07-13 06:23] LABS: Hematocrit 30 % (35-47); Hemoglobin 10.3 g/dL (12.0-16.0); Mean Corpuscular HGB Conc 35 g/dL (31-36); Mean Corpuscular Hemoglobin 32 pg (27-31); Mean Corpuscular Volume 91 fL (80-97); Red Blood Count 3.26 10^6 /uL (3.70-4.87); Red Cell Distribution Width 13 % (10-15)
[2019-07-13 06:32] LABS: Magnesium 2.1 mg/dL (1.9-2.7)
[2019-07-13 06:38] LABS: BUN/Creatinine Ratio 19.6 (8-20); EGFR African American 66.4 (>60); EGFR Non-African American 54.8 (>60)
[2019-07-13] MEDS: Cyanocobalamin TAB* 500 MCG PO SCH (08:30)
[2019-07-13] MEDS: Metoprolol Tartrate TAB* 50 mg PO SCH ×2 (08:31→20:40)
[2019-07-13] MEDS: Cetirizine* 10 MG TAB PO SCH (08:31)
[2019-07-13] MEDS: Ferrous Sulfate TAB* 325 MG PO SCH (08:31)
[2019-07-13] MEDS: Digoxin TAB* 0.125 MG PO SCH (08:32)
[2019-07-13] MEDS: Tobramycin 0.3% OPHTH.SOL* 5 ML BOT (regular eye drops) BOTH EYES SCH ×3 (08:37→20:41)
[2019-07-13] MEDS: Mometasone 220 MCG MDI INH SCH ×2 (08:46→19:49)
[2019-07-13 09:30] LABS: Mean Platelet Volume 8.7 fL (7.4-10.4); Platelet Count 82 10^3/uL (150-450)
[2019-07-13 09:31] LABS: White Blood Count 9.2 10^3/uL (3.5-10.8)
[2019-07-13 09:36] LABS: Lymphocyte % 16.1 %; Nucleated Red Blood Cells % 0.1
--- NOTE | 2019-07-13 15:18 | PN ---
Subjective Date of Service: 07/13/19 Interval History: Patient is feeling well. Patient feels as if her thinking is clearer. Patient states she has never been on another medication she can remember for her bipolar than Depakote and that this is managed by a psychiatrist outpatient. Patient has never seen a lacquer pin press operator or had a bone marrow biopsy. Patient denies CP, SOB, F/C, N/V, abdominal pain, or diarrhea. Family History: Unchanged from Admission Social History: Unchanged from Admission Past Medical History: Unchanged from Admission Objective Active Medications: Acetaminophen (Tylenol Tab*) 650 mg PO Q4H PRN PRN Reason: MILD PAIN or TEMP > 100.4 Last Admin: 07/12/19 00:24 Dose: 650 mg Al Hydrox/Mg Hydrox/Simethicone (Maalox Plus*) 30 ml PO Q6H PRN PRN Reason: INDIGESTION Albuterol (Ventolin Hfa Inhaler*) 2 puff INH Q4H PRN PRN Reason: WHEEZING Cetirizine HCl (Zyrtec*) 10 mg PO DAILY [facility] Last Admin: 07/13/19 08:31 Dose: 10 mg Cyanocobalamin (Vitamin B12 Tab*) 1,000 mcg PO DAILY [facility] Last Admin: 07/13/19 08:30 Dose: 1,000 mcg Digoxin (Lanoxin Tab*) 0.125 mg PO DAILY [facility] Last Admin: 07/13/19 08:32 Dose: 0.125 mg Ferrous Sulfate (Ferrous Sulfate Tab*) 325 mg PO DAILY [facility] Last Admin: 07/13/19 08:31 Dose: 325 mg Gabapentin (Neurontin Cap(*)) 200 mg PO BEDTIME [facility] Last Admin: 07/12/19 20:36 Dose: 200 mg Lactulose (Lactulose*) 30 ml PO TID [facility] Last Admin: 07/13/19 13:56 Dose: 30 ml Meclizine HCl (Antivert Tab*) 12.5 mg PO TID PRN PRN Reason: DIZZINESS Metoprolol Tartrate (Lopressor Tab*) 50 mg PO BID [facility] Last Admin: 07/13/19 08:31 Dose: 50 mg Mometasone Furoate (Asmanex 220 Mcg Mdi *) 2 puff INH BID [facility] Last Admin: 07/13/19 08:46 Dose: 2 mcg Quetiapine Fumarate (Seroquel Tab*) 50 mg PO BEDTIME [facility] Senna (Senokot 8.6 Mg Tab*) 1 tab PO BID PRN PRN Reason: CONSTIPATION Tobramycin Sulfate (Tobramycin 0.3% Ophth.Juana*) 2 drop BOTH EYES TID [facility] Last Admin: 07/13/19 13:56 Dose: 2 drp Vital Signs - 8 hr 07/13/19 07/13/19 07/13/19 07:15 08:00 08:32 Temperature 98.2 F Pulse Rate 86 99 Respiratory 20 20 Rate Blood Pressure 134/55 (mmHg) O2 Sat by Pulse 96 Oximetry 07/13/19 11:15 Temperature 97.6 F Pulse Rate 68 Respiratory 20 Rate Blood Pressure 116/57 (mmHg) O2 Sat by Pulse 100 Oximetry Oxygen Devices in Use Now: Nasal Cannula Appearance: Patient is an 83yo female who appears stated age and is sitting in the bed in NAD. Eyes: No Scleral Icterus, PERRLA Ears/Nose/Mouth/Throat: NL Teeth, Lips, Gums, Clear Oropharnyx, Mucous Membranes Moist Neck: NL Appearance and Movements; NL JVP, Trachea Midline Respiratory: Symmetrical Chest Expansion and Respiratory Effort, Clear to Auscultation Cardiovascular: NL Sounds; No Murmurs; No JVD, RRR, - - Trace LE edema and 3+ LUE edema with varicose veins. Abdominal: NL Sounds; No Tenderness; No Distention, No Hepatosplenomegaly Lymphatic: No Cervical Adenopathy Extremities: No Clubbing, Cyanosis Skin: No Rash or Ulcers, No Nodules or Sclerosis Neurological: Alert and Oriented x 3, NL Sensation, NL Muscle Strength and Tone , - - CN II-XII intact. Result Diagrams: 07/13/19 05:59 07/13/19 05:29 Additional Lab and Data: Lab Results 07/08/19 07/08/19 07/08/19 Range/Units 17:00 17:00 17:00 WBC 3.5 (3.5-10.8) 10^3/uL RBC 3.40 L (3.70-4.87) 10^6 /uL Hgb 10.9 L (12.0-16.0) g/dL Hct 32 L (35-47) % MCV 93 (80-97) fL MCH 32 H (27-31) pg MCHC 35 (31-36) g/dL RDW 14 (10-15) % Plt Count 109 L (150-450) 10^3/uL MPV 8.7 (7.4-10.4) fL INR (Anticoag Therapy) >10.00 H* (0.82-1.09) APTT 94.8 H (26.0-38.0) seconds Sodium 136 (135-145) mmol/L Potassium TNP Chloride 103 (101-111) mmol/L Carbon Dioxide 28 (22-32) mmol/L Anion Gap 5 (2-11) mmol/L BUN 29 H (6-24) mg/dL Creatinine 1.54 H (0.51-0.95) mg/dL Est GFR ( Amer) 38.9 (>60) Est GFR (Non-Af Amer) 32.2 (>60) BUN/Creatinine Ratio 18.8 (8-20) Glucose 94 (70-100) mg/dL Calcium 8.1 L (8.6-10.3) mg/dL Total Bilirubin 0.40 (0.2-1.0) mg/dL AST TNP ALT 6 L (7-52) U/L Alkaline Phosphatase 26 L (34-104) U/L Troponin I 0.01 (<0.03) ng/mL Total Protein 6.5 (6.4-8.9) g/dL Albumin 3.2 (3.2-5.2) g/dL Globulin 3.3 (2-4) g/dL Albumin/Globulin Ratio 1.0 (1-3) Blood Type Antibody Screen 07/08/19 Range/Units 17:00 WBC (3.5-10.8) 10^3/uL RBC (3.70-4.87) 10^6 /uL Hgb (12.0-16.0) g/dL Hct (35-47) % MCV (80-97) fL MCH (27-31) pg MCHC (31-36) g/dL RDW (10-15) % Plt Count (150-450) 10^3/uL MPV (7.4-10.4) fL INR (Anticoag Therapy) (0.82-1.09) APTT (26.0-38.0) seconds Sodium (135-145) mmol/L Potassium Chloride (101-111) mmol/L Carbon Dioxide (22-32) mmol/L Anion Gap (2-11) mmol/L BUN (6-24) mg/dL Creatinine (0.51-0.95) mg/dL Est GFR ( Amer) (>60) Est GFR (Non-Af Amer) (>60) BUN/Creatinine Ratio (8-20) Glucose (70-100) mg/dL Calcium (8.6-10.3) mg/dL Total Bilirubin (0.2-1.0) mg/dL AST ALT (7-52) U/L Alkaline Phosphatase (34-104) U/L Troponin I (<0.03) ng/mL Total Protein (6.4-8.9) g/dL Albumin (3.2-5.2) g/dL Globulin (2-4) g/dL Albumin/Globulin Ratio (1-3) Blood Type O Positive Antibody Screen Negative Assess/Plan/Problems-Billing Assessment: This is an 83 year old female with a past medical history of afib, cvax4 and htn who was admitted on 07/08/19 for supratherapeutic INR and BRBPR. - Patient Problems (1) Hyperammonemia Current Visit: Yes Status: Acute Code(s): E72.20 - DISORDER OF UREA CYCLE METABOLISM, UNSPECIFIED SNOMED Code(s): 7976732 Comment: - Hyperammonemia likely due to Depakote without other sign of liver disease - Reduce Lactulose to BID. Mental status much improved - S/P Carnitine infusion - Possibly provoked from digested blood in GI tract from supratherapeutic INR. - Also had new prescription for tramadol that may be contributing to AMS prior to admission. (2) Pancytopenia Current Visit: Yes Status: Acute Code(s): D61.818 - OTHER PANCYTOPENIA SNOMED Code(s): 971587763 Comment: - Appears to be more chronic in nature - Recommend that she follow up with hematology/oncology as an outpatient with consideration for bone Marrow Biopsy. - Resume Apixaban - Hepatitis Panel negative, no cirrhotic architecture on US or CT. (3) Hyperkalemia Current Visit: Yes Status: Acute Code(s): E87.5 - HYPERKALEMIA SNOMED Code (s): 09986693 Comment: - Resolved. (4) TIN (obstructive sleep apnea) Current Visit: Yes Status: Acute Code(s): G47.33 - OBSTRUCTIVE SLEEP APNEA ( ADULT) (PEDIATRIC) SNOMED Code(s): 50624981 Comment: - Is to wear CPAP with 3L oxygen via nasal cannula, though is non- compliant, stating that the mask causes facial pain. (5) Supratherapeutic INR Current Visit: Yes Status: Acute Code(s): R79.1 - ABNORMAL COAGULATION PROFILE SNOMED Code(s): 109356378 Comment: - Initially, INR was over 10 without a clear cause. There was a concern that perhaps patient had accidentally taken too much coumadin. - Resume Apixaban - No other signs of liver failure (6) Anemia Current Visit: Yes Status: Acute Code(s): D64.9 - ANEMIA, UNSPECIFIED SNOMED Code(s): 098819284 Comment: - Iron profile shows combo of MARCO A and AOCD - Start oral iron supplementation. (7) Bipolar 1 disorder Current Visit: Yes Status: Acute Code(s): F31.9 - BIPOLAR DISORDER, UNSPECIFIED SNOMED Code(s): 203009734 Comment: - D/Cd Depakote due to hyperammonemia after speaking with Dr. Sabillon. - Euthymic at this time, Start Quetiapine for mood stabilization - Unable to use alternative second line agents due to concern for further bone- marrow suppression and kideny disease. (8) PETRA (acute kidney injury) Current Visit: Yes Status: Acute Code(s): N17.9 - ACUTE KIDNEY FAILURE, UNSPECIFIED SNOMED Code(s): 17257776 Comment: - Resolved, is at baseline. (9) DVT prophylaxis Current Visit: No Status: Acute Priority: High Code(s): JWY0355 - SNOMED Code(s): 867010458 Comment: - Resume Apixaban (10) Full code status Current Visit: No Status: Acute Code(s): Z78.9 - OTHER SPECIFIED HEALTH STATUS SNOMED Code(s): 826519627 Status and Disposition: Disposition: Admit inpatient to Condition: Stable Hopeful D/C to rehab tomorrow.
[2019-07-13] MEDS: QUEtiapine TAB* 25 MG PO SCH (20:40)
[2019-07-13] MEDS: Apixaban* 2.5 MG TAB PO SCH (20:40)
[2019-07-13] MEDS: Gabapentin CAP(*) 100 MG PO SCH (20:40)
[2019-07-14 06:54] LABS: Hematocrit 31 % (35-47); Hemoglobin 10.2 g/dL (12.0-16.0); Mean Corpuscular HGB Conc 33 g/dL (31-36); Mean Corpuscular Hemoglobin 32 pg (27-31); Mean Corpuscular Volume 97 fL (80-97); Red Blood Count 3.22 10^6 /uL (3.70-4.87); Red Cell Distribution Width 14 % (10-15); White Blood Count 6.5 10^3/uL (3.5-10.8)
[2019-07-14 06:57] LABS: ABS Neutrophils 4.4 10^3/ul (1.5-7.7); Eosinophil % 0.6 %; Mean Platelet Volume 9.7 fL (7.4-10.4); Nucleated Red Blood Cells % 0.1; Platelet Count 64 10^3/uL (150-450)
[2019-07-14 07:14] LABS: Calcium 8.1 mg/dL (8.6-10.3); Potassium 4.6 mmol/L (3.5-5.0)
[2019-07-14 07:19] LABS: BUN/Creatinine Ratio 20.2 (8-20); EGFR African American 64.8 (>60); EGFR Non-African American 53.6 (>60)
[2019-07-14] MEDS: Mometasone 220 MCG MDI INH SCH ×2 (08:28→19:18)
[2019-07-14] MEDS: Metoprolol Tartrate TAB* 50 mg PO SCH ×2 (10:10→23:18)
[2019-07-14] MEDS: Apixaban* 2.5 MG TAB PO SCH ×2 (10:10→23:17)
[2019-07-14] MEDS: Cyanocobalamin TAB* 500 MCG PO SCH (10:10)
[2019-07-14] MEDS: Ferrous Sulfate TAB* 325 MG PO SCH (10:10)
[2019-07-14] MEDS: Digoxin TAB* 0.125 MG PO SCH (10:10)
[2019-07-14] MEDS: Cetirizine* 10 MG TAB PO SCH (10:10)
[2019-07-14] MEDS: Tobramycin 0.3% OPHTH.SOL* 5 ML BOT (regular eye drops) BOTH EYES SCH ×3 (10:11→23:19)
--- NOTE | 2019-07-14 11:05 | PN ---
Subjective Date of Service: 07/14/19 Interval History: Pt just choked on Lactulose. Otherwise feeling fine. coughing a lot afterwards. will obtain swallow eval Family History: Unchanged from Admission Social History: Unchanged from Admission Past Medical History: Unchanged from Admission Objective Active Medications: Acetaminophen (Tylenol Tab*) 650 mg PO Q4H PRN PRN Reason: MILD PAIN or TEMP > 100.4 Last Admin: 07/12/19 00:24 Dose: 650 mg Al Hydrox/Mg Hydrox/Simethicone (Maalox Plus*) 30 ml PO Q6H PRN PRN Reason: INDIGESTION Albuterol (Ventolin Hfa Inhaler*) 2 puff INH Q4H PRN PRN Reason: WHEEZING Apixaban (Eliquis*) 2.5 mg PO BID [facility] Last Admin: 07/14/19 10:10 Dose: 2.5 mg Cetirizine HCl (Zyrtec*) 10 mg PO DAILY [facility] Last Admin: 07/14/19 10:10 Dose: 10 mg Cyanocobalamin (Vitamin B12 Tab*) 1,000 mcg PO DAILY [facility] Last Admin: 07/14/19 10:10 Dose: 1,000 mcg Digoxin (Lanoxin Tab*) 0.125 mg PO DAILY [facility] Last Admin: 07/14/19 10:10 Dose: 0.125 mg Ferrous Sulfate (Ferrous Sulfate Tab*) 325 mg PO DAILY [facility] Last Admin: 07/14/19 10:10 Dose: 325 mg Gabapentin (Neurontin Cap(*)) 200 mg PO BEDTIME [facility] Last Admin: 07/13/19 20:40 Dose: 200 mg Lactulose (Lactulose*) 30 ml PO TID [facility] Last Admin: 07/14/19 10:44 Dose: 30 ml Meclizine HCl (Antivert Tab*) 12.5 mg PO TID PRN PRN Reason: DIZZINESS Metoprolol Tartrate (Lopressor Tab*) 50 mg PO BID [facility] Last Admin: 07/14/19 10:10 Dose: 50 mg Mometasone Furoate (Asmanex 220 Mcg Mdi *) 2 puff INH BID [facility] Last Admin: 07/14/19 08:28 Dose: 2 mcg Quetiapine Fumarate (Seroquel Tab*) 50 mg PO BEDTIME [facility] Last Admin: 07/13/19 20:40 Dose: 50 mg Senna (Senokot 8.6 Mg Tab*) 1 tab PO BID PRN PRN Reason: CONSTIPATION Tobramycin Sulfate (Tobramycin 0.3% Ophth.Juana*) 2 drop BOTH EYES TID [facility] Last Admin: 07/14/19 10:11 Dose: 2 drp Vital Signs - 8 hr 07/14/19 07/14/19 07/14/19 07:55 07:56 08:30 Temperature 99.5 F Pulse Rate 83 83 Respiratory 20 15 Rate Blood Pressure 122/54 (mmHg) O2 Sat by Pulse 91 94 94 Oximetry 07/14/19 10:10 Temperature Pulse Rate 74 Respiratory Rate Blood Pressure (mmHg) O2 Sat by Pulse Oximetry Oxygen Devices in Use Now: Nasal Cannula Appearance: 83 yo f in nAD, AAOx3, poor historian Eyes: No Scleral Icterus, PERRLA Ears/Nose/Mouth/Throat: NL Teeth, Lips, Gums, Mucous Membranes Moist Neck: NL Appearance and Movements; NL JVP, Trachea Midline Respiratory: Symmetrical Chest Expansion and Respiratory Effort, - - rhonchi in SHILPA clearing whith cough Cardiovascular: NL Sounds; No Murmurs; No JVD, - - left chest with significantly dilated superficial veins noted-appears chronic Abdominal: NL Sounds; No Tenderness; No Distention Lymphatic: No Cervical Adenopathy Extremities: No Clubbing, Cyanosis, - - +1 ankle edema b/l Skin: No Nodules or Sclerosis Neurological: Alert and Oriented x 3, NL Muscle Strength and Tone Result Diagrams: 07/14/19 06:33 07/14/19 06:33 Additional Lab and Data: Lab Results 07/08/19 07/08/19 07/08/19 Range/Units 17:00 17:00 17:00 WBC 3.5 (3.5-10.8) 10^3/uL RBC 3.40 L (3.70-4.87) 10^6 /uL Hgb 10.9 L (12.0-16.0) g/dL Hct 32 L (35-47) % MCV 93 (80-97) fL MCH 32 H (27-31) pg MCHC 35 (31-36) g/dL RDW 14 (10-15) % Plt Count 109 L (150-450) 10^3/uL MPV 8.7 (7.4-10.4) fL INR (Anticoag Therapy) >10.00 H* (0.82-1.09) APTT 94.8 H (26.0-38.0) seconds Sodium 136 (135-145) mmol/L Potassium TNP Chloride 103 (101-111) mmol/L Carbon Dioxide 28 (22-32) mmol/L Anion Gap 5 (2-11) mmol/L BUN 29 H (6-24) mg/dL Creatinine 1.54 H (0.51-0.95) mg/dL Est GFR ( Amer) 38.9 (>60) Est GFR (Non-Af Amer) 32.2 (>60) BUN/Creatinine Ratio 18.8 (8-20) Glucose 94 (70-100) mg/dL Calcium 8.1 L (8.6-10.3) mg/dL Total Bilirubin 0.40 (0.2-1.0) mg/dL AST TNP ALT 6 L (7-52) U/L Alkaline Phosphatase 26 L (34-104) U/L Troponin I 0.01 (<0.03) ng/mL Total Protein 6.5 (6.4-8.9) g/dL Albumin 3.2 (3.2-5.2) g/dL Globulin 3.3 (2-4) g/dL Albumin/Globulin Ratio 1.0 (1-3) Blood Type Antibody Screen 07/08/19 Range/Units 17:00 WBC (3.5-10.8) 10^3/uL RBC (3.70-4.87) 10^6 /uL Hgb (12.0-16.0) g/dL Hct (35-47) % MCV (80-97) fL MCH (27-31) pg MCHC (31-36) g/dL RDW (10-15) % Plt Count (150-450) 10^3/uL MPV (7.4-10.4) fL INR (Anticoag Therapy) (0.82-1.09) APTT (26.0-38.0) seconds Sodium (135-145) mmol/L Potassium Chloride (101-111) mmol/L Carbon Dioxide (22-32) mmol/L Anion Gap (2-11) mmol/L BUN (6-24) mg/dL Creatinine (0.51-0.95) mg/dL Est GFR ( Amer) (>60) Est GFR (Non-Af Amer) (>60) BUN/Creatinine Ratio (8-20) Glucose (70-100) mg/dL Calcium (8.6-10.3) mg/dL Total Bilirubin (0.2-1.0) mg/dL AST ALT (7-52) U/L Alkaline Phosphatase (34-104) U/L Troponin I (<0.03) ng/mL Total Protein (6.4-8.9) g/dL Albumin (3.2-5.2) g/dL Globulin (2-4) g/dL Albumin/Globulin Ratio (1-3) Blood Type O Positive Antibody Screen Negative Assess/Plan/Problems-Billing Assessment: This is an 83 year old female with a past medical history of afib, cvax4 and htn who was admitted on 07/08/19 for supratherapeutic INR and BRBPR. - Patient Problems (1) Hyperammonemia Comment: - Hyperammonemia likely due to Depakote without other signs of liver disease - Cont Lactulose to TID. Mental status much improved - S/P Carnitine infusion - Possibly provoked from digested blood in GI tract from supratherapeutic INR. - Also had new prescription for tramadol that may be contributing to AMS prior to admission. (2) PETRA (acute kidney injury) Comment: - Resolved, is at baseline. (3) Anemia Comment: - Iron profile shows combo of MARCO A and AOCD - Started oral iron supplementation. -also bled at admision with BPBPR when INR 10-resolved -GI bleed (4) Bipolar 1 disorder Comment: - D/Cd Depakote due to hyperammonemia after speaking with Dr. Sabillon. - Euthymic at this time, Started Quetiapine for mood stabilization - Unable to use alternative second line agents due to concern for further bone- marrow suppression and kidney disease. (5) TIN (obstructive sleep apnea) Comment: - Is to wear CPAP with 3L oxygen via nasal cannula, though is non- compliant, stating that the mask causes facial pain. (6) Pancytopenia Comment: - Appears to be more chronic in nature - Recommend that she follow up with hematology/oncology as an outpatient with consideration for bone Marrow Biopsy. - Resume Apixaban - Hepatitis Panel negative, no cirrhotic architecture on US or CT. (7) Supratherapeutic INR Comment: - Initially, INR was over 10 without a clear cause. There was a concern that perhaps patient had accidentally taken too much coumadin. -ctarted on Apixaban, cont - No other signs of liver failure (8) Suspected COVID-19 virus infection Comment: - Results are negative. (9) Atrial fibrillation Comment: - a fib with interrmittent pacing - Coumadin at home switvhed to Eliquis - Rate controlled with metoprolol 50mg BID and digoxin 0.125mg daily (10) DVT prophylaxis Comment: Apixaban Status and Disposition: Disposition: likely d/c to [facility] after swallow eval today No IV access for now-lost IV, very difficult stick
[2019-07-14] MEDS: Gabapentin CAP(*) 100 MG PO SCH (23:17)
[2019-07-14] MEDS: QUEtiapine TAB* 25 MG PO SCH (23:18)
[2019-07-14] MEDS: Acetaminophen TAB* 325 MG PO PRN (23:19)
[2019-07-15] MEDS: Mometasone 220 MCG MDI INH SCH ×2 (07:04→20:04)
--- NOTE | 2019-07-15 08:28 | PN ---
Subjective Date of Service: 07/15/19 Interval History: Pt has no new complaints, but last night temp was 100.6 and she developed hypoxemia-required 02 at 3L. Today sitting up eating breakfast without any problems Family History: Unchanged from Admission Social History: Unchanged from Admission Past Medical History: Unchanged from Admission Objective Active Medications: Acetaminophen (Tylenol Tab*) 650 mg PO Q4H PRN PRN Reason: MILD PAIN or TEMP > 100.4 Last Admin: 07/14/19 23:19 Dose: 650 mg Al Hydrox/Mg Hydrox/Simethicone (Maalox Plus*) 30 ml PO Q6H PRN PRN Reason: INDIGESTION Albuterol (Ventolin Hfa Inhaler*) 2 puff INH Q4H PRN PRN Reason: WHEEZING Apixaban (Eliquis*) 2.5 mg PO BID [facility] Last Admin: 07/14/19 23:17 Dose: 2.5 mg Cetirizine HCl (Zyrtec*) 10 mg PO DAILY [facility] Last Admin: 07/14/19 10:10 Dose: 10 mg Cyanocobalamin (Vitamin B12 Tab*) 1,000 mcg PO DAILY [facility] Last Admin: 07/14/19 10:10 Dose: 1,000 mcg Digoxin (Lanoxin Tab*) 0.125 mg PO DAILY [facility] Last Admin: 07/14/19 10:10 Dose: 0.125 mg Ferrous Sulfate (Ferrous Sulfate Tab*) 325 mg PO DAILY [facility] Last Admin: 07/14/19 10:10 Dose: 325 mg Gabapentin (Neurontin Cap(*)) 200 mg PO BEDTIME [facility] Last Admin: 07/14/19 23:17 Dose: 200 mg Metronidazole/Sodium Chloride (Flagyl 500 Mg Ivpb*) 500 mg in 100 mls @ 100 mls /hr IVPB Q8H [facility] Ceftriaxone Sodium 1 gm/ (Sodium Chloride) 50 mls @ 100 mls/hr IVPB Q24H [facility] Lactulose (Lactulose*) 30 ml PO TID [facility] Last Admin: 07/14/19 23:17 Dose: 30 ml Meclizine HCl (Antivert Tab*) 12.5 mg PO TID PRN PRN Reason: DIZZINESS Metoprolol Tartrate (Lopressor Tab*) 50 mg PO BID [facility] Last Admin: 07/14/19 23:18 Dose: 50 mg Mometasone Furoate (Asmanex 220 Mcg Mdi *) 2 puff INH BID [facility] Last Admin: 07/15/19 07:04 Dose: 2 mcg Quetiapine Fumarate (Seroquel Tab*) 50 mg PO BEDTIME [facility] Last Admin: 07/14/19 23:18 Dose: 50 mg Senna (Senokot 8.6 Mg Tab*) 1 tab PO BID PRN PRN Reason: CONSTIPATION Tobramycin Sulfate (Tobramycin 0.3% Ophth.Juana*) 2 drop BOTH EYES TID [facility] Last Admin: 07/14/19 23:19 Dose: 2 drp Vital Signs - 8 hr 07/15/19 07/15/19 07/15/19 01:20 01:23 02:53 Temperature 99.9 F 98.5 F Pulse Rate 63 66 Respiratory 22 18 Rate Blood Pressure 101/51 (mmHg) O2 Sat by Pulse 93 99 Oximetry 07/15/19 07:38 Temperature 98 F Pulse Rate 59 Respiratory 20 Rate Blood Pressure 123/41 (mmHg) O2 Sat by Pulse 99 Oximetry Oxygen Devices in Use Now: Nasal Cannula Appearance: 83 yo f in nAD, aAOx2 Eyes: No Scleral Icterus, PERRLA Ears/Nose/Mouth/Throat: NL Teeth, Lips, Gums, Mucous Membranes Moist Neck: NL Appearance and Movements; NL JVP, Trachea Midline Respiratory: Symmetrical Chest Expansion and Respiratory Effort, - - crackles at b/l bases Cardiovascular: NL Sounds; No Murmurs; No JVD Abdominal: NL Sounds; No Tenderness; No Distention, No Hepatosplenomegaly Lymphatic: No Cervical Adenopathy Extremities: No Clubbing, Cyanosis, - - +1 ankle edema b/l Skin: No Nodules or Sclerosis Neurological: - - left shoulder limited ROM due to rotator cuff problems, mild flattening of left nasolabial fold Result Diagrams: 07/14/19 06:33 07/14/19 06:33 Additional Lab and Data: Lab Results 07/08/19 07/08/19 07/08/19 Range/Units 17:00 17:00 17:00 WBC 3.5 (3.5-10.8) 10^3/uL RBC 3.40 L (3.70-4.87) 10^6 /uL Hgb 10.9 L (12.0-16.0) g/dL Hct 32 L (35-47) % MCV 93 (80-97) fL MCH 32 H (27-31) pg MCHC 35 (31-36) g/dL RDW 14 (10-15) % Plt Count 109 L (150-450) 10^3/uL MPV 8.7 (7.4-10.4) fL INR (Anticoag Therapy) >10.00 H* (0.82-1.09) APTT 94.8 H (26.0-38.0) seconds Sodium 136 (135-145) mmol/L Potassium TNP Chloride 103 (101-111) mmol/L Carbon Dioxide 28 (22-32) mmol/L Anion Gap 5 (2-11) mmol/L BUN 29 H (6-24) mg/dL Creatinine 1.54 H (0.51-0.95) mg/dL Est GFR ( Amer) 38.9 (>60) Est GFR (Non-Af Amer) 32.2 (>60) BUN/Creatinine Ratio 18.8 (8-20) Glucose 94 (70-100) mg/dL Calcium 8.1 L (8.6-10.3) mg/dL Total Bilirubin 0.40 (0.2-1.0) mg/dL AST TNP ALT 6 L (7-52) U/L Alkaline Phosphatase 26 L (34-104) U/L Troponin I 0.01 (<0.03) ng/mL Total Protein 6.5 (6.4-8.9) g/dL Albumin 3.2 (3.2-5.2) g/dL Globulin 3.3 (2-4) g/dL Albumin/Globulin Ratio 1.0 (1-3) Blood Type Antibody Screen 07/08/19 Range/Units 17:00 WBC (3.5-10.8) 10^3/uL RBC (3.70-4.87) 10^6 /uL Hgb (12.0-16.0) g/dL Hct (35-47) % MCV (80-97) fL MCH (27-31) pg MCHC (31-36) g/dL RDW (10-15) % Plt Count (150-450) 10^3/uL MPV (7.4-10.4) fL INR (Anticoag Therapy) (0.82-1.09) APTT (26.0-38.0) seconds Sodium (135-145) mmol/L Potassium Chloride (101-111) mmol/L Carbon Dioxide (22-32) mmol/L Anion Gap (2-11) mmol/L BUN (6-24) mg/dL Creatinine (0.51-0.95) mg/dL Est GFR ( Amer) (>60) Est GFR (Non-Af Amer) (>60) BUN/Creatinine Ratio (8-20) Glucose (70-100) mg/dL Calcium (8.6-10.3) mg/dL Total Bilirubin (0.2-1.0) mg/dL AST ALT (7-52) U/L Alkaline Phosphatase (34-104) U/L Troponin I (<0.03) ng/mL Total Protein (6.4-8.9) g/dL Albumin (3.2-5.2) g/dL Globulin (2-4) g/dL Albumin/Globulin Ratio (1-3) Blood Type O Positive Antibody Screen Negative Assess/Plan/Problems-Billing Assessment: This is an 83 year old female with a past medical history of afib, cvax4 and htn who was admitted on 07/08/19 for supratherapeutic INR and BRBPR. - Patient Problems (1) Hyperammonemia Comment: - Hyperammonemia likely due to Depakote without other signs of liver disease - Cont Lactulose to TID. Mental status much improved - S/P Carnitine infusion - Possibly provoked from digested blood in GI tract from supratherapeutic INR. - Also had new prescription for tramadol that may have contributed to AMS prior to admission. (2) PETRA (acute kidney injury) Comment: - Resolved, is at baseline. (3) Anemia Comment: - Iron profile shows combo of MARCO A and AOCD - Started oral iron supplementation. -also bled at admision with BPBPR when INR 10-resolved -GI bleed (4) Bipolar 1 disorder Comment: - D/Cd Depakote due to hyperammonemia after speaking with Dr. Sabillon. - Euthymic at this time, Started Quetiapine for mood stabilization - Unable to use alternative second line agents due to concern for further bone- marrow suppression and kidney disease. (5) TIN (obstructive sleep apnea) Comment: - Is to wear CPAP with 3L oxygen via nasal cannula, though is non- compliant, stating that the mask causes facial pain. (6) Pancytopenia Comment: - Appears to be more chronic in nature - Recommend that she follow up with hematology/oncology as an outpatient with consideration for bone Marrow Biopsy. - Resume Apixaban - Hepatitis Panel negative, no cirrhotic architecture on US or CT. (7) Supratherapeutic INR Comment: - Initially, INR was over 10 without a clear cause. There was a concern that perhaps patient had accidentally taken too much coumadin. -ctarted on Apixaban, cont - No other signs of liver failure (8) Suspected COVID-19 virus infection Comment: - Results are negative. (9) Atrial fibrillation Comment: - a fib with interrmittent pacing - Coumadin at home switched to Eliquis - Rate controlled with metoprolol 50mg BID and digoxin 0.125mg daily (10) Aspiration into airway Comment: aspirated on her Lactulose 07/13 On 07/14 noted to have mild hypoxemia and fever overnight at 100.6-suspect aspiration pneumonitis- Ceftriaxone/Flagyl started(PCN allergy), CXR pending (11) DVT prophylaxis Comment: Apixaban Status and Disposition: Disposition: likely d/c to [facility] once medically ready
[2019-07-15 09:07] LABS: BUN/Creatinine Ratio 20.4 (8-20); Calcium 8.7 mg/dL (8.6-10.3); EGFR African American 58.6 (>60); EGFR Non-African American 48.5 (>60); Potassium 4.3 mmol/L (3.5-5.0)
[2019-07-15 09:26] LABS: Hematocrit 28 % (35-47); Hemoglobin 9.5 g/dL (12.0-16.0); Mean Corpuscular HGB Conc 33 g/dL (31-36); Mean Corpuscular Hemoglobin 31 pg (27-31); Mean Corpuscular Volume 94 fL (80-97); Red Blood Count 3.02 10^6 /uL (3.70-4.87); Red Cell Distribution Width 14 % (10-15); White Blood Count 5.2 10^3/uL (3.5-10.8)
[2019-07-15 10:02] LABS: ABS Lymphocytes 1.1 10^3/ul (1.0-4.8); ABS Monocytes 0.6 10^3/ul (0-0.8); ABS Neutrophils 3.4 10^3/ul (1.5-7.7); Eosinophil % 0.9 %; Lymphocyte % 20.4 %; Nucleated Red Blood Cells % 0.2; Platelet Count Platelets clumped. 10^3/uL (150-450)
[2019-07-15] MEDS: Metoprolol Tartrate TAB* 50 mg PO SCH ×2 (10:23→21:13)
[2019-07-15] MEDS: Acetaminophen TAB* 325 MG PO PRN (10:23)
[2019-07-15] MEDS: Ferrous Sulfate TAB* 325 MG PO SCH (10:24)
[2019-07-15] MEDS: Apixaban* 2.5 MG TAB PO SCH ×2 (10:24→21:14)
[2019-07-15] MEDS: Cetirizine* 10 MG TAB PO SCH (10:25)
[2019-07-15] MEDS: Digoxin TAB* 0.125 MG PO SCH (10:25)
[2019-07-15] MEDS: Cyanocobalamin TAB* 500 MCG PO SCH (10:25)
[2019-07-15] MEDS: cefTRIAXone(*) 1 GM in NS 0.9% 50 ML* 50 ML IVPB SCH (10:27)
[2019-07-15] MEDS: metroNIDAZOLE IV 500 MG/100ML* 500 MG/100 ML BAG IVPB SCH ×2 (11:22→18:20)
[2019-07-15] MEDS: Tobramycin 0.3% OPHTH.SOL* 5 ML BOT (regular eye drops) BOTH EYES SCH ×3 (11:22→21:14)
[2019-07-15] MEDS: Gabapentin CAP(*) 100 MG PO SCH (21:13)
[2019-07-15] MEDS: QUEtiapine TAB* 25 MG PO SCH (21:13)
[2019-07-16] MEDS: metroNIDAZOLE IV 500 MG/100ML* 500 MG/100 ML BAG IVPB SCH ×2 (02:13→10:38)
[2019-07-16] MEDS: Mometasone 220 MCG MDI INH SCH ×2 (07:25→21:51)
[2019-07-16] MEDS: Digoxin TAB* 0.125 MG PO SCH (09:13)
[2019-07-16] MEDS: Cetirizine* 10 MG TAB PO SCH (09:15)
[2019-07-16] MEDS: Tobramycin 0.3% OPHTH.SOL* 5 ML BOT (regular eye drops) BOTH EYES SCH (09:15)
[2019-07-16] MEDS: Ferrous Sulfate TAB* 325 MG PO SCH (09:15)
[2019-07-16] MEDS: Metoprolol Tartrate TAB* 50 mg PO SCH ×2 (09:15→20:05)
[2019-07-16] MEDS: Cyanocobalamin TAB* 500 MCG PO SCH (09:15)
[2019-07-16] MEDS: Apixaban* 2.5 MG TAB PO SCH ×2 (09:15→20:06)
[2019-07-16] MEDS: cefTRIAXone(*) 1 GM in NS 0.9% 50 ML* 50 ML IVPB SCH (09:17)
--- NOTE | 2019-07-16 12:02 | PN ---
Subjective Date of Service: 07/16/19 Interval History: pt feels fine, no new complaints. Ready to go to [facility] on Friday Family History: Unchanged from Admission Social History: Unchanged from Admission Past Medical History: Unchanged from Admission Objective Active Medications: Acetaminophen (Tylenol Tab*) 650 mg PO Q4H PRN PRN Reason: MILD PAIN or TEMP > 100.4 Last Admin: 07/15/19 10:23 Dose: 650 mg Al Hydrox/Mg Hydrox/Simethicone (Maalox Plus*) 30 ml PO Q6H PRN PRN Reason: INDIGESTION Albuterol (Ventolin Hfa Inhaler*) 2 puff INH Q4H PRN PRN Reason: WHEEZING Apixaban (Eliquis*) 2.5 mg PO BID [facility] Last Admin: 07/16/19 09:15 Dose: 2.5 mg Cetirizine HCl (Zyrtec*) 10 mg PO DAILY [facility] Last Admin: 07/16/19 09:15 Dose: 10 mg Cyanocobalamin (Vitamin B12 Tab*) 1,000 mcg PO DAILY [facility] Last Admin: 07/16/19 09:15 Dose: 1,000 mcg Digoxin (Lanoxin Tab*) 0.125 mg PO DAILY [facility] Last Admin: 07/16/19 09:13 Dose: 0.125 mg Ferrous Sulfate (Ferrous Sulfate Tab*) 325 mg PO DAILY [facility] Last Admin: 07/16/19 09:15 Dose: 325 mg Gabapentin (Neurontin Cap(*)) 200 mg PO BEDTIME [facility] Last Admin: 07/15/19 21:13 Dose: 200 mg Metronidazole/Sodium Chloride (Flagyl 500 Mg Ivpb*) 500 mg in 100 mls @ 100 mls /hr IVPB Q8H [facility] Last Admin: 07/16/19 10:38 Dose: 100 mls/hr Ceftriaxone Sodium 1 gm/ (Sodium Chloride) 50 mls @ 100 mls/hr IVPB Q24H [facility] Last Admin: 07/16/19 09:17 Dose: 100 mls/hr Lactulose (Lactulose*) 30 ml PO TID [facility] Last Admin: 07/16/19 09:12 Dose: 30 ml Meclizine HCl (Antivert Tab*) 12.5 mg PO TID PRN PRN Reason: DIZZINESS Metoprolol Tartrate (Lopressor Tab*) 50 mg PO BID [facility] Last Admin: 07/16/19 09:15 Dose: 50 mg Mometasone Furoate (Asmanex 220 Mcg Mdi *) 2 puff INH BID [facility] Last Admin: 07/16/19 07:25 Dose: 2 mcg Quetiapine Fumarate (Seroquel Tab*) 50 mg PO BEDTIME [facility] Last Admin: 07/15/19 21:13 Dose: 50 mg Senna (Senokot 8.6 Mg Tab*) 1 tab PO BID PRN PRN Reason: CONSTIPATION Tobramycin Sulfate (Tobramycin 0.3% Ophth.Juana*) 2 drop BOTH EYES TID [facility] Last Admin: 07/16/19 09:15 Dose: 2 drp Vital Signs - 8 hr 07/16/19 07/16/19 07/16/19 07:29 08:00 08:02 Temperature 97.7 F Pulse Rate 85 66 Respiratory 14 18 20 Rate Blood Pressure 111/67 (mmHg) O2 Sat by Pulse 95 97 Oximetry 07/16/19 09:13 Temperature Pulse Rate 78 Respiratory Rate Blood Pressure (mmHg) O2 Sat by Pulse Oximetry Oxygen Devices in Use Now: Nasal Cannula Appearance: 83 yo F in nAD, aAOx3 Eyes: No Scleral Icterus, PERRLA Ears/Nose/Mouth/Throat: NL Teeth, Lips, Gums, Mucous Membranes Moist Neck: NL Appearance and Movements; NL JVP, Trachea Midline Respiratory: Symmetrical Chest Expansion and Respiratory Effort, - - crackles at b/l bases Cardiovascular: NL Sounds; No Murmurs; No JVD, RRR Abdominal: NL Sounds; No Tenderness; No Distention, No Hepatosplenomegaly Lymphatic: No Cervical Adenopathy Extremities: No Clubbing, Cyanosis, - - trace pedal edema b/l Skin: No Nodules or Sclerosis Neurological: Alert and Oriented x 3, NL Muscle Strength and Tone Result Diagrams: 07/15/19 08:42 07/15/19 08:42 Additional Lab and Data: Lab Results 07/08/19 07/08/19 07/08/19 Range/Units 17:00 17:00 17:00 WBC 3.5 (3.5-10.8) 10^3/uL RBC 3.40 L (3.70-4.87) 10^6 /uL Hgb 10.9 L (12.0-16.0) g/dL Hct 32 L (35-47) % MCV 93 (80-97) fL MCH 32 H (27-31) pg MCHC 35 (31-36) g/dL RDW 14 (10-15) % Plt Count 109 L (150-450) 10^3/uL MPV 8.7 (7.4-10.4) fL INR (Anticoag Therapy) >10.00 H* (0.82-1.09) APTT 94.8 H (26.0-38.0) seconds Sodium 136 (135-145) mmol/L Potassium TNP Chloride 103 (101-111) mmol/L Carbon Dioxide 28 (22-32) mmol/L Anion Gap 5 (2-11) mmol/L BUN 29 H (6-24) mg/dL Creatinine 1.54 H (0.51-0.95) mg/dL Est GFR ( Amer) 38.9 (>60) Est GFR (Non-Af Amer) 32.2 (>60) BUN/Creatinine Ratio 18.8 (8-20) Glucose 94 (70-100) mg/dL Calcium 8.1 L (8.6-10.3) mg/dL Total Bilirubin 0.40 (0.2-1.0) mg/dL AST TNP ALT 6 L (7-52) U/L Alkaline Phosphatase 26 L (34-104) U/L Troponin I 0.01 (<0.03) ng/mL Total Protein 6.5 (6.4-8.9) g/dL Albumin 3.2 (3.2-5.2) g/dL Globulin 3.3 (2-4) g/dL Albumin/Globulin Ratio 1.0 (1-3) Blood Type Antibody Screen 07/08/19 Range/Units 17:00 WBC (3.5-10.8) 10^3/uL RBC (3.70-4.87) 10^6 /uL Hgb (12.0-16.0) g/dL Hct (35-47) % MCV (80-97) fL MCH (27-31) pg MCHC (31-36) g/dL RDW (10-15) % Plt Count (150-450) 10^3/uL MPV (7.4-10.4) fL INR (Anticoag Therapy) (0.82-1.09) APTT (26.0-38.0) seconds Sodium (135-145) mmol/L Potassium Chloride (101-111) mmol/L Carbon Dioxide (22-32) mmol/L Anion Gap (2-11) mmol/L BUN (6-24) mg/dL Creatinine (0.51-0.95) mg/dL Est GFR ( Amer) (>60) Est GFR (Non-Af Amer) (>60) BUN/Creatinine Ratio (8-20) Glucose (70-100) mg/dL Calcium (8.6-10.3) mg/dL Total Bilirubin (0.2-1.0) mg/dL AST ALT (7-52) U/L Alkaline Phosphatase (34-104) U/L Troponin I (<0.03) ng/mL Total Protein (6.4-8.9) g/dL Albumin (3.2-5.2) g/dL Globulin (2-4) g/dL Albumin/Globulin Ratio (1-3) Blood Type O Positive Antibody Screen Negative Assess/Plan/Problems-Billing Assessment: This is an 83 year old female with a past medical history of afib, cvax4 and htn who was admitted on 07/08/19 for supratherapeutic INR and BRBPR. - Patient Problems (1) Hyperammonemia Comment: - Hyperammonemia likely due to Depakote without other signs of liver disease - Cont Lactulose to TID. Mental status much improved - S/P Carnitine infusion - Possibly provoked from digested blood in GI tract from supratherapeutic INR. - Also had new prescription for tramadol that may have contributed to AMS prior to admission. (2) PETRA (acute kidney injury) Comment: - Resolved, is at baseline. (3) Anemia Comment: - Iron profile shows combo of MARCO A and AOCD - Started oral iron supplementation. -also bled at admision with BPBPR when INR 10-resolved -GI bleed (4) Bipolar 1 disorder Comment: - D/Cd Depakote due to hyperammonemia after speaking with Dr. Sabillon. - Euthymic at this time, Started Quetiapine for mood stabilization - Unable to use alternative second line agents due to concern for further bone- marrow suppression and kidney disease. (5) TIN (obstructive sleep apnea) Comment: - Is to wear CPAP with 3L oxygen via nasal cannula, though is non- compliant, stating that the mask causes facial pain. (6) Pancytopenia Comment: - Appears to be more chronic in nature - Recommend that she follow up with hematology/oncology as an outpatient with consideration for bone Marrow Biopsy. - Resume Apixaban - Hepatitis Panel negative, no cirrhotic architecture on US or CT. (7) Supratherapeutic INR Comment: - Initially, INR was over 10 without a clear cause. There was a concern that perhaps patient had accidentally taken too much coumadin. -started on Apixaban, cont - No other signs of liver failure (8) Suspected COVID-19 virus infection Comment: - Results are negative. (9) Atrial fibrillation Comment: - a fib with interrmittent pacing - Coumadin at home switched to Eliquis - Rate controlled with metoprolol 50mg BID and digoxin 0.125mg daily (10) Aspiration into airway Comment: aspirated on her Lactulose 07/13, f/u swallow eval OK for regular solids and thin liquids On 07/14 noted to have mild hypoxemia and fever overnight at 100.6 on 07/14/19- suspected aspiration pneumonitis- Ceftriaxone/Flagyl started(PCN allergy) 07/15/19 , CXR shows left basiliar atelectasis (11) DVT prophylaxis Comment: Apixaban Status and Disposition: Disposition: likely d/c to [facility] Friday
[2019-07-16] MEDS: metroNIDAZOLE TAB* 250 MG PO SCH (20:05)
[2019-07-16] MEDS: Gabapentin CAP(*) 100 MG PO SCH (20:05)
[2019-07-16] MEDS: QUEtiapine TAB* 25 MG PO SCH (20:05)
[2019-07-17] MEDS: Mometasone 220 MCG MDI INH SCH (07:34)
[2019-07-17] MEDS: Apixaban* 2.5 MG TAB PO SCH ×2 (08:07→21:06)
[2019-07-17] MEDS: Ferrous Sulfate TAB* 325 MG PO SCH (08:07)
[2019-07-17] MEDS: Cetirizine* 10 MG TAB PO SCH (08:07)
[2019-07-17] MEDS: Digoxin TAB* 0.125 MG PO SCH (08:07)
[2019-07-17] MEDS: Cyanocobalamin TAB* 500 MCG PO SCH (08:07)
[2019-07-17] MEDS: metroNIDAZOLE TAB* 250 MG PO SCH ×2 (08:08→21:06)
[2019-07-17] MEDS: Metoprolol Tartrate TAB* 50 mg PO SCH ×2 (08:08→21:07)
[2019-07-17] MEDS: Acetaminophen TAB* 325 MG PO PRN (08:17)
[2019-07-17] MEDS: cefTRIAXone(*) 1 GM in NS 0.9% 50 ML* 50 ML IVPB SCH (08:19)
--- NOTE | 2019-07-17 14:48 | PN ---
Subjective Date of Service: 07/17/19 Interval History: Ms. Gonzalez feels well today. It [birth year] birthday. Offers no complaints, but she was sleeping on my arrival and a bit startled when she woke. Denies CP, SOB , cough. No concerns from nursing. Family History: Unchanged from Admission Social History: Unchanged from Admission Past Medical History: Unchanged from Admission Objective Active Medications: Acetaminophen (Tylenol Tab*) 650 mg PO Q4H PRN MILD PAIN or TEMP > 100.4 Al Hydrox/Mg Hydrox/Simethicone (Maalox Plus*) 30 ml PO Q6H PRN INDIGESTION Albuterol (Ventolin Hfa Inhaler*) 2 puff INH Q4H PRN WHEEZING Apixaban (Eliquis*) 2.5 mg PO BID [facility] Cetirizine HCl (Zyrtec*) 10 mg PO DAILY [facility] Cyanocobalamin (Vitamin B12 Tab*) 1,000 mcg PO DAILY [facility] Digoxin (Lanoxin Tab*) 0.125 mg PO DAILY [facility] Ferrous Sulfate (Ferrous Sulfate Tab*) 325 mg PO DAILY [facility] Gabapentin (Neurontin Cap(*)) 200 mg PO BEDTIME [facility] Ceftriaxone Sodium 1 gm/ (Sodium Chloride) 50 mls @ 100 mls/hr IVPB Q24H [facility] Lactulose (Lactulose*) 30 ml PO TID [facility] Meclizine HCl (Antivert Tab*) 12.5 mg PO TID PRN DIZZINESS Metoprolol Tartrate (Lopressor Tab*) 50 mg PO BID [facility] Metronidazole (Flagyl Tab*) 500 mg PO BID [facility] Mometasone Furoate (Asmanex 220 Mcg Mdi *) 2 puff INH BID [facility] Quetiapine Fumarate (Seroquel Tab*) 50 mg PO BEDTIME [facility] Senna (Senokot 8.6 Mg Tab*) 1 tab PO BID PRN CONSTIPATION Vital Signs - 8 hr 07/17/19 07/17/19 07/17/19 07:56 08:00 08:07 Temperature 99.4 F Pulse Rate 109 72 Respiratory 16 18 Rate Blood Pressure 124/65 (mmHg) O2 Sat by Pulse 93 Oximetry 07/17/19 07/17/19 08:27 12:09 Temperature 98.4 F Pulse Rate 72 Respiratory 16 16 Rate Blood Pressure 105/43 (mmHg) O2 Sat by Pulse 93 96 Oximetry Oxygen Devices in Use Now: Nasal Cannula - 3L Appearance: Elderly female lying in bed in NAD Ears/Nose/Mouth/Throat: Mucous Membranes Moist Neck: NL Appearance and Movements; NL JVP, Trachea Midline Respiratory: Symmetrical Chest Expansion and Respiratory Effort, Clear to Auscultation Cardiovascular: NL Sounds; No Murmurs; No JVD Extremities: No Edema Neurological: Alert and Oriented x 3 Lines/Tubes/Other Access: Clean, Dry and Intact Peripheral IV Nutrition: Taking PO's Result Diagrams: 07/15/19 08:42 07/15/19 08:42 Assess/Plan/Problems-Billing Assessment: Ms. Gonzalez is an 84 yo F with PMH of afib, CVA x4, HTN, HLD, COPD on 3L, TIN on CPAP, bipolar; who presented to the ED with c/o BRBPR and was found to have supratherapeutic INR. - Patient Problems (1) Hyperammonemia Code(s): E72.20 - DISORDER OF UREA CYCLE METABOLISM, UNSPECIFIED Comment: - Hyperammonemia likely due to Depakote without other signs of liver disease; possibly provoked from digested blood in GI tract from supratherapeutic INR - Also had new prescription for tramadol that may have contributed to AMS prior to admission - Mental status much improved with lactulose - S/p Carnitine infusion - Continue lactulose (decrease to BID) (2) Aspiration into airway Code(s): T17.908A - UNSP FB IN RESP TRACT, PART UNSP CAUSING OTH INJURY, INIT Comment: - Aspirated on her lactulose 07/13 - Swallow eval: regular solids and thin liquids okay - On 07/14 noted to have mild hypoxemia and fever overnight at 100.6 - CXR showing left basiliar atelectasis - Continue ceftriaxone, Flagyl (3) GI bleed Code(s): K92.2 - GASTROINTESTINAL HEMORRHAGE, UNSPECIFIED Comment: - Resolved - Secondary to supratherapeutic INR (4) Anemia Code(s): D64.9 - ANEMIA, UNSPECIFIED Comment: - Iron profile shows combo of MARCO A and AOCD - Continue ferrous sulfate (5) Supratherapeutic INR Code(s): R79.1 - ABNORMAL COAGULATION PROFILE Comment: - Initially, INR was over 10 without a clear cause; concern that perhaps patient had accidentally taken too much Coumadin - No other signs of liver failure - Changed to Eliquis (6) PETRA (acute kidney injury) Code(s): N17.9 - ACUTE KIDNEY FAILURE, UNSPECIFIED Comment: - Resolved, creatinine back to baseline (7) Bipolar 1 disorder Code(s): F31.9 - BIPOLAR DISORDER, UNSPECIFIED Comment: - D/c' d Depakote due to hyperammonemia after speaking with Dr. Sabillon - Euthymic at this time - Unable to use alternative second line agents due to concern for further bone- marrow suppression and kidney disease - Continue Seroquel (8) Pancytopenia Code(s): D61.818 - OTHER PANCYTOPENIA Comment: - Appears to be more chronic in nature - Hepatitis Panel negative - No cirrhotic architecture on US or CT - Recommend that she follow up with hematology/oncology as an outpatient with consideration for BMB (9) Atrial fibrillation Code(s): I48.91 - UNSPECIFIED ATRIAL FIBRILLATION Comment: - Interrmittent pacing - Continue metoprolol, digoxin, Eliquis (10) COPD (chronic obstructive pulmonary disease) Code(s): J44.9 - CHRONIC OBSTRUCTIVE PULMONARY DISEASE, UNSPECIFIED Comment: - On baseline oxygen requirements of 3L - Unclear why she is on ICS only and not combination agent, so will change to ICS/LABA - Start Dulera (11) HTN (hypertension) Code(s): I10 - ESSENTIAL (PRIMARY) HYPERTENSION Comment: - Normotensive - Continue metoprolol (12) History of CVA (cerebrovascular accident) Code(s): Z86.73 - PRSNL HX OF TIA (TIA), AND CEREB INFRC W/O RESID DEFICITS Comment: - Continue Eliquis (13) TIN (obstructive sleep apnea) Code(s): G47.33 - OBSTRUCTIVE SLEEP APNEA (ADULT) (PEDIATRIC) Comment: - CPAP with 3L (non-compliant d/t pain with mask) (14) DVT prophylaxis Comment: - Eliquis (15) Full code status Code(s): Z78.9 - OTHER SPECIFIED HEALTH STATUS Comment: Status and Disposition: Inpatient. D/c to [facility] on Friday. Attending: Ovi Yeager
[2019-07-17] MEDS: Mometasone/Formoter 200/5 MDI INH SCH (20:12)
[2019-07-17] MEDS: QUEtiapine TAB* 25 MG PO SCH (21:04)
[2019-07-17] MEDS: Gabapentin CAP(*) 100 MG PO SCH (21:06)
[2019-07-18] MEDS: Mometasone/Formoter 200/5 MDI INH SCH ×2 (07:06→19:30)
[2019-07-18] MEDS: Digoxin TAB* 0.125 MG PO SCH (10:14)
[2019-07-18] MEDS: Cyanocobalamin TAB* 500 MCG PO SCH (10:14)
[2019-07-18] MEDS: Cetirizine* 10 MG TAB PO SCH (10:14)
[2019-07-18] MEDS: Metoprolol Tartrate TAB* 50 mg PO SCH ×2 (10:14→21:04)
[2019-07-18] MEDS: Ferrous Sulfate TAB* 325 MG PO SCH (10:14)
[2019-07-18] MEDS: metroNIDAZOLE TAB* 250 MG PO SCH ×2 (10:15→20:56)
[2019-07-18] MEDS: Apixaban* 2.5 MG TAB PO SCH ×2 (10:15→20:56)
[2019-07-18] MEDS: cefTRIAXone(*) 1 GM in NS 0.9% 50 ML* 50 ML IVPB SCH (10:16)
--- NOTE | 2019-07-18 17:40 | DS ---
CC: Dr. Opal Benson* DISCHARGE SUMMARY: DATE OF ADMISSION: 07/08/19 DATE OF DISCHARGE: 07/19/19 (this is being dictated 1 day in advance). PRIMARY CARE PHYSICIAN: Dr. Opal Benson. ATTENDING PHYSICIAN: Ovi Yeager MD* (dictated by Rose Sanz NP). PRIMARY DIAGNOSES: 1. Hyperammonemia secondary to Depakote. 2. Aspiration pneumonia. 3. Gastrointestinal bleed secondary to supratherapeutic INR. 4. Acute kidney injury. 5. Anemia, iron deficiency and anemia of chronic disease. SECONDARY DIAGNOSES: 1. Pancytopenia. 2. Bipolar disorder. 3. Atrial fibrillation. 4. Chronic obstructive pulmonary disease. 5. Hypertension. 6. History of cerebrovascular accident. 7. Obstructive sleep apnea. STUDIES WHILE IN THE HOSPITAL: 1. EKG on 07/08/19 shows atrial fibrillation with a rate of 63. 2. Chest x-ray on 07/08/19 reads as left basilar atelectasis versus consolidation. 3. Gallbladder ultrasound on 07/12/19 reads as sonographic findings are most consistent with biliary sludge. There is no sonographically apparent focal abnormality of the liver or signs of pathologic biliary obstruction. 4. Chest x-ray on 07/15/19 reads as stigmata of obstructive lung disease and probable pulmonary arterial hypertension. Probable cardiomegaly related left basilar atelectasis. No compelling evidence for pneumonia. HISTORY OF PRESENT ILLNESS AND HOSPITAL COURSE: Ms. Gonzalez is an 84-year-old female with past medical history of AFib, CVA x4, hypertension, hyperlipidemia, COPD, on 3 L; obstructive sleep apnea, noncompliant with CPAP; and bipolar disorder, who presented to the emergency room on 07/08/19 with complaints of bright red blood per rectum. Please see history and physical by KATRIN Vásquez for a complete summary of the events leading up to this hospitalization. In short, the patient had reported a small amount of bright red blood per rectum mostly when she was wiping. She did report a recent fall at home. It sounds as though she had her INR checked as an outpatient and it was noted to be critically elevated and so she was referred to the emergency room. In the emergency room, she was noted to have an INR greater than 10. There was mild anemia with an H and H of 10 and 32 and some mild acute kidney injury. Because of these findings, the patient was admitted by the hospitalist service. Elevated INR, suspected to be related to unintentional Coumadin overdose. The patient was taken off Coumadin and was switched to DOAC as it was deemed that this would be safer for the patient moving forward. She did not require any blood transfusions. Iron studies did reveal some iron deficiency and anemia of chronic disease. Kidney injury resolved with IV hydration. The patient was noted to be slightly more confused from baseline and was noted to have an elevated ammonia. It was determined that this was due to Depakote use. The patient was taken off Depakote and placed on Seroquel, which she has tolerated well. She has been on lactulose to reduce the ammonia level and at this point, mentation appears to be at baseline. She was noted to some pancytopenia, which does appear to be chronic. On 07/14/19, the patient was noted to aspirate on lactulose and the following day did have some mild hypoxia and a low-grade fever. At that point, she was started on antibiotics for coverage of aspiration pneumonia. The patient has not had any further fevers. Vital signs have remained stable. She is on her baseline oxygen requirement. She has been offered a bed at [facility] for rehab, which she has accepted. PHYSICAL EXAMINATION: On exam, she is alert and oriented x4 with no focal neurological deficits. Heart has a regular rate and rhythm without murmurs, rubs, or gallops. Lungs are clear to auscultation without rhonchi, wheezes, or rubs. There is no edema. Abdomen is soft, nontender. Physical exam is otherwise benign. DISCHARGE MEDICATIONS: New: 1. Acetaminophen 650 mg p.o. q.4 hours p.r.n. fever, pain. 2. Eliquis 2.5 mg p.o. b.i.d. 3. Cefdinir 300 mg p.o. b.i.d. x3 days. 4. Vitamin B12 1000 mcg p.o. daily. 5. Ferrous sulfate 325 mg p.o. daily. 6. Flagyl 500 mg p.o. b.i.d. x3 days. 7. Dulera 2 puffs b.i.d. 8. Seroquel 50 mg p.o. at bedtime. Continued: 1. Albuterol MDI 2 puffs q.4 hours p.r.n. shortness of breath, wheezing. 2. Gabapentin 300 mg p.o. at bedtime. 3. Claritin 10 mg p.o. daily. 4. Meclizine 12.5 mg p.o. t.i.d. p.r.n. dizziness. 5. Metoprolol tartrate 50 mg p.o. b.i.d. 6. Digoxin 0.125 mg p.o. daily. 7. Tobramycin 2 drops right eye t.i.d. Discontinued: 1. Depakote. 2. Tramadol. 3. Fluticasone MDI. 4. Warfarin. DISCHARGE PLAN: Ms. Gonzalez will be discharged to subacute rehab. Activity will be as tolerated. Diet will be heart healthy. Medications are noted above. The patient will need to complete additional 3 days of cefdinir and Flagyl to complete a total of 7 days of antibiotic therapy for aspiration pneumonia. She has been taken off Coumadin and instead placed on renal dosing of Eliquis. She has been started on vitamin B12 and ferrous sulfate for anemia. She was noted to be on fluticasone monotherapy for COPD, but at this point, due to her oxygen dependence, she would certainly benefit from an ICS/ LABA combination and so I have instead placed the patient on Dulera going forward. Again, she has been taken off Depakote due to elevated ammonia levels and should no longer take Depakote in the future. She has instead been placed on Seroquel. The patient should follow up with provider upon admission to the rehab facility and can follow up with her primary care provider upon discharge. Again, she is noted to have some pancytopenia and may benefit from followup with a community health outreach worker, although given her age, she may not wish to pursue further investigation, which I think would be reasonable. She should return to the emergency room or nearest hospital for any worsening of symptoms, shortness of breath, lightheadedness, dizziness, chest discomfort, high fevers, chills, night sweats, loss of consciousness, or any other worrisome signs or symptoms. DISCHARGE CONDITION: Stable. DISCHARGE DISPOSITION: [facility]. This is a summarized report of a complex medical history and hospital stay. For further details, please see the entire medical record. TIME SPENT: Approximately 45 minutes was spent on this discharge. ROSE SANZ, WORK ENVIRONMENT SAFETY INSPECTOR [id number]/[facility] #: [id number] TINA
[2019-07-18] MEDS: QUEtiapine TAB* 25 MG PO SCH (20:56)
[2019-07-18] MEDS: Gabapentin CAP(*) 100 MG PO SCH (20:57)
[2019-07-19] MEDS: Mometasone/Formoter 200/5 MDI INH SCH (07:53)
[2019-07-19] MEDS: Metoprolol Tartrate TAB* 50 mg PO SCH (08:32)
[2019-07-19] MEDS: Cyanocobalamin TAB* 500 MCG PO SCH (08:33)
[2019-07-19] MEDS: Apixaban* 2.5 MG TAB PO SCH (08:33)
[2019-07-19] MEDS: metroNIDAZOLE TAB* 250 MG PO SCH (08:33)
[2019-07-19] MEDS: Digoxin TAB* 0.125 MG PO SCH (08:34)
[2019-07-19] MEDS: Ferrous Sulfate TAB* 325 MG PO SCH (08:35)
[2019-07-19] MEDS: Cetirizine* 10 MG TAB PO SCH (08:41)
[2019-07-19] MEDS ORDERED: Magnesium Hydroxide LIQ* 30 ML UDC PO ONE (10:45)
[2019-07-19] MEDS ORDERED: Polyethylene Glycol 3350* 17 GM PACKET PO SCH (11:00)
[2019-07-19] MEDS: cefTRIAXone(*) 1 GM in NS 0.9% 50 ML* 50 ML IVPB SCH (11:11)
[2019-07-19 12:24] VITALS: BP 116/80
== END 2019-07-19 13:40 | DRG 642 ==
LOC: ED 16:18 → MED 19:28 → OBSVTOIN 07-09 11:52 → MEDTELE 07-11 22:46 → SSU 07-16 13:32 → MEDTELE 07-16 22:07
PROVIDERS: ADMIT Physician Assistant; ATTEND Internal Medicine
PROC: 5A09457 Assistance with Respiratory Ventilation, 24-96 Consecutive Hours, Continuous Positive Airway Pressure (ICD-10-PCS; principal; 2019-07-12)
DX: E72.20 Disorder of urea cycle metabolism, unspecified (principal); J69.0 Pneumonitis due to inhalation of food and vomit; N17.9 Acute kidney failure, unspecified; D61.818 Other pancytopenia; K92.1 Melena; J98.11 Atelectasis; D69.6 Thrombocytopenia, unspecified; D63.8 Anemia in other chronic diseases classified elsewhere; T42.6X5A Adverse effect of other antiepileptic and sedative-hypnotic drugs, initial encounter; D50.9 Iron deficiency anemia, unspecified; F31.9 Bipolar disorder, unspecified; I48.91 Unspecified atrial fibrillation; J44.9 Chronic obstructive pulmonary disease, unspecified; I10 Essential (primary) hypertension; G47.33 Obstructive sleep apnea (adult) (pediatric); M54.9 Dorsalgia, unspecified; E78.5 Hyperlipidemia, unspecified; E87.5 Hyperkalemia; R09.02 Hypoxemia; E66.9 Obesity, unspecified; Y92.9 Unspecified place or not applicable; Z86.73 Personal history of transient ischemic attack (TIA), and cerebral infarction without residual deficits; Z95.0 Presence of cardiac pacemaker; Z91.19 Patient's noncompliance with other medical treatment and regimen; Z79.01 Long term (current) use of anticoagulants; Z79.899 Other long term (current) drug therapy; Z88.0 Allergy status to penicillin; Z88.2 Allergy status to sulfonamides; Z88.8 Allergy status to other drugs, medicaments and biological substances; Z88.6 Allergy status to analgesic agent; Z91.030 Bee allergy status; Z91.041 Radiographic dye allergy status; Z91.040 Latex allergy status; Z83.3 Family history of diabetes mellitus; Z80.6 Family history of leukemia; Z68.30 Body mass index [BMI] 30.0-30.9, adult; Z99.81 Dependence on supplemental oxygen
CPT/HCPCS: 36415; 71045; 76705; 80048; 80053; 80074; 80162; 80164; 82140; 82607; 82728; 82746; 83010; 83540; 83550; 83615; 83735; 84484; 85014; 85018; 85025; 85027; 85045; 85610; 85730; 86850; 86900; 86901; 87635; 93005; 94640; 94660; 99283; A9270-GY; J0696; J1955; J3430; J3475

== ENCOUNTER 2019-08-09 16:55 | Inpatient (IN) ==
[2019-08-09 18:21] LABS: ABS Eosinophils 0.1 10^3/ul (0-0.6); ABS Lymphocytes 0.7 10^3/ul (1.0-4.8); ABS Monocytes 0.5 10^3/ul (0-0.8); Hematocrit 27 % (35-47); Hemoglobin 9.1 g/dL (12.0-16.0); Lymphocyte % 12.6 %; Mean Corpuscular HGB Conc 34 g/dL (31-36); Mean Corpuscular Hemoglobin 32 pg (27-31); Mean Corpuscular Volume 93 fL (80-97); Mean Platelet Volume 8.1 fL (7.4-10.4); Platelet Count 167 10^3/uL (150-450); Red Blood Count 2.86 10^6 /uL (3.70-4.87); Red Cell Distribution Width 15 % (10-15); White Blood Count 5.3 10^3/uL (3.5-10.8)
[2019-08-09 18:41] LABS: ALT 7 U/L (7-52); AST 10 U/L (13-39); Albumin 3.6 g/dL (3.2-5.2); Alkaline Phosphatase 39 U/L (34-104); Anion Gap 11 mmol/L (2-11); BUN/Creatinine Ratio 17.6 (8-20); Blood Urea Nitrogen 26 mg/dL (6-24); CO2 Carbon Dioxide 25 mmol/L (22-32); Calcium 9.3 mg/dL (8.6-10.3); Chloride 105 mmol/L (101-111); EGFR African American 40.7 (>60); EGFR Non-African American 33.6 (>60); Globulin 3.7 g/dL (2-4); Glucose 90 mg/dL (70-100); Magnesium 1.8 mg/dL (1.9-2.7); Potassium 4.3 mmol/L (3.5-5.0); Sodium 141 mmol/L (135-145); Total Protein 7.3 g/dL (6.4-8.9)
[2019-08-09 18:46] LABS: Troponin I 0.03 ng/mL (<0.03)
[2019-08-09 18:55] LABS: INR 1.42 (0.82-1.09)
[2019-08-09 19:02] LABS: Alcohol, S < 10 mg/dL (<10)
[2019-08-09 19:18] LABS: TSH (Thyroid Stimulating Horm) 1.53 mcIU/mL (0.34-5.60)
[2019-08-09] MEDS ORDERED: Magnesium Sulfate 2 gm BAG 2 GM/50 ML BAG IVPB ONE (19:57)
[2019-08-09 20:23] LABS: C Reactive Protein 15.42 mg/L (<8.01)
[2019-08-09] MEDS: Tobramycin 0.3% OPHTH.SOL 5 ML BOT (regular eye drops) RIGHT EYE SCH (21:48)
[2019-08-09] MEDS: Mometasone/Formoter 200/5 MDI INH SCH (21:51)
[2019-08-09] MEDS ORDERED: Benzocaine/Menthol LOZ MT PRN (21:58)
[2019-08-09] MEDS: ceFAZolin 1 GM ADVAN 1 GM in NS 0.9% 50 ML 50 ML IVPB SCH (22:21)
[2019-08-09 22:34] LABS: Troponin I 0.03 ng/mL (<0.03)
[2019-08-10] MEDS: ceFAZolin 1 GM ADVAN 1 GM in NS 0.9% 50 ML 50 ML IVPB SCH (04:29)
[2019-08-10 04:32] LABS: Urine Appearance Clear; Urine Bilirubin Negative (Negative); Urine Blood Negative (Negative); Urine Color Yellow; Urine Glucose Negative (Negative); Urine Ketones Trace (Negative); Urine Nitrite Negative (Negative); Urine Protein 1+(30 mg/dL) (Negative); Urine Specific Gravity 1.012 (1.010-1.030); Urine Urobilinogen Negative (Negative)
[2019-08-10 04:56] LABS: Urine Bacteria Absent (Absent); Urine Red Blood Cell 3+(>10/hpf) (Absent); Urine White Blood Cell 1+(6-10/hpf) (Absent)
[2019-08-10 06:55] LABS: ABS Eosinophils 0.1 10^3/ul (0-0.6); ABS Lymphocytes 0.6 10^3/ul (1.0-4.8); ABS Monocytes 0.3 10^3/ul (0-0.8); Eosinophil % 2.5 %; Hematocrit 26 % (35-47); Hemoglobin 8.7 g/dL (12.0-16.0); Lymphocyte % 18.7 %; Mean Corpuscular HGB Conc 34 g/dL (31-36); Mean Corpuscular Hemoglobin 31 pg (27-31); Mean Corpuscular Volume 94 fL (80-97); Mean Platelet Volume 8.3 fL (7.4-10.4); Platelet Count 147 10^3/uL (150-450); Red Blood Count 2.77 10^6 /uL (3.70-4.87); Red Cell Distribution Width 16 % (10-15); White Blood Count 3.4 10^3/uL (3.5-10.8)
[2019-08-10 07:27] LABS: BUN/Creatinine Ratio 18.8 (8-20); Calcium 8.5 mg/dL (8.6-10.3); EGFR African American 44.1 (>60); EGFR Non-African American 36.4 (>60); Potassium 3.9 mmol/L (3.5-5.0)
[2019-08-10] MEDS: Mometasone/Formoter 200/5 MDI INH SCH ×2 (07:28→19:20)
[2019-08-10] MEDS: Tobramycin 0.3% OPHTH.SOL 5 ML BOT (regular eye drops) RIGHT EYE SCH ×3 (08:34→20:55)
[2019-08-10] MEDS ORDERED: ceFAZolin 1 GM ADVAN 1 GM in NS 0.9% 50 ML 50 ML IVPB SCH (21:00)
[2019-08-11] MEDS: ceFAZolin 1 GM ADVAN 1 GM in NS 0.9% 50 ML 50 ML IVPB SCH ×2 (07:36→21:25)
[2019-08-11] MEDS: Tobramycin 0.3% OPHTH.SOL 5 ML BOT (regular eye drops) RIGHT EYE SCH ×3 (07:36→21:42)
[2019-08-11] MEDS: Mometasone/Formoter 200/5 MDI INH SCH ×2 (07:44→19:28)
[2019-08-12 06:10] LABS: ABS Eosinophils 0.1 10^3/ul (0-0.6); ABS Lymphocytes 0.8 10^3/ul (1.0-4.8); ABS Monocytes 0.3 10^3/ul (0-0.8); Hematocrit 27 % (35-47); Lymphocyte % 27.6 %; Mean Corpuscular HGB Conc 33 g/dL (31-36); Mean Corpuscular Hemoglobin 31 pg (27-31); Mean Corpuscular Volume 93 fL (80-97); Mean Platelet Volume 7.8 fL (7.4-10.4); Nucleated Red Blood Cells % 0.3; Platelet Count 144 10^3/uL (150-450); Red Blood Count 2.92 10^6 /uL (3.70-4.87); Red Cell Distribution Width 15 % (10-15)
[2019-08-12 06:26] LABS: BUN/Creatinine Ratio 27.4 (8-20); Calcium 8.7 mg/dL (8.6-10.3); EGFR African American 55.5 (>60); EGFR Non-African American 45.9 (>60); Magnesium 1.9 mg/dL (1.9-2.7); Potassium 4.3 mmol/L (3.5-5.0)
[2019-08-12 07:21] VITALS: BP 114/54
[2019-08-12] MEDS: Mometasone/Formoter 200/5 MDI INH SCH (08:06)
[2019-08-12] MEDS: ceFAZolin 1 GM ADVAN 1 GM in NS 0.9% 50 ML 50 ML IVPB SCH (08:32)
[2019-08-12] MEDS: Tobramycin 0.3% OPHTH.SOL 5 ML BOT (regular eye drops) RIGHT EYE SCH (08:33)
== END 2019-08-12 14:27 | disposition home health service (06) | DRG 603 ==
LOC: ED 16:55 → MEDTELE 16:55 → OBSVTOIN 20:19 → INTOOBSV 20:19 → MEDTELE 20:29
PROVIDERS: ADMIT Hospitalist; ATTEND Internal Medicine

== ENCOUNTER 2020-02-14 17:02 | Inpatient (IN) ==
[2020-02-14 19:36] LABS: ABS Lymphocytes 0.8 10^3/ul (1.0-4.8); ABS Monocytes 0.4 10^3/ul (0-0.8); ABS Neutrophils 1.8 10^3/ul (1.5-7.7); Eosinophil % 1.4 %; Hematocrit 33 % (35-47); Hemoglobin 10.9 g/dL (12.0-16.0); Mean Corpuscular HGB Conc 33 g/dL (31-36); Mean Corpuscular Hemoglobin 31 pg (27-31); Mean Corpuscular Volume 95 fL (80-97); Nucleated Red Blood Cells % 0.1; Red Blood Count 3.46 10^6 /uL (3.70-4.87); Red Cell Distribution Width 16 % (10-15); White Blood Count 3.1 10^3/uL (3.5-10.8)
[2020-02-14 19:43] LABS: INR 1.08 (0.82-1.09)
[2020-02-14 19:45] LABS: Troponin I 0.01 ng/mL (<0.03)
[2020-02-14 19:46] LABS: ALT 6 U/L (7-52); Albumin 3.5 g/dL (3.2-5.2); Albumin/Globulin Ratio 1.1 (1-3); Alkaline Phosphatase 26 U/L (34-104); BUN/Creatinine Ratio 29.8 (8-20); Blood Urea Nitrogen 36 mg/dL (6-24); CO2 Carbon Dioxide 24 mmol/L (22-32); Calcium 8.8 mg/dL (8.6-10.3); EGFR African American 51.3 (>60); EGFR Non-African American 42.4 (>60); Globulin 3.1 g/dL (2-4); Glucose 96 mg/dL (70-100); Lipase 45 U/L (11.0-82.0); Sodium 142 mmol/L (135-145); Total Protein 6.6 g/dL (6.4-8.9)
[2020-02-14 19:48] LABS: Anion Gap 6 mmol/L (2-11); Chloride 112 mmol/L (101-111)
[2020-02-14 19:59] LABS: Urine Appearance Cloudy; Urine Bilirubin Negative (Negative); Urine Blood 2+ (Negative); Urine Color Yellow; Urine Glucose Negative (Negative); Urine Ketones Negative (Negative); Urine Nitrite Positive (Negative); Urine Protein 1+(30 mg/dL) (Negative); Urine Specific Gravity 1.016 (1.010-1.030); Urine Urobilinogen Negative (Negative)
[2020-02-14 20:00] LABS: Mean Platelet Volume 8.3 fL (7.4-10.4); Platelet Count 73 10^3/uL (150-450)
[2020-02-14 20:06] LABS: Urine Bacteria Absent (Absent); Urine Red Blood Cell 3+(>10/hpf) (Absent); Urine Squamous Epithelial Cell Present (Absent); Urine White Blood Cell 3+(>20/hpf) (Absent)
[2020-02-14] MEDS ORDERED: cefTRIAXone 1 gm/50 mL NS BAG 1 GM/50 ML BAG IVPB ONE (20:30)
[2020-02-14 20:43] LABS: Magnesium 1.8 mg/dL (1.9-2.7); Potassium Redraw 4.3 mmol/L (3.5-5.0)
[2020-02-14] MEDS ORDERED: Magnesium Sulfate IV 1GM/100ML 1 GM/100 ML BAG IV ONE (21:55)
[2020-02-14] MEDS ORDERED: NS 0.9% 1000 ml BAG 1,000 ML IV SCH (22:00)
[2020-02-15 07:21] LABS: BUN/Creatinine Ratio 28.1 (8-20); Calcium 8.1 mg/dL (8.6-10.3); EGFR African American 48.1 (>60); EGFR Non-African American 39.7 (>60); Magnesium 1.9 mg/dL (1.9-2.7); Potassium 4.4 mmol/L (3.5-5.0)
[2020-02-15] MEDS: Mometasone/Formoter 200/5 MDI INH SCH ×2 (07:49→19:47)
[2020-02-15] MEDS: Ciprofloxacin 0.3% OPTH.SOL BTL BOTH EYES SCH ×4 (13:17→23:48)
[2020-02-15] MEDS: cefTRIAXone 1 gm/50 mL NS BAG 1 GM/50 ML BAG IVPB SCH (20:57)
[2020-02-16] MEDS: Ciprofloxacin 0.3% OPTH.SOL BTL BOTH EYES SCH ×6 (03:11→22:58)
[2020-02-16 07:10] LABS: ABS Eosinophils 0.1 10^3/ul (0-0.6); ABS Lymphocytes 0.8 10^3/ul (1.0-4.8); ABS Monocytes 0.4 10^3/ul (0-0.8); ABS Neutrophils 1.4 10^3/ul (1.5-7.7); Eosinophil % 2.3 %; Hematocrit 29 % (35-47); Hemoglobin 9.6 g/dL (12.0-16.0); Lymphocyte % 29.4 %; Mean Corpuscular HGB Conc 33 g/dL (31-36); Mean Corpuscular Hemoglobin 32 pg (27-31); Mean Corpuscular Volume 95 fL (80-97); Mean Platelet Volume 8.5 fL (7.4-10.4); Nucleated Red Blood Cells % 0.1; Platelet Count 56 10^3/uL (150-450); Red Blood Count 3.01 10^6 /uL (3.70-4.87); Red Cell Distribution Width 16 % (10-15); White Blood Count 2.7 10^3/uL (3.5-10.8)
[2020-02-16 07:21] LABS: BUN/Creatinine Ratio 28.9 (8-20); Calcium 7.5 mg/dL (8.6-10.3); EGFR African American 54.9 (>60); EGFR Non-African American 45.4 (>60); Potassium 4.7 mmol/L (3.5-5.0)
[2020-02-16] MEDS: Mometasone/Formoter 200/5 MDI INH SCH ×2 (07:41→21:02)
[2020-02-16] MEDS ORDERED: Influenza VAC *QUAD* 2020-21* 0.5 ML SYRINGE IM ONE (09:00)
[2020-02-16 11:36] LABS: Folate 3.83 ng/mL (>3.99)
[2020-02-16] MEDS ORDERED: Magnesium Sulfate 2 gm BAG 2 GM/50 ML BAG IVPB ONE (16:11)
[2020-02-16] MEDS: cefTRIAXone 1 gm/50 mL NS BAG 1 GM/50 ML BAG IVPB SCH ×2 (20:01→20:10)
[2020-02-16] MEDS: Albuterol HFA INHALER 8 gm MDI INH PRN (21:02)
[2020-02-17] MEDS: Ciprofloxacin 0.3% OPTH.SOL BTL BOTH EYES SCH ×5 (03:27→21:08)
[2020-02-17 06:20] LABS: ABS Lymphocytes 0.2 10^3/ul (1.0-4.8); ABS Monocytes 0.4 10^3/ul (0-0.8); ABS Neutrophils 1.9 10^3/ul (1.5-7.7); Hematocrit 28 % (35-47); Hemoglobin 9.3 g/dL (12.0-16.0); Lymphocyte % 8.6 %; Mean Corpuscular HGB Conc 33 g/dL (31-36); Mean Corpuscular Hemoglobin 32 pg (27-31); Mean Corpuscular Volume 95 fL (80-97); Mean Platelet Volume 8.4 fL (7.4-10.4); Platelet Count 53 10^3/uL (150-450); Red Blood Count 2.95 10^6 /uL (3.70-4.87); Red Cell Distribution Width 15 % (10-15); White Blood Count 2.6 10^3/uL (3.5-10.8)
[2020-02-17] MEDS: Mometasone/Formoter 200/5 MDI INH SCH ×2 (08:08→19:48)
[2020-02-17] MEDS ORDERED: Estradiol VAGINAL TAB (NF) 10 MCG VAG.TAB VAGINAL SCH (14:00)
[2020-02-17 16:22] LABS: Copper Level 0.82 mcg/mL (0.75-1.45)
[2020-02-17] MEDS: cefTRIAXone 1 gm/50 mL NS BAG 1 GM/50 ML BAG IVPB SCH (20:59)
[2020-02-18] MEDS: Ciprofloxacin 0.3% OPTH.SOL BTL BOTH EYES SCH ×7 (01:33→23:14)
[2020-02-18 06:32] LABS: ABS Neutrophils 0.7 10^3/ul (1.5-7.7); Hematocrit 28 % (35-47); Hemoglobin 9.3 g/dL (12.0-16.0); Mean Corpuscular HGB Conc 34 g/dL (31-36); Mean Corpuscular Hemoglobin 32 pg (27-31); Mean Corpuscular Volume 95 fL (80-97); Mean Platelet Volume 8.6 fL (7.4-10.4); Platelet Count 50 10^3/uL (150-450); Red Blood Count 2.93 10^6 /uL (3.70-4.87); Red Cell Distribution Width 16 % (10-15); White Blood Count 1.7 10^3/uL (3.5-10.8)
[2020-02-18] MEDS: Mometasone/Formoter 200/5 MDI INH SCH ×2 (08:20→19:19)
[2020-02-18 08:42] LABS: ABS Eosinophils 0.1 10^3/ul (0-0.6); ABS Lymphocytes 0.5 10^3/ul (1.0-4.8); ABS Monocytes 0.4 10^3/ul (0-0.8); Eosinophil % 3.6 %; Lymphocyte % 31.6 %; Nucleated Red Blood Cells % 0.1
[2020-02-18 16:18] LABS: Urine Creatinine Concentration 60.08 mg/dL
[2020-02-18] MEDS: Clotrimazole 1% VAGINAL CREAM 45 GM VAGINAL SCH (16:59)
[2020-02-18] MEDS: cefTRIAXone 1 gm/50 mL NS BAG 1 GM/50 ML BAG IVPB SCH (21:29)
[2020-02-19] MEDS: Ciprofloxacin 0.3% OPTH.SOL BTL BOTH EYES SCH ×5 (03:40→23:00)
[2020-02-19 07:50] LABS: ABS Eosinophils 0.1 10^3/ul (0-0.6); ABS Lymphocytes 0.8 10^3/ul (1.0-4.8); ABS Monocytes 0.5 10^3/ul (0-0.8); ABS Neutrophils 0.9 10^3/ul (1.5-7.7); Eosinophil % 2.5 %; Hematocrit 26 % (35-47); Hemoglobin 8.7 g/dL (12.0-16.0); Lymphocyte % 36.5 %; Mean Corpuscular HGB Conc 33 g/dL (31-36); Mean Corpuscular Hemoglobin 32 pg (27-31); Mean Corpuscular Volume 96 fL (80-97); Mean Platelet Volume 8.9 fL (7.4-10.4); Nucleated Red Blood Cells % 0.1; Platelet Count 54 10^3/uL (150-450); Red Blood Count 2.75 10^6 /uL (3.70-4.87); Red Cell Distribution Width 16 % (10-15); White Blood Count 2.3 10^3/uL (3.5-10.8)
[2020-02-19] MEDS: Mometasone/Formoter 200/5 MDI INH SCH ×2 (08:03→20:19)
[2020-02-19] MEDS: Albuterol HFA INHALER 8 gm MDI INH PRN (15:10)
[2020-02-19] MEDS: cefTRIAXone 1 gm/50 mL NS BAG 1 GM/50 ML BAG IVPB SCH (23:00)
[2020-02-19] MEDS: Clotrimazole 1% VAGINAL CREAM 45 GM VAGINAL SCH (23:00)
[2020-02-20] MEDS: Ciprofloxacin 0.3% OPTH.SOL BTL BOTH EYES SCH ×7 (01:16→21:25)
[2020-02-20] MEDS ORDERED: cefTRIAXone 1 gm/50 mL NS BAG 1 GM/50 ML BAG IVPB SCH (05:00)
[2020-02-20 07:34] LABS: ABS Eosinophils 0.1 10^3/ul (0-0.6); ABS Lymphocytes 0.9 10^3/ul (1.0-4.8); ABS Monocytes 0.5 10^3/ul (0-0.8); ABS Neutrophils 1.3 10^3/ul (1.5-7.7); Eosinophil % 3.4 %; Hematocrit 27 % (35-47); Hemoglobin 8.8 g/dL (12.0-16.0); Lymphocyte % 31.3 %; Mean Corpuscular HGB Conc 33 g/dL (31-36); Mean Corpuscular Hemoglobin 32 pg (27-31); Mean Corpuscular Volume 95 fL (80-97); Nucleated Red Blood Cells % 0.1; Platelet Count 70 10^3/uL (150-450); Red Cell Distribution Width 16 % (10-15); White Blood Count 2.8 10^3/uL (3.5-10.8)
[2020-02-20] MEDS: Mometasone/Formoter 200/5 MDI INH SCH ×2 (08:27→20:20)
[2020-02-20] MEDS: Clotrimazole 1% VAGINAL CREAM 45 GM VAGINAL SCH (21:25)
[2020-02-21] MEDS: Ciprofloxacin 0.3% OPTH.SOL BTL BOTH EYES SCH ×6 (04:09→23:00)
[2020-02-21 06:15] LABS: ABS Eosinophils 0.1 10^3/ul (0-0.6); ABS Lymphocytes 1.1 10^3/ul (1.0-4.8); ABS Monocytes 0.5 10^3/ul (0-0.8); ABS Neutrophils 1.6 10^3/ul (1.5-7.7); Eosinophil % 2.9 %; Hematocrit 27 % (35-47); Hemoglobin 8.9 g/dL (12.0-16.0); Lymphocyte % 33.8 %; Mean Corpuscular HGB Conc 33 g/dL (31-36); Mean Corpuscular Hemoglobin 31 pg (27-31); Mean Corpuscular Volume 96 fL (80-97); Mean Platelet Volume 8.4 fL (7.4-10.4); Nucleated Red Blood Cells % 0.2; Platelet Count 97 10^3/uL (150-450); Red Blood Count 2.84 10^6 /uL (3.70-4.87); Red Cell Distribution Width 17 % (10-15); White Blood Count 3.3 10^3/uL (3.5-10.8)
[2020-02-21] MEDS: Mometasone/Formoter 200/5 MDI INH SCH ×2 (07:34→19:51)
[2020-02-21] MEDS: Clotrimazole 1% VAGINAL CREAM 45 GM VAGINAL SCH (20:45)
[2020-02-22] MEDS: Ciprofloxacin 0.3% OPTH.SOL BTL BOTH EYES SCH ×4 (04:19→14:24)
[2020-02-22 07:14] LABS: ABS Eosinophils 0.1 10^3/ul (0-0.6); ABS Lymphocytes 1.3 10^3/ul (1.0-4.8); ABS Monocytes 0.5 10^3/ul (0-0.8); ABS Neutrophils 1.8 10^3/ul (1.5-7.7); Eosinophil % 2.6 %; Hematocrit 27 % (35-47); Lymphocyte % 34.6 %; Mean Corpuscular HGB Conc 34 g/dL (31-36); Mean Corpuscular Hemoglobin 32 pg (27-31); Mean Corpuscular Volume 96 fL (80-97); Mean Platelet Volume 8.3 fL (7.4-10.4); Platelet Count 98 10^3/uL (150-450); Red Blood Count 2.77 10^6 /uL (3.70-4.87); Red Cell Distribution Width 16 % (10-15); White Blood Count 3.7 10^3/uL (3.5-10.8)
[2020-02-22] MEDS: Mometasone/Formoter 200/5 MDI INH SCH ×2 (09:11→19:38)
[2020-02-22] MEDS: Clotrimazole 1% VAGINAL CREAM 45 GM VAGINAL SCH (21:05)
[2020-02-23] MEDS: Mometasone/Formoter 200/5 MDI INH SCH ×2 (07:23→19:53)
[2020-02-23] MEDS: Clotrimazole 1% VAGINAL CREAM 45 GM VAGINAL SCH (20:21)
[2020-02-24] MEDS: Mometasone/Formoter 200/5 MDI INH SCH ×2 (07:56→19:30)
[2020-02-24] MEDS: Clotrimazole 1% VAGINAL CREAM 45 GM VAGINAL SCH (22:02)
[2020-02-25 09:16] LABS: ABS Eosinophils 0.1 10^3/ul (0-0.6); ABS Lymphocytes 1.1 10^3/ul (1.0-4.8); ABS Monocytes 0.3 10^3/ul (0-0.8); ABS Neutrophils 2.3 10^3/ul (1.5-7.7); Eosinophil % 2.6 %; Hematocrit 30 % (35-47); Hemoglobin 9.8 g/dL (12.0-16.0); Lymphocyte % 28.1 %; Mean Corpuscular HGB Conc 33 g/dL (31-36); Mean Corpuscular Hemoglobin 31 pg (27-31); Mean Corpuscular Volume 96 fL (80-97); Mean Platelet Volume 8.1 fL (7.4-10.4); Nucleated Red Blood Cells % 0.1; Platelet Count 132 10^3/uL (150-450); Red Blood Count 3.14 10^6 /uL (3.70-4.87); Red Cell Distribution Width 16 % (10-15); White Blood Count 3.8 10^3/uL (3.5-10.8)
[2020-02-25] MEDS: Mometasone/Formoter 200/5 MDI INH SCH ×3 (09:25→19:33)
[2020-02-25 09:37] LABS: Albumin 3.1 g/dL (3.2-5.2); BUN/Creatinine Ratio 33.3 (8-20); Calcium 8.6 mg/dL (8.6-10.3); EGFR African American 54.9 (>60); EGFR Non-African American 45.4 (>60); Total Bilirubin 0.3 mg/dL (0.2-1.0); Total Protein 6.1 g/dL (6.4-8.9)
[2020-02-25 09:38] LABS: Potassium 5.2 mmol/L (3.5-5.0)
[2020-02-26] MEDS: Mometasone/Formoter 200/5 MDI INH SCH ×2 (09:20→20:25)
[2020-02-27] MEDS: Mometasone/Formoter 200/5 MDI INH SCH ×2 (08:36→20:01)
[2020-02-28] MEDS: Mometasone/Formoter 200/5 MDI INH SCH ×2 (08:08→20:19)
[2020-02-29] MEDS: Mometasone/Formoter 200/5 MDI INH SCH ×2 (07:37→19:43)
[2020-03-01] MEDS: Mometasone/Formoter 200/5 MDI INH SCH ×2 (08:49→20:24)
[2020-03-02] MEDS: Mometasone/Formoter 200/5 MDI INH SCH ×2 (07:15→19:26)
[2020-03-02 15:14] LABS: TB2 Ag minus Nil Result 0.01 IU/mL
[2020-03-02 15:16] LABS: QuantiferonTb Gold Plus Result Negative (Negative)
[2020-03-03] MEDS: Mometasone/Formoter 200/5 MDI INH SCH ×2 (08:31→20:25)
[2020-03-03] MEDS: Nystatin TOP POWDER 15 GM BTL TOPICAL SCH (20:39)
[2020-03-04] MEDS: Mometasone/Formoter 200/5 MDI INH SCH ×2 (07:40→19:25)
[2020-03-04] MEDS: Nystatin TOP POWDER 15 GM BTL TOPICAL SCH ×2 (10:00→20:23)
[2020-03-05] MEDS: Mometasone/Formoter 200/5 MDI INH SCH ×2 (08:13→19:10)
[2020-03-05] MEDS: Nystatin TOP POWDER 15 GM BTL TOPICAL SCH ×2 (10:42→21:54)
[2020-03-06] MEDS: Mometasone/Formoter 200/5 MDI INH SCH ×2 (07:32→21:05)
[2020-03-06] MEDS: Nystatin TOP POWDER 15 GM BTL TOPICAL SCH ×2 (08:46→21:06)
[2020-03-07] MEDS: Nystatin TOP POWDER 15 GM BTL TOPICAL SCH ×2 (08:29→22:35)
[2020-03-07] MEDS: Mometasone/Formoter 200/5 MDI INH SCH ×2 (10:50→19:56)
[2020-03-08] MEDS: Mometasone/Formoter 200/5 MDI INH SCH ×2 (08:15→19:23)
[2020-03-08] MEDS: Nystatin TOP POWDER 15 GM BTL TOPICAL SCH ×2 (11:52→22:13)
[2020-03-09 07:31] VITALS: BP 110/44
[2020-03-09] MEDS: Mometasone/Formoter 200/5 MDI INH SCH (07:59)
[2020-03-09] MEDS: Nystatin TOP POWDER 15 GM BTL TOPICAL SCH (08:59)
== END 2020-03-09 15:45 | disposition home or self-care (01) ==
LOC: ED 17:02 → MED 21:33
PROVIDERS: ADMIT Student in an Organized Health Care Education/Training Program; ATTEND Internal Medicine